=== PATIENT | female | born 1945 | race Caucasian/White ===

== ENCOUNTER → 2021-01-28 | Day surgery (SDC) | payer OTHER ==
--- NOTE | 2021-01-28 13:21 | RAD REPORT ---
EXAM DESCRIPTION: US - Guided FNA Non Breast - 01/28/2021 11:19 am CLINICAL HISTORY: Thyroid nodule ICD R22.1 COMPARISON: January 13, 2021 ultrasound TECHNIQUE: Risks, benefits and alternatives of procedure explained to the patient and informed conse nt obtained. Skin and subcutaneous tissues anesthetized with lidocaine. Under sonographic guidance, Five 25 gauge needle passes were obtained into the 11 millimeter nodule within the right lobe contain ing punctate calcification. Five 25 gauge needle passes were obtained into the 16 millimeter partially calcified nodule left lobe of the thyroid. Five 25 gauge needle passes were obtained into the 4.2 centimeter nodule left lobe of the thyroid gla nd. Specimens given to pathology. Patient experienced no immediate complication IMPRESSION: Fine-needle aspiration of 3 nodules within the thyroid gland
--- NOTE | 2021-01-28 15:30 | RAD REPORT ---
EXAM DESCRIPTION: US - FINE NEEDLE ASPIRATION 2ND LES - 01/28/2021 11:25 am CLINICAL HISTORY: Thyroid nodule ICD R22.1 COMPARISON: January 13, 2021 ultrasound TECHNIQUE: Risks, benefits and alternatives of procedure explained to the patient and informed conse nt obtained. Skin and subcutaneous tissues anesthetized with lidocaine. Under sonographic guidance, Five 25 gauge needle passes were obtained into the 11 millimeter nodule within the right lobe contain ing punctate calcification. Five 25 gauge needle passes were obtained into the 16 millimeter partially calcified nodule left lobe of the thyroid. Five 25 gauge needle passes were obtained into the 4.2 centimeter nodule left lobe of the thyroid gla nd. Specimens given to pathology. Patient experienced no immediate complication IMPRESSION: Fine-needle aspiration of 3 nodules within the thyroid gland
== END ==
LOC: FNA 09:38
PROVIDERS: ATTEND Family Medicine
DX: R22.1 Localized swelling, mass and lump, neck (principal)
CPT/HCPCS: 10006; 88162; 88305

== ENCOUNTER 2021-03-08 22:40 | Inpatient (IN) | payer OTHER ==
--- OUTSIDE RECORDS SUMMARY | 2021-03-08 22:44 | XMS REPORT | Continuity of Care Document ---
:1945 Author Organization [facility] t Address [address] [place] [address] Care Team Providers Name Role Phone Chicho Ibarra MD Attending Clinician Danilo Mock MD Attending Clinician CHICHO IBARRA Attending Clinician Unavailable Evelyn ARELLANO Attending Clinician [address] Room Attending Clinician Unavailable EVELYN Attending Clinician Unavailable CHICHO IBARRA Admitting Clinician Unavailable Payers Payer Name Policy Type Policy Effective Date Expiration Date Sour ce Number MEDICAREMEDICARE A [id number] 2008 SHEILA Watkins [id number] 2007- 00:00:00 - [facility] MCR [id number] 2017 SHEILA Mcdonald SUPPLEMENT/INDIVIDUALM 00:00:00 - [facility] [id number] 2016- PresentMedigap Problems Condition Condition Condition Status Onset Resolution Last Treating Co mments Source Name Details Category Date Date Treatment Clinician Date Thyroid Thyroid Disease Active SHEILA Bella cancer cancer 6- [facility] S/P S/P Disease Active SHEILA Bella thyroidect thyroidect 03-05 [facility] - la nena la nena 00:00: Medical 00 Center Papillary Papillary Disease Active SHEILA Bella thyroid thyroid 02-11 [facility] - carcinoma carcinoma 00:00: Medi shy 00 Center Essential Essential Disease Active 2017-[address] [facility] hypertensi hypertensi 2-17 Mary kes - on on 00:00: Medical 00 Center Atrial Atrial Disease Active 2017-[address] [facility] fibrillati fibrillati 2-17 Mary kes - on with on with 00:00: Medical RVR RVR 00 Center Allergies, Adverse Reactions, Alerts Allergy Allergy Status Severity Reaction(s) Onset Inactive Treating Comm ents Source Name Type Date Date Clinician Sulfa Drug Active Other (See 2017-[address] [facility] (Sulfona Allergy Comments), 2-16 [facility] - mide Rash 00:00: Medical Antibiot 00 Center ics) Social History Social Habit Start Date Stop Date Quantity Comments Source History SDOH [facility] - Alcohol Std Drinks [facility] History SDOH [facility] Binge Medical [facility] Sex Assigned At [facility] Exposure to Not sure SHEILA Sorianokes - SARS-CoV-2 (event) [facility] Tobacco use and 2021-03-05 2021-03-05 Never used [facility] - exposure 00:00:00 00:00:00 [facility] Alcohol intake 2021-03-05 2021-03-05 [facility]00 of alcohol [facility] Center (finding) History SDOH 2021-03-04 2021-03-04 1 [facility] Frequency 00:00:00 00:00:00 [facility] Tobacco Comment 2021-03-04 2021-03-04 quit- [facility] 00:00:00 ago [facility] Smoking Status Start Date Stop Date Source Former smoker 2021-03-05 00:00:00 2021-03-05 00:00:00 [facility] Medications Ordered Filled Start Stop Current Ordering Indication Dosage Frequency Signature Comments Components Source Medication Medication Date Date Medication? Clinician (SIG) Name Name omega-3 Yes 2g Q.5D Take [address] [facility] acid ethyl 6-04 by mouth 2 [place] [facility] - esters 08:42: (two) Medical (LOVAZA) 1 11 times Center gram daily. capsule fenofibrate Yes 145mg QD Take [address] (TRICOR) 6-04 mg by [facility] - 145 MG 08:42: mouth Medical tablet 11 daily. [place] ramipriL Yes 10mg QD Take [address] (ALTACE) 10 04 by mouth Luke s - MG capsule 08:42: daily. Medic al 11 [place] sertraline Yes 50mg QD Take [address] (ZOLOFT) 50 6-04 by mouth Luke [facility] - MG tablet 08:42: daily. Medica l 11 [place] rivaroxaban Yes Take by [facility] (XARELTO) 04 mouth [facility] - 20 mg Tab 08:42: daily with Me dical tablet 11 dinner. [place] furosemide Yes 80mg Q.5D Take [address] (LASIX) 80 6-04 by mouth 2 [facility] - MG tablet 08:42: (two) Medical 11 times Center daily. omeprazole Yes 40mg QD Take [address] (PriLOSEC) 6-04 by mouth [facility] - 40 MG 08:42: daily. Medical capsule 11 [place] metoprolol Yes 25mg Q.5D Take [address] tartrate -04 by mouth 2 [facility] - (LOPRESSOR) 08:42: (two) Medic al 25 MG 11 times Center tablet daily. calcitrioL 2021- Yes .25ug QD Take [address] (ROCALTROL) 03-06 capsule Luke s - 0.25 MCG 00:00: 23:59 (0.25 mcg Med ical capsule 00 :00 total) by Center mouth daily. levothyroxi 2021- Yes 150ug Take [address] ne 03-06 tablet [facility] - (SYNTHROID, 00:00: 23:59 (150 mcg M edical LEVOTHROID) 00 :00 total) by [address] [facility] 150 MCG mouth tablet Every morning on an empty stomach. calcium 2020- No 1500mg Take 3 [facility] carbonate 03-06 tablets [facility] - (TUMS) 500 00:00: 00:00 (1,500 mg M edical mg chewable 00 :00 total) by [address] [facility] tablet mouth every 4 (four) hours Take every 4 hours while awake. Vital Signs Vital Name Observation Time Observation Value Comments Source Oxygen saturation in 2021-03-06 07:47:00 96 /min [facility] - Arterial blood by Medical Ce nter Pulse oximetry Systolic blood 2021-03-06 07:47:00 135 mm[Hg] [facility] Diastolic blood 2021-03-06 07:47:00 75 mm[Hg] [facility] Heart rate 2021-03-06 07:47:00 64 /min [facility] Body temperature 2021-03-06 07:47:00 36.39 Melia [facility] Respiratory rate 2021-03-06 07:47:00 18 /min [facility] Body height 2021-03-05 07:00:00 170.2 cm [facility] Body weight 2021-03-05 07:00:00 86.2 kg [facility] BMI 2021-03-05 07:00:00 29.76 kg/m2 [facility] Procedures Procedure Date / Time Performed Performing Clinician [facility] e POCT-GLUCOSE METER 2021-03-05 21:37:00 Stacey Arnot [facility] ECG 12-LEAD 2021-03-05 17:03:21 Quirino Ennis [facility] PTH, INTACT 2021-03-05 12:21:00 Wyatt Lu [facility] PTH, INTACT 2021-03-05 11:22:[facility] 2021-03-05 11:11:[facility] 2021-03-05 11:04:54 [facility], INTACT 2021-03-05 10:20:44 Stacey [facility] THYROIDECTOMY,TOTAL 2021-03-05 09:30:00 Stacey [facility] DISSECTION,NECK 2021-03-05 09:30:00 Stacey [facility] PROCEDURE W/ NIMS 2021-03-05 09:30:00 Vidal Ibarra [facility] BASIC METABOLIC PANEL 2021-03-05 08:07:00 Loco Bridger [facility] - (7) Medical Center ABORH, MANUAL 2021-03-05 07:45:00 Jennifer oRn [facility] HEMOGLOBIN 2021-03-05 07:34:00 Loco Bridger [facility] TYPE AND SCREEN, 2021-03-05 07:34:00 Wyatt Lu [facility] s - AUTOMATED [facility] Center CT NECK SOFT TISSUE 2021-02-18 13:38:00 Evelyn Caren [facility] - WITH & WITHOUT IV Medical Center CONTRAST POCT-CREATININE 2021-02-18 12:29:00 [facility] Caren [facility] Plan of Care Planned Activity Planned Date Details Comments Source Future Scheduled 2021-06-[address] [facility] - Test 00:00:00 (Season Ended) [code Medical Center = INFLUENZA VACCINE (Season Ended)] Future Scheduled 2020-10-[address] [facility] - Test 00:00:00 (12+) [code = Medical Center DEPRESSION SCREENING (12+)] Future Scheduled 2009-09-[address] [facility] - Test 00:00:00 WELLNESS (YEAR 2 or Medical Center FIRST YEAR if no IPPE) [code = MEDICARE ANNUAL WELLNESS (YEAR 2 or FIRST YEAR if no IPPE)] Future Scheduled 1993 SHINGLES VACCINES ([address] [facility] - Test 00:00:00 of 2) [code = Medical Center SHINGLES VACCINES (1 of 2)] Future Scheduled 1962 DTAP/TDAP/TD VACCINES [facility] - Test 00:00:00 (1 - Tdap) [code = Medical C enter DTAP/TDAP/TD VACCINES (1 - Tdap)] Future Scheduled 1961 HEPATITIS C SCREENING [facility] - Test 00:00:00 [code = HEPATITIS C Medical Center SCREENING] Results Test Description Test Time Test Comments Results Result Sourc e Comments ECG 12 lead Interface, External Ris [facility] 4 In - 03/06/2021 4:59 [facility] - 16:59:20 PM CDTVentricular Rate Me dical 71 BPMAtrial Rate [address] BPMQRS Duration 154 msQ-T Interval 440 msQTC Calculation(Bazett) 478 msR [place] -46 degreesT [place] 135 degreesAtrial fibrillation with premature ventricular or aberrantly conducted complexesLeft axis deviationLeft bundle branch blockAbnormal ECGNo previous ECGs availableConfirmed by MD Mir Roberto ([id number]) on 03/06/2021 4:59:16 PM POC-Glucose meter 2021-03-05 21:48:00 Test Item Value Reference Range Interpretation Comme nts POC-Glucose Meter (test code = 122 mg/dL 70-110 H : TESTED AT [facility] [address] [facility] 1538) [facility], [address] 30: Workforce Development Assistant/Techni maria fernanda ID = [id number] for ELLA JOHNSON Lab Interpretation (test code = Abnormal 50195-1) [facility]SE [id number] 21:48:00 Test Item Value Reference Range Interpretation Comments POC-GLUCOSE METER 122 mg/dL 70-110 H : TESTED A T [facility] [address] (BEAKER) (test code = BERTNE R [facility], 1538) [address]: Workforce Development Assistant/Techni maria fernanda ID = [id number] for ELLA MARQUIS PTH, [id number] 12:53:00 Test Item Value Reference Range Interpretation Comments PTH (test code = 2731-8) 10.4 pg/mL 8.5-72.5 ANIBAL (test code = ANIBAL) Workforce Development Assistant ID - RANI F Lab Interpretation (test Normal code = 75617-2) [facility], [id number] 12:53:00 Test Item Value Reference Range Interpretation Comments PARATHYROID HORMONE INTACT 10.4 pg/mL 8.5-72.5 (BEAKER) (test code = 577) Workforce Development Assistant ID - RANI FPTH, [id number] 12:33:00 Test Item Value Reference Range Interpretation Comments PARATHYROID HORMONE INTACT 60.9 pg/mL 8.5-72.5 (AKER) (test code = 577) Workforce Development Assistant ID Joshua SARAVIA TH, [id number] 11:48:00 Test Item Value Reference Range Interpretation Comments PARATHYROID HORMONE INTACT 18.2 pg/mL 8.5-72.5 (BEAKER) (test code = 577) Workforce Development Assistant CARLOS SARAVIA [facility], [id number] 11:38:00 Test Item Value Reference Range Interpretation Comments PARATHYROID HORMONE INTACT 78.8 pg/mL 8.5-72.5 H (BEAKER) (test code = 577) Workforce Development Assistant CARLOS SARAVIA [facility], [id number] 10:45:00 Test Item Value Reference Range Interpretation Comments PARATHYROID HORMONE INTACT 223.6 pg/mL 8.5-72.5 H (BEAKER) (test code = 577) Workforce Development Assistant CARLOS SARAVIA FBasic Metabolic [id number] 08:46:00 Test Item Value Reference Range Interpretation Comments Sodium (test code = 140 meq/L 263-553 2615-2) Potassium (test code 4.7 meq/L 3.5-5.1 = 2823-3) Chloride (test code = 101 meq/L 98-107 2075-0) CO2 (test code = 28 meq/L 22-29 2028-9) BUN (test code = 35 mg/dL 7-21 H 3094-0) Creatinine (test code 1.25 mg/dL 0.57-1.25 = 2160-0) Glucose (test code = 108 mg/dL 70-105 H 2345-7) Calcium (test code = 10.9 mg/dL 8.4-10.2 H 39689-2) EGFR (test code = 42 mL/min/1.73 [place] [address]-1) NOT ACCURATE CREATININE CLEARANCE IN PREDICTING GLOMERULAR FILTRATION RATE . ESTIMATED GFR I S NOT APPLICABLE FOR DIALYSIS PATIENTS. ANIBAL (test code = ANIBAL) Workforce Development Assistant ID Joshua SARAVIA FOperator CARLOS SARAVIA F Lab Interpretation Abnormal (test code = 21146-0) [facility] METABOLIC [id number] 08:46:00 Test Item Value Reference Range Interpretation Comments SODIUM (BEAKER) 140 meq/L 136-145 (test code = 381) POTASSIUM (BEAKER) 4.7 meq/L 3.5-5.1 (test code = 379) CHLORIDE (BEAKER) 101 meq/L 98-107 (test code = 382) CO2 (BEAKER) (test 28 meq/L 22-29 code = 355) BLOOD UREA NITROGEN 35 mg/dL 7-21 H (BEAKER) (test code = 354) CREATININE (BEAKER) 1.25 mg/dL 0.57-1.25 (test code = 358) GLUCOSE RANDOM 108 mg/dL 70-105 H (BEAKER) (test code = 652) CALCIUM (BEAKER) 10.9 mg/dL 8.4-10.2 H (test code = 697) EGFR (BEAKER) (test 42 mL/min/1.73 ESTIMA CALLUM GFR IS code = 1092) sq m NOT ACCURATE CREATININE CLEARANCE IN PREDICTING GLOMERULAR FILTRATION RATE . ESTIMATED GFR I S NOT APPLICABLE FOR DIALYSIS PATIEN TS. Workforce Development Assistant ID - RANI FOperator ID - RANI FType and screen, automated 2021-03-05 08:35:00 Test Item Value Reference Range Interpretation Comments ABO/RH AUTOMATED (BEAKER) (test O POSITIVE code = 2260) Ab Scrn (test code = 890-4) NEGATIVE [facility], [id number] 07:56:00 Test Item Value Reference Range Interpretation Comments ABO Grouping (test code = 2588) O Rh Factor (test code = 2589) POS [facility] CenterHemoglobin2021-06-03 07:44:00 Test Item Value Reference Range Interpretation Comments Hemoglobin (test code 14.0 See_Comment [Auto mated = 786-4) message] The system which generated this result transmit callum reference range : 11.2 - 15.7 GM/ DL. The reference range was not u sed to interpret th is result as normal/abnormal . ANIBAL (test code = ANIBAL) Workforce Development Assistant ID - [id number] Lab Interpretation Normal (test code = 79099-2) [facility] CenterHEMOGLOBIN2021-06-03 07:44:00 Test Item Value Reference Range Interpretation Comments HEMOGLOBIN (BEAKER) (test code = 14.0 GM/DL 11.2-15.7 410) Workforce Development Assistant ID - [id number], SOFT TISSUE NECK, WITHOUT / WITH IV [id number] 15:40:00Parathyroid glandsUnlisted Reason for Exam - Click Yes and Enter Reason Below->NoKAISER FOUNDATION HOSPITALName: JESSICA ASTUDILLO : 1945 Sex: FFINAL REPORT EXAMINATION: CT of the neck without and with contrast HISTORY: Primary hyperparathyroidism, evaluate for parathyroid adenoma. History of thyroid cancerand biopsy on 01/31/2021OMPARISON: None TECHNIQUE: Multidetector helical axial images were obtained from the denise to the angle of the mandible before and during intravenous infusion of iodinated contrast material. Intravenous contrast: 100 middle [id number]-300.Image quality: Prominent streak artifact from hearing devices and dental amalgams limits evaluation of the upper neck and oral cavity.Dose modulation, iterative reconstruction, and/or weight based adjustment of the mA/kV was utilized to reduce the radiation dose to as low as reasonably achievable. FINDINGS: Mass: Small approximately 6 mm not significantly enhancing nodule behind the superior pole of the left lobe of the thyroid gland, almost retroesophageal may represent a lymph node versus a left superior parathyroid adenoma (please see arrows on saved ndiaye images).A small 5 mm nonsignificant enhancing nodule adjacent to the inferior pole of the left lobe of the thyroid gland may represent a lymph node versus a not significantly enhancing left inferior parathyroid adenoma. (Please see arrows on saved ndiaye images). Lymph nodes: Multiple small central compartment lymph nodes may be related to prior thyroiditis, dizziness evaluation of parathyroid adenomas. Oral cavity: Limited evaluation due to prominent streak artifact from metallic dental fillings. Salivary glands: The right submandibular gland cyst smaller, mildly atrophic, possibly the sequela from prior inflammatory processes/sialoadenitis, no soft tissue defects are seen at this time. Included parotid glands are unremarkable. Pharynx: Incidentally noted1.1 cm nonenhancing mucosal retention cyst in the right vallecula Larynx: Unremarkable. Thyroid gland: Mild diffuse enlargement, with multiple partially calcified nodules in approximately 2.7 cm cystic lesion in the left lobe/isthmus (this cystic lesion appears to be inseparable from the overlying strap muscles, without definite infiltration). No Saul extrathyroidal tumor extension, no infiltration of the trachea, esophagus or carotid space vessels. Upper esophagus: Mild proximal distention, distal stenosis cannot be excluded in the appropriate clinical setting. Blood vessels: Patent carotid arteries. Bones: Multilevel spondylosis, uncovertebral and facet arthroses. Moderately severe degenerative foraminal stenoses at C3-C4 and mild at C4-C5 and C5-C6 and C6-7. Interbody and posterior fusion at C2-C3. Mild degenerative retrolisthesis at C4-C5 and C5-C6. Incidentalfindings: Torus palatini as a normal variation of the anatomy. IMPRESSION: 1.No discrete parathyroidadenoma, suspicious not significantly enhancing small left superior and left inferior retro thyroidal nodules as detailed above. 2.Heterogeneous thyroid gland with multiple partially calcified and cystic nodules as detailed above. 3.No enlarged cervical lymphadenopathy. Signed: Daisy Browning MDReport Verified Date/Time: 02/18/2021 15:40:00 Reading Location: [facility] Room [address] [place] [address] CT neck soft tissue without & with IV [id number] 15:40:00Interface, External Ris In - 02/18/2021 3:42 PM CDTFINAL REPORT EXAMINATION:CT of the neck without and with contrast HISTORY: Primary hyperparathyroidism, evaluate for parathyroid adenoma. History of thyroid cancer and biopsy on 01/31/2021OMPARISON: None TECHNIQUE: Multidetector helical axial images were obtained from the denise to the angle of the mandible before and during intravenous infusion of iodinated contrast material. Intravenous contrast: 100 middle Isovue-300.Image quality: Prominent streak artifact from hearing devices and dental amalgams limits evaluation of the upper neck and oral cavity.Dose modulation, iterative reconstruction, and/or weight based adjustment of the mA/kV was utilized to reduce the radiation dose to as low as reasonably achievable. FINDINGS: Mass: Small approximately 6 mm not significantly enhancing nodule behind the superior pole of the left lobe of the thyroid gland, almost retroesophageal may represent a lymph node versus a left superior parathyroid adenoma (please see arrows on saved ndiaye images).A small 5 mm nonsignificant enhancing nodule adjacent to the inferior pole of the left lobe of the thyroid gland may represent a lymph node versus a not significantly enhancing left inferior parathyroid adenoma. (Please see arrowson saved ndiaye images). Lymph nodes: Multiple small central compartment lymph nodes may be related to prior thyroiditis, dizziness evaluation of parathyroid adenomas. Oral cavity: Limited evaluation due to prominent streak artifact from metallic dental fillings. Salivary glands: The right submandibular gland cyst smaller, mildly atrophic, possibly the sequela from prior inflammatory process es/sialoadenitis, no soft tissue defects are seen at this time. Included parotid glands are unremarkable. Pharynx: Incidentally noted 1.1 cm nonenhancing mucosal retention cyst in the right vallecula Larynx: Unremarkable. Thyroid gland: Mild diffuse enlargement, with multiple partially calcified nodules in approximately 2.7 cm cystic lesion in the left lobe/isthmus (this cystic lesion appears to be inseparable from the overlying strap muscles, without definite infiltration). No Saul extrathyroidal tumor extension, no infiltration of the trachea, esophagus or carotid space vessels. Upper esophagus: Mild proximal distention, distal stenosis cannot be excluded in the appropriate clinical setting. Blood vessels: Patent carotid arteries. Bones: Multilevel spondylosis, uncovertebral and facet arthroses. Moderately severe degenerative foraminal stenoses at C3-C4 and mild at C4-C5 and C5-C6 and C6-7. Interbody and posterior fusion at C2-C3. Mild degenerative retrolisthesis at C4-C5 and C5-C6. Incidental findings: Torus palatini as a normal variation of the anatomy. IMPRESSION: 1.No discrete parathyroid adenoma, suspicious not significantly enhancing small left superior and left inferior retro thyroidal nodules as detailed above. 2.Heterogeneous thyroid glandwith multiple partially calcified and cystic nodules as detailed above. 3.No enlarged cervical lymphadenopathy. Signed: Daisy Browning MDReport Verified Date/Time: 02/18/2021 15:40:00 Reading Location: [facility] Room [address] [place] [address] [facility]-[id number] 12:49:00 Test Item Value Reference Range Interpretation Comments POC-Creatinine (test 1.1 mg/dL 0.6-1.3 : TESTE D AT [facility] 7200 code = 1859) [facility] 7703 0: Workforce Development Assistant/Techni maria fernanda ID = [id number] for CE PACHECO POC-EGFR (test code 48 mL/min/1.73M2 = 1860) [facility] CenterPOCT-[id number] 12:49:00 Test Item Value Reference Range Interpretation Comments POC-CREATININE 1.1 mg/dL 0.6-1.3 : TESTED AT [facility] ([facility]) (test 7[address] [facility] code = 1859) [facility] 7 7030: Workforce Development Assistant/Techni maria fernanda ID = [id number] for CE VALLECILLO POC-EGFR 48 mL/min/1.73M2 ([facility]) (test code = 1860)
[2021-03-09 00:05] LABS: Potassium 4.4 mmol/L (3.5-5.1)
[2021-03-09 00:09] LABS: Absolute Lymphocytes (CBC) 0.6 K/uL (0.7-4.9); Basophils % 0.3 % (0-1.3); Hematocrit 42.3 % (36.0-45.0); Lymphocytes % 9.9 % (15.3-44.8); MPV 9.7 fL (7.6-11.3)
[2021-03-09 00:11] LABS: Protime INR 1.77
--- NOTE | 2021-03-09 02:46 | EDPHYS ---
Physician Documentation [facility] Name: Nia Mandel Age: 75 yrs Sex: Female : 1945 Arrival Date: 03/08/2021 Time: 22:44 Bed 19 Private MD: ED Physician Kilo Mota HPI: 03/09 06:49 This 75 yrs old Female presents to ER via Ambulatory with complaints of tw4 Shoulder and Arm pain and numbness. 06:49 The patient presents to the emergency department with paresthesias of the right upper tw4 extremity. Onset: The symptoms/episode began/occurred today. Context: occurred at home. Associated signs and symptoms: Pertinent positives: weakness. Severity of symptoms: At their worst the symptoms were moderate in the emergency department the symptoms have improved markedly. Patient's baseline: Neuro: alert and fully oriented, Motor: no deficits. Historical: - Allergies: 03/08 23:12 Sulfa (Sulfonamide Antibiotics); bb - Home Meds: 23:12 calcitriol oral oral [Active]; levothyroxine oral [Active]; fenofibrate oral oral bb [Active]; Furosemide Oral [Active]; Metoprolol Tartrate Oral [Active]; omega-3 [Active]; Omeprazole Oral [Active]; Ramipril Oral [Active]; rivaroxaban oral oral [Active]; sertraline oral oral [Active]; - PSHx: 23:12 Thyroidectomy; bb - Immunization history:: Adult Immunizations up to date. - Social history:: Smoking status: unknown. ROS: 03/09 06:49 Constitutional: Negative for fever, chills, and weight loss, Eyes: Negative for injury, tw4 pain, redness, and discharge, Cardiovascular: Negative for chest pain, palpitations, and edema, Respiratory: Negative for shortness of breath, cough, wheezing, and pleuritic chest pain, Abdomen/GI: Negative for abdominal pain, nausea, vomiting, diarrhea, and constipation, Back: Negative for injury and pain, MS/Extremity: Negative for injury and deformity, Skin: Negative for injury, rash, and discoloration. Neuro: Positive for numbness, weakness, Negative for altered mental status, dizziness, gait disturbance, headache. Exam: 06:49 Constitutional: This is a well developed, well nourished patient who is awake, alert, tw4 and in no acute distress. Head/Face: Normocephalic, atraumatic. Chest/axilla: Normal chest wall appearance and motion. Nontender with no deformity. No lesions are appreciated. Cardiovascular: Regular rate and rhythm with a normal S1 and S2. No gallops, murmurs, or rubs. Normal PMI, no JVD. No pulse deficits. Respiratory: Lungs have equal breath sounds bilaterally, clear to auscultation and percussion. No rales, rhonchi or wheezes noted. No increased work of breathing, no retractions or nasal flaring. Abdomen/GI: Soft, non-tender, with normal bowel sounds. No distension or tympany. No guarding or rebound. No evidence of tenderness throughout. Back: No spinal tenderness. No costovertebral tenderness. Full range of motion. Skin: Warm, dry with normal turgor. Normal color with no rashes, no lesions, and no evidence of cellulitis. MS/ Extremity: Pulses equal, no cyanosis. Neurovascular intact. Full, normal range of motion. Neuro: Awake and alert, GCS 15, oriented to person, place, time, and situation. Cranial nerves II-XII grossly intact. Motor strength 5/5 in all extremities. Sensory grossly intact. Cerebellar exam normal. Normal gait. Vital Signs: 03/08 23:05 BP 179 / 124; Pulse 97; Resp 16; Temp 98.4(O); Pulse Ox 95% on R/A; Weight 83.91 kg bb (R); Height 5 ft. 7 in. (170.18 cm) (R); Pain 6/10; 23:42 BP 170 / 88; Pulse 87; Resp 18; Pulse Ox 100% ; ak2 03/09 02:14 BP 162 / 85; Pulse 82; Resp 18; Pulse Ox 97% ; ak2 05:38 BP 159 / 86; Pulse 83; Resp 18; Pulse Ox 98% on R/A; ak2 03/08 23:05 Body Mass Index 28.97 (83.91 kg, 170.18 cm) bb MDM: 03/08 23:05 Patient medically screened. tw4 03/09 06:49 Data reviewed: vital signs, nurses notes. Data interpreted: Pulse oximetry: tw4 Interpretation: normal. Counseling: I had a detailed discussion with the patient and/or guardian regarding: the historical points, exam findings, and any diagnostic results supporting the discharge/admit diagnosis. Physician consultation: Felipe Forde MD regarding admission, to the telemetry unit. and will see patient in inpatient room. Admission orders: after a detailed discussion of the patient's condition and case, the admit orders are written by me. 03/08 23:32 Order name: Basic Metabolic Panel; Complete Time: 00:27 03/09 00:27 Interpretation: Normal except: NA 135; GLUC 151; BUN 35; CRE 1.36; GFR 38. 03/08 23:32 Order name: CBC with Diff; Complete Time: 00:27 03/09 00:27 Interpretation: Normal except: LYM% 9.9; ROBI% 77.7. 03/08 23:32 Order name: Protime (+inr); Complete Time: 00:27 03/09 00:27 Interpretation: Normal except: PT 20.5. 03/08 23:32 Order name: Ptt, Activated; Complete Time: 00:27 03/09 00:28 Interpretation: Abnormal: PTT 40.4. 03/09 04:57 Order name: SARS-COV-2 RT PCR [facility] 03/09 05:20 Order name: CKMB Creatine Kinase MB [facility] 03/09 05:20 Order name: CKMB Creatine Kinase MB [facility] 03/09 05:20 Order name: Creatine Phosphokinase [facility] 03/09 05:20 Order name: Creatine Phosphokinase [facility] 03/09 05:20 Order name: Lipid Profile [facility] 03/09 05:20 Order name: Lipid Profile [facility] 03/09 05:20 Order name: Troponin I [facility] 03/09 05:20 Order name: Troponin I [facility] 03/08 23:19 Order name: Ct Stroke Brain Wo Cont [facility] 03/08 23:32 Order name: Call for Old Records; Complete Time: 23:36 03/08 23:32 Order name: Call for Old EKG; Complete Time: 23:36 03/08 23:32 Order name: Stroke CXR 1 View 03/08 23:32 Order name: EKG; Complete Time: 23:33 03/08 23:32 Order name: Accucheck tw4 06/06 23:32 Order name: Cardiac monitoring tw4 03/08 23:32 Order name: EKG - Nurse/Tech tw4 03/08 23:32 Order name: IV Saline Lock tw4 03/08 23:32 Order name: Labs collected and sent tw4 03/08 23:32 Order name: NPO tw4 03/08 23:32 Order name: O2 Per Protocol tw4 03/09 05:20 Order name: NPO EDMS 03/09 05:20 Order name: NPO EDMS 03/09 05:20 Order name: NPO EDMS 03/09 05:22 Order name: Brain With Cont EDMS 03/08 23:32 Order name: O2 Sat Monitoring tw4 03/08 23:32 Order name: Stroke Swallow Screen 4 Administered Medications: No medications were administered Disposition: 03/09/21 02:46 Hospitalization ordered by Felipe Forde for Observation. Preliminary diagnosis is PARASTHESIA. - Bed requested for Telemetry/MedSurg (observation). - Status is Observation. ak2 - Condition is Stable. - Problem is new. - Symptoms have improved. Signatures: Dispatcher [employer] EDMN Kena Almendarez RN RN Emily Kirby RN RN Kilo Salazar MD MD tw4 Jaison Benoit mw2 Serafin Freeman ak2 Corrections: (The following items were deleted from the chart) 03:22 02:46 Hospitalization Ordered by Kike Slater DO for Observation. Preliminary tw4 diagnosis is PARASTHESIA. Bed requested for Telemetry/MedSurg (observation). Status is Observation. Condition is Stable. Problem is new. Symptoms have improved. tw4 04:01 02:52 CORONAVIRUS+MR.LAB.BRZ ordered. [facility] EDMS 05:24 03:22 03/09/2021 02:46 Hospitalization Ordered by Felipe Forde MD for Observation. Preliminary diagnosis is PARASTHESIA. Bed requested for Telemetry/MedSurg (observation). Status is Observation. Condition is Stable. Problem is new. Symptoms have improved. tw4 06:04 05:24 03/09/2021 02:46 Hospitalization Ordered by Felipe Forde MD for Observation. ak2 Preliminary diagnosis is PARASTHESIA. Bed requested for Telemetry/MedSurg (observation). Status is Observation. Condition is Stable. Problem is new. Symptoms have improved. mw
--- NOTE | 2021-03-09 02:46 | ER ---
Nurse's Notes [facility] Name: Nia Mandel Age: 75 yrs Sex: Female : 1945 Arrival Date: 03/08/2021 Time: 22:44 Bed 19 Private MD: Diagnosis: PARASTHESIA Presentation: 03/08 23:05 Chief complaint: Patient states: [facility] she had a sudden onset of right shoulder pain with numbness of fingers and inability to move them they called her surgeon and was told it was low calcium so she took tums but it is still painful. Coronavirus screen: At this time, the client does not indicate any symptoms associated with coronavirus-19. Ebola Screen: No symptoms or risks identified at this time. Initial Sepsis Screen: Does the patient meet any 2 criteria? No. Patient's initial sepsis screen is negative. Does the patient have a suspected source of infection? No. Patient's initial sepsis screen is negative. Risk Assessment: Do you want to hurt yourself or someone else? Patient reports no desire to harm self or others. Onset of symptoms was March 08, 2021 at 19:30. 23:05 Method Of Arrival: Ambulatory bb 23:05 Acuity: SHYANNE 2 bb Triage Assessment: 23:38 General: Appears in no apparent distress. Behavior is calm, cooperative. Pain: ak2 Complains of pain in right arm. Historical: - Allergies: 23:12 Sulfa (Sulfonamide Antibiotics); bb - Home Meds: 23:12 calcitriol oral oral [Active]; levothyroxine oral [Active]; fenofibrate oral oral bb [Active]; Furosemide Oral [Active]; Metoprolol Tartrate Oral [Active]; omega-3 [Active]; Omeprazole Oral [Active]; Ramipril Oral [Active]; rivaroxaban oral oral [Active]; sertraline oral oral [Active]; - PSHx: 23:12 Thyroidectomy; bb - Immunization history:: Adult Immunizations up to date. - Social history:: Smoking status: unknown. Screenin:37 Abuse screen: Denies threats or abuse. Denies injuries from another. Nutritional ak2 screening: No deficits noted. Tuberculosis screening: No symptoms or risk factors identified. Fall Risk None identified. Assessment: 23:04 Reassessment: pt to CT scan via stretcher accompanied by drivability technician. bb 03/09 05:39 General: report called to rn. ak2 Vital Signs: 03/08 23:05 BP 179 / 124; Pulse 97; Resp 16; Temp 98.4(O); Pulse Ox 95% on R/A; Weight 83.91 kg bb (R); Height 5 ft. 7 in. (170.18 cm) (R); Pain 6/10; 23:42 BP 170 / 88; Pulse 87; Resp 18; Pulse Ox 100% ; ak2 03/09 02:14 BP 162 / 85; Pulse 82; Resp 18; Pulse Ox 97% ; ak2 05:38 BP 159 / 86; Pulse 83; Resp 18; Pulse Ox 98% on R/A; ak2 03/08 23:05 Body Mass Index 28.97 (83.91 kg, 170.18 cm) ashley ED Course: 03/08 22:44 Patient arrived in ED. cf2 23:04 Arm band placed on Patient placed in an exam room, on a stretcher, code stroke called bb pt to CT scan. 23:04 Inserted saline lock: 20 gauge in left antecubital area, using aseptic technique. bb ,using aseptic technique. by Dario CHILDERS Blood collected. 23:05 Kilo Mota MD is Attending Physician. tw4 23:08 Triage completed. bb 23:22 Initial lab(s) drawn, by ED staff, sent to lab. EKG done, by ED staff, reviewed by ashley Mota MD. 23:28 Ct Stroke Brain Wo Cont In Process Unspecified. EDMS 23:34 Serafin Freeman is Primary Nurse. ak2 23:37 Patient has correct armband on for positive identification. Bed in low position. Call ak2 light in reach. 23:37 No provider procedures requiring assistance completed. Inserted. ak2 23:59 Stroke CXR 1 View In Process Unspecified. EDMS 03/09 02:45 Kike Slater DO is Hospitalizing Provider. tw4 03:22 Hospitalizing Provider role handed off by Kike Slater DO tw4 03:22 Felipe Forde MD is Hospitalizing Provider. tw4 Administered Medications: No medications were administered Outcome: 02:46 Decision to Hospitalize by Provider. tw4 06:04 Admitted to Tele ak2 06:04 Patient left the ED. ak2 Signatures: Dispatcher [employer] Emily Gutierrez RN RN bb Kilo Mota MD MD tw4 Raz Schuster 2 Serafin Freeman ak2 Corrections: (The following items were deleted from the chart) 03/08 23:20 23:05 BP 179 / 124; Resp 16bpm; Temp 98.4F Oral; 83.91 kg Reported; Height 5 ft. 7 in. bb Reported; BMI: 28.9; Pain 6/10; bb
[2021-03-09] MEDS ORDERED: MORPHINE 4 MG/ML SYR ONE (04:17)
[2021-03-09] MEDS ORDERED: ONDANSETRON 4 MG/2 ML VIAL ONE (04:17)
[2021-03-09 06:14] VITALS: BMI 29.3
[2021-03-09] MEDS: NA CHLORIDE 0.9% 1,000 ML IV SCH (06:31)
--- NOTE | 2021-03-09 07:34 | RAD REPORT ---
EXAM DESCRIPTION: Kulwant Single View03/09/2021 12:00 am CLINICAL HISTORY: Chest pain COMPARISON: 2019 FINDINGS: The lungs appear clear of acute infiltrate. The heart is moderately enlarged IMPRESSION: No acute abnormalities displayed
[2021-03-09] MEDS ORDERED: PNEUMOCOCCAL VACCINE 0.5 ML IMVAC ONE ×2 (08:00→15:00)
[2021-03-09] MEDS ORDERED: ACETAMINOPHEN 500 MG TAB PO PRN (08:21)
[2021-03-09] MEDS ORDERED: ONDANSETRON 4 MG/2 ML VIAL IV PRN (08:23)
[2021-03-09] MEDS ORDERED: LORazepam 2 MG/ML VIAL IV ONE (08:25)
--- NOTE | 2021-03-09 11:32 | RAD REPORT ---
EXAM DESCRIPTION: CT - Ct Stroke Brain Wo Cont - 03/09/2021 9:18 am CLINICAL HISTORY: Right arm pain/numbness COMPARISON: None. TECHNIQUE: Head/brain axial images acquired without contrast. Coronal and sagittal reformats created . Exam performed according to departmental dose-optimization program which includes automated exposur e control, adjustment of mA and/or kV according to patient size, and/or use of iterative reconstructi on technique. FINDINGS: No midline shift, mass effect, intracranial hemorrhage, or hydrocephalus. CSF spaces appear overall mildly enlarged likely representing age-appropriate cerebral volume loss. Paranasal sinuses clear. Partial mastoid air cell opacification. No skull fracture or significant skull lesion. Calcified atherosclerotic intracranial internal carotid and vertebral arteries. Bilateral cochlear implants cause metallic artifact that obscure surrounding structures. IMPRESSION: Bilateral cochlear implants cause metallic artifact that obscure surrounding structures. 1. No CT evidence of acute intracranial abnormality. 2. Right mastoid air cells show partial opacification that may represent fluid/effusion or mastoiditi s. DR. TONE LAMB is notified of findings on 03/09/2021 at 12:40 AM ET. Electronically signed by: Isauro Robertson MD 03/08/2021 11:41 PM CDT Due to temporary technical issues with the PACS/Fluency reporting system, reports are being signed by the in house radiologist without review as a courtesy to ensure prompt reporting. The interpreting r adiologist is fully responsible for the content of the report.
[2021-03-09] MEDS: CODEINE 30MG/APAP 300MG TAB PO PRN (13:42)
--- NOTE | 2021-03-09 16:17 | RAD REPORT ---
EXAM DESCRIPTION: US - Upper Ext Artery Uni Conner - 03/09/2021 3:33 pm CLINICAL HISTORY: suspect clot Arm pain and swelling COMPARISON: Thyroid Para Parotid Gland dated 01/13/2021; FINE NEEDLE ASPIRATION 2ND LES dated 01/29/20 21; FINE NEEDLE ASPIRATION 2ND LES dated 01/28/2021; Guided FNA Non Breast dated 01/28/2021; Ct Stroke Brain Wo Cont dated 03/08/2021 FINDINGS: Sonographic Doppler interrogation of the right upper extremity arterial system was perform ed. There is evidence of occlusion of the right common carotid artery and proximal internal carotid arter y. Right axillary and proximal to mid brachial artery appears occluded with echogenic material. IMPRESSION: There is evidence of arterial occlusion following the right common carotid artery to pro ximal internal carotid artery as well as the right axillary and proximal to mid brachial artery.
--- NOTE | 2021-03-09 16:20 | RAD REPORT ---
EXAM DESCRIPTION: US - UPPER EXTREMITY VENOUS UNILATE - 03/09/2021 3:53 pm CLINICAL HISTORY: suspect clot Arm pain and swelling COMPARISON: Upper Ext Artery Uni Conner dated 03/09/2021 FINDINGS: Right upper extremity venous system was interrogated with Doppler technique. Normal flow, compressibility and augmentation was noted. There is no DVT present. IMPRESSION: No evidence of right upper extremity deep venous thrombosis.
[2021-03-09] MEDS: FUROSEMIDE 40 MG TABLET PO SCH (18:23)
[2021-03-09] MEDS: HEPARIN/D5W 25,000 UNIT/500 ML BAG IV PRN (20:00)
[2021-03-09] MEDS: DOCOSAHEXANOIC AC/EPA 1000 MG PO SCH (20:12)
--- NOTE | 2021-03-09 20:42 | CON ---
Reason For Consultation: Consultation called by Dr. Forde because of possible stroke. History Of Present Illness: Ms. Mandel is a 75-year-old right-handed patient with atrial f ibrillation on Xarelto, who had Xarelto held prior to thyroidectomy done , last week. After surgery, she did not immediately restart the Xarelto, but about 2-3 days later, restarted Xarelto. H owever, last night around 7 p.m., she developed sudden onset right arm severe pain with numbness, tin gling, and weakness of the hand more than the forearm and arm. The symptoms did not improve. The pa leslie and her family in the room denied involvement of the face or involvement of the leg or trunk. Symptoms were significant, perhaps only about 20% function remaining and she came to [facility]. Symptom onset was timed at 7:30 p.m. on March 08. A head CT scan at [facility] was do ne on the because the patient did not come in immediately, around 9:18 a.m., well out of the wind ow for any intravenous tPA. At that time, she was evaluated in the emergency room with some persiste nt right hand weakness and numbness. No involvement of face and legs. CT scan was unremarkable for any acute ischemic or hemorrhagic change. Bilateral cochlear implants were identified, which caused metallic artifact. There was no bleeding in the head. She said the symptoms actually improved and a t the time of my evaluation, she felt back to about 60% of normal in terms of the right arm strength and sensation. However, she had a CT angiogram and only a verbal report is available actually second hand from the hospitalist, but the hospitalist spoke to the radiologist, who mentioned extensive clot s in multiple arteries within the brain. However, clinically the patient only has right arm numbness and weakness. No involvement of the face, trunk, legs. No coordination or balance issues. No spee ch or cognitive issues identified. This was communicated with Dr. Forde. This was discussed with Dr. Forde and since the patient is still within the 24 hour window for intra-arterial thrombolysis and there is a possibility that she may even go beyond that and as she also has significant residual functioning right now, it was determined that she would be best served by potential 4-vessel angiogra m with thrombectomy as appropriate in [place]. There is initiation of transfer to get the [place]. The patient's surgeon who did the thyroid procedure will be contacted by Dr. Forde. She did have Xarelto resumed and that was continued while in hospital. She is also on her comorbid c ondition medications. Past Medical History: As noted. Medications: At home, calcitriol, levothyroxine, fenofibrate, Xarelto 10 mg daily on medications, se rtraline, MegaRed, and metoprolol along with furosemide. Past Surgical History: Thyroidectomy. Family History: Noncontributory. Social History: No alcohol, tobacco, or IV drug use. Review of Systems: Aside from mentioned above, no other positives on the 10-point systems review. Physical Examination: Vital Signs: Blood pressure 138/70, pulse 83, respiratory rate 16, temperature 97.7, oxygen saturati on 95% on room air. Weight 187 pounds, height 5 feet 7 inches, BMI 29.3. General: Ms. Mandel is sitting at the side of bed with family in the room. HEENT: She is normocephalic, atraumatic. Sclerae anicteric. She does have a healing 2 inch scar in the anterior lower neck, otherwise atraumatic and in terms of the arms, no bruising or injury to the upper and lower extremities. Abdomen: Soft. Chest: Clear. Heart: Irregular. Neurological: She is alert and oriented to person, place, time, and situation. Cranial nerves show no deficits on 2 through 12. Full visual kauffman. Pupils are round, reactive to light and accommodat ion. Extraocular movements are intact. Facial sensation intact to light touch and temperature bilat erally, and the patient is symmetric with equal excursions and smiling. Hearing intact to finger rub . In general on the motor examination, on the left upper and lower extremity 5/5 and at the right up per extremity distally with hand lute packer or applier strength, she is around 4/5 and wrist extension and flexion are 4/5 proximally, at the biceps 5-/5 and at the deltoid 5-/5, otherwise in the right lower extremity 5 /5. Sensation intact in the upper and lower extremities bilaterally. Coordination intact in the upp er and lower extremities. Gait with good stance, right arm swing. Laboratory Studies: Complete blood count with differential essentially normal. Coagulation panel sh ows INR 1.77. Sodium 135, potassium 4.4, chloride 100, carbon dioxide 27, BUN 35, creatinine 1.36, g lucose 151, calcium 10. COVID-19 is negative. Doppler study of the right upper extremity showed no evidence of right upper extremity deep vein thrombus. Assessment: Ms. Mandel is a 75-year-old patient with extensive intra-arterial thrombi, possibly afte r she stopped Xarelto to have a thyroid procedure and was restarted a few days after. She has minima l clinical deficits of right hand weakness and numbness, but there was extensive intra-arterial clott ing and onset of symptoms is still within the 24 hour window for intra-arterial interventions, but ou t of the intravenous interventions for thrombolysis. Plan: 1.The patient should be transferred to [place] for 4-vessel angiogram and intervention as appropriat e. 2.We will keep blood pressure perhaps in the 130s to 150s if possible and reduce blood pressure if g reater than 180. She should be on Lovenox or heparin treatment dosage at this point for stroke and c lots until she is seen in [place] and also she may benefit from hydration with IV fluids given the el evated creatinine. Resume other medications as appropriate and she again should be transferred to [facility]. JOSE RAMON/SOURAV Voice ID: [id number] Report ID: [id number]
[2021-03-09] MEDS: METOPROLOL TAR 25 MG TAB PO SCH (21:00)
[2021-03-09] MEDS: ALPRAZOLAM 1 MG TABLET PO PRN (21:17)
[2021-03-10] MEDS: CODEINE 30MG/APAP 300MG TAB PO PRN ×5 (00:11→16:46)
[2021-03-10] MEDS: NA CHLORIDE 0.9% 1,000 ML IV SCH ×3 (00:12→12:58)
--- NOTE | 2021-03-10 00:16 | HP ---
Date of Admission: 03/09/2021 Entrance Complaint: Painful right arm. History Of Present Illness: The patient presented to the emergency room at 24 hours after she notice d some significant pain from the right shoulder down into her arm and then into her hand and fingers. Associated with this, she said there was some inability to make a fist and she noticed it was somew hat blue within the other arm. Significant past history was that the patient had thyroidectomy surge ry 4 days earlier and had been off her Xarelto 2 days before and 2 days after. However, she started taking it again at 48 hours. The patient is on the Xarelto for AFib. When she came to the emergency room, which has been approximately 4 hours after the onset, she states that her fingers not move. T his progressed during the next few hours, knows that she had good movement once again and the discomf ort had improved considerably, so the time she was admitted it was painful as the onset. However, sh alexa still noticed some discoloration in her finger tips. She had good movement at the shoulder and she felt her arm was colder than the left arm. Past History: As mentioned above. The patient has AFib for a number of years. Good control, is on Xarelto. She also has a history of hypertension, also in good control and hyperlipidemia. She has b een followed by Cardiology. ultrasound sent to helper electrical who in turn referred her t o a surgeon. Any other factors apparently in the hospital, she had a low calcium reading and was luis f manuel on Tums and calcium. However, this was repeated in the ER with rest of her blood work and was wi thin normal. Social History: Caffeine intake. Not on alcohol. Nonsmoker. Family History: Noncontributory. Physical Examination: General: The patient is minimally uncomfortable, elderly female with stable vital signs. Head and Neck: Normocephalic. Pupils equal and reactive to light and accommodation. Fundi negative . Trachea midline. Thyroid not palpable. ENT: Negative. Chest: Clear to P and A. Cardiovascular: PMI in midclavicular line. Heart: Sounds normal. Peripheral pulses present and equal bilaterally on the lower extremities. Up per extremities slightly decreased on palpation. The radial artery however is somewhat similar on th e left. Abdomen: No organomegaly. Bowel sounds present. Extremities: Good tone and movement bilaterally. Reflexes physiologic. No discernible deficit to m otion, although she states that her sensation still may be somewhat impaired in the hand area. Rectal and Pelvic: Deferred. Impression: Right arm pain, possibly secondary to neuralgia and/or vascular. Plan: The patient will be admitted. A CT scan was done which was negative for an acute bleed. She will be scheduled for an MRI. Consultation will be obtained with neurologist and will be placed on t he monitor. The patient had an H and P and progress note on 03/09 on Nia Mandel. The patient was seen at noon today. She states her pain was much better. Discoloration is minimal compared to what it had been and her motion is good. As mentioned, the CT scan was negative, awaiting the MRI. We al so add an arterial venous Doppler of the arm and continue to monitor her for over a week. Continue h er home medications including the Xarelto. Awaiting Neurology consultation. HR/MODL Voice ID: [id number]
[2021-03-10] MEDS: ALPRAZOLAM 1 MG TABLET PO PRN ×2 (03:48→21:43)
[2021-03-10] MEDS: METOPROLOL TAR 25 MG TAB PO SCH ×2 (05:53→21:40)
[2021-03-10] MEDS: LEVOTHYROXINE SOD 0.075 MG TAB PO SCH (05:54)
[2021-03-10 06:14] LABS: Absolute Lymphocytes (CBC) 0.7 K/uL (0.7-4.9); Basophils % 0.7 % (0-1.3); Hematocrit 38.4 % (36.0-45.0); Lymphocytes % 17.4 % (15.3-44.8); MPV 10.2 fL (7.6-11.3); RBC Red Blood Cell Count 4.22 M/uL (3.86-4.86)
[2021-03-10 06:32] LABS: Potassium 3.7 mmol/L (3.5-5.1)
[2021-03-10 06:33] LABS: Troponin I 0.07 ng/mL (0.0-0.045)
[2021-03-10 07:32] LABS: Blood Morphology Comment NOT SEEN (NOT SEEN); Platelet Estimate ADEQ; Platelets, Giant NOTED
[2021-03-10] MEDS ORDERED: HOME MED 1 EA UNK (Omeprazole [Prilosec] 40 MG Capsule.Dr) PO SCH (09:00)
[2021-03-10] MEDS: ramipriL 5 MG CAP PO SCH (09:12)
[2021-03-10] MEDS: DOCOSAHEXANOIC AC/EPA 1000 MG PO SCH ×2 (09:13→21:39)
[2021-03-10] MEDS: FENOFIBRATE 160 MG TAB PO SCH (09:13)
[2021-03-10] MEDS: FUROSEMIDE 40 MG TABLET PO SCH ×2 (09:14→16:47)
[2021-03-10] MEDS: CALCITROL 0.25 MCG CAP PO SCH (09:15)
[2021-03-10] MEDS: SERTRALINE HCL 50 MG TAB PO SCH (09:15)
[2021-03-10] MEDS: PANTOPRAZOLE 40MG TABLET PO SCH (09:16)
[2021-03-10 13:04] LABS: CKMB Creatine Kinase MB 4.5 ng/mL (1.0-3.6); Troponin I 0.13 ng/mL (0.0-0.045)
--- NOTE | 2021-03-10 15:20 | PN ---
Date of Progress Note: 03/10/2021 The patient states overall she feels fine. She does state when the analgesic, Tylenol 3 wears off, s he does have pain in the arm and then has some difficulty making a fist and the temperature gets ben le colder. Objective: At the time I saw, her hand is warm. She can make almost a complete fist. The brachial pulse is still not palpable. Her blood pressure for the most part is stable. She also had intermitt ent episodes with elevated. We will continue on the IV heparin drip and awaiting bed availability in [facility]. We will continue t o monitor. The patient does state that last night her temporarily had did get colder with some decre ased ability to make a fist. Situation therefore is still flexible as whether to continue with the pr esent treatment, which we will do until transferred and/or add a vascular procedure to the regimen. HR/MODL Voice ID: [id number] Report ID: [id number]
[2021-03-10] MEDS: MORPHINE 2 MG/ML SYR IV PRN (21:42)
[2021-03-10] MEDS: HEPARIN/D5W 25,000 UNIT/500 ML BAG IV PRN (21:54)
[2021-03-10 23:53] VITALS: O2SAT 93
[2021-03-11] MEDS: CODEINE 30MG/APAP 300MG TAB PO PRN (00:03)
[2021-03-11] MEDS: NA CHLORIDE 0.9% 1,000 ML IV SCH (02:44)
[2021-03-11] MEDS: LEVOTHYROXINE SOD 0.075 MG TAB PO SCH (06:36)
[2021-03-11] MEDS: MORPHINE 2 MG/ML SYR IV PRN (06:41)
[2021-03-11] MEDS: ALPRAZOLAM 1 MG TABLET PO PRN (06:46)
--- NOTE | 2021-03-11 07:27 | EKG ---
Test Date: 2021-03-10 Test Time: 14:16:07 Baker Operator Automatic: AGUILA MEASUREMENT RESULTS: Intervals: Rate: 73 WA: QRSD: 150 QT: 452 QTc: 497 [place]: P: WA: QRS: -35 T: 123 INTERPRETIVE STATEMENTS: Atrial fibrillation with premature ventricular or aberrantly conducted complexes Left axis deviation Left bundle branch block Abnormal ECG Compared to ECG 03/08/2021 23:25:26 No significant changes Electronically Signed On 03-11-21 07:26:26 CDT by Herbie Yang
[2021-03-11 08:13] VITALS: BP 116/60; TEMP 97.8
[2021-03-11] MEDS: FENOFIBRATE 160 MG TAB PO SCH (08:23)
[2021-03-11] MEDS: ramipriL 5 MG CAP PO SCH (08:23)
[2021-03-11] MEDS: PANTOPRAZOLE 40MG TABLET PO SCH (08:24)
[2021-03-11] MEDS: SERTRALINE HCL 50 MG TAB PO SCH (08:24)
[2021-03-11] MEDS: CALCITROL 0.25 MCG CAP PO SCH (08:24)
[2021-03-11] MEDS: FUROSEMIDE 40 MG TABLET PO SCH (08:24)
[2021-03-11] MEDS: METOPROLOL TAR 25 MG TAB PO SCH (08:25)
[2021-03-11] MEDS: DOCOSAHEXANOIC AC/EPA 1000 MG PO SCH (08:25)
== END 2021-03-11 10:44 | disposition short-term general hospital (02) | DRG 301 ==
LOC: ER 22:40 → ERHOLD 03-09 05:16 → 2ND 03-09 05:43 → OBSVTOIN 03-10 07:39
PROVIDERS: ADMIT Family Medicine; ATTEND Family Medicine
DX: I74.8 Embolism and thrombosis of other arteries (principal); I48.91 Unspecified atrial fibrillation; M79.601 Pain in right arm; I10 Essential (primary) hypertension; E89.0 Postprocedural hypothyroidism; E78.5 Hyperlipidemia, unspecified; Z96.21 Cochlear implant status; Z79.01 Long term (current) use of anticoagulants; Z20.822 Contact with and (suspected) exposure to COVID-19
CPT/HCPCS: 36415; 70450; 71045; 80048; 80061; 82550; 82553; 84484; 85025; 85610; 85730; 93005; 93931; 93971; 99285; G0378; J1644; J2270; J2405; J7030; U0003

== ENCOUNTER 2021-07-22 16:36 | Inpatient (IN) | payer OTHER ==
--- NOTE | 2021-07-22 17:28 | RAD REPORT ---
EXAM DESCRIPTION: RAD - Chest Single View - 07/22/2021 5:15 pm CLINICAL HISTORY: DYSPNEA COMPARISON: Chest Single View dated 03/08/2021; Chest Pa And Lat (2 Views) dated 07/03/2020; Chest Pa A nd Lat (2 Views) dated 11/27/2019; Chest Pa And Lat (2 Views) dated 10/06/2018 FINDINGS: Lines: None. Lungs: Diffuse prominence of the pulmonary interstitium. Pleural: No significant pleural effusions or pneumothorax. Cardiac: Cardiomegaly. Bones: No acute fractures. Other: IMPRESSION: Mild interstitial edema suspected.
[2021-07-22 17:37] LABS: Protime INR 1.52
[2021-07-22 17:38] LABS: Absolute Lymphocytes (CBC) 0.8 K/uL (0.7-4.9); Lymphocytes % 13.2 % (15.3-44.8); MPV 8.2 fL (7.6-11.3); RBC Red Blood Cell Count 4.29 M/uL (3.86-4.86)
[2021-07-22 17:59] LABS: ALT/SGPT 18 U/L (12-78); AST/SGOT 18 U/L (15-37); Albumin 3.8 g/dL (3.4-5.0); Alkaline Phosphatase 79 U/L (45-117); BUN Blood Urea Nitrogen 19 mg/dL (7-18); Bicarbonate 21 mmol/L (21-32); Bilirubin Direct 0.2 mg/dL (0-0.2); Bilirubin Total 0.4 mg/dL (0.2-1.0); Glucose Level 112 mg/dL (74-106); Magnesium 1.9 mg/dL (1.8-2.4); NT PRO-BNP 5908 pg/mL (<450); Protein, Total 7.7 g/dL (6.4-8.2); Sodium Level 136 mmol/L (136-145); Troponin (Emerg Dept Use Only) < 0.02 ng/mL (0.0-0.045)
--- NOTE | 2021-07-22 19:16 | ER ---
Nurse's Notes [facility] Name: Nia Mandel Age: 75 yrs Sex: Female : 1945 Arrival Date: 07/22/2021 Time: 16:42 Bed 26 Private MD: Felipe Forde Diagnosis: Dyspnea;Acute pulmonary edema Presentation: 07/22 16:48 Chief complaint: Patient states: she feels short of breath. She reports having been in ap3 contact with her Rogerio Dr, who was going to try and contact a local DrRochelle to have her admitted into the hospital due to her feeling short of breath. Patient reports this feeling began 07/08/2021 however the symptoms have gotten worse over the last few days. Coronavirus screen: Client presents with at least one sign or symptom that may indicate coronavirus-19. Standard/surgical mask placed on the client. Provider contacted for isolation considerations. Ebola Screen: No symptoms or risks identified at this time. Initial Sepsis Screen: Does the patient meet any 2 criteria? No. Patient's initial sepsis screen is negative. Does the patient have a suspected source of infection? No. Patient's initial sepsis screen is negative. Risk Assessment: Do you want to hurt yourself or someone else? Patient reports no desire to harm self or others. Onset of symptoms was July 08, 2021. 16:48 Method Of Arrival: Ambulatory ap3 16:48 Acuity: SHYANNE 3 ap3 Triage Assessment: 16:54 General: Appears uncomfortable, Behavior is cooperative, anxious. Pain: Denies pain. ap3 EENT:. Neuro: Level of Consciousness is awake, alert, obeys commands, Oriented to person, place, time, situation, Appropriate for age Moves all extremities. Speech is normal. Cardiovascular: Patient's skin is warm and dry. Respiratory: Reports shortness of breath Onset: The symptoms/episode began/occurred over the last two weeks, the patient has mild shortness of breath. Historical: - Allergies: 16:51 Sulfa (Sulfonamide Antibiotics); ap3 - Home Meds: 16:51 calcitriol Oral [Active]; fenofibrate Oral [Active]; Furosemide Oral [Active]; ap3 levothyroxine oral [Active]; Metoprolol Tartrate Oral [Active]; OMEGA-3 [Active]; Omeprazole Oral [Active]; Ramipril Oral [Active]; rivaroxaban Oral [Active]; sertraline Oral [Active]; - PMHx: 16:51 Atrial fibrillation; thyroid cancer; blood clots in right arm; ap3 16:55 watchman procedure; Hypertensive disorder; ap3 - PSHx: 16:51 Tonsillectomy; ap3 - Immunization history:: Client reports receiving the 2nd dose of the Covid vaccine. - Social history:: Smoking status: Patient denies any tobacco usage or history of. Patient uses alcohol, occasionally. Screenin:55 Abuse screen: Denies threats or abuse. Nutritional screening: No deficits noted. ap3 Tuberculosis screening: No symptoms or risk factors identified. 17:35 Fall Risk No fall in past 12 months (0 pts). No secondary diagnosis (0 pts). IV access vg1 (20 points). Ambulatory Aid- None/Bed Rest/Nurse Assist (0 pts). Gait- Normal/Bed Rest/Wheelchair (0 pts) Mental Status- Oriented to own ability (0 pts). Total Lambert Fall Scale indicates No Risk (0-24 pts). Assessment: 16:55 Respiratory: Airway is patent Respiratory effort is even, labored, Respiratory pattern ap3 is tachypnea. 17:09 General: Appears in no apparent distress. uncomfortable, Behavior is calm, cooperative. vg1 Pain: Denies pain. Neuro: Level of Consciousness is awake, alert, obeys commands, Oriented to person, place, time, situation. Cardiovascular: Patient's skin is warm and dry. Respiratory: Reports shortness of breath at rest on exertion Airway is patent Respiratory effort is even, labored, Respiratory pattern is tachypnea Breath sounds are clear bilaterally. Denies chest pain. GI: Patient currently denies nausea, vomiting. : No signs and/or symptoms were reported regarding the genitourinary system. EENT: No signs and/or symptoms were reported regarding the EENT system. Derm: Skin is intact, Skin is pink, warm \\T\\ dry. Musculoskeletal: Circulation, motion, and sensation intact. 18:15 Reassessment: Patient appears in no apparent distress at this time. No changes from vg1 previously documented assessment. Patient and/or family updated on plan of care and expected duration. Pain level reassessed. Patient is alert, oriented x 3, equal unlabored respirations, skin warm/dry/pink. 19:39 Cardiovascular: Rhythm is sinus arrythmia. kc4 20:06 Respiratory: Reports shortness of breath at rest on exertion Airway is patent kc4 Respiratory effort is even, labored, Respiratory pattern is symmetrical, tachypnea Breath sounds are clear bilaterally. the patient has mild shortness of breath Denies cough, pain with respiration, pain with cough, pain with movement. GI: No deficits noted. No signs and/or symptoms were reported involving the gastrointestinal system. Patient currently denies nausea, vomiting. 20:11 Pain: Denies pain. Neuro: No deficits noted. Level of Consciousness is awake, alert, kc4 obeys commands, Oriented to person, place, time, situation, Appropriate for age. Cardiovascular: Capillary refill < 3 seconds Patient's skin is warm and dry. Pulses are all present. Edema is absent. Rhythm is sinus arrythmia. Respiratory:. Derm: No deficits noted. No signs and/or symptoms reported regarding the dermatologic system. Musculoskeletal: No deficits noted. No signs and/or symptoms reported regarding the musculoskeletal system. Vital Signs: 16:48 BP 180 / 98; Pulse 85; Resp 24; Temp 98.6; Pulse Ox 100% on R/A; Weight 86.64 kg; ap3 Height 5 ft. 7 in. (170.18 cm); 17:11 BP 158 / 106; Pulse 87; Resp 24; Pulse Ox 98% on R/A; vg1 17:29 BP 186 / 96; Pulse 64; Resp 22; Pulse Ox 97% on R/A; vg1 18:17 BP 168 / 79; Pulse 77; Resp 18; Pulse Ox 96% ; vg1 18:30 BP 119 / 74; Pulse 72; Resp 18; Pulse Ox 96% ; vg1 18:55 BP 177 / 92; Pulse 77; Resp 16; Pulse Ox 96% ; vg1 19:33 BP 174 / 102 LA Sitting (man/reg); Pulse 76; Resp 20 S; Temp 98.8(O); Pulse Ox 98% on kc4 R/A; Pain 0/10; 20:35 BP 138 / 86; Pulse 74; Resp 16; Temp 98.0; Pulse Ox 97% on R/A; Pain 0/10; kc4 16:48 Body Mass Index 29.91 (86.64 kg, 170.18 cm) ap3 ED Course: 16:42 Patient arrived in ED. am2 16:42 Felipe Forde MD is Private Physician. am2 16:51 Triage completed. ap3 16:55 Arm band placed on right wrist. ap3 16:57 Marilyn Abrams, TYREE-C is PHCP. kb 16:57 Koko Alvarez MD is Attending Physician. kb 17:00 Monika Figueroa, RN is Primary Nurse. vg1 17:16 XRAY Chest (1 view) In Process Unspecified. EDMS 17:27 Initial lab(s) drawn, by nm, sent to lab. EKG done, by ED staff, reviewed by Marilyn vgMiquel LOZOYA. Inserted saline lock: 22 gauge in right antecubital area, using aseptic technique. Blood collected. 17:35 Patient has correct armband on for positive identification. Bed in low position. Call vg1 light in reach. Side rails up X 1. Adult w/ patient. 17:35 No provider procedures requiring assistance completed. vg1 19:02 Report given to Vicenta CHILDERS. vg1 19:15 Jannie Luciano MD is Hospitalizing Provider. kb 19:21 Primary Nurse role handed off by Monika Figueroa, RN mw2 19:28 Vicenta Lewis is Primary Nurse. kc4 19:30 Basic Metabolic Panel Sent. kc4 19:30 CBC with Diff Sent. kc4 19:30 LFT's Sent. kc4 19:30 COVID-19 (Coronavirus) Document "Date of Onset" if Symptomatic Sent. kc4 19:39 IV is patent. kc4 20:28 Report given to Miri lynn RN. kc4 20:29 Patient admitted, IV remains in place. kc4 Administered Medications: 19:30 Drug: Lasix (furosemide) 20 mg Route: IVP; Site: right antecubital; kc4 19:43 Follow up: Response: No adverse reaction kc4 19:53 Follow up: Response: No adverse reaction kc4 20:15 Follow up: Response: No adverse reaction kc4 19:52 Drug: hydrALAZINE 10 mg Route: IVP; Site: right antecubital; kc4 20:15 Follow up: Response: No adverse reaction kc4 Output: 20:00 Urine: 1000ml (Voided); Total: 1000ml. kc4 Outcome: 19:15 Decision to Hospitalize by Provider. kb 20:28 Admitted to Med/surg accompanied by nurse, via wheelchair, room 425, with chart, Report kc4 called to Keo Lynn RN 20:28 Condition: stable 20:28 Instructed on the need for admit. 20:29 Patient left the ED. kc4 Signatures: Dispatcher [employer] EDMS Marilyn Abrams, TYREE-Emeka GAS PRODUCER-CkAggie Eastman am2 Aggie Enriquez, RN RN ap3 Jaison Benoit 2 Monika Figueroa, RN RN vg1 Vicenta Lewis kc4 Corrections: (The following items were deleted from the chart) 16:54 16:51 PMHx: Tonsillitis; ap3 ap3 17:11 17:09 Respiratory: Airway is patent Respiratory effort is even, labored, Respiratory vg1 pattern is tachypnea Breath sounds are clear bilaterally. vg1 17:35 17:09 GI: No signs and/or symptoms were reported involving the gastrointestinal system. vg1 vg1 17:35 17:09 Respiratory: Reports shortness of breath at rest on exertion Airway is patent vg1 Respiratory effort is even, labored, Respiratory pattern is tachypnea Breath sounds are clear bilaterally. vg1
--- NOTE | 2021-07-22 19:16 | EDPHYS ---
Physician Documentation [facility] Name: Nia Mandel Age: 75 yrs Sex: Female : 1945 Arrival Date: 07/22/2021 Time: 16:42 Bed 26 Private MD: Felipe Forde ED Physician Koko Alvarez HPI: 07/22 17:10 This 75 yrs old Female presents to ER via Ambulatory with complaints of kb Shortness Of Breath. 17:10 The patient has shortness of breath at rest. Onset: The symptoms/episode began/occurred kb 2 week(s) ago. Duration: The symptoms are continuous. The patient's shortness of breath is aggravated by exertion, is alleviated by nothing. Associated signs and symptoms: The patient has no apparent associated signs or symptoms. Severity of symptoms: At their worst the symptoms were moderate in the emergency department the symptoms are unchanged. The patient has not experienced similar symptoms in the past. The patient has not recently seen a physician. Pt reports she has had shortness of breath for 2 weeks that is getting worse. Was seen by [facility] for follow up after Watchman procedure and was told she had fluid in her lungs and needed to be admitted so she came here for admission. Historical: - Allergies: 16:51 Sulfa (Sulfonamide Antibiotics); ap3 - Home Meds: 16:51 calcitriol Oral [Active]; fenofibrate Oral [Active]; Furosemide Oral [Active]; ap3 levothyroxine oral [Active]; Metoprolol Tartrate Oral [Active]; OMEGA-3 [Active]; Omeprazole Oral [Active]; Ramipril Oral [Active]; rivaroxaban Oral [Active]; sertraline Oral [Active]; - PMHx: 16:51 Atrial fibrillation; thyroid cancer; blood clots in right arm; ap3 16:55 watchman procedure; Hypertensive disorder; ap3 - PSHx: 16:51 Tonsillectomy; ap3 - Immunization history:: Client reports receiving the 2nd dose of the Covid vaccine. - Social history:: Smoking status: Patient denies any tobacco usage or history of. Patient uses alcohol, occasionally. ROS: 17:10 Constitutional: Negative for fever, chills, and weight loss. kb 17:10 Respiratory: Positive for dyspnea on exertion, shortness of breath, Negative for cough, hemoptysis, orthopnea, pleurisy, sputum production, wheezing. 17:10 All other systems are negative. Exam: 17:10 Constitutional: This is a well developed, well nourished patient who is awake, alert, kb and in no acute distress. Head/Face: Normocephalic, atraumatic. ENT: Moist Mucous membranes Cardiovascular: Regular rate and rhythm with a normal S1 and S2. No gallops, murmurs, or rubs. No pulse deficits. Abdomen/GI: Soft, non-tender. No distention Skin: Warm, dry with normal turgor. Normal color. MS/ Extremity: Pulses equal, no cyanosis. Neurovascular intact. Full, normal range of motion. Neuro: Awake and alert, GCS 15, oriented to person, place, time, and situation. Moves all extremities. Normal gait. Psych: Awake, alert, with orientation to person, place and time. Behavior, mood, and affect are within normal limits. 17:10 Respiratory: mild respiratory distress is noted, Respirations: tachypnea, Breath sounds: wheezing: expiratory that is mild, is heard in the right lower lobe. Vital Signs: 16:48 BP 180 / 98; Pulse 85; Resp 24; Temp 98.6; Pulse Ox 100% on R/A; Weight 86.64 kg; ap3 Height 5 ft. 7 in. (170.18 cm); 17:11 BP 158 / 106; Pulse 87; Resp 24; Pulse Ox 98% on R/A; vg1 17:29 BP 186 / 96; Pulse 64; Resp 22; Pulse Ox 97% on R/A; vg1 18:17 BP 168 / 79; Pulse 77; Resp 18; Pulse Ox 96% ; vg1 18:30 BP 119 / 74; Pulse 72; Resp 18; Pulse Ox 96% ; vg1 18:55 BP 177 / 92; Pulse 77; Resp 16; Pulse Ox 96% ; vg1 19:33 BP 174 / 102 LA Sitting (man/reg); Pulse 76; Resp 20 S; Temp 98.8(O); Pulse Ox 98% on kc4 R/A; Pain 0/10; 20:35 BP 138 / 86; Pulse 74; Resp 16; Temp 98.0; Pulse Ox 97% on R/A; Pain 0/10; kc4 16:48 Body Mass Index 29.91 (86.64 kg, 170.18 cm) ap3 MDM: 16:58 Patient medically screened. kb 17:07 Data reviewed: vital signs, nurses notes. Data interpreted: Pulse oximetry: on room air kb is 100 %. Interpretation: normal. 19:13 Counseling: I had a detailed discussion with the patient and/or guardian regarding: the historical points, exam findings, and any diagnostic results supporting the discharge/admit diagnosis, lab results, radiology results, the need for further work-up and treatment in the hospital. Physician consultation: Felipe Forde MD was contacted at 19:14, regarding admission, to the telemetry unit. is out of town, patient to be admitted to hospitalist. 19:14 Physician consultation: Francis DOMINGUEZ was contacted at 19:14, regarding admission, to the telemetry unit. patient's condition, and will see patient in ED, shortly. 07/22 16:53 Order name: COVID-19 (Coronavirus) Document "Date of Onset" if Symptomatic 07/22 16:58 Order name: Basic Metabolic Panel 07/22 16:58 Order name: CBC with Diff 07/22 16:58 Order name: LFT's 07/22 16:58 Order name: Magnesium; Complete Time: 18:08 kb 07/22 16:58 Order name: NT PRO-BNP; Complete Time: 18:08 kb 07/22 16:58 Order name: PT-INR; Complete Time: 17:51 kb 07/22 16:58 Order name: Troponin (emerg Dept Use Only); Complete Time: 18:08 kb 07/22 16:58 Order name: XRAY Chest (1 view); Complete Time: 17:32 kb 07/22 16:59 Order name: Basic Metabolic Panel; Complete Time: 18:08 EDMS 07/22 16:59 Order name: CBC with Automated Diff; Complete Time: 17:51 EDMS 07/22 16:59 Order name: Liver (Hepatic) Function; Complete Time: 18:08 EDMS 07/22 17:09 Order name: SARS-COV-2 RT PCR; Complete Time: 18:08 EDMS 07/22 16:58 Order name: EKG; Complete Time: 16:59 kb 07/22 16:58 Order name: Cardiac monitoring; Complete Time: 17:26 kb 07/22 16:58 Order name: EKG - Nurse/Tech; Complete Time: 17:26 kb 07/22 16:58 Order name: IV Saline Lock; Complete Time: 17:26 kb 07/22 16:58 Order name: Labs collected and sent; Complete Time: 17:26 kb 07/22 16:58 Order name: O2 Per Protocol; Complete Time: 17:27 kb 07/22 16:58 Order name: O2 Sat Monitoring; Complete Time: 17:27 kb Administered Medications: 19:30 Drug: Lasix (furosemide) 20 mg Route: IVP; Site: right antecubital; kc4 19:43 Follow up: Response: No adverse reaction kc4 19:53 Follow up: Response: No adverse reaction kc4 20:15 Follow up: Response: No adverse reaction kc4 19:52 Drug: hydrALAZINE 10 mg Route: IVP; Site: right antecubital; kc4 20:15 Follow up: Response: No adverse reaction kc4 Disposition: 07/23 00:48 Co-signature as Attending Physician, Koko Alvarez MD I agree with the assessment and kdr plan of care. Disposition Summary: 07/22/21 19:15 Hospitalization Ordered Hospitalization Status: Observation kb Provider: Jannie Luciano Location: Telemetry/MedSurg (observation) kb Condition: Stable kb Problem: new kb Symptoms: are unchanged kb Bed/Room Type: Standard Room Assignment: 425(07/22/21 19:37) eb1 Diagnosis - Dyspnea kb - Acute pulmonary edema kb Forms: - Medication Reconciliation Form kb - SBAR form kb Signatures: Dispatcher [employer] EDKS Marilyn Abrams FNP-C FNP-Koko Hayes MD MD kdr Aggie Enriquez RN RN ap3 Alysia Escobar RN RN eb1 Vicenta Lewis kc4 Corrections: (The following items were deleted from the chart) 07/22 16:54 16:51 PMHx: Tonsillitis; ap3 ap3 17:09 16:53 CORONAVIRUS ordered. EDKS EDMS 19:37 19:15 kb eb1
[2021-07-22] MEDS ORDERED: FUROSEMIDE 20 MG/ 2ML VIAL ONE (19:47)
--- NOTE | 2021-07-22 19:54 | P.HP ---
Certification for Inpatient Patient admitted to: Inpatient With expected LOS: <2 Midnights Patient will require the following post-hospital care: None Practitioner: I am a practitioner with admitting privileges, knowledge of patient current condition, hospital course, and medical plan of care. Services: Services provided to patient in accordance with Admission requirements found in Title 42 Section 412.3 of the Code of Federal Regulations Patient History Date of Service: 07/22/21 Reason for admission: CHF exacerbation History of Present Illness: Ms. Mandel is a 75 yo F with HTN, HLD, afib s/p watchman procedure, thyroid ca s/p thyroidectomy, CKD who was sent in today by her [facility] during a follow up appointment for recent watchman placement. She has been having progressive SOB for the past few weeks that has worsened over the past 5 days. She says it has been difficult for her to speak in complete sentences and her blood pressure has been very elevated. She also reports PND. Denies orthopnea, wheezing, and coughing. Symptoms are worse with exertion, improved with rest and sitting up. Her [facility] told her to go straight to the hospital for admission. Patient took 80mg of PO Lasix at home around 3:30pm and has received 20mg of IV Lasix in the ED. BNP 5908. CXR IMPRESSION: Mild interstitial edema suspected Allergies Sulfa (Sulfonamide Antibiotics) Allergy (Verified 06/11/16 10:20) Rash Home Medications: [place]-3 Fatty Acids [[place]-3] 2,000 mg PO BID 05/06/16 Omeprazole [Prilosec] 40 mg PO DAILY 05/06/16 Ramipril [Altace] 10 mg PO [id number] 05/06/16 Rivaroxaban [Xarelto*] 20 mg PO DAILY AT SUPPER 05/06/16 Sertraline [Zoloft*] 25 mg PO DAILY 05/06/16 Fenofibrate [Tricor*] 145 mg PO DAILY 03/09/21 Furosemide 80 mg PO BID 03/09/21 Levothyroxine Sodium [Levothyroxine] 1 cap PO DAILY 03/09/21 Metoprolol Tartrate 25 mg PO BID 03/09/21 Ramipril [Altace] 10 mg PO DAILY 03/09/21 calcitrioL [Rocaltrol] 1 cap PO DAILY 03/09/21 - Past Medical/Surgical History Diabetic: No -: HTN -: AFIB -: High cholesterol -: CKD -: thyroid ca -: Cochlear implants -: thyroid removal -: cateracts -: tonsilliectomy -: watchman procedure - Family History Family History: Reviewed- Non-Contributory - Social History Smoking Status: Never smoker Alcohol use: Yes CD- Drugs: No Caffeine use: Yes Place of Residence: Home Review of Systems 10-point ROS is otherwise unremarkable General: Unremarkable Eyes: Unremarkable ENT: Unremarkable Respiratory: Shortness of Breath, SOB with Excertion, As per HPI Cardiovascular: Paroxysmal Noc. Dyspnea, As per HPI Gastrointestinal: Unremarkable Genitourinary: Unremarkable Musculoskeletal: Unremarkable Integumentary: Unremarkable Neurological: Unremarkable Lymphatics: Unremarkable Physical Examination - Physical Exam General: Alert, In no apparent distress HEENT: Atraumatic, PERRLA, Mucous membr. moist/pink, EOMI, Sclerae nonicteric Neck: Supple, 2+ carotid pulse no bruit, No LAD, Without JVD or thyroid abnormality Respiratory: Normal air movement, Crackles/rales Cardiovascular: No edema, Regular rate/rhythm, Normal S1 S2 Gastrointestinal: Normal bowel sounds, No tenderness Musculoskeletal: No tenderness Integumentary: No rashes Neurological: Normal speech, Normal strength at 5/5 x4 extr, Normal tone, Normal affect Lymphatics: No axilla or inguinal lymphadenopathy - Studies Laboratory Data (last 24 hrs) 07/22/21 17:25: PT 17.5 H, INR 1.52 07/22/21 17:25: WBC 5.70, Hgb 12.3, Hct 37.0, Plt Count 340 07/22/21 17:25: Sodium 136, Potassium 4.0, BUN 19 H, Creatinine 1.12, Glucose 112 H, Magnesium 1.9, Total Bilirubin 0.4, AST 18, ALT 18, Alkaline Phosphatase 79 Assessment and Plan - Problems (Diagnosis) (1) CKD (chronic kidney disease) Current Visit: Yes Status: Chronic Qualifiers: Chronic kidney disease stage: stage 3 (moderate) Chronic kidney disease stage 3 subtype: stage 3a (GFR 45-59) Qualified Code(s): N18.31 - Chronic kidney disease, stage 3a (2) HTN (hypertension) Current Visit: Yes Status: Chronic Qualifiers: Hypertension type: primary hypertension Qualified Code(s): I10 - Essential (primary) hypertension (3) HLD (hyperlipidemia) Current Visit: Yes Status: Chronic Qualifiers: Hyperlipidemia type: unspecified Qualified Code(s): E78.5 - Hyperlipidemia, unspecified (4) Chronic a-fib Current Visit: Yes Status: Chronic (5) Presence of Watchman left atrial appendage closure device Current Visit: Yes Status: Chronic (6) Volume overload Current Visit: Yes Status: Acute Qualifiers: Hypervolemia type: unspecified Qualified Code(s): E87.70 - Fluid overload, unspecified - Plan on tele, ECHO pending continue IV lasix, daily weights, fluid restriction, low sodium diet, O2 as needed hydralazine PRN for BP spikes continue xarelto conitnue levothyroxine and ramipril Discharge Plan: Home Plan to discharge in: 48 Hours - Advance Directives Does patient have a Living Will: No Does patient have a Durable POA for Healthcare: No - Code Status/Comfort Care Code Status Assessed: Yes (full code ) Critical Care: No Time Spent Managing Pts Care (In Minutes): 70
[2021-07-22] MEDS ORDERED: HYDRALAZINE HCL 20 MG/ML VIAL ONE (20:10)
[2021-07-22] MEDS ORDERED: ONDANSETRON 4 MG/2 ML VIAL IV PRN (20:49)
[2021-07-22] MEDS ORDERED: HYDRALAZINE HCL 20 MG/ML VIAL IV PRN (20:49)
[2021-07-22] MEDS: FENOFIBRATE 160 MG TAB PO SCH (22:03)
[2021-07-23] MEDS: ACETAMINOPHEN 500 MG TAB PO PRN ×2 (03:30→20:38)
[2021-07-23 03:44] LABS: Absolute Lymphocytes (CBC) 0.7 K/uL (0.7-4.9); Basophils % 0.9 % (0-1.3); Hematocrit 36.4 % (36.0-45.0); Lymphocytes % 12.5 % (15.3-44.8); MPV 8.3 fL (7.6-11.3); RBC Red Blood Cell Count 4.27 M/uL (3.86-4.86)
[2021-07-23 04:08] LABS: Albumin 3.5 g/dL (3.4-5.0); Bilirubin Total 0.4 mg/dL (0.2-1.0); Magnesium 1.8 mg/dL (1.8-2.4); Phosphorus 3.9 mg/dL (2.5-4.9); Potassium 3.7 mmol/L (3.5-5.1); Protein, Total 7.2 g/dL (6.4-8.2); Thyroid Stimulating Hormone 2.3 uIU/mL (0.360-3.740)
[2021-07-23 04:31] LABS: Blood Morphology Comment NOT SEEN (NOT SEEN); Platelet Estimate ADEQ
[2021-07-23] MEDS ORDERED: MAGNESIUM SULFATE 1 gm IVPB 1 GM/100 ML BAG IV ONE (07:00)
[2021-07-23] MEDS ORDERED: POTASSIUM CL SA 10 MEQ TAB PO ONE (07:00)
[2021-07-23] MEDS ORDERED: PNEUMOCOCCAL VACCINE 0.5 ML IMVAC ONE (08:00)
[2021-07-23] MEDS ORDERED: INFLUENZA VACCINE (for 6+ mo) 0.5 ML DOSE IMVAC ONE (08:00)
[2021-07-23] MEDS ORDERED: RIVAROXABAN 10 MG TABLET PO SCH (09:00)
[2021-07-23] MEDS: FUROSEMIDE 40 MG/4 ML VIAL IV SCH ×2 (09:05→17:08)
[2021-07-23] MEDS: SPIRONOLACTONE 25 MG TABLET PO SCH (09:06)
[2021-07-23] MEDS: ramipriL 5 MG CAP PO SCH (09:06)
--- NOTE | 2021-07-23 14:15 | ECHO ---
HEIGHT: 5 ft 7 in WEIGHT: 187 lb 6.4 oz DATE OF STUDY: 07/23/[address]: Francis Londono 2-DIMENSIONAL: YES M.MODE: YES DOPPLER: YES COLOR FLOW: YES TDS: PORTABLE: DEFINITY: BUBBLE STUDY: DIAGNOSIS: PULMONARY EDEMA CARDIAC HISTORY: CATHERIZATION: NO SURGERY: NO PROSTHETIC VALVE: NO PACEMAKER: NO MEASUREMENTS (cm) DIASTOLIC (NORMALS) SYSTOLIC (NORMALS) IVSd 1.1 (0.6-1.2) LA Diam 3.7 (1.9-4.0) LVEF 55-60% LVIDd 4.7 (3.5-5.7) LVIDs 2.7 (2.0-3.5) %FS 43% LVPWd 1.2 (0.6-1.2) Ao Diam (2.0-3.7) 2 DIMENSIONAL ASSESSMENT: RIGHT ATRIUM: NORMAL LEFT ATRIUM: NORMAL RIGHT VENTRICLE: NORMAL LEFT VENTRICLE: NORMAL TRICUSPID VALVE: MILD TRICUSPID REGURGITATION MITRAL VALVE: MILD MITRAL REGURGITATION PULMONIC VALVE: NORMAL AORTIC VALVE: NORMAL PERICARDIAL EFFUSION: NONE AORTIC ROOT: NORMAL LEFT VENTRICULAR WALL MOTION: NORMAL DOPPLER/COLOR FLOW: SEE BELOW COMMENTS: NORMAL LEFT VENTRICULAR EJECTION FRACTION 55-60%. TECHNOLOGIST: TARSHA HYDE
--- NOTE | 2021-07-23 14:23 | P.PN ---
Subjective Date of Service: 07/23/21 Chief Complaint: CHF exacerbation Patient reports significant improvement in the shortness of breath. She stated she is not back to baseline and still has significant dyspnea with exertion. She is tolerating room air. Physical Examination - Vital Signs Temperature: 97.6 F Blood Pressure: 117/82 Pulse: 87 Respirations: 18 Pulse Ox (%): 97 - Physical Exam General: Alert, In no apparent distress, Oriented x3 HEENT: Mucous membr. moist/pink Neck: JVD not distended Respiratory: Clear to auscultation bilaterally, Normal air movement Cardiovascular: No edema, Normal S1 S2, Irregular heart rate/rhythm Gastrointestinal: Normal bowel sounds, Soft and benign, Non-distended, No tenderness Musculoskeletal: No swelling, No tenderness Integumentary: No rashes, No cyanosis Neurological: Normal speech, Normal strength at 5/5 x4 extr - Studies Laboratory Data (last 24 hrs) 07/22/21 17:25: PT 17.5 H, INR 1.52 07/22/21 17:25: WBC 5.70, Hgb 12.3, Hct 37.0, Plt Count 340 07/22/21 17:25: Sodium 136, Potassium 4.0, BUN 19 H, Creatinine 1.12, Glucose 112 H, Magnesium 1.9, Total Bilirubin 0.4, AST 18, ALT 18, Alkaline Phosphatase 79 Assessment And Plan - Current Problems (Diagnosis) (1) Acute on chronic diastolic (congestive) heart failure Current Visit: Yes Status: Acute (2) CKD (chronic kidney disease) Current Visit: Yes Status: Chronic Qualifiers: Chronic kidney disease stage: stage 3 (moderate) Chronic kidney disease stage 3 subtype: stage 3a (GFR 45-59) Qualified Code(s): N18.31 - Chronic kidney disease, stage 3a (3) Chronic a-fib Current Visit: Yes Status: Chronic (4) HTN (hypertension) Current Visit: Yes Status: Chronic Qualifiers: Hypertension type: primary hypertension Qualified Code(s): I10 - Essential (primary) hypertension (5) Presence of Watchman left atrial appendage closure device Current Visit: Yes Status: Chronic - Plan Continue IV Lasix. Optimize blood pressure. Continue home antihypertensives. Echocardiogram reviewed and reporting EF of 43%. Cardiology Consult. Monitor intake and output. Daily weight. Continue Xarelto for AFib anticoagulation. Patient is not on any rate control medication. Increase activity as tolerated.
[2021-07-23] MEDS: DOCOSAHEXANOIC AC/EPA 1000 MG PO SCH (19:48)
[2021-07-23] MEDS: FENOFIBRATE 160 MG TAB PO SCH (19:48)
[2021-07-23] MEDS ORDERED: HOME MED 1 EA UNK (Omega-3 Fatty Acids [Omega-3] 1,000 MG Capsule) PO SCH (21:00)
[2021-07-23 22:00] VITALS: BMI 29.3
[2021-07-24 06:25] LABS: Magnesium 2.1 mg/dL (1.8-2.4); Potassium 3.7 mmol/L (3.5-5.1)
[2021-07-24] MEDS ORDERED: LEVOTHYROXINE SOD 0.075 MG TAB PO SCH (06:30)
[2021-07-24] MEDS: ramipriL 5 MG CAP PO SCH (08:15)
[2021-07-24] MEDS: SPIRONOLACTONE 25 MG TABLET PO SCH (08:16)
[2021-07-24] MEDS: FUROSEMIDE 40 MG/4 ML VIAL IV SCH ×2 (08:16→09:00)
[2021-07-24] MEDS: DOCOSAHEXANOIC AC/EPA 1000 MG PO SCH (08:16)
[2021-07-24] MEDS ORDERED: POTASSIUM CL SA 10 MEQ TAB PO ONE (09:00)
[2021-07-24] MEDS ORDERED: HOME MED 1 EA UNK (Levothyroxine Sodium [Levothyroxine] 175 MCG Capsule) PO SCH (09:00)
[2021-07-24] MEDS ORDERED: RIVAROXABAN 20 MG TABLET PO SCH (09:00)
--- NOTE | 2021-07-24 11:29 | P.DS ---
Admission Date: 07/22/21 Discharge Date: 07/24/21 Disposition: ROUTINE DISCHARGE Discharge Condition: FAIR Reason for Admission: CHF exacerbation - Problems (1) Acute on chronic diastolic (congestive) heart failure Status: Acute (2) CKD (chronic kidney disease) Status: Chronic Qualifiers: Chronic kidney disease stage: stage 3 (moderate) Chronic kidney disease stage 3 subtype: stage 3a (GFR 45-59) Qualified Code(s): N18.31 - Chronic kidney disease, stage 3a (3) Chronic a-fib Status: Chronic (4) HTN (hypertension) Status: Chronic Qualifiers: Hypertension type: primary hypertension Qualified Code(s): I10 - Essential (primary) hypertension (5) Presence of Watchman left atrial appendage closure device Status: Chronic Brief History of Present Illness: Ms. Mandel is a 75 yo F with HTN, HLD, afib s/p watchman procedure, thyroid ca s/p thyroidectomy, CKD who was sent in today by her applications engineer manufacturing during a follow up appointment for recent watchman placement. She has been having progressive SOB for the past few weeks that has worsened over the past 5 days. She says it has been difficult for her to speak in complete sentences and her blood pressure has been very elevated. She also reports PND. Denies orthopnea, wheezing, and coughing. Symptoms are worse with exertion, improved with rest and sitting up. Her applications [facility] [employer] told her to go straight to the hospital for admission. Patient took 80mg of PO Lasix at home around 3:30pm and received 20mg of IV Lasix in the ED. BNP 5908. Hospital Course: Patient admitted to the medical floor and treated with IV Lasix. Echocardiogram was done which showed normal EF. Patient clinically improved with treatment. She did not require oxygen. Heart rate was controlled. Noted patient is not on any rate control fr rhythm control medication. She diuresed well and shortness of breath improved significantly. Patient deemed stable for discharge. No changes made in her home medications. Vital Signs/Physical Exam: Temp Pulse Resp BP Pulse Ox 97.7 F 92 H 17 139/95 H 95 07/24/21 08:00 07/24/21 08:16 07/24/21 08:00 07/24/21 08:16 07/24/21 08:00 General: Alert, In no apparent distress, Oriented x3 HEENT: Mucous membr. moist/pink Neck: JVD not distended, No Thyromegaly Respiratory: Clear to auscultation bilaterally, Normal air movement Cardiovascular: No edema, Regular rate/rhythm, Normal S1 S2 Gastrointestinal: Normal bowel sounds, Soft and benign, Non-distended, No tenderness Musculoskeletal: No swelling Integumentary: No rashes, No erythema Neurological: Normal strength at 5/5 x4 extr Laboratory Data at Discharge: WBC 5.20 K/uL (4.3-10.9) 07/23/21 03:19 Hgb 12.2 g/dL (12.0-15.0) 07/23/21 03:19 Hct 36.4 % (36.0-45.0) 07/23/21 03:19 Plt Count 326 K/uL (152-406) 07/23/21 03:19 PT 17.5 SECONDS (9.5-12.5) H 07/22/21 17:25 INR 1.52 07/22/21 17:25 Sodium 137 mmol/L (136-145) 07/24/21 05:52 Potassium 3.7 mmol/L (3.5-5.1) 07/24/21 05:52 BUN 28 mg/dL (7-18) H 07/24/21 05:52 Creatinine 1.37 mg/dL (0.55-1.3) H 07/24/21 05:52 Glucose 108 mg/dL (74-106) H 07/24/21 05:52 Phosphorus 3.9 mg/dL (2.5-4.9) 07/23/21 03:19 Magnesium 2.1 mg/dL (1.8-2.4) 07/24/21 05:52 Total Bilirubin 0.4 mg/dL (0.2-1.0) 07/23/21 03:19 AST 12 U/L (15-37) L 07/23/21 03:19 ALT 21 U/L (12-78) 07/23/21 03:19 Alkaline Phosphatase 69 U/L (45-117) 07/23/21 03:19 Triglycerides 119 mg/dL (<150) 07/23/21 03:19 Cholesterol 165 mg/dL (<200) 07/23/21 03:19 HDL Cholesterol 84 mg/dL (40-60) H 07/23/21 03:19 Cholesterol/HDL Ratio 1.96 07/23/21 03:19 Home Medications: [place]-3 Fatty Acids [[place]-3] 1,000 mg PO BID 05/06/16 Omeprazole [Prilosec] 40 mg PO DAILY 05/06/16 Rivaroxaban [Xarelto*] 20 mg PO DAILY 05/06/16 Sertraline [Zoloft*] 50 mg PO DAILY 05/06/16 Fenofibrate [Tricor*] 145 mg PO DAILY 03/09/21 Furosemide 80 mg PO BID 03/09/21 Ramipril [Altace] 10 mg PO DAILY 03/09/21 Levothyroxine Sodium [Levothyroxine] 175 mcg PO DAILY 07/22/21 Spironolactone [Aldactone*] 25 mg PO DAILY #30 tab 07/24/21 New Medications: Spironolactone [Aldactone*] 25 mg PO DAILY #30 tab Diet: AHA Activity: Ad fabiola Followup: Felipe Forde MD [Primary Care Provider] - 1 Week (PCP- call to schedule an appointment ) Time spent managing pt's care (in minutes): 34
[2021-07-24 11:46] VITALS: BP 155/72; TEMP 98.2; O2SAT 97
== END 2021-07-24 12:05 | disposition home or self-care (01) | DRG 291 ==
LOC: ER 16:36 → ERHOLD 19:27 → 4TH 20:04
PROVIDERS: ADMIT Internal Medicine; ATTEND Internal Medicine
DX: I13.0 Hypertensive heart and chronic kidney disease with heart failure and stage 1 through stage 4 chronic kidney disease, or unspecified chronic kidney disease (principal); I50.33 Acute on chronic diastolic (congestive) heart failure; I48.20 Chronic atrial fibrillation, unspecified; N18.31 Chronic kidney disease, stage 3a; E78.5 Hyperlipidemia, unspecified; E87.70 Fluid overload, unspecified; Z79.890 Hormone replacement therapy; Z79.01 Long term (current) use of anticoagulants; Z85.850 Personal history of malignant neoplasm of thyroid; Z95.818 Presence of other cardiac implants and grafts; Z79.899 Other long term (current) drug therapy; Z88.1 Allergy status to other antibiotic agents; Z20.822 Contact with and (suspected) exposure to COVID-19; Z23 Encounter for immunization
CPT/HCPCS: 36415; 71045; 80048; 80053; 80061; 80076; 83735; 83880; 84100; 84439; 84443; 84484; 85025; 85610; 90471; 90732; 93005; 93306; 94760; 96374; 96375; 99285; J0360; J1940; J3475; Q2035; U0003

== ENCOUNTER 2023-03-14 11:49 | Inpatient (IN) | payer OTHER ==
--- OUTSIDE RECORDS SUMMARY | 2023-03-14 11:54 | XMS REPORT | Continuity of Care Document ---
:1945 Author Organization [facility] t Address [address] [facility] [address] [place] [address] Care Team Providers Name Role Phone Trey PADILLA, Herbie Jones Primary Care Physician JOMAR MENARD Attending Clinician Unavailable Radha Carmona Attending Clinician Unavailable HEBERT LÓPEZ Attending Clinician Unavailable MD HEBERT LÓPEZ Attending Clinician Unavailable QUYEN RIVAS Attending Clinician Unavailable RAFFY MIJARES Attending Clinician Unavailable JOMAR MENARD Admitting Clinician Unavailable HEBERT LÓPEZ Admitting Clinician Unavailable MD HEBERT LÓPEZ Admitting Clinician Unavailable Payers Payer Name Policy Type Policy Number Effective Date Expiration Date Gonzalo cervantes MEDICARE A B [id number] 2008 00:00:00 ADELFO STEWART FIGUEROA [id number] 2020 00:00:00 MEDICARE PART A [id number] 2008 \\T\\ B 00:00:00 VASHTI [id number] 2017 00:00:00 Problems Condition Condition Condition Status Onset Resolution Last Treating Co mments Source Name Details Category Date Date Treatment Clinician Date Atrial Atrial Disease Active [facility] fibrillati fibrill[facility] -[facility]osp[facility] 00 l Claudicati Claudicati Disease [facility]urre [facility] Thyroid Thyroid Disease Recurre [facility] cancer cancer mae 6-03 [facility] S/P S/P Disease Active [facility] thyroidect thyroidect 6-03 [facility] la nena la nena 00:00: Medical 00 [place] 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-12 [facility] carcinoma carcinoma 00:00: Medi shy 00 Center Atrial Atrial Disease Recurre 2017-[address] fibrillati fibrillati nce 2-17 Mary kes on with on with 00:00: Medical RVR RVR 00 Center Essential Essential Disease Active 2017-[address] [facility] hypertensi hypertensi 2-17 [facility] on on 00:00: Medical 00 Center Allergies, Adverse Reactions, Alerts Allergy Allergy Status Severity Reaction(s) Onset Inactive Treating Comm ents Source Name Type Date Date Clinician Sulfa Propensi Active Itching [facility] (Sulfona ty to 05-11 st [facility] adverse 00:00: Hospita Antibiot reaction 00 l ics) s to drug SULFA Drug Active Rash 2017-10 [facility] (SULFONA Class 2-16 ity of MIDE 00:00: [place] ANTIBIOT 00 Medical ICS) Branch SULFA Allergy Active Low Other 2017-[address] (SULFONA 2-16 [facility] MIDE 00:00: Medical ANTIBIOT 00 Center ICS) Sulfa Drug Active Other (See 2017-[address] (Sulfona Allergy Comments), 2-16 Dane es mide Rash 00:00: Medical Antibiot 00 Center ics) Social History Social Habit Start Date Stop Date Quantity Comments Source History SDOH [facility] Alcohol Binge Medical [facility] History SDOH [facility] Alcohol Std Drinks Medica l [place] [facility] History of tobacco Current smoker [facility] Hospital History of Social 2021-08-10 2021-08-[address] function 00:00:00 00:00:00 Hospital Alcohol intake 2021-08-10 2021-08-10 Current drinker [facility] 00:00:00 00:00:00 of alcohol Hospital (finding) Alcohol Comment 2021-06-12 2021-06-12 DAILY [facility] 00[facility]00 Hospital Tobacco use and 2021-06-12 2021-06-12 Smokeless Church exposure 00:00:00 00:00:00 tobacco non-user Hospital Tobacco Comment 2021-03-04 2021-03-04 quit- 20 years SHEILA ross [place] 00:00:00 00:00:00 ago [facility] History SDOH 2021-03-04 2021-03-04 1 SHEILA [place] Alcohol Frequency 00:00:00 00:00:00 [facility] Sex Assigned At [birth year] [facility] 00:00:00 00:00:00 Hospital Smoking Status Start Date Stop Date Source Ex-smoker 2021-06-12 00:00:00 2021-06-12 00:00:00 [facility] Medications Ordered Filled Start Stop Current Ordering Indication Dosage Frequency Signature Comments Components Source Medication Medication Date Date Medication? Clinician (SIG) Name Name rivaroxaban Yes 20mg QD Take 20 mg [facility] (XARELTO) 9-[address] 20 mg 16:45: daily. Hospita tablet 41 l furosemide Yes 80mg QD Take 80 mg M ethodi (LASIX) 80 9-[address] mg tablet 16:45: daily. Hospit a 41 l levothyroxi Yes 175ug QD Take 175 M ethodi ne 9-[address] (SYNTHROID) 16:45: mouth Hospi ta 175 mcg 41 daily. l tablet sertraline Yes 50mg QD Take 50 mg M ethodi (ZOLOFT) 50 9-[address] MG tablet 16:45: daily. Hospit a 41 l spironolact Yes 25mg QD Take 25 mg Methodi one 9-[address] (ALDACTONE) 16:45: daily. Hosp desmond 25 MG 40 l tablet ramipriL Yes 10mg QD Take 10 mg Met hodi (ALTACE) 10 9-[address] MG capsule 16:45: daily. Hospi ta 40 l fenofibrate Yes 145mg QD Take 145 M ethodi (TRICOR) 9-[address] 145 MG 14:45: mouth Hospita tablet 40 daily. l omeprazole Yes 40mg QD Take 40 mg M ethodi (PriLOSEC) 9-[address] 40 MG 14:45: daily. Hospita capsule 40 l omega-3 2021-0 Yes 1g Q.5D Take 1 g Method i acid ethyl 9-[address] esters 14:45: (two) Hospita (LOVAZA) 1 40 times a l gram day. capsule omega-3 Yes 2g Q.5D Take [address] acid ethyl 6-11 by mouth 2 Dane es esters 13:12: (two) Medical (LOVAZA) 1 10 times Center gram daily. capsule fenofibrate Yes 145mg QD Take [address] (TRICOR) 6-11 mg by [facility] 145 MG 13:12: mouth Medical tablet 10 daily. Center ramipriL Yes 10mg QD Take [address] (ALTACE) 10 6-11 by mouth Luke s MG capsule 13:12: daily. Medic al 10 Center sertraline Yes 50mg QD Take [address] (ZOLOFT) 50 6-11 by mouth Luke s MG tablet 13:12: daily. Medica l 10 Center rivaroxaban Yes Take by [facility] (XARELTO) 6-11 mouth [facility] 20 mg Tab 13:12: daily with Me dical tablet 10 dinner. Center furosemide Yes 80mg Q.5D Take [address] (LASIX) 80 6-11 by mouth 2 Dane es MG tablet 13:12: (two) Medical 10 times Center daily. omeprazole Yes 40mg QD Take [address] (PriLOSEC) 6-11 by mouth [facility] 40 MG 13:12: daily. Medical capsule 10 Center metoprolol Yes 25mg Q.5D Take [address] tartrate 6-11 by mouth 2 [facility] (LOPRESSOR) 13:12: (two) Medic al 25 MG 10 times Center tablet daily. Vital Signs Vital Name Observation Time Observation Value Comments Source HEIGHT 2021-03-05 07:00:00 170.2 cm WEIGHT 2021-03-05 07:00:00 86.2 kg HEIGHT 2021-03-04 10:32:00 170.2 cm WEIGHT 2021-03-04 10:32:00 81.647 kg WEIGHT 2021-03-13 06:28:00 86.2 kg WEIGHT 2021-03-13 06:28:00 86.2 kg HEIGHT 2021-03-05 07:00:00 170.2 cm WEIGHT 2021-03-05 07:00:00 86.2 kg HEIGHT 2021-03-04 10:32:00 170.2 cm WEIGHT 2021-03-04 10:32:00 81.647 kg Procedures This patient has no known procedures. Plan of Care Planned Activity Planned Date Details Comments Source Future Scheduled 2023-06-[address] [facility] Test 00:00:00 (Season Ended) [code = [facility] Center INFLUENZA VACCINE (Season Ended)] Future Scheduled 2023-03-12 Hepatitis C screening [facility] Test 13:28:17 (procedure) [code = 718963252] Future Scheduled 2023-03-12 SHINGLES VACCINES (1 [facility] Test 13:28:17 of 2) [code = SHINGLES VACCINES (1 of 2)] Future Scheduled 2023-03-12 COVID-19 VACCINE (3 - [facility] Test 13:28:17 Moderna series) [code = COVID-19 VACCINE (3 - Moderna series)] Future Scheduled 2023-03-12 65+ PNEUMOCOCCAL Methodi [facility] Test 13:28:17 VACCINE (2 - PCV) [code = 65+ PNEUMOCOCCAL VACCINE (2 - PCV)] Future Scheduled 2023-03-12 INFLUENZA VACCINE Method [facility] Test 13:28:17 [code = INFLUENZA VACCINE] Future Scheduled 2022-10-[address] [facility] Test 00:00:00 (12+) [code = Medical Center DEPRESSION SCREENING (12+)] Future Scheduled 2022-10-03 FALLS RISK SCREENING [facility] Test 00:00:00 [code = FALLS RISK Medical C enter SCREENING] Future Scheduled 2022-07-23 PNEUMOCOCCAL 65+ YRS [facility] Test 00:00:00 (2 - PCV) [code = Medical Ce nter PNEUMOCOCCAL 65+ YRS (2 - PCV)] Future Scheduled 2022-03-[address] [facility] Test 00:00:00 Counseling and Medical Cente r Screening (12+) [code = Tobacco Cessation Counseling and Screening (12+)] Future Scheduled 2021-02-01 COVID-19 VACCINE (3 - [facility] Test 00:00:00 [facility] [place] [facility] series) [code = COVID-19 VACCINE (3 - Booster for Moderna series)] Future Scheduled 2009-09-[address] [facility] Test 00:00:00 WELLNESS (YEAR 2 or Medical Center FIRST YEAR if no IPPE) [code = MEDICARE ANNUAL WELLNESS (YEAR 2 or FIRST YEAR if no IPPE)] Future Scheduled 1993 SHINGLES VACCINES ([address] [facility] Test 00:00:00 of 2) [code = SHINGLES Medic al Center VACCINES (1 of 2)] Future Scheduled 1962 DTAP/TDAP/TD VACCINES [facility] Test 00:00:00 (1 - Tdap) [code = Medical C enter DTAP/TDAP/TD VACCINES (1 - Tdap)] Future Scheduled 1961 HEPATITIS C SCREENING [facility] Test 00:00:00 [code = HEPATITIS C Medical Center SCREENING] Future Scheduled 1945 DXA SCAN [code = DXA [facility] Test 00:00:00 SCAN] Medical Center Encounters Start End Encounter Admission Attending Care Care Encounter Source Date/Time Date/Time Type Type Clinicians Facility Department ID 2021-07-11 Outpatient [facility] Surgery [id number] SLE 19:54:44 JOMAR 2021-03-11 Inpatient UR [facility] Surgery [id number] SLE 12:02:00 JOMAR 2022-07-28 2022-07-28 Telephone Kristine, [id number] Methodi 00:00:00 00:00:[address] Rad[id number] 3.430.2.7 Hospit a .[id number] l .8 2021-08-10 2021-08-10 Outpatient HEBERT LÓPEZ [facility] [id number] [place] 00:00:00 00:00:[address] 2021-08-10 2021-08-10 Outpatient HEBERT LÓPEZ [facility] [id number] [place] 00:00:00 00:00:[address] 2021-06-12 2021-06-12 Inpatient HEBERT LÓPEZ [facility] [id number] [place] 00:00:00 00:00:[address] 2021-06-09 2021-06-09 Outpatient HEBERT LÓPEZ [facility] [id number] [place] 00:00:00 00:00:[address] 2021-05-11 2021-05-11 Outpatient HEBERT LÓPEZ [facility] 2099 [id number] [place] 00:00:00 00:00:[address] 2021-05-11 2021-05-11 Outpatient HEBERT LÓPEZ [facility] 2099 [id number] [place] 00:00:00 00:00:[address] 2021-03-04 2021-03-04 Outpatient JOSE ROBERTO [facility] [id number] [facility] 00:00:00 00:00:00 2021-02-18 2021-02-18 Outpatient QUYEN RIVAS [facility] [id number] [facility] 00:00:00 00:00:00 2020-12-07 2020-12-07 Outpatient [facility] [id number] [facility] 13:15:00 13:15:00 [facility] 2020-11-09 2020-11-09 Outpatient R DYLLAN, [facility] [id number] [facility] 14:50:00 14:50:00 RAFFY [facility] Results Test Description Test Time Test Comments Results Result Comments Source SARS-CoV-2 (COVID-19) RNA [Presence] in Respiratory sp ecimen by 2021-06-09 21:12:24 ROSA with probe detection Test Item Value Reference Range Interpretation Comme nts SARS-CoV-2 (COVID-19) RNA [Presence] in Respiratory Not detected No t-Detected specimen by ROSA with probe detection (test code = 77537-5) Whether patient is employed in a healthcare setting (test code = 78335-7) Whether the patient has symptoms related to condition of interest (test code = 38777-5) Patient was hospitalized because of this condition (test code = 15741-9) Whether the patient was admitted to intensive care unit (ICU) for condition of interest (test code = 12269-7) Whether patient resides in a congregate care setting (test code = 08050-8) CHELSY IGLESIAS [id number] 15:17:00Surgical Pathology Report Case: [id number] Authorizing Provider: Stacey Jomar Mcintosh, Collected: 0 03/05/2021 10:46 AM Ordering Location: [facility] PERIOPERATIVE Received: 03/05/2021 12:54 PM SERVICES Pathologist: Anayeli Fenton MD Specimens: A) - Lymph Node, Delphain Lymph Node B) - Parathyroid, Left Superior Parathyroid C) - Thyroid, Left, Left Lobe Thyroid D) - Parathyroid, Subtotal Resection Left Inferior Parathyroid E) - Lymph Node, Left Level 6 Lymph Nodes F) - Thyroid, Right, Right Lobe Thyroid G) - Parathyroid, Right Inferior Parathyroid Biopsy A. 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 PARATHYROID, LEFT SUPERIOR, PARATHYROIDECTOMY: - WEIGHT: 0.2 GM - ONE HYPERCELLULAR PARATHYROID,MILD - NEGATIVE FOR MALIGNANCYC. THYROID, LEFT LOBE, LOBECTOMY: - WEIGHT: 14 GM - PAPILLARY THYROID CARCINOMA, CLASSIC TYPE, UNIFOCAL - TUMOR MEASURES 4.2 CM IN GREATEST DIMENSION - SURGICAL MARGINS FREE OF TUMOR - LYMPHOVASCULAR INVASION SEEN - PREVIOUS BIOPSY SITE CHANGES WITH CALCIFICATION AND OSSIFICATIONS - NO DEFINITE STRAP MUSCLE INVASION SEEN - BACKGROUNDADENOMATOID NODULES WITH DEGENERATIVE CHANGES D. PARATHYROID, LEFT INFERIOR, SUB TOTAL RESECTION: - ONE HYPERCELLULAR PARATHYROID, MILDE. LYMPH NODE, LEVEL 6", EXCISION: - METASTATIC PAPILLARY THYROID CARCINOMA IN ONE OUT OF ONE LYMPH NODE (1/1) - THE FOCUS MEASURES 2MM IN GREATEST DIMENSION - NO EXTRA THYROIDAL EXTENSION SEEN F. THYROID, RIGHT LOBE, LOBECTOMY: - WEIGHT: 11GM - PAPILLARY THYROID MICRO-CARCINOMA, MULTIFOCAL (5 FOCI) - TUMOR FOCI MEASURE 0.9 (LARGEST), 0.4, 0.3 ,0.2 AND 0.1 CM IN GREATEST DIMENSION - SURGICAL MARGINS FREE OF TUMOR - NO LYMPHOVASCULAR INVASION SEEN - BACKGROUND ADENOMATOUS NODULES WITH DEGENERATIVE CHANGES G. PARATHYROID, RIGHT INFERIOR, BIOPSY: - ONE HYPERCELLULAR PARATHYROID, MILD - NEGATIVE FOR MALIGNANCY - SYNOPTIC REPORT Signing Pathologist Direct Phone Line: [phone] signed by Anayeli Fenton MD on 03/16/2021 at 3:17 PMTHYROID GLAND (THYROID GLAND: RESECTION - A, B, C, D, E, F, G)8th Edition - Protocol posted: 05/30/2019SPECIMEN Procedure: Total thyroidectomy TUMOR Tumor Focality: Multifocal Tumor Characteristics: Tumor Identifier: The largest tumor in the left lobe, 4.2 cm in greatest dimension Tumor Site: Left lobe Histologic Type: Papillary carcinoma, classic (usual, conventional) Tumor Size (Centimeters): Greatest Dimension (Centimeters): 4.2 cm Additional Dimension (Centimeters): 2.4 cm Additional Dimension (Centimeters): 1.8 cm Extrathyroidal Extension: Not identified Angioinvasion (vascular invasion): Not identified Lymphatic Invasion: Present Perineural Invasion: Not identified Margins: Uninvolved by carcinoma Distance of Invasive Carcinoma from Closest Margin (Millimeters): less than a mm mmLYMPH NODES Number of LymphNodes Involved: 3 Avel Levels Involved: Level Size of Largest Metastatic Deposit (Centimeters): 0.2 cm Extranodal Extension (EVANS): Not identified Number of Lymph Nodes Examined: 3 Avel Levels Examined: Level PATHOLOGIC STAGE CLASSIFICATION (pTNM, AJCC 8th Edition) TNM Descriptors: m (multiple primary tumors) Primary Tumor (pT): pT3a Regional Lymph Nodes (pN): pN1a ADDITIONAL FINDINGS Additional Findings: Adenomatoid nodule(s) or nodular follicular disease Additional Findings: Parathyroid gland(s) present 69155 X [id number] X 3PTC and primary hypothyroidism A. Lymph node, delphianB. Parathyroid,left superiorC. Thyroid, leftD. Parathyroid, subtotal left inferiorE. Lymph node, level 6F. Thyroid,rightG. Parathyroid, right inferiorA. Received fresh labeled with the patient's name, medical recordnumber and "lymph node" is a 1.5 x 1 x 0.4 cm adipose tissue fragment which is bisected and entirelysubmitted in A1.B. Received fresh labeled with the patient's name, medical record number and "parathyroid" is a 0.20 g, 0.8 x 0.4 x 0.2 cm pink nodule which is submitted in toto in B1.C. Received freshlabeled with the patient's name, medical record number and "thyroid, left" is a 14 g left hemithyroidectomy. The left lobe is 4.5 x 2.6 x 2.5 cm and the isthmus is 2.1 x 1 x 0.6 cm. The outer surface is maroon-red and smooth to shaggy. The specimen is serially sectioned to reveal a 4.2 x 2.4 x 1.8 cm heterogeneous circumscribed-thorpe, solid to cystic, pink-salinas, partially calcified nodule in the superior to inferior left lobe. The nodule abuts the anterior and posterior margins. The uninvolved parenchyma is maroon and smooth. The specimen is entirely submitted.Ink code:Blue: Anterior Black: PosteriorOrange: Anterior isthmusGreen: Isthmus marginSection Code:C1: Superior and, perpendicular sectionsC2:Nodule, superior lobeC3-C8: Nodule with calcifications submitted sequentially from superior to midC9-C 14: Remainder of nodule submitted sequentially from mid to inferiorC 15-C16 nodule to inferior end, perpendicular sectionsD. Received fresh labeled with the patient's name, medical record number and "parathyroid" is a 0.03 g, 0.5 x 0.3 x 0.1 cm pink nodule submitted in toto in D1.E. Received fresh labeled with the patient's name, medical record number and "lymph node" is a 2 x 1.5 x 0.3 cm portion of adipose tissue containing a 0.2 cm pink lymph node. The specimen is submitted in toto in E1.F. Received fresh labeled with the patient's name, medical record number and "thyroid, right" is a 11 g, 3.7 x 3.5 x 1.3 cm right thyroidectomy. The outer surface is maroon-red and smooth to shaggy. The specimen is serially sectioned to reveal a 0.9 x 0.8 x 0.6 cm ill-defined, thorpe-pink solid nodule in the mid lobe abutting the anterior margin, and is 0.3 cm from the posterior margin. Subjacent to this nodule is a 0.7 cm simple cyst abutting the posterior margin. Located 0.3 cm medial to the nodule is a 1.4x 0.8 x 0.7 cm yellow-white calcified nodule that abuts the posterior margin and is 0.2 cm from the anterior margin. In the superior lobe is a 0.6 cm simple cyst that abuts the posterior margin and is 0.1 cm from the anterior margin. In the inferior lobe is a 0.5 x 0.4 x 0.3 cm pink solid nodule that abuts the anterior margin and is 0.7 cm from the posterior nodule. The uninvolved parenchyma is maroon-thorpe, partially gelatinous. The specimen is entirely submitted.Ink code:Blue: Anterior Black: PosteriorGreen: Isthmus marginSection Code:F1-F2: Superior pole perpendicular sectionsF3-F4: Superior lobe cyst, bisected, entirelyF5-F6: Entire mid lobe noduleF7-F9: Entire calcified noduleF 10: Uninvolved/gelatinous btaqhiqolpG79: Inferior nodule, bisected, entirelyF 12-F 13: Inferior end, perpendicular sectionsG. Received fresh labeled with the patient's name, medical record number and "parathyroid" is a0.09 g, 0.5 x 0.3 x 0.2 cm nodule with a small amount of attached adipose tissue. The specimen is submitted in toto in G1.ROHINI Au PA ([facility])cmPerformed.TISSUE [id number] 12:16:00Surgical Pathology Report Case: [id number] Authorizing Provider: Lj Laird MD Collected: 03/12/2021 05:36 PM Ordering Location: [facility] Received: 03/13/2021 09:05 AM PERIOPERATIVE SERVICESPathologist: Carson Keen MD Specimen: Clot, Blood clot from right arm thrombectomy A. RIGHT ARM CLOT, THROMBECTOMY: - MULTIPLE FRAGMENTS OF ORGANIZING THROMBUS Signing Pathologist Direct Phone Line: [phone] signed by Carson Keen MD on 03/16/2021 at 12:16 [id number] of right upper extremity ClotReceived fresh labeled the patient's name, accession number and "blood clot from right arm" is a 4.0 x 1.5 x 0.5 cm aggregate of red, cylindrical clotted blood. Banquet Attendant sections are submitted in A1.ALBERTO Giraldo, ALECIA (ASCP)Performed.[id number] 04:07:00 Test Item Value Reference Range Interpretation Comments MAGNESIUM (BEAKER) 2.1 mg/dL 1.6-2.6 Specimen slightly (test code = 627) hemolyzed Immunology Specialist ID - [id number] 04:07:00 Test Item Value Reference Range Interpretation Comments PHOSPHORUS (BEAKER) 3.5 mg/dL 2.3-4.7 Specimen slightly (test code = 604) hemolyzed Immunology Specialist ID - EDASIBASIC METABOLIC [id number] 04:07:00 Test Item Value Reference Range Interpretation Comments SODIUM (BEAKER) 137 meq/L 136-145 (test code = 381) POTASSIUM (BEAKER) 4.3 meq/L 3.5-5.1 Specimen slightly (test code = 379) hemolyzed CHLORIDE (BEAKER) 103 meq/L 98-107 (test code = 382) CO2 (BEAKER) (test 24 meq/L 22-29 code = 355) BLOOD UREA NITROGEN 15 mg/dL 7-21 (BEAKER) (test code = 354) CREATININE (BEAKER) 0.94 mg/dL 0.57-1.25 Specimen slightly (test code = 358) hemolyzed GLUCOSE RANDOM 122 mg/dL 70-105 H (BEAKER) (test code = 652) CALCIUM (BEAKER) 8.8 mg/dL 8.4-10.2 (test code = 697) EGFR (BEAKER) (test 58 mL/min/1.73 ESTIMA CALLUM GFR IS code = 1092) sq m NOT ACCURATE CREATININE CLEARANCE IN PREDICTING GLOMERULAR FILTRATION RATE . ESTIMATED GFR I S NOT APPLICABLE FOR DIALYSIS PATIEN TS. Immunology Specialist ID - [id number] 04:05:00 Test Item Value Reference Range Interpretation Comments PARTIAL THROMBOPLASTIN TIME 82.6 seconds 22.5-36.0 H (BEAKER) (test code = 760) CBC W/PLT COUNT & AUTO [id number] 04:01:00 Test Item Value Reference Range Interpretation Comments WHITE BLOOD CELL COUNT 4.6 K/ L 3.5-10.5 (BEAKER) (test code = 775) RED BLOOD CELL COUNT 3.79 M/ L 3.93-5.22 L (BEAKER) (test code = 761) HEMOGLOBIN (BEAKER) 11.5 GM/DL 11.2-15.7 (test code = 410) HEMATOCRIT (BEAKER) 36.1 % 34.1-44.9 (test code = 411) MEAN CORPUSCULAR 95.3 fL 79.4-94.8 H Discordant with VOLUME (BEAKER) (test previo us code = 753) result.clinical correlation req uired MEAN CORPUSCULAR 30.3 pg 25.6-32.2 HEMOGLOBIN (BEAKER) (test code = 751) MEAN CORPUSCULAR 31.9 GM/DL 32.2-35.5 L HEMOGLOBIN CONC (BEAKER) (test code = 752) RED CELL DISTRIBUTION 13.1 % 11.7-14.4 WIDTH (BEAKER) (test code = 412) PLATELET COUNT 241 K/CU MM 150-450 (BEAKER) (test code = 756) MEAN PLATELET VOLUME 10.9 fL 9.4-12.3 (BEAKER) (test code = 754) NUCLEATED RED BLOOD 0 /100 WBC 0-0 CELLS (BEAKER) (test code = 413) NEUTROPHILS RELATIVE 71 % PERCENT (BEAKER) (test code = 429) LYMPHOCYTES RELATIVE 14 % PERCENT (BEAKER) (test code = 430) MONOCYTES RELATIVE 13 % PERCENT (BEAKER) (test code = 431) EOSINOPHILS RELATIVE 1 % PERCENT (BEAKER) (test code = 432) BASOPHILS RELATIVE 0 % PERCENT (BEAKER) (test code = 437) NEUTROPHILS ABSOLUTE 3.25 K/ L 1.56-6.13 COUNT (BEAKER) (test code = 670) LYMPHOCYTES ABSOLUTE 0.63 K/ L 1.18-3.74 L COUNT (BEAKER) (test code = 414) MONOCYTES ABSOLUTE 0.59 K/ L 0.24-0.36 H COUNT (BEAKER) (test code = 415) EOSINOPHILS ABSOLUTE 0.06 K/ L 0.04-0.36 COUNT (BEAKER) (test code = 416) BASOPHILS ABSOLUTE 0.02 K/ L 0.01-0.08 COUNT (BEAKER) (test code = 417) IMMATURE 0 % 0-1 GRANULOCYTES-RELATIVE PERCENT (BEAKER) (test code = 2801) CT, CTANGIO EXTREMITY, UPPER, [id number] 19:07:00Unlisted Reason for Exam - Click Yes and Enter Reason Below->YesUnlisted Reason for Exam->melissa icationCENTRAL VALLEY [facility]ITALName: JESSICA MANDEL : 1945 Sex: FAddendum BeginsREPORT STATUS:A I have reviewed the study for nonvascular components.I agree with the nonvascular findings as described. Following additional findings were noted: There is soft tissue fullness in the thyroid bed. This could be a result of postoperative changes. Clinicaland historical correlation is requested. The imaging of the right lung is degraded by motion artifact. Signed: Prashant Peng MDReport Verified Date/Time: 03/12/2021 19:07:14 Reading Location: [place] [address] Angio Body Reading RoomAddendum EndsFINAL REPORT CT angiography of the right upper extremity, 11-Mar-21 INDICATION: This is a 75 year old female with diagnosis of arterial occlusion presents for assessment. According to [facility], patient has recent thyroidectomy and central neck dissection, and parathyroidectomy and reimplantation of the right inferior parathyroid lobe, and admitted with right brachial artery occlusion. TECHNIQUE: Spiral acquisition before anterior intravenous contrast administration using a Siemens CT scanner. Images were obtained before and during the dynamic passage of intravenous contrast material. Multi-planar 3-D volume-rendering reconstruction was perform ed using an independent workstation interactively by the interpreting physician as well as the 3-D specialist for optimal visualisation of the right upper extremity arteries. Please refer to the contrast sheet scanned in the RIS system for the amount and route of contrast given. This exam was performed according to our departmental dose-optimisation programme, which includes automated exposure control, adjustment of the mA and/or kV according to patient size and/or use of iterative reconstruction technique. Dose modulation, iterative reconstruction, and/or weight based adjustment of the mA/kV was utilized to reduce the radiation dose to as low as reasonably achievable. FINDINGS: VASCULAR: The pericardium has normal appearance, where visualised. The central pulmonary artery is normal in calibre, where visualised, with no evidence of central pulmonary artery embolism. The cardiac chambers demonstrate normal atrioventricular and ventriculoarterial concordance, and systemic and pulmonary venous return. Left atrial enlargement is identified. Right atrial enlargement is seen. The visualised thoracicaorta is unremarkable. The innominate artery is unremarkable. Majority of the right subclavian artery is unremarkable. At the juncture of the right subclavian artery/right axillary artery, reduction in enhancement is identified for length of at least 5 cm, thereafter, with minimal enhancement in the right axillary artery, for example image 36, and thereafter, much of the right brachial artery has either no enhancement or very limited enhancement noted. Distal to the right elbow, for example at image 127 onwards, enhancement of the right radial artery is identified down to the right wrist. The interosseous vessel, and the right ulnar artery are not seen to enhance by contrast and may suggest occlusion. Unfortunately, there is no second dynamic data set were obtained, from the wrist up to the shoulder. NON-VASCULAR: According to EPIC, patient has total thyroidectomy. The visualised chest wall andmediastinum appears unremarkable. The right lung appears unremarkable with dependent changes seen. No pleural effusions identified. No nodule is seen. The visualised liver is unremarkable. The liver edge is smooth. No abnormal enhancing structures identified. The gallbladder measure 4 cm in diameter with no gallstones identified. No wall thickening is seen. The pancreas is incompletely assessed. There could be a small hypodensity identified at image 110, measure 5 to 6 mm, too small to characterise.The right kidney is normal in size and shape. No hydronephrosis or perirenal fluid collection is identified. A small renal cyst is identified in the medial aspect of the right kidney, image 125, measure 1 cm in diameter. A right adrenal adenoma is identified, at image 98 of the precontrast series, measure 1.5 x 0.9 cm in diameter. Bowel is incompletely assessed as enteric contrast is not given. The right-sided bowel structures appears to be grossly unremarkable. Scattered colonic diverticulum is seen. No free air or free fluid is identified. The bladder appears unremarkable. The uterus is not seen.No abnormal adnexal mass is identified, where visualised. In the bony windows, no acute bony pathology is seen. Some degenerative changes is noted. CONCLUSIONS: 1. The visualised thoracic aorta is unremarkable. The visualised innominate artery is unremarkable. 2. Much of the right subclavian artery isunremarkable. At the juncture of the right subclavian artery/right axillary artery, reduction in enhancement is identified for length of at least 5 cm, thereafter, with minimal enhancement in the rightaxillary artery, for example image 36, and thereafter, much of the right brachial artery has either no enhancement or very limited enhancement noted. Distal to the elbow, only enhancement is noted is the right radial artery. If the clinical presentation is acute, most likely there is thrombotic occlusion. Please correlate clinically. 3. Other findings as described above. 4. An addendum will be dictated by the Agricultural Plow Operator Radiologist regarding the nonvascular findings. THE REPORT WILL ONLY BE CONSIDERED COMPLETE AFTER THE ADDENDUM HAS BEEN DICTATED. Signed: Adonay Clement MDReport Verified Date/Time: 03/12/2021 08:28:[address] [id number] 14:34:00Unlisted Reason for Exam - Click Yes and Enter Reason Below->YesUnlisted Reason for Exam->RUE weakness [facility] 1945 Sex: FFINAL REPORT CLINICAL HISTORY: Unlisted Reason for ExamKnown thrombus of R brachial and axillary artery with RUE weakness, need to access carotids TECHNIQUE: Initially, noncontrast headCT images were performed. Contiguous contrast-enhanced axial images through the neck followed by axial images through the head with coronal and sagittal reformations to assess the arterial circulation.3-D reconstructions were performed using a volume rendered technique separately on a workstation. This exam was performed according to the departmental dose optimization program which includes automated exposure control, adjustment of the mA and/or kV according to the patient size, and/or use of an iterative reconstruction technique. COMPARISON: None FINDINGS: Allowing for metallic streak effect frombilateral cochlear implants, there is no definitive visualized CT evidence for acute infarct or hemorrhage. There is generalized parenchymal volume loss without hydrocephalus or midline shift. There iscomplete occlusion of the right carotid artery just beyond the common carotid origin through the carotid terminus. There is no evidence for a [place] proximal branch vessel occlusion. There iscollateral filling of the right middle and anterior cerebral arteries via a small anterior communicating artery and presumed retrograde flow along a right posterior communicating artery. The left internal carotid artery is patent without focal or hemodynamically significant stenosis by NASCET criteria. The vertebral arteries in the neck are patent including their origins. There are postsurgical changes of the anterior neck involving the thyroid bed. There are subcentimeter cervical lymph nodes. There are patchy groundglass opacities in the visualized upper lungs. 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 Collateral supply tothe right middle and anterior cerebral arteries via the anterior communicating artery and right posterior communicating artery. No definitive CT evidence of acute infarct or hemorrhage. The findings were discussed with Dr. Kinsey of vascular surgery at the time of dictation. Signed: Julius Rios MDReport Verified Date/Time: 03/12/2021 14:34:42 Reading Location: [address] Neuro Reading Room [facility] signed by: JULIUS RIOS M.D. 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 Contiguous contrast-enhanced axial images through the neck followed by axial images through the head with coronal and sagittal reformations to assess the arterial circulation.3-D reconstructions were performed using a volume rendered technique separately on a workstation. This exam was performed according to the departmental dose optimization program which includes automated exposure control, adjustment of the mA and/or kV according to the patient size, and/or use of an iterative reconstruction technique. COMPARISON: None FINDINGS: Allowing for metallic streak effect frombilateral cochlear implants, there is no definitive visualized CT evidence for acute infarct or hemorrhage. There is generalized parenchymal volume loss without hydrocephalus or midline shift. There iscomplete occlusion of the right carotid artery just beyond the common carotid origin through the carotid terminus. There is no evidence for a [place] proximal branch vessel occlusion. There iscollateral filling of the right middle and anterior cerebral arteries via a small anterior communicating artery and presumed retrograde flow along a right posterior communicating artery. The left internal carotid artery is patent without focal or hemodynamically significant stenosis by NASCET criteria. The vertebral arteries in the neck are patent including their origins. There are postsurgical changes of the anterior neck involving the thyroid bed. There are subcentimeter cervical lymph nodes. There are patchy groundglass opacities in the visualized upper lungs. 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 Collateral supply tothe right middle and anterior cerebral arteries via the anterior communicating artery and right posterior communicating artery. No definitive CT evidence of acute infarct or hemorrhage. The findings were discussed with Dr. Kinsey of vascular surgery at the time of dictation. Signed: Julius Rios MDReport Verified Date/Time: 03/12/2021 14:34:42 Reading Location: [facility] C013V Neuro Reading Room [facility] signed by: JULIUS RIOS M.D. on 03/12/2021 02:34 [id number] 08:27:00 Test Item Value Reference Range Interpretation Comments PARTIAL THROMBOPLASTIN TIME 67.2 seconds 22.5-36.0 H (ASHKAN) (test code = 760) SARS-COV2/RT-PCR ([facility])2021-03-12 06:21:00 Test Item Value Reference Range Interpretation Comments SARS-COV2/RT-PCR (test Negative Not Detected, Negative, code = 5800667) See external report for linked test SARS-COV-2 PERFORMING LAB [facility] MAGED (test code = 0019043) Negative result for this test determines that SARS-CoV-2 RNA was not present in the specimen above the Limit of Detection (LOD). However, Negative results do not preclude SARS-CoV-2 infection and should not be used as the sole basis for treatment or patient management decisions. Negative results must be combined with clinical observations, patient history, and epidemiological information. A false negative result may occur if a specimen is improperly collected, transported or handled. A false negative result should be considered if patient's recent exposures or clinical presentation indicate that COVID-19 (SARS-CoV-2) is likely and diagnostic tests for other causes of illness are negative. Re-testing should be considered in cases of suspected false negatives.The limit of detection for this assay is 100 copies/mL.This SARS CoV-2 test is a real-time RT-PCR test intended for the qualitative detection of nucleic acid from SARS-CoV-2 in a nasopharyngeal swab specimen collected from individuals suspected of COVID-19 by their healthcare provider.This test has not been Food and Drug Administration (FDA) cleared or approved. This is a modified version of an approved Emergency Use Authorization (EUA) and is in the process of review by the FDA. Once authorized by the FDA, the issued EUA will be effective until the declaration that circumstances exist justifying the authorization of the emergency use ofin vitro diagnostic tests for detection and/or diagnosis of COVID-19 is terminated under Section 564(b)(2) of the Act or the EUA is revoked under Section 564(g) of the Act.Testing was performed using the Cedillo SARS-CoV-2 assay.Fact Sheet for Healthcare Providers:https://www.Pepperfry.com.Quisk/yoshi/RT_SAR R-DjS-8_CRZ_Izdm_Hxsii_13-372083.pdfFact Sheet for Healthcare Patients:https://www.molecular.cedillo/s al/QU_YDDI-QsD-3_Jwnnbrx_Figt_Jazpk_FF_19-160473A5.pdfPerforming Laboratory:[facility] [place] [address] BASIC METABOLIC [id number] 05:19:00 Test Item Value Reference Range Interpretation Comments SODIUM (BEAKER) 140 meq/L 136-145 (test code = 381) POTASSIUM (BEAKER) 3.6 meq/L 3.5-5.1 (test code = 379) CHLORIDE (BEAKER) 103 meq/L 98-107 (test code = 382) CO2 (BEAKER) (test 25 meq/L 22-29 code = 355) BLOOD UREA NITROGEN 17 mg/dL 7-21 (BEAKER) (test code = 354) CREATININE (BEAKER) 1.00 mg/dL 0.57-1.25 (test code = 358) GLUCOSE RANDOM 99 mg/dL 70-105 (BEAKER) (test code = 652) CALCIUM (BEAKER) 9.0 mg/dL 8.4-10.2 (test code = 697) EGFR (BEAKER) (test 54 mL/min/1.73 ESTIMA CALLUM GFR IS code = 1092) sq m NOT ACCURATE CREATININE CLEARANCE IN PREDICTING GLOMERULAR FILTRATION RATE . ESTIMATED GFR I S NOT APPLICABLE FOR DIALYSIS PATIEN TS. Immunology Specialist ID - KIARA [id number] 05:19:00 Test Item Value Reference Range Interpretation Comments MAGNESIUM (BEAKER) (test code = 1.8 mg/dL 1.6-2.6 627) Immunology Specialist ID - KIARA [id number] 05:19:00 Test Item Value Reference Range Interpretation Comments PHOSPHORUS (BEAKER) (test code = 3.5 mg/dL 2.3-4.7 604) Immunology Specialist ID - KIARA [id number] 05:07:00 Test Item Value Reference Range Interpretation Comments PARTIAL THROMBOPLASTIN TIME 124.3 seconds 22.5-36.0 H (BEAKER) (test code = 760) CBC W/PLT COUNT & AUTO [id number] 04:55:00 Test Item Value Reference Range Interpretation Comments WHITE BLOOD CELL COUNT (BEAKER) 3.7 K/ L 3.5-10.5 (test code = 775) RED BLOOD CELL COUNT (BEAKER) 3.98 M/ L 3.93-5.22 (test code = 761) HEMOGLOBIN (BEAKER) (test code = 11.8 GM/DL 11.2-15.7 410) HEMATOCRIT (BEAKER) (test code = 35.8 % 34.1-44.9 411) MEAN CORPUSCULAR VOLUME (BEAKER) 89.9 fL 79.4-94.8 (test code = 753) MEAN CORPUSCULAR HEMOGLOBIN 29.6 pg 25.6-32.2 (BEAKER) (test code = 751) MEAN CORPUSCULAR HEMOGLOBIN CONC 33.0 GM/DL 32.2-35.5 (BEAKER) (test code = 752) RED CELL DISTRIBUTION WIDTH 13.0 % 11.7-14.4 (BEAKER) (test code = 412) PLATELET COUNT (BEAKER) (test 240 K/CU MM 150-450 code = 756) MEAN PLATELET VOLUME (BEAKER) 11.2 fL 9.4-12.3 (test code = 754) NUCLEATED RED BLOOD CELLS 0 /100 WBC 0-0 (BEAKER) (test code = 413) NEUTROPHILS RELATIVE PERCENT 57 % (BEAKER) (test code = 429) LYMPHOCYTES RELATIVE PERCENT 20 % (BEAKER) (test code = 430) MONOCYTES RELATIVE PERCENT 18 % (BEAKER) (test code = 431) EOSINOPHILS RELATIVE PERCENT 4 % (BEAKER) (test code = 432) BASOPHILS RELATIVE PERCENT 1 % (BEAKER) (test code = 437) NEUTROPHILS ABSOLUTE COUNT 2.08 K/ L 1.56-6.13 (BEAKER) (test code = 670) LYMPHOCYTES ABSOLUTE COUNT 0.75 K/ L 1.18-3.74 L (BEAKER) (test code = 414) MONOCYTES ABSOLUTE COUNT (BEAKER) 0.65 K/ L 0.24-0.36 H (test code = 415) EOSINOPHILS ABSOLUTE COUNT 0.13 K/ L 0.04-0.36 (BEAKER) (test code = 416) BASOPHILS ABSOLUTE COUNT (BEAKER) 0.04 K/ L 0.01-0.08 (test code = 417) IMMATURE GRANULOCYTES-RELATIVE 1 % 0-1 PERCENT (BEAKER) (test code = 2801) [id number] 23:00:00 Test Item Value Reference Range Interpretation Comments PARTIAL THROMBOPLASTIN TIME 102.4 seconds 22.5-36.0 H (BEAKER) (test code = 760) TSH/FREE T4 IF [id number] 15:05:00 Test Item Value Reference Range Interpretation Comments THYROID STIMULATING HORMONE 1.939 uIU/mL 0.350-4.940 (BEAKER) (test code = 772) Immunology Specialist ID - BSPTH, [id number] 14:52:00 Test Item Value Reference Range Interpretation Comments PARATHYROID HORMONE INTACT 81.5 pg/mL 8.5-72.5 H (BEAKER) (test code = 577) Immunology Specialist ID - BSBASIC METABOLIC [id number] 14:50:00 Test Item Value Reference Range Interpretation Comments SODIUM (BEAKER) 140 meq/L 136-145 (test code = 381) POTASSIUM (BEAKER) 3.6 meq/L 3.5-5.1 (test code = 379) CHLORIDE (BEAKER) 103 meq/L 98-107 (test code = 382) CO2 (BEAKER) (test 25 meq/L 22-29 code = 355) BLOOD UREA NITROGEN 22 mg/dL 7-21 H (BEAKER) (test code = 354) CREATININE (BEAKER) 1.06 mg/dL 0.57-1.25 (test code = 358) GLUCOSE RANDOM 96 mg/dL 70-105 (BEAKER) (test code = 652) CALCIUM (BEAKER) 9.0 mg/dL 8.4-10.2 (test code = 697) EGFR (BEAKER) (test 50 mL/min/1.73 ESTIMA CALLUM GFR IS code = 1092) sq m NOT ACCURATE CREATININE CLEARANCE IN PREDICTING GLOMERULAR FILTRATION RATE . ESTIMATED GFR I S NOT APPLICABLE FOR DIALYSIS PATIEN TS. Immunology Specialist ID - [id number] 14:50:00 Test Item Value Reference Range Interpretation Comments MAGNESIUM (BEAKER) (test code = 1.7 mg/dL 1.6-2.6 627) Immunology Specialist ID - [id number] 14:50:00 Test Item Value Reference Range Interpretation Comments PHOSPHORUS (BEAKER) (test code = 3.3 mg/dL 2.3-4.7 604) Immunology Specialist ID - [id number] 14:33:00 Test Item Value Reference Range Interpretation Comments PARTIAL THROMBOPLASTIN TIME 31.9 seconds 22.5-36.0 (BEAKER) (test code = 760) PROTHROMBIN TIME/[id number] 14:32:00 Test Item Value Reference Range Interpretation Comments PROTIME (BEAKER) 12.8 seconds 11.9-14.2 (test code = 759) INR (BEAKER) (test 0.99 See_Comment [Automat ed message] code = 370) The system OpenLabel generated this result transmitted ref erence range: <=5.90. The reference range was not used to int erpret this result as normal/abnormal . RECOMMENDED COUMADIN/WARFARIN INR THERAPY RANGESSTANDARD DOSE: 2.0 - 3.0 Includes: PROPHYLAXIS for venous thrombosis, systemic embolization; TREATMENT for venous thrombosis and/or pulmonary embolus.HIGH RISK: Target INR is 2.5-3.5 for patients with mechanical heart valves.[id number] 14:32:00 Test Item Value Reference Range Interpretation Comments PARTIAL THROMBOPLASTIN TIME 31.5 seconds 22.5-36.0 (BEAKER) (test code = 760) CBC W/PLT COUNT & AUTO [id number] 14:31:00 Test Item Value Reference Range Interpretation Comments WHITE BLOOD CELL COUNT (BEAKER) 4.4 K/ L 3.5-10.5 (test code = 775) RED BLOOD CELL COUNT (BEAKER) 4.06 M/ L 3.93-5.22 (test code = 761) HEMOGLOBIN (BEAKER) (test code = 12.0 GM/DL 11.2-15.7 410) HEMATOCRIT (BEAKER) (test code = 37.0 % 34.1-44.9 411) MEAN CORPUSCULAR VOLUME (BEAKER) 91.1 fL 79.4-94.8 (test code = 753) MEAN CORPUSCULAR HEMOGLOBIN 29.6 pg 25.6-32.2 (BEAKER) (test code = 751) MEAN CORPUSCULAR HEMOGLOBIN CONC 32.4 GM/DL 32.2-35.5 (BEAKER) (test code = 752) RED CELL DISTRIBUTION WIDTH 13.1 % 11.7-14.4 (BEAKER) (test code = 412) PLATELET COUNT (BEAKER) (test 256 K/CU MM 150-450 code = 756) MEAN PLATELET VOLUME (BEAKER) 10.9 fL 9.4-12.3 (test code = 754) NUCLEATED RED BLOOD CELLS 0 /100 WBC 0-0 (BEAKER) (test code = 413) NEUTROPHILS RELATIVE PERCENT 58 % (BEAKER) (test code = 429) LYMPHOCYTES RELATIVE PERCENT 19 % (BEAKER) (test code = 430) MONOCYTES RELATIVE PERCENT 19 % (BEAKER) (test code = 431) EOSINOPHILS RELATIVE PERCENT 4 % (BEAKER) (test code = 432) BASOPHILS RELATIVE PERCENT 1 % (BEAKER) (test code = 437) NEUTROPHILS ABSOLUTE COUNT 2.53 K/ L 1.56-6.13 (BEAKER) (test code = 670) LYMPHOCYTES ABSOLUTE COUNT 0.84 K/ L 1.18-3.74 L (BEAKER) (test code = 414) MONOCYTES ABSOLUTE COUNT (BEAKER) 0.82 K/ L 0.24-0.36 H (test code = 415) EOSINOPHILS ABSOLUTE COUNT 0.16 K/ L 0.04-0.36 (BEAKER) (test code = 416) BASOPHILS ABSOLUTE COUNT (BEAKER) 0.03 K/ L 0.01-0.08 (test code = 417) IMMATURE GRANULOCYTES-RELATIVE 1 % 0-1 PERCENT (BEAKER) (test code = 2801) [id number] 14:31:00 Test Item Value Reference Range Interpretation Comments PARTIAL THROMBOPLASTIN TIME 32.0 seconds 22.5-36.0 (BEAKER) (test code = 760) POCT-GLUCOSE [id number] 21:48:00 Test Item Value Reference Range Interpretation Comments POC-GLUCOSE METER 122 mg/dL 70-110 H : TESTED A T [facility] 6720 (BEAKER) (test code = [place], 1538) [address]: Immunology Specialist/Techni maria fernanda ID = [id number] for GR AHAM, ELLA PTH, [id number] 12:53:00 Test Item Value Reference Range Interpretation Comments PARATHYROID HORMONE INTACT 10.4 pg/mL 8.5-72.5 (BEAKER) (test code = 577) Immunology Specialist ID - RANI FPTH, [id number] 12:33:00 Test Item Value Reference Range Interpretation Comments PARATHYROID HORMONE INTACT 60.9 pg/mL 8.5-72.5 (BEAKER) (test code = 577) Immunology Specialist ID - RANI [facility], [id number] 11:48:00 Test Item Value Reference Range Interpretation Comments PARATHYROID HORMONE INTACT 18.2 pg/mL 8.5-72.5 (BEAKER) (test code = 577) Immunology Specialist ID - RANI [facility], [id number] 11:38:00 Test Item Value Reference Range Interpretation Comments PARATHYROID HORMONE INTACT 78.8 pg/mL 8.5-72.5 H (BEAKER) (test code = 577) Immunology Specialist ID - RANI [facility], [id number] 10:45:00 Test Item Value Reference Range Interpretation Comments PARATHYROID HORMONE INTACT 223.6 pg/mL 8.5-72.5 H (BEAKER) (test code = 577) Immunology Specialist ID - RANI FBASIC METABOLIC [id number] 08:46:00 Test Item Value Reference Range Interpretation [...] S NOT APPLICABLE FOR DIALYSIS PATIEN TS. Immunology Specialist ID - RANI FOperator ID - RANI [id number] 07:44:00 Test Item Value Reference Range Interpretation Comments HEMOGLOBIN (BEAKER) (test code = 14.0 GM/DL 11.2-15.7 410) Immunology Specialist ID - [facility] SOFT TISSUE NECK, WITHOUT / WITH IV [id number] 15:40:00Parathyroid glandsUnlisted Reason for Exam - Click Yes and Enter Reason Below->NoCHI [facility]IVER[facility]UMName: [facility] : 1945 Sex: FFINAL REPORT EXAMINATION: CT of the neck without and with contrast HISTORY: Primary hyperparathyroidism, evaluate for parathyroid adenoma. History of thyroid cancer and biopsy on 01/31/2021OMPARISON: None TECHNIQUE: Multidetector helical axial images were obtained from the denise to theangle of the mandible before and during intravenous [...] Mass: Small approximately 6 mm not significantly enhancingnodule behind the superior pole of the left lobe of the thyroid gland, almost retroesophageal may represent a lymph node versus a left superior parathyroid adenoma (please see arrows on saved ndiaye images).A small 5 mm nonsignificant enhancing nodule adjacent to the inferior pole of the left lobe of thethyroid gland may represent a lymph node versus a not significantly enhancing left inferior parathyroid adenoma. (Please see arrows on saved ndiaye images). Lymph nodes: Multiple small central compartmentlymph nodes may be related to prior thyroiditis, [...] vessels: Patent carotid arteries. Bones: Multilevel spondylosis, uncovertebraland facet arthroses. Moderately severe degenerative foraminal stenoses at C3-C4 and mild at C4-C5 and C5-C6 and C6-7. Interbody and posterior fusion at C2-C3. Mild degenerative retrolisthesis at C4-C5 and C5-C6. Incidental findings: Torus palatini as a normal variation of the anatomy. IMPRESSION: 1.Nodiscrete parathyroid adenoma, suspicious not significantly enhancing small left superior and left inferior retro thyroidal nodules as detailed above. 2.Heterogeneous thyroid gland with multiple partially calcified and cystic nodules as detailed above. 3.No enlarged cervical lymphadenopathy. Signed: Daisy Browning MDReport Verified Date/Time: 02/18/2021 15:40:00 Reading Location: [facility] Room[address] [place] [address] -[id number] 12:49:00 Test Item Value Reference Range Interpretation Comments POC-CREATININE 1.1 mg/dL 0.6-1.3 : TESTED AT [facility] ([facility]) (test [address] [facility] code = 1859) A, [facility] 7 6114: Immunology Specialist/Techni maria fernanda ID = [id number] for CE VALLECILLO POC-EGFR 48 mL/min/1.73M2 ([facility]) (test code = 1860)
[2023-03-14 13:04] LABS: Absolute Lymphocytes (CBC) 0.4 K/uL (0.7-4.9); Lymphocytes % 7.9 % (15.3-44.8); MCV 85.4 fL (80-100); MPV 8.2 fL (7.6-11.3); RBC Red Blood Cell Count 3.98 M/uL (3.86-4.86)
[2023-03-14 13:22] LABS: Magnesium 1.8 mg/dL (1.6-2.4); Potassium 3.4 mEq/L (3.5-5.1); Troponin High Sensitivity 23.1 pg/mL (<58.9)
--- NOTE | 2023-03-14 14:00 | RAD REPORT ---
EXAM DESCRIPTION: Kulwant Single View03/14/2023 1:28 pm CLINICAL HISTORY: sob COMPARISON: 2020 FINDINGS: Upper lobe vessels are prominent indicative of pulmonary venous hypertension Lungs appear clear of acute infiltrate Heart is moderately enlarged
--- NOTE | 2023-03-14 14:05 | EDPHYS ---
Physician Documentation [facility] Name: Nia Mandel Age: 77 yrs Sex: Female : 1945 Arrival Date: 03/14/2023 Time: 11:49 Bed Treatment Private MD: Felipe Forde ED Physician Sadiq Salgado HPI: 03/14 13:02 This 77 yrs old Female presents to ER via Ambulatory with complaints of Breathing ms3 Difficulty. 13:02 77-year-old female with past medical history of atrial fibrillation, DVT in the right ms3 arm, hypertension, hypothyroidism presents from Dr. Starkey's office for congestive heart failure and atrial fibrillation. Patient is without pain. Patient states she has had shortness of breath for the last 3 weeks that has been intermittent. Patient denies nausea or vomiting or chest pain. Historical: - Allergies: 12:22 Sulfa (Sulfonamide Antibiotics); jl7 - PMHx: 12:22 Atrial fibrillation; blood clots in right arm; Hypertensive disorder; THYROID CANCER; jl7 watchman procedure; - Immunization history:: Adult Immunizations unknown. - Social history:: Smoking status: unknown. ROS: 13:02 Constitutional: Negative for fever, and chills. Neck: Negative for injury, pain, and ms3 swelling, Cardiovascular: Negative for chest pain, and palpitations. 13:02 Abdomen/GI: Negative for abdominal pain, nausea, vomiting, diarrhea, and constipation, MS/Extremity: Negative for injury and deformity, Skin: Negative for injury, rash, and discoloration. 13:02 Respiratory: Positive for shortness of breath. 13:02 All other systems are negative. Exam: 13:02 Constitutional: This is a well developed, well nourished patient who is awake, alert, ms3 and in no acute distress. Head/Face: Normocephalic, atraumatic. Neck: Trachea midline, no cervical lymphadenopathy. Supple, full range of motion without nuchal rigidity, or vertebral point tenderness. No Meningismus. Chest/axilla: Normal chest wall appearance and motion. Nontender with no deformity. Respiratory: Lungs have equal breath sounds bilaterally, clear to auscultation and percussion. No rales, rhonchi or wheezes noted. No increased work of breathing, no retractions or nasal flaring. 13:02 Cardiovascular: Rate: normal, Rhythm: irregularly irregular, Pulses: no pulse deficits are appreciated, Heart sounds: normal, normal S1and S2. 14:05 ECG was reviewed by the Attending Physician. ms3 Vital Signs: 12:21 BP 155 / 69; Pulse 76; Resp 28; Temp 97.2; Pulse Ox 97% on R/A; jl7 13:00 BP 142 / 73; Pulse 60; Resp 18; Pulse Ox 97% on R/A; eh3 14:00 BP 135 / 72; Pulse 62; Resp 18; Pulse Ox 98% on R/A; eh3 15:00 BP 159 / 77; Pulse 67; Resp 20; Pulse Ox 99% on R/A; eh3 16:00 BP 160 / 89; Pulse 65; Resp 18; Pulse Ox 98% on R/A; eh3 17:00 BP 159 / 95; Pulse 64; Resp 18; Pulse Ox 99% on R/A; eh3 MDM: 12:24 Patient medically screened. ms3 13:02 Differential diagnosis: CHF exacerbation, pulmonary edema, Arrhythmia. ms3 14:04 Data reviewed: vital signs, nurses notes, lab test result(s), EKG, radiologic studies, ms3 and as a result, I will admit patient. Consideration of Admission/Observation Patient was admitted/placed on observation. Management of patient was discussed with the following: Hospitalist: SUZANNA Daniels with Dr Lozano. He accepts patient. I considered the following discharge prescriptions or medication management in the emergency department Medications were administered in the Emergency Department. See MAR. Independent interpretation of the following test(s) in the Emergency Department EKG: See my EKG interpretation above X-Ray: My interpretation is CXR image reviewed by me reveals RLL infiltrate. Counseling: I had a detailed discussion with the patient and/or guardian regarding: the historical points, exam findings, and any diagnostic results supporting the discharge/admit diagnosis, lab results, radiology results, the need for further work-up and treatment in the hospital. ED course: Discussed plan for admission with patient and her daughter. They understand and agree with plan. All questions were answered.. 03/14 12:24 Order name: Basic Metabolic Panel; Complete Time: 13:22 ms3 03/14 12:24 Order name: CBC with Diff; Complete Time: 13:22 ms3 03/14 12:24 Order name: Magnesium; Complete Time: 13:22 ms3 03/14 12:24 Order name: NT PRO-BNP; Complete Time: 13:22 ms3 03/14 12:24 Order name: Troponin HS; Complete Time: 13:22 ms3 03/14 17:36 Order name: Phosphorus EDMS 03/14 17:36 Order name: T4 Free EDMS 03/14 17:36 Order name: Magnesium EDMS 03/14 17:36 Order name: Thyroid Stimulating Hormone EDMS 03/14 12:24 Order name: XRAY Chest (1 view); Complete Time: 14:04 ms3 03/14 12:24 Order name: EKG; Complete Time: 12:25 ms3 03/14 16:02 Order name: CONS Physician Consult EDMS 03/14 12:24 Order name: Cardiac monitoring; Complete Time: 12:34 ms3 03/14 12:24 Order name: EKG - Nurse/Tech; Complete Time: 12:34 ms3 03/14 12:24 Order name: IV Saline Lock; Complete Time: 12:59 ms3 03/14 12:24 Order name: Labs collected and sent; Complete Time: 12:59 ms3 03/14 12:24 Order name: O2 Per Protocol; Complete Time: 12:34 ms3 03/14 12:24 Order name: O2 Sat Monitoring; Complete Time: 12:34 ms3 EC:05 Rate is 72 beats/min. Rhythm is irregularly irregular. Left axis deviation noted. QRS ms3 interval is prolonged. Clinical impression: Atrial Fibrillation. Interpreted by me. Reviewed by me. Administered Medications: 14:45 Drug: Furosemide IVP 60 mg Route: IVP; Site: left antecubital; 3 16:00 Follow up: Response: No adverse reaction eh3 14:45 Drug: amiodarone PO 200 mg Route: PO; 3 16:00 Follow up: Response: No adverse reaction 3 Disposition Summary: 03/14/23 14:04 Hospitalization Ordered Hospitalization Status: Inpatient Admission ms3 Provider: Jeffrey Lozano ms3 Location: Telemetry/MedSurg (Inpatient) ms3 Condition: Stable ms3 Problem: new ms3 Symptoms: are unchanged ms3 Bed/Room Type: Standard ms3 Room Assignment: 220(03/14/23 16:05) bd Diagnosis - Heart failure, unspecified ms3 - Shortness of breath ms3 - Unspecified atrial fibrillation ms3 Forms: - Medication Reconciliation Form ms3 - SBAR form ms3 Signatures: Dispatcher [employer] Afshan Sams Jahala RN RN jl7 Sadiq Salgado DO DO ms3 Brandi Mcneil RN RN eh3 Corrections: (The following items were deleted from the chart) 16:05 14:04 ms3 bd
--- NOTE | 2023-03-14 14:05 | ER ---
Nurse's Notes [facility] Name: Nia Mandel Age: 77 yrs Sex: Female : 1945 Arrival Date: 03/14/2023 Time: 11:49 Bed Treatment Private MD: Felipe Forde Diagnosis: Heart failure, unspecified;Shortness of breath;Unspecified atrial fibrillation Presentation: 03/14 12:21 Chief complaint: Patient states: Sent from Dr. Caldera for admission for shortness of jl7 breath. Coronavirus screen: At this time, the client does not indicate any symptoms associated with coronavirus-19. Ebola Screen: No symptoms or risks identified at this time. Initial Sepsis Screen: Does the patient meet any 2 criteria? No. Patient's initial sepsis screen is negative. Does the patient have a suspected source of infection? No. Patient's initial sepsis screen is negative. Risk Assessment: Do you want to hurt yourself or someone else? Patient reports no desire to harm self or others. Onset of symptoms is unknown. 12:21 Method Of Arrival: Ambulatory [facility] 12:21 Acuity: SHYANNE 3 jl7 Triage Assessment: 12:25 General: Appears in no apparent distress. uncomfortable. General: Behavior is calm, eh3 cooperative, appropriate for age. Respiratory: Reports shortness of breath Onset: The symptoms/episode began/occurred yesterday. 12:25 Respiratory: the patient has moderate shortness of breath. eh3 Historical: - Allergies: 12:22 Sulfa (Sulfonamide Antibiotics); jl7 - PMHx: 12:22 Atrial fibrillation; blood clots in right arm; Hypertensive disorder; THYROID CANCER; jl7 watchman procedure; - Immunization history:: Adult Immunizations unknown. - Social history:: Smoking status: unknown. Screenin:25 [facility] ED Fall Risk Assessment (Adult) Score/Fall Risk Level 0 - 2 = Low Risk. Abuse eh3 screen: Denies threats or abuse. Denies injuries from another. Nutritional screening: No deficits noted. Tuberculosis screening: No symptoms or risk factors identified. Assessment: 12:25 General: Appears in no apparent distress. uncomfortable, Behavior is calm, cooperative, eh3 appropriate for age. Pain: Denies pain. Neuro: Level of Consciousness is awake, alert, obeys commands, Oriented to person, place, time, situation. Cardiovascular: Capillary refill < 3 seconds Patient's skin is warm and dry. Edema is 3+ to left ankle and right ankle Rhythm is atrial fibrillation. Respiratory: Airway is patent Respiratory effort is even, unlabored, Respiratory pattern is regular, symmetrical, Breath sounds with crackles bilaterally. GI: Abdomen is round non-distended. Derm: Skin is pink, warm \T\ dry. Musculoskeletal: Circulation, motion, and sensation intact. 13:00 Reassessment: Patient appears in no apparent distress at this time. Patient and/or eh3 family updated on plan of care and expected duration. Pain level reassessed. Patient is alert, oriented x 3, equal unlabored respirations, skin warm/dry/pink. 14:00 Reassessment: Patient appears in no apparent distress at this time. Patient and/or eh3 family updated on plan of care and expected duration. Pain level reassessed. Patient is alert, oriented x 3, equal unlabored respirations, skin warm/dry/pink. 15:00 Reassessment: Patient appears in no apparent distress at this time. Patient and/or eh3 family updated on plan of care and expected duration. Pain level reassessed. Patient is alert, oriented x 3, equal unlabored respirations, skin warm/dry/pink. 15:30 Reassessment: Purewick placed, pt tolerated well. eh3 16:00 Reassessment: Patient appears in no apparent distress at this time. Patient and/or eh3 family updated on plan of care and expected duration. Pain level reassessed. Patient is alert, oriented x 3, equal unlabored respirations, skin warm/dry/pink. 16:24 Reassessment: Failed attempt to call report to 2nd floor, charge nurse states this pt eh3 not yet assigned to a nurse. Will call back. 17:00 Reassessment: Patient appears in no apparent distress at this time. Patient and/or eh3 family updated on plan of care and expected duration. Pain level reassessed. Patient is alert, oriented x 3, equal unlabored respirations, skin warm/dry/pink. Vital Signs: 12:21 BP 155 / 69; Pulse 76; Resp 28; Temp 97.2; Pulse Ox 97% on R/A; jl7 13:00 BP 142 / 73; Pulse 60; Resp 18; Pulse Ox 97% on R/A; eh3 14:00 BP 135 / 72; Pulse 62; Resp 18; Pulse Ox 98% on R/A; eh3 15:00 BP 159 / 77; Pulse 67; Resp 20; Pulse Ox 99% on R/A; eh3 16:00 BP 160 / 89; Pulse 65; Resp 18; Pulse Ox 98% on R/A; eh3 17:00 BP 159 / 95; Pulse 64; Resp 18; Pulse Ox 99% on R/A; eh3 ED Course: 11:52 Patient arrived in ED. rg4 11:52 Felipe Forde MD is Private Physician. rg4 11:58 Sadiq Salgado DO is Attending Physician. ms3 12:22 Triage completed. jl7 12:22 Arm band placed on right wrist. jl7 12:25 Patient has correct armband on for positive identification. Placed in gown. Bed in low eh3 position. Call light in reach. Side rails up X2. Adult w/ patient. Client placed on continuous cardiac and pulse oximetry monitoring. NIBP monitoring applied. 12:34 Brandi Mcneil, LISETH is Primary Nurse. eh3 12:45 Inserted saline lock: 20 gauge in left antecubital area, using aseptic technique. Blood eh3 collected. 13:30 XRAY Chest (1 view) In Process Unspecified. EDMS 14:04 Jeffrey Lozano MD is Hospitalizing Provider. ms3 17:06 Assist provider with bone marrow aspiration. Patient admitted, IV remains in place. eh3 Administered Medications: 14:45 Drug: Furosemide IVP 60 mg Route: IVP; Site: left antecubital; eh3 16:00 Follow up: Response: No adverse reaction eh3 14:45 Drug: amiodarone PO 200 mg Route: PO; eh3 16:00 Follow up: Response: No adverse reaction eh3 Medication: 17:06 VIS not applicable for this client. eh3 Outcome: 14:04 Decision to Hospitalize by Provider. ms3 17:07 Admitted to Med/surg accompanied by tech, via wheelchair, room 220, with chart, Report eh3 called to Isa 17:07 Condition: stable 17:07 Instructed on the need for admit. 17:37 Patient left the ED. eh3 Signatures: Dispatcher [employer] Antonella Miranda rg4 Yeimy Shukla RN RN jl7 Sadiq Salgado DO DO ms3 Brandi Mcneil RN RN eh3 Corrections: (The following items were deleted from the chart) 12:23 12:21 Acuity: SHYANNE 4 jl7 jl7
[2023-03-14] MEDS ORDERED: FUROSEMIDE 100 MG/10 ML VIAL IV ONE (14:51)
[2023-03-14] MEDS ORDERED: AMIODARONE HCL 200 MG TAB ONE (14:51)
[2023-03-14] MEDS ORDERED: ACETAMINOPHEN 325 MG TABLET PO PRN (15:59)
[2023-03-14] MEDS ORDERED: TRAMADOL HCL 50 MG TAB PO PRN (15:59)
[2023-03-14] MEDS ORDERED: ALBUTEROL 2.5 MG/3 ML NEB SOL NEB PRN (16:05)
[2023-03-14] MEDS ORDERED: ONDANSETRON 4 MG/2 ML VIAL IV PRN (16:05)
[2023-03-14 17:24] LABS: Phosphorus 3.6 mg/dL (2.5-4.9)
[2023-03-14 17:35] LABS: Thyroid Stimulating Hormone 4.49 uIU/mL (0.358-3.740)
[2023-03-14] MEDS: AMIODARONE HCL 200 MG TAB PO SCH (20:24)
[2023-03-14] MEDS: HYDRALAZINE HCL 20 MG/ML VIAL IV PRN (21:04)
--- NOTE | 2023-03-14 21:04 | P.HP ---
Certification for Inpatient Patient admitted to: Observation With expected LOS: <2 Midnights Patient will require the following post-hospital care: None Practitioner: I am a practitioner with admitting privileges, knowledge of patient current condition, hospital course, and medical plan of care. Services: Services provided to patient in accordance with Admission requirements found in Title 42 Section 412.3 of the Code of Federal Regulations Patient History Date of Service: 03/14/23 Reason for admission: SOB, BLE edema History of Present Illness: Patient is a 77-year-old female with a past medical history significant for A- fib, DVT, hypertension, hypothyroidism, GERD, hyperlipidemia who presents with complaint of shortness of breath and bilateral lower extremity edema. Patient reported that she has been short of breath for quite some time now but shortness of breath became worse in the last 3 weeks. Patient reports compliance with her diuretics. Patient reported that she followed up with her scrap dealer last week and had stress test and echocardiogram in her scrap dealer office. Patient reported that symptoms are aggravated by exertion and relieved by nothing. Patient followed up with her scrap dealer who instructed her to go to the ER for possible cardioversion. Of note, patient has a Watchman procedure placed in 2020. Allergies Sulfa (Sulfonamide Antibiotics) Allergy (Verified 06/11/16 10:20) Rash Home Medications: Grandview-3 Fatty Acids [Grandview-3] 1,000 mg PO BID 05/06/16 Omeprazole [Prilosec] 40 mg PO DAILY 05/06/16 Rivaroxaban [Xarelto*] 20 mg PO DAILY 05/06/16 Sertraline [Zoloft*] 50 mg PO DAILY 05/06/16 Fenofibrate [Tricor*] 145 mg PO DAILY 03/09/21 Furosemide 80 mg PO BID 03/09/21 Ramipril [Altace] 10 mg PO DAILY 03/09/21 Spironolactone [Aldactone*] 25 mg PO DAILY #30 tab 07/24/21 Aspirin 81 mg PO DAILY 03/14/23 Levothyroxine Sodium 150 mcg PO DAILY 03/14/23 - Past Medical/Surgical History Has patient received pneumonia vaccine in the past: Yes Diabetic: No -: HTN -: AFIB -: High Cholesterol -: CKD -: Thyroid CA -: Cochlear Implants -: Thyroidectomy -: Cataracts -: Tonsilliectomy -: Watchman Procedure - Social History Smoking Status: Never smoker Alcohol use: Yes CD- Drugs: No Caffeine use: No Place of Residence: Home Review of Systems General: Unremarkable Eyes: Unremarkable ENT: Unremarkable Respiratory: Shortness of Breath, SOB with Excertion Cardiovascular: Edema Gastrointestinal: Unremarkable Genitourinary: Unremarkable Musculoskeletal: Pedal edema Integumentary: Unremarkable Neurological: Unremarkable Lymphatics: Unremarkable Physical Examination - Vital Signs Temperature: 97.2 F Blood Pressure: 172/88 Pulse: 64 Respirations: 18 - Physical Exam General: Alert, In no apparent distress, Cooperative HEENT: Atraumatic, PERRLA, Mucous membr. moist/pink, EOMI, Sclerae nonicteric Neck: Supple, 2+ carotid pulse no bruit, No LAD, Without JVD or thyroid abnormality Respiratory: Diminished Cardiovascular: Normal S1 S2, Edema, Irregular heart rate/rhythm Capillary refill: <2 Seconds Gastrointestinal: Normal bowel sounds, Soft and benign, No tenderness Musculoskeletal: No clubbing, No swelling, No contractures, No tenderness Integumentary: No rashes, No breakdown, No significant lesion Neurological: Normal speech, Normal strength at 5/5 x4 extr, Normal tone, Normal affect Lymphatics: No axilla or inguinal lymphadenopathy - Studies Laboratory Data (last 24 hrs) 03/14/23 12:57: WBC 4.50, Hgb 11.2 L, Hct 34.0 L, Plt Count 350 03/14/23 12:57: Sodium 132 L, Potassium 3.4 L, BUN 26 H, Creatinine 1.51 H, Glucose 152 H, Magnesium 1.8 Assessment and Plan - Plan --Acute on chronic diastolic CHF exacerbation. Patient placed on Lasix. Daily weight and strict I/O. Cardiology consulted. Continue home medication. We will await further recommendation from scrap dealer. --Atrial fibrillation. Status post Watchman procedure. Continue Xarelto. Construction Lineman plans for possible cardioversion in a.m. We will await further recommendation from scrap dealer. --Hypertension. Poorly controlled. Continue home medications hydralazine as needed. --Hypothyroidism. Continue home medication. --GERD. Continue Protonix. --History of right arm DVT. Continue Xarelto. -- Anemia chronic disease. H&H stable. We will continue to monitor hemoglobin and transfuse if less than 7.0. --Hypokalemia. Replete as needed. --CKD 3B. Stable. We will hold off on ILEANA inhibitor's. Avoid nephrotoxins. We will continue to monitor renal functions. --Hyperlipidemia. Continue home medications. --Hx of thyroid Cancer. Status unknown. Continue supportive care. --DVT prophylaxis with Xarelto. Discharge Plan: Home Plan to discharge in: Greater than 2 days - Advance Directives Does patient have a Living Will: No Does patient have a Durable POA for Healthcare: No - Code Status/Comfort Care Code Status Assessed: Yes Physician Review: Patient Assessed, Agree with Above Assessment and Plan Critical Care: No
[2023-03-15 03:40] LABS: Absolute Lymphocytes (CBC) 0.5 K/uL (0.7-4.9); Hematocrit 33.7 % (36.0-45.0); Lymphocytes % 10.7 % (15.3-44.8); MCV 85.2 fL (80-100); MPV 8.3 fL (7.6-11.3); RBC Red Blood Cell Count 3.96 M/uL (3.86-4.86)
[2023-03-15 04:22] LABS: Potassium 3.4 mEq/L (3.5-5.1)
[2023-03-15] MEDS: HYDRALAZINE HCL 20 MG/ML VIAL IV PRN ×3 (04:40→21:12)
[2023-03-15] MEDS: PANTOPRAZOLE 40MG TABLET PO SCH (07:04)
[2023-03-15] MEDS ORDERED: ENOXAPARIN 30 MG/0.3 ML SQ SCH (09:00)
[2023-03-15] MEDS: ramipriL 5 MG CAP PO SCH (09:00)
[2023-03-15] MEDS ORDERED: POTASSIUM CL SA 10 MEQ TAB PO ONE (09:00)
[2023-03-15] MEDS ORDERED: RIVAROXABAN 10 MG TABLET PO SCH (09:00)
[2023-03-15] MEDS: LEVOTHYROXINE SOD 0.075 MG TAB PO SCH (11:31)
[2023-03-15] MEDS: ASPIRIN 81 MG CHEWABLE TABLET PO SCH (11:32)
[2023-03-15] MEDS: AMIODARONE HCL 200 MG TAB PO SCH ×2 (11:32→21:12)
[2023-03-15] MEDS: SPIRONOLACTONE 25 MG TABLET PO SCH (11:32)
[2023-03-15] MEDS: SERTRALINE HCL 50 MG TAB PO SCH (11:32)
[2023-03-15] MEDS: FENOFIBRATE 160 MG TAB PO SCH (11:32)
[2023-03-15] MEDS: FUROSEMIDE 40 MG/4 ML VIAL IV SCH ×2 (11:32→17:54)
--- NOTE | 2023-03-15 17:44 | P.PN ---
Subjective Date of Service: 03/15/23 Chief Complaint: SOB, BLE edema Patient states she feels much better today but not at baseline yet. She reports shortness of breath with exertion. Physical Examination - Vital Signs Temperature: 97.7 F Blood Pressure: 199/91 Pulse: 63 Respirations: 20 Pulse Ox (%): 96 Assessment And Plan - Plan Physical Exam General: Alert, In no apparent distress. Neck: Supple, no elevated JVD. Respiratory: Clear to auscultation bilaterally. Cardiovascular: Normal S1 S2, Edema, Irregular heart rate/rhythm Gastrointestinal: Normal bowel sounds, Soft and benign, No tenderness Musculoskeletal: No clubbing, No swelling, No tenderness Integumentary: No rashes, No breakdown. Neurological: Normal speech, no focal motor deficits Plan Acute on chronic diastolic CHF exacerbation. Patient is clinically improving. Continue IV Lasix. Cardiology input appreciated. A-fib rate control. daily weight and strict I/O. Continue Aldactone Atrial fibrillation. Status post Watchman procedure. Continue Xarelto. Rate control per cardiology Hypertension. Poorly controlled Continue home medications hydralazine as needed. Added low-dose amlodipine. Titrate antihypertensives. Hypothyroidism. Continue home medication. GERD. Continue Protonix. History of right arm DVT. Continue Xarelto. CKD 3B. Stable. Avoid ILEANA inhibitor's. Avoid nephrotoxins. Monitor renal function on IV Lasix. Hx of thyroid Cancer. Outpatient follow-up DVT prophylaxis with Xarelto. Discharge Plan: Home. Anticipating discharge by tomorrow
[2023-03-15] MEDS: AMLODIPINE 5 MG TAB PO SCH (17:53)
[2023-03-15] MEDS: ALPRAZOLAM 1 MG TABLET PO SCH (21:12)
[2023-03-16 04:22] LABS: Potassium 3.7 mEq/L (3.5-5.1)
[2023-03-16] MEDS: PANTOPRAZOLE 40MG TABLET PO SCH (06:25)
[2023-03-16] MEDS: SERTRALINE HCL 50 MG TAB PO SCH (08:14)
[2023-03-16] MEDS: ramipriL 5 MG CAP PO SCH (08:14)
[2023-03-16] MEDS: LEVOTHYROXINE SOD 0.075 MG TAB PO SCH (08:14)
[2023-03-16] MEDS: RIVAROXABAN 20 MG TABLET PO SCH (08:15)
[2023-03-16] MEDS: SPIRONOLACTONE 25 MG TABLET PO SCH (08:15)
[2023-03-16] MEDS: FUROSEMIDE 40 MG/4 ML VIAL IV SCH ×2 (08:15→16:21)
[2023-03-16] MEDS: AMIODARONE HCL 200 MG TAB PO SCH ×2 (08:15→21:41)
[2023-03-16] MEDS: ASPIRIN 81 MG CHEWABLE TABLET PO SCH (08:15)
[2023-03-16] MEDS: FENOFIBRATE 160 MG TAB PO SCH (08:15)
[2023-03-16] MEDS: AMLODIPINE 5 MG TAB PO SCH (08:15)
--- NOTE | 2023-03-16 08:23 | EKG ---
Test Date: 2023-03-14 Test Time: 12:40:07 Bean Snipper: SHILPA MEASUREMENT RESULTS: Intervals: Rate: 72 OR: QRSD: 158 QT: 500 QTc: 547 [place]: P: OR: QRS: -8 T: 111 INTERPRETIVE STATEMENTS: Atrial fibrillation Left bundle branch block Abnormal ECG Compared to ECG 07/22/2021 17:14:52 Sinus tachycardia no longer present Uncertain supraventricular rhythm no longer present AV dissociation no longer present Right superior axis no longer present Electronically Signed On 03-16-23 08:18:27 CDT by Herbie Yang
--- NOTE | 2023-03-16 08:23 | EKG ---
Test Date: 2023-03-14 Test Time: 12:41:[address] Justice: SIHLPA MEASUREMENT RESULTS: Intervals: Rate: 72 [place]: QRSD: 156 QT: 502 QTc: 549 [place]: P: [place]: QRS: -22 T: 119 INTERPRETIVE STATEMENTS: Atrial fibrillation Left bundle branch block Abnormal ECG Compared to ECG 03/14/2023 12:40:07 No significant changes Electronically Signed On 03-16-23 08:18:26 CDT by Herbie Yang
[2023-03-16] MEDS ORDERED: POTASSIUM CL SA 10 MEQ TAB PO ONE (09:00)
--- NOTE | 2023-03-16 12:47 | PN ---
Date of Progress Note: 03/14/[address] Lozano because of new onset congestive heart failure and atrial fibrillation that is c hronic. Mrs. Mandel today on 03/16/2023 remained in AFib with heart rate 80, definitely no need to d o any cardioversion. She is hypertensive, but much improved than yesterday. She has had a Watchman for her atrial fibrillation. She is on Xarelto for DVT in right upper on. She continued to be on am iodarone, Aldactone, Lasix, Synthroid, hydralazine, Tricor, and aspirin. Her echocardiogram that was ordered on 03/14/2023 is still pending. Again, I will continue her present regimen, continue rate c ontrol with amiodarone, use low-dose digoxin or low-dose beta-eligio if her heart rate goes up. Def initely, no need for cardioversion at this point. This is now what is causing congestive heart failu re. We will see what the echo shows. We will continue to follow as needed. DADA/SOURAV Voice ID: [id number] Report ID: [id number]
--- NOTE | 2023-03-16 14:49 | CON ---
Date of Consultation: 03/15/2023 Reason For Consultation: Possible new congestive heart failure. History Of Present Illness: Ms. Mandel is 77, has had a Watchman procedure, has had chronic paroxysm al atrial fibrillation for which she takes amiodarone. She also has a history of hypertension. Rece ntly developed DVT in the right arm for which she is taking Xarelto. Came in very hypertensive at 18 0/100. Atrial fibrillation rate was very low at 60, occasionally in the 50s. Today, her main compla int was shortness of breath. No palpitation. No chest pain. Denied any nausea, vomiting, diaphores is, PND, orthopnea, pedal edema, palpitations, or syncope. Allergies: INCLUDE SULFA. Present Medications: Include amiodarone, inhalers, hydralazine Lasix, Xarelto, aspirin, Aldactone, r amipril. Her last echo in the hospital was in 2020 and that was normal. She should have more in the office. I will double check on that. Past Medical History: As stated above. Review of Systems: Negative. Social History: Negative. Family History: Negative. Physical Examination: Vital Signs: Stable. Atrial fibrillation, rate is 60. HEENT: Negative. Neck: Supple with no bruit. Chest: Reveals some rales at the bases. Cardiac: Revealed atrial fibrillation. Abdomen: Obese, but benign. Extremities: Revealed trace edema. Diagnostic Data: Her BNP was 5000. Creatinine is 1.3. Another echocardiogram is pending. Impression And Plan: Chronic atrial fibrillation, heart rate is in the 50s or 60, on amiodarone. I think she would be very bradycardic if we do any cardioversion. I do not think her symptoms and shor tness of breath are secondary to her atrial fibrillation. I would rather treat her right now aggress ively with diuresis with Lasix, inhalers, control of her blood pressure with hydralazine. Continue t he aspirin and Xarelto. See what her echo shows. Continue Aldactone and ramipril. Show that she lima s a Watchman. There is no fear of clot from the atrial fibrillation because of the Watchman. If her heart rate spikes up over 100, then we will consider cardioversion. Meanwhile, send her home and I will see her in the office soon. DADA/SOURAV Voice ID: [id number] Report ID: [id number]
--- NOTE | 2023-03-16 15:14 | P.PN ---
Subjective Date of Service: 03/16/23 Chief Complaint: SOB, BLE edema Patient states she continues to feel improvement in her shortness of breath. Her heart rate has improved but she remain in atrial fibrillation. No issues overnight. Physical Examination - Vital Signs Temperature: 98 F Blood Pressure: 151/79 Pulse: 68 Respirations: 20 Pulse Ox (%): 95 Assessment And Plan - Plan Physical Exam General: Alert, In no apparent distress. Neck: Supple, no elevated JVD. Respiratory: Clear to auscultation bilaterally. Cardiovascular: Normal S1 S2, Edema, Irregular heart rate/rhythm Gastrointestinal: Normal bowel sounds, Soft and benign, No tenderness Musculoskeletal: No clubbing, No swelling, No tenderness Integumentary: No rashes, No breakdown. Neurological: Normal speech, no focal motor deficits Plan Acute on chronic diastolic CHF exacerbation. Clinically improved. Continue IV Lasix. Cardiology input appreciated. A-fib rate controlled. Dr. Starkey is planning cardioversion tomorrow morning daily weight and strict I/O. Continue Aldactone Atrial fibrillation. Status post Watchman procedure. Continue Xarelto. Dr. Starkey is planning cardioversion tomorrow. Hypertension. Poorly controlled Continue home medications hydralazine as needed. Continue amlodipine. Titrate antihypertensives. Hypothyroidism. Continue home medication. GERD. Continue Protonix. History of right arm DVT. Continue Xarelto. CKD 3B. Stable. Serum creatinine is trending down. Avoid ILEANA inhibitor's. Avoid nephrotoxins. Monitor renal function on IV Lasix. Hx of thyroid Cancer. Outpatient follow-up DVT prophylaxis with Xarelto. Discharge Plan: Home.
[2023-03-16 17:31] VITALS: BMI 27.3
[2023-03-16 21:32] VITALS: O2SAT 97
[2023-03-16] MEDS: ALPRAZOLAM 1 MG TABLET PO SCH (21:41)
[2023-03-16] MEDS: HYDRALAZINE HCL 20 MG/ML VIAL IV PRN (21:45)
[2023-03-17] MEDS: PANTOPRAZOLE 40MG TABLET PO SCH (06:30)
[2023-03-17] MEDS: ASPIRIN 81 MG CHEWABLE TABLET PO SCH (08:07)
[2023-03-17] MEDS: FENOFIBRATE 160 MG TAB PO SCH (08:07)
[2023-03-17] MEDS: RIVAROXABAN 20 MG TABLET PO SCH (08:07)
[2023-03-17] MEDS: AMIODARONE HCL 200 MG TAB PO SCH (08:07)
[2023-03-17] MEDS: LEVOTHYROXINE SOD 0.075 MG TAB PO SCH (08:07)
[2023-03-17] MEDS: AMLODIPINE 5 MG TAB PO SCH (08:07)
[2023-03-17] MEDS: FUROSEMIDE 40 MG/4 ML VIAL IV SCH (08:07)
[2023-03-17] MEDS: SERTRALINE HCL 50 MG TAB PO SCH (08:07)
[2023-03-17] MEDS: ramipriL 5 MG CAP PO SCH (08:07)
[2023-03-17] MEDS: SPIRONOLACTONE 25 MG TABLET PO SCH (08:07)
[2023-03-17] MEDS ORDERED: FLUMAZENIL 0.1 MG/ML (5 mL VIAL) IV ONE (08:38)
[2023-03-17] MEDS ORDERED: METOPROLOL TARTRATE 5 MG/5 ML INJ IV ONE (08:38)
[2023-03-17] MEDS ORDERED: NA CHLORIDE 0.9% 500 ML ONE (08:38)
[2023-03-17] MEDS ORDERED: LIDOCAINE VISCOUS 2% SOLN 15 ML UDC ONE (08:38)
[2023-03-17] MEDS ORDERED: HYDRALAZINE HCL 20 MG/ML VIAL ONE (08:38)
[2023-03-17] MEDS ORDERED: MIDAZOLAM HCL 10 ML ONE (08:38)
[2023-03-17] MEDS ORDERED: ATROPINE SULF 1 MG/10 ML SYR IV ONE (08:38)
[2023-03-17 12:32] VITALS: BP 165/75; TEMP 98
--- NOTE | 2023-03-17 15:20 | P.DS ---
Admission Date: 03/14/23 Discharge Date: 03/17/23 Reason for Admission: SOB, BLE edema Brief History of Present Illness: Patient is a 77-year-old female with a past medical history significant for A- fib, DVT, hypertension, hypothyroidism, GERD, hyperlipidemia who presented with complaint of shortness of breath and bilateral lower extremity edema. Patient reported that she has been short of breath for quite some time now but shortness of breath became worse in the last 3 weeks. Patient reported compliance with her diuretics. Patient reported that she followed up with her dock loader last week and had stress test and echocardiogram done. Patient reported that symptoms are aggravated by exertion and relieved by nothing. Patient followed up with her dock loader who instructed her to go to the ER for possible cardioversion. Of note, patient has a Watchman procedure placed in 2020. Hospital Course: Acute on chronic diastolic CHF exacerbation. Patient treated with IV Lasix She became compensated for CHF Cardiology saw patient in consultation. Patient placed on amiodarone for A-fib. A-fib rate controlled. Continued Aldactone Home dose Lasix resumed on discharge. Atrial fibrillation. Status post Watchman procedure. Patient managed with amiodarone 200 mg twice daily. Status post RAY and cardioversion. Patient did not convert to sinus rhythm with cardioversion Continued Xarelto. She will follow with Dr. Starkey as outpatient for further management. Hypertension. Poorly controlled Continued home medications hydralazine as needed. Amlodipine added and titrated to 10 mg daily Hypothyroidism. Continued home medication. GERD. Continued Protonix. History of right arm DVT. Continued Xarelto. CKD 3B. Stable. Serum creatinine was stable. Hx of thyroid Cancer. Outpatient follow-up Vital Signs/Physical Exam: Temp Pulse Resp BP Pulse Ox 98.0 F 58 18 165/75 H 97 03/17/23 12:00 03/17/23 12:00 03/17/23 12:00 03/17/23 12:00 03/17/23 12:00 General: Alert, In no apparent distress, Oriented x3 HEENT: Mucous membr. moist/pink Neck: Supple, JVD not distended Respiratory: Clear to auscultation bilaterally, Normal air movement Cardiovascular: Normal S1 S2, Irregular heart rate/rhythm Gastrointestinal: Normal bowel sounds, Soft and benign, Non-distended, No tenderness Musculoskeletal: No swelling Integumentary: No rashes, No cyanosis Neurological: Normal strength at 5/5 x4 extr Laboratory Data at Discharge: WBC 4.40 thou/uL (4.3-10.9) 03/15/23 02:47 Hgb 11.3 g/dL (12.0-15.0) L 03/15/23 02:47 Hct 33.7 % (36.0-45.0) L 03/15/23 02:47 Plt Count 349 thou/uL (152-406) 03/15/23 02:47 Sodium 130 mEq/L (136-145) L 03/17/23 02:47 Potassium 4.0 mEq/L (3.5-5.1) 03/17/23 02:47 BUN 24 mg/dL (7-18) H 03/17/23 02:47 Creatinine 1.48 mg/dL (0.55-1.02) H 03/17/23 02:47 Glucose 100 mg/dL (74-106) 03/17/23 02:47 Phosphorus 3.6 mg/dL (2.5-4.9) 03/14/23 16:50 Magnesium 2.0 mg/dL (1.6-2.4) 03/14/23 16:50 Triglycerides 60 mg/dL (<150) 03/15/23 02:47 Cholesterol 167 mg/dL (<200) 03/15/23 02:47 HDL Cholesterol 113 mg/dL (40-60) H 03/15/23 02:47 Cholesterol/HDL Ratio 1.48 03/15/23 02:47 Home Medications: [place]-3 Fatty Acids [[place]-3] 1,000 mg PO BID 05/06/16 Omeprazole [Prilosec] 40 mg PO DAILY 05/06/16 Rivaroxaban [Xarelto*] 20 mg PO DAILY 05/06/16 Sertraline [Zoloft*] 50 mg PO DAILY 05/06/16 Fenofibrate [Tricor*] 145 mg PO DAILY 03/09/21 Furosemide 80 mg PO BID 03/09/21 Ramipril [Altace] 10 mg PO DAILY 03/09/21 Spironolactone [Aldactone*] 25 mg PO DAILY #30 tab 07/24/21 Aspirin 81 mg PO DAILY 03/14/23 Levothyroxine Sodium 150 mcg PO DAILY 03/14/23 Alprazolam [Xanax] 1 mg PO BEDTIME 03/15/23 Amiodarone HCl [Cordarone*] 200 mg PO BID #60 tab 03/17/23 Amlodipine [Norvasc*] 10 mg PO DAILY #30 tab 03/17/23 New Medications: Amiodarone HCl [Cordarone*] 200 mg PO BID #60 tab Amlodipine [Norvasc*] 10 mg PO DAILY #30 tab Diet: AHA Activity: Ad fabiola Followup: Felipe Forde MD [Primary Care Provider] - Dick Starkey MD [ACTIVE - CAN ADMIT] - 1 Week Time spent managing pt's care (in minutes): 38
--- NOTE | 2023-03-17 15:23 | PN ---
Date of Progress Note: 03/17/2023 Subjective: Seen by bedside. She is doing clinically very well. No palpitations or chest pain, stephen rtness of breath. I attempted cardioversion twice a day, 200 joules and 300 joules and failed to con vert the atrial fibrillation to sinus rhythm. Review of Systems: There is no chest pain, shortness of breath, orthopnea, or cough. No nausea, vomiting, or diarrhea. All other systems reviewed and they were negative. Physical Examination: Vital signs: Reviewed. Heart rate is 58, blood pressure 165/75, temperature is 98.0, and breathing at 18. General: Pleasant elderly female, in no apparent distress. Head and Neck: Pupils are equal, reactive to light. Intact eye movements. No JVD. No cervical lym phadenopathy. Neck is supple. Thyroid is not enlarged. Lungs: Clear to auscultation bilaterally. No rhonchi, rales, or crackles. No accessory muscle use. Heart: Irregularly irregular. No extra sounds. Abdomen: Soft, nontender. Bowel sounds positive. No organomegaly. No masses or hernia. No rigidi ty or rebound. Extremities: No clubbing or cyanosis. Intact pulses. Skin: No rash. Neurologic: Alert, awake, oriented x3. No acute focal deficits appreciated. Investigations: BUN 24, creatinine 1.48, and hemoglobin 11.3. Assessment And Recommendation: 1.Atrial fibrillation with rapid ventricular response, now it is controlled. Continue amiodarone an d Xarelto. She failed the cardioversion. If she continued to be asymptomatic with rate control and on anticoagulation, I will treat her as such. Patient from my perspective can be discharged home and follow up with me as an outpatient and if she continues to be symptomatic from the atrial fibrillati on or we have difficulty controlling her heart rate, then I will consider atrial fibrillation ablatio n. 2.Diastolic heart failure exacerbation. She appears to be euvolemic. From my perspective, she can be released to follow up with me in the office in 1 week. SR/MODL Voice ID: [id number] Report ID: [id number]
--- NOTE | 2023-03-17 15:53 | OP ---
Date of Procedure: 03/17/2023 Surgeon: FRANCINE HUERTA Procedures Performed: 1.Transesophageal echocardiogram. 2.Electrical cardioversion using 200 joules and 300 joules, failed to convert to sinus rhythm. Indication: Atrial fibrillation. Description Of Procedure: After risks, benefits, alternatives were explained, the patient agreed to procedure and signed informed consent. The patient was brought into the OR room 5 and after proper t andria-out, we used viscous and lidocaine to numb the back of the throat and I gave 6 mg of Versed and t hen RAY probe was inserted. She has a Watchman that was done recently by me and it seems to be in a very good position. There is no thrombus or leak and there was no thrombus in the left atrium or any thrombus connected to the device. As such, RAY probe was removed and then a synchronized 200 joule electrical cardioversion was performed. The patient did not convert to sinus rhythm. Then, I increa sed the electricity energy to 300 joules in synchronized fashion, attempted the cardioversion again. She went briefly to sinus rhythm for about 10 seconds and then went back to AFib. The patient was s ent to recovery in stable condition. Conclusion: 1.Successful RAY. 2.Electrical cardioversion, however, the patient converted to sinus rhythm for and back i nto AFib. Recommendation: Continue medical management with amiodarone and she needs to take Xarelto for 4 more weeks due to the cardioversion that was performed today. The patient can be released from my standpoint and follow up as an outpatient. /SOURAV Voice ID: [id number] Report ID: [id number]
--- NOTE | 2023-03-18 06:57 | TEE ---
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 TRANSESOPHAGEAL ECHOCARDIOGRAM PROBE WAS INSERTED, NO DIFFICULTY 2. NORMAL LEFT VENTRICULAR EJECTION FRACTION 55-60% 3. MILD MITRAL REGURGITATION 4. WATCHMAN IS SEATED WELL, NO THROMBUS, NO LEAK TECHNOLOGIST: GUILHERME ISSA
--- NOTE | 2023-03-21 17:59 | EKG ---
Test Date: 2023-03-17 Test Time: 10:48:00 Gem Cutter: AGUILA MEASUREMENT RESULTS: Intervals: Rate: 62 NE: QRSD: 164 QT: 522 QTc: 529 [place]: P: NE: QRS: -62 T: 112 INTERPRETIVE STATEMENTS: Atrial fibrillation with a competing junctional pacemaker Left axis deviation Left bundle branch block Abnormal ECG Compared to ECG 03/14/2023 12:41:35 Left-axis deviation now present Electronically Signed On 03-21-23 17:53:41 CDT by Dick Starkey
== END 2023-03-17 15:58 | disposition home or self-care (01) | DRG 291 ==
LOC: ER 11:49 → ERHOLD 15:58 → 2ND 16:25
PROVIDERS: ADMIT Hospitalist; ATTEND Internal Medicine
PROC: 5A2204Z Restoration of Cardiac Rhythm, Single (ICD-10-PCS; principal; 2023-03-17)
PROC: B245ZZ4 Ultrasonography of Left Heart, Transesophageal (ICD-10-PCS; 2023-03-17)
DX: I13.0 Hypertensive heart and chronic kidney disease with heart failure and stage 1 through stage 4 chronic kidney disease, or unspecified chronic kidney disease (principal); I50.33 Acute on chronic diastolic (congestive) heart failure; I48.0 Paroxysmal atrial fibrillation; N18.32 Chronic kidney disease, stage 3b; Z79.01 Long term (current) use of anticoagulants; Z88.1 Allergy status to other antibiotic agents; Z85.850 Personal history of malignant neoplasm of thyroid; K21.9 Gastro-esophageal reflux disease without esophagitis; Z86.718 Personal history of other venous thrombosis and embolism; E03.9 Hypothyroidism, unspecified; D63.8 Anemia in other chronic diseases classified elsewhere; E87.6 Hypokalemia; Z95.818 Presence of other cardiac implants and grafts
CPT/HCPCS: 36415; 71045; 80048; 80061; 83036; 83735; 83880; 84100; 84439; 84443; 84484; 85025; 93005; 93312; 96374; 99285; J0360; J0461; J1940; J2250; J7040

== ENCOUNTER 2023-05-17 14:10 | Emergency (ER) | payer OTHER ==
--- OUTSIDE RECORDS SUMMARY | 2023-05-17 14:15 | XMS REPORT | Continuity of Care Document ---
:1945 Author Organization [facility] t Address [address] [facility] [address] [place] [address] Care Team Providers Name Role Phone Trey PADILLA, Herbie Jones Primary Care Physician JOMAR IBARRA Attending Clinician Unavailable Bryce Bender Attending Clinician Unavailable Radha Carmona Attending Clinician Unavailable HEBERT LÓPEZ Attending Clinician Unavailable MD HEBERT LÓPEZ Attending Clinician Unavailable QUYEN RIVAS Attending Clinician Unavailable RAFFY MIJARES Attending Clinician Unavailable JOMAR IBARRA Admitting Clinician Unavailable Felipe Forde Admitting Clinician Unavailable HEBERT LÓPEZ Admitting Clinician Unavailable MD HEBERT LÓPEZ Admitting Clinician Unavailable Payers Payer Name Policy Type Policy Number Effective Date Expiration Date S billy MEDICARE A B [id number] 2008 00:00:00 [employer] [id number] 2020 00:00:00 MEDICARE PART A [id number] 2008 \\T\\ B 00:00:00 [employer] [id number] 2017 00:00:00 Problems Condition Condition Condition Status Onset Resolution Last Treating Co mments Source Name Details Category Date Date Treatment Clinician Date Atrial Atrial Disease Active [facility] fibrillati fibrillati 9-10 [facility] Hospita 00 l Claudicati Claudicati Disease [facility]urre [facility] Thyroid Thyroid Disease Recurre [facility] cancer cancer [facility] S/P S/P Disease Active [facility] thyroidect thyroidect 6-03 Mary kes la nena la nena 00:00: Medical 00 Center Papillary Papillary Disease Active [facility] thyroid [...] Source Name Type Date Date Clinician Sulfa DA Active MO ITCH [facility] (Sulfona 8- Clear mide 00:00: [place] Antibiot 00 Region[facility] ics[facility] l [facility] Sulfa Propensi Active Itching [facility] (Sulfona ty to 8-09 st mide adverse 00:00: Hospita Antibiot reaction 00 l ics) s to drug SULFA Allergy Active Low Other 2017-[address] [facility] (SULFONA 2-16 [facility] MIDE 00:00: Medical ANTIBIOT 00 Center ICS) SULFA Drug Active Rash 2017-10 [facility] (SULFONA Class 2-16 ity of MIDE 00:00: [place] ANTIBIOT 00 Medical ICS) Branch Sulfa Drug Active Other (See 2017-[address] (Sulfona Allergy Comments), 2-16 Dane es mide Rash 00:00: Medical Antibiot 00 Center ics) Social History Social Habit Start Date Stop Date Quantity Comments Source History of tobacco Cigarette Smoker [facility] SDOH [facility] Alcohol Binge Medical [facility] History SDOH [facility] Alcohol Std Drinks [facility]ica [facility] Center History of Social 2021-08-10 2021-08-[address] function 00:00:00 00:00:00 Hospital Tobacco use and 2021-06-12 2021-06-12 Smokeless [facility]ondenominational exposure 00:00:00 00:00:00 tobacco non-user Hospital Alcohol Comment 2021-06-12 2021-06-12 DAILY [facility] 00:00:00 00:00:00 Hospital Alcohol intake 2021-03-13 2021-03-13 [facility] (finding) Tobacco Comment 2021-03-04 2021-03-04 [facility]- [facility] History SDOH 2021-03-04 2021-03-[address] [facility] Alcohol Frequency 00:00:00 00:00:00 Medical Center Sex Assigned At [birth year] [facility] 00:00:00 00:00:00 Hospital Smoking Status Start Date Stop Date Source Ex-smoker 2021-06-12 00:00:00 2021-06-12 [facility] F[facility] Start Stop Current Ordering [...] tablet 16:45: daily. Hospit a 41 l rivaroxaban Yes 20mg QD Take 20 mg Methodi (XARELTO) 9-[address] 20 mg 16:45: daily. Hospita tablet 41 l furosemide 0 Yes 80mg QD Take 80 mg M ethodi (LASIX) 80 9-[address] mg tablet 16:45: daily. Hospit a 41 l levothyroxi 2020-0 Yes 175ug QD Take 175 M ethodi ne 9-[address] (SYNTHROID) 16:45: mouth Hospi ta 175 mcg 41 daily. l tablet sertraline 1-0 Yes 50mg QD Take 50 mg M ethodi (ZOLOFT) 50 9-[address] MG tablet 16:45: daily. Hospit a 41 l rivaroxaban 1-0 Yes 20mg QD Take 20 mg [facility] (XARELTO) 9-[address] 20 mg 16:45: daily. Hospita tablet 41 l furosemide 1-0 Yes 80mg QD Take 80 mg M ethodi (LASIX) 80 9-[address] mg tablet 16:45: daily. Hospit a 41 l levothyroxi 2020-0 Yes 175ug QD Take 175 M ethodi ne 9-[address] (SYNTHROID) 16:45: mouth Hospi ta 175 mcg 41 daily. l tablet sertraline 2020-0 Yes 50mg QD Take 50 mg M ethodi (ZOLOFT) 50 9-[address] MG tablet 16:45: daily. Hospit a 41 l spironolact 1-0 Yes 25mg QD Take 25 mg Methodi one 9-[address] (ALDACTONE) 16:45: daily. [facility] 25 MG 40 l tablet ramipriL 2021-0 Yes 10mg QD Take 10 mg Met hodi (ALTACE) 10 9-[address] MG capsule 16:45: daily. Hospi ta 40 l spironolact 2021-0 Yes 25mg QD Take 25 mg Method[facility] one 9-[address] (ALDACTONE) 16:45: daily. [facility] 25 MG 40 l tablet ramipriL 2021-0 Yes 10mg QD Take 10 mg Met hodi (ALTACE) 10 9-[address] MG capsule 16:45: daily. Hospi ta 40 l spironolact 2021-0 Yes 25mg QD Take 25 mg Methodi one 9-[address] (ALDACTONE) 16:45: daily. [facility] 25 MG 40 l tablet ramipriL 2021-0 Yes 10mg QD Take 10 mg Met hodi (ALTACE) 10 9-[address] MG capsule 16:45: daily. Hospi ta 40 l omeprazole 2021-0 Yes 40mg QD Take 40 mg M ethodi (PriLOSEC) 9-[address] 40 MG 14:45: daily. Hospita capsule 40 l omega-3 2021-0 Yes 1g Q.5D Take 1 g Method i acid ethyl 9-[address] esters 14:45: (two) Hospita (LOVAZA) 1 40 times a l gram day. capsule fenofibrate 2021-0 Yes 145mg QD Take 145 M ethodi (TRICOR) 9-[address] 145 MG 14:45: mouth Hospita tablet 40 daily. l omeprazole 2021-0 Yes 40mg QD Take 40 mg M ethodi (PriLOSEC) 9-[address] 40 MG 14:45: daily. Hospita capsule 40 l omega-3 2021-0 Yes 1g Q.5D Take 1 g Method i acid ethyl 9-[address] esters 14:45: (two) Hospita (LOVAZA) 1 40 times a l gram day. capsule fenofibrate 2021-0 Yes 145mg QD Take 145 M ethodi (TRICOR) 9-[address] 145 MG 14:45: mouth Hospita tablet 40 daily. l omeprazole 2021-0 Yes 40mg QD Take 40 mg M ethodi (PriLOSEC) 9-[address] 40 MG 14:45: daily. Hospita capsule 40 l omega-3 1-0 Yes 1g Q.5D Take 1 g Method i acid ethyl 9-[address] esters 14:45: (two) Hospita (LOVAZA) 1 40 times a l gram day. capsule fenofibrate 2021-0 Yes 145mg QD Take 145 M ethodi (TRICOR) 9-[address] 145 MG 14:45: mouth Hospita tablet 40 daily. l omega-3 2021-0 Yes 2g Q.5D Take [address] acid ethyl 6-11 by mouth 2 Dane es esters 13:12: (two) Medical (LOVAZA) 1 10 times Center gram daily. capsule fenofibrate 2021-0 Yes 145mg QD Take [address] (TRICOR) 6-11 mg by [facility] 145 MG 13:12: mouth Medical tablet 10 daily. Center ramipriL 2021-0 Yes 10mg QD Take 10 mg [facility]I [...] Me dical tablet 10 dinner. Center furosemide 0 Yes 80mg Q.5D Take 80 mg C [...] 25 MG 10 times Center tablet daily. omega-3 Yes 2g Q.5D Take 2 g [...] 13:12: daily. Medical capsule 10 Center metoprolol 0 Yes 25mg Q.5D Take [address] tartrate 6-11 by mouth 2 [facility] (LOPRESSOR) 13:12: (two) Medic al 25 MG 10 times Center tablet daily. omega-3 Yes 2g Q.5D Take 2 g [...] 13:12: daily. Medical capsule 10 Center metoprolol 0 Yes 25mg Q.5D Take 25 mg C [...] [facility] Test 00:00:00 (Season Ended) [code = [facility] INFLUENZA VACCINE (Season Ended)] Future Scheduled 2023-06-03 Influenza Vaccine (#1) [facility] 00:[facility]00 [code = Influenza Medical Ce nter Vaccine (#1)] Future Scheduled 2023-06-03 Influenza Vaccine (#1[facility] 00:00:00 [code = Influenza Medical Ce nter Vaccine (#1)] Future Scheduled 2023-05-05 Hepatitis C screening Me [facility] Hospital Test 01:44:45 (procedure) [code = 255594693] Future Scheduled 2023-05-05 SHINGLES VACCINES (1 Met [facility] Test 01:44:45 of 2) [code = SHINGLES VACCINES (1 of 2)] Future Scheduled 2023-05-05 COVID-19 VACCINE (3 - [facility] Hospital Test 01:44:45 Moderna series) [code = COVID-19 VACCINE (3 - Moderna series)] Future Scheduled 2023-05-05 65+ PNEUMOCOCCAL [facility] Hospital Test 01:44:45 VACCINE (2 - PCV) [code = 65+ PNEUMOCOCCAL VACCINE (2 - PCV)] Future Scheduled 2023-05-05 INFLUENZA VACCINE [facility] Hospital Test 01:44:45 [code = INFLUENZA VACCINE] Future Scheduled 2023-05-05 Hepatitis C screening Me [facility] Hospital Test 01:44:45 (procedure) [code = 039313705] Future Scheduled 2023-05-05 SHINGLES VACCINES (1 Met [facility] Test 01:44:45 of 2) [code = SHINGLES VACCINES (1 of 2)] Future Scheduled 2023-05-05 [facility] 01:44:45 Moderna series) [code = COVID-19 VACCINE (3 - Moderna series)] Future Scheduled 2023-05-05 65+ PNEUMOCOCCAL Methodi Hospital Test 01:44:45 VACCINE (2 - PCV) [code = 65+ PNEUMOCOCCAL VACCINE (2 - PCV)] Future Scheduled 2023-05-05 INFLUENZA VACCINE Method ist Hospital Test 01:44:45 [code = INFLUENZA VACCINE] Future Scheduled 2023-03-12 [facility] Test 13:28:17 (procedure) [code = [id number]] Future Scheduled 2023-03-12 SHINGLES VACCINES (1 [facility] Hospital Test 13:28:17 of 2) [code = SHINGLES VACCINES (1 of 2)] Future Scheduled 2023-03-12 COVID-19 VACCINE (3 - [facility] Hospital Test 13:28:17 Moderna series) [code = COVID-19 VACCINE (3 - Moderna series)] Future Scheduled 2023-03-12 65+ PNEUMOCOCCAL Methodi Hospital Test 13:28:17 VACCINE (2 - PCV) [code = 65+ PNEUMOCOCCAL VACCINE (2 - PCV)] Future Scheduled 2023-03-12 INFLUENZA VACCINE Method [facility] Hospital Test 13:28:17 [code = INFLUENZA VACCINE] Future Scheduled 2022-10-[address] [facility] Test 00:00:00 (12+) [code = Medical Center DEPRESSION SCREENING (12+)] Future Scheduled 2022-10-03 FALLS RISK SCREENING [facility] Test 00:00:00 [code = FALLS RISK Medical C enter SCREENING] Future Scheduled 2022-10-[address] [facility] Test 00:00:00 (12+) [code = Medical Center DEPRESSION SCREENING (12+)] Future Scheduled 2022-10-03 FALLS RISK SCREENING [facility] Test 00:00:00 [code = FALLS RISK Medical C enter SCREENING] Future Scheduled 2022-10-[address] [...] 65+ YRS (2 - PCV)] Future Scheduled 2022-07-23 PNEUMOCOCCAL 65+ Y[facility] Test 00:00:00 (2 - PCV) [code = Medical Ce nter PNEUMOCOCCAL 65+ YRS (2 - PCV)] Future Scheduled 2022-07-23 PNEUMOCOCCAL 65+ YRS [facility] Test 00:00:00 (2 - PCV) [code = Medical Ce nter PNEUMOCOCCAL 65+ YRS (2 - PCV)] Future Scheduled 2022-03-[address] [facility] Test 00:00:00 Counseling and Medical Cente r Screening (12+) [code = Tobacco Cessation Counseling and Screening (12+)] Future Scheduled 2022-03-[address] [facility] Test 00:00:00 Counseling and Medical Cente r Screening (12+) [code = Tobacco Cessation Counseling and Screening (12+)] Future Scheduled 2022-03-[address] [facility] Test 00:00:00 Counseling and Medical Cente r Screening (12+) [code = Tobacco Cessation Counseling and Screening (12+)] Future Scheduled 2021-02-01 COVID-19 VACCINE (3 [facility] 00[facility]00:00 Booster for Moderna Medical Center series) [code = COVID-19 VACCINE (3 - Booster for Moderna series)] Future Scheduled 2021-02-01 COVID-19 VACCINE (3 - [facility] Test 00:00:00 Booster for Moderna Medical Center series) [code = COVID-19 VACCINE (3 - Booster for Moderna series)] Future Scheduled 2021-02-01 COVID-19 VACCINE (3 - [facility] Test 00:00:00 Booster for Moderna Medical Center series) [code = COVID-19 VACCINE (3 - Booster for Moderna series)] Future Scheduled 2009-09-[address] [facility] Test 00:00:00 WELLNESS (YEAR 2 or Medical Center FIRST YEAR if no IPPE) [code = MEDICARE ANNUAL WELLNESS (YEAR 2 or FIRST YEAR if no IPPE)] Future Scheduled 2009-09-[address] [facility] Test 00:00:00 WELLNESS (YEAR 2 or Medical Center FIRST YEAR if no IPPE) [code = MEDICARE ANNUAL WELLNESS (YEAR 2 or FIRST YEAR if no IPPE)] Future Scheduled 2009-09-[address] [facility] Test 00:00:00 WELLNESS (YEAR 2 or Medical Center FIRST YEAR if no IPPE) [code = MEDICARE ANNUAL WELLNESS (YEAR 2 or FIRST YEAR if no IPPE)] Future Scheduled 1993 SHINGLES VACCINES ([address] [facility] Test 00:00:00 of 2) [code = SHINGLES Medic al Center VACCINES (1 of 2)] Future Scheduled 1993 SHINGLES VACCINES ([address] [facility] Test 00:00:00 of 2) [code = SHINGLES Medic al Center VACCINES (1 of 2)] Future Scheduled 1993 SHINGLES VACCINES ([address] [facility] Test 00:00:00 of 2) [code = SHINGLES Medic al Center VACCINES (1 of 2)] Future Scheduled 1962 DTAP/TDAP/TD VACCINES [facility] Test 00:00:00 (1 - Tdap) [code = Medical C enter DTAP/TDAP/TD VACCINES (1 - Tdap)] Future Scheduled 1962 DTAP/TDAP/TD VACCINES [facility] Test 00:00:00 (1 - Tdap) [code = Medical C enter DTAP/TDAP/TD VACCINES (1 - Tdap)] Future Scheduled 1962 DTAP/TDAP/TD VACCINES [facility] Test 00:00:00 (1 - Tdap) [code = Medical C enter DTAP/TDAP/TD VACCINES (1 - Tdap)] Future Scheduled 1961 HEPATITIS C SCREENING [facility] Test 00:00:00 [code = HEPATITIS C Medical Center SCREENING] Future Scheduled 1961 HEPATITIS C [facility]CRE[facility]ING [facility] 00:00:00 [code = HEPATITIS C Medical Center SCREENING] Future Scheduled 1961 HEPATITIS C [facility] 00:00:00 [code = HEPATITIS C Medical Center SCREENING] Future Scheduled 1945 DXA SCAN [code = DXA [facility] Test 00:00:00 SCAN] [facility] Future Scheduled 1945 DXA SCAN [code = DXA [facility] Test 00:00:00 SCAN] Medical Center Future Scheduled 1945 DXA SCAN [code = DXA [facility] Test 00:00:00 SCAN] Medical Center Encounters Start End Encounter Admission Attending Care Care Encounter Source Date/Time Date/Time Type Type Clinicians Facility Department ID 2021-07-11 Outpatient SHARONA, [facility] Surgery [id number] SLE 19:54:44 [facility] 2021-03-11 Inpatient UR SAILAJA [facility] Surgery [id number] SLE 12:02:00 [facility] 2023-05-10 2023-05-10 Outpatient JOSE ROBERTO Mckay [facility] [id number] [facility] 08:00:00 17:30:00 Bryce Capps 36 [facility] 2022-07-28 2022-07-28 Telephone Kristine, 1.2.840.1 [id number] Methodi 00:00:00 00:00:00 Radha Mary Kate [id number] 3.430.2.7 Hospit a .3.465278 l .8 2022-07-28 2022-07-28 Telephone Kristine, 1.2.840.1 [id number] Methodi 00:00:00 00:00:00 Radha Mary Kate [id number] 3.430.2.7 Hospit a .3.582819 l .8 2021-08-10 2021-08-10 Outpatient HEBERT LÓPEZ [facility] [id number] [facility] 00:00:00 00:00:00 964 Method i 2021-08-10 2021-08-10 Outpatient HEBERT LÓPEZ [facility] [id number] [facility] 00:00:00 00:00:00 961 Method i 2021-06-12 2021-06-12 Inpatient HEBERT LÓPEZ [facility] [id number] [facility] 00:00:00 00:00:00 186 Method i 2021-06-09 2021-06-09 Outpatient HEBERT LÓPEZ [facility] [id number] [facility] 00:00:00 00:00:00 007 Method i 2021-05-11 2021-05-11 Outpatient HEBERT LÓPEZ [facility] [id number] [facility] 00:00:00 00:00:[address] 2021-05-11 2021-05-11 Outpatient HEBERT LÓPEZ [facility] [id number] [facility] 00:00:00 00:00:[address] 2021-03-04 2021-03-[address] [facility] [id number] SLE 00:00:00 00:00:00 2021-02-18 2021-02-18 Outpatient QUYEN RIVAS [facility] SLE [id number] SLE 00:00:00 00:00:00 2020-12-07 2020-12-07 Outpatient [facility] [id number] [facility] 13:15:00 13:15:00 [facility] 2020-11-09 2020-11-09 Outpatient R DYLLAN, [facility] [id number] [facility] 14:50:00 14:50:00 RAFFY [facility] Results Test Description Test Time Test Comments Results Result Comments Source ACT-ISTAT 2023-05-10 13:49:00 Test Item Value Reference Range Interpretation Comme nts ACT-ISTAT (test code = ACTI) 468 SEC 74-137 H Performed by certified tool grinding machine operator at [facility] BASIC METABOLIC [id number] 12:26:00 Test Item Value Reference Range Interpretation Comments SODIUM (test code = 130 mEq/L 134-147 L NA) POTASSIUM (test code 4.7 mEq/L 3.4-5.0 N = K) CHLORIDE (test code 96 mEq/L 100-108 L = CL) CARBON DIOXIDE (test 26 mEq/l 21-33 N code = CO2) ANION GAP (test code 13 0-20 N = GAP) GLUCOSE (test code = 93 mg/dL 70-110 N GLU) BLOOD UREA NITROGEN 15 mg/dL 7-18 N (test code = BUN) GLOMERULAR 41.8 70-80 L The Glomerular FILTRATION RATE Filtration R ate is a (test code = GFR) calculated parameterbased on serum Creatinine, pat ient age and sex. GFR va luesless than 60 mL/min/ 1.73 square meters a re indicative ofCh ronic Kidney Disease. Values less than 15 mL/min/1.73squa re meters indicate Kidney failure. The calculation forGFR is based on the CKD-EPI (2020) calculat ion. This formulais race indifferent and is the recommended for celena for GFRby the [facility] Kidney Foundati on for Adults.The GFR will not calculate if th e sex is unknown or if thepatient's ag e is <18 years. CREATININE (test 1.3 mg/dL 0.6-1.3 N code = CREAT) CALCIUM (test code = 9.8 mg/dL 8.0-10.5 N CA) PROTHROMBIN [id number] 12:22:00 Test Item Value Reference Range Interpretation Comments PROTHROMBIN TIME 15.3 SECONDS 9.3-12.9 H PATIENT (test code = PTP) INTERNATIONAL NORMAL 1.4 0.8-1.2 H TARGET INR BY RATIO (test code = INDICATIO N Indication INR) INR1. Prophylax is of venous thrombos is 2.0 - 3.0 (orthoped ic surgery), Proph ylaxis of venous throm bosis (other than hig h-risk surgery), Treat ment of Deep Vein Thrombosis/Pulm onary Embolism, Preve ntion of systemic emb olism - Tissue heart va lves, Acute Myocardia l Infarction (to prevent systemic emboli sm), Valvular heart disease, Atrial Fibrillation, Bileaflet mecha nical valve in aortic position.2. Mec hanical prosthetic valv es (high risk), 2. 5 - 3.5 Presence of Lup us Anticoagulant o r Antiphospholipi d Antibodies, Pre vention of systemic em bolism - Acute Myocard ial Infarction (to prevent recurrent infar ct). CBC W/AUTO [id number] 12:19:00 Test Item Value Reference Range Interpretation Comments WHITE BLOOD CELL (test code = 3.4 x10 3/uL 4.5-11.0 L WBC) RED BLOOD CELL (test code = 4.97 x10 6/uL 3.54-5.02 N RBC) HEMOGLOBIN (test code = HGB) 13.6 g/dL 11.0-15.0 N HEMATOCRIT (test code = HCT) 42.1 % 33.0-45.0 N MEAN CELL VOLUME (test code = 84.7 fL 81.0-99.0 N MCV) MEAN CELL HGB (test code = MCH) 27.4 pg 27.0-33.0 N MEAN CELL HGB CONCETRATION 32.3 g/dL 33.0-37.0 L (test code = MCHC) RED CELL DISTRIBUTION WIDTH CV 15.0 % 11.5-14.5 H (test code = RDW) PLATELET COUNT (test code = 475 x10 3/uL 150-400 H PLT) NEUTROPHIL % (test code = NT%) 65.4 % 56.0-77.0 N LYMPHOCYTE % (test code = LY%) 11.6 % 14.0-32.0 L NEUTROPHIL # (test code = NT#) 2.25 x10 3/uL 2.0-7.6 N LYMPHOCYTE # (test code = LY#) 0.40 x10 3/uL 1.0-3.8 L MANUAL DIFF REQUIRED (test code NO = MDIFF) RED CELL DISTRIBUTION WIDTH SD 46.3 fL 37.0-54.0 N (test code = RDW-SD) MEAN PLATELET VOLUME (test code 9.9 fL 7.0-9.0 H = MPV) IMMATURE GRANULOCYTE % (test 0.6 % 0.0-2.0 N code = IG%) MONOCYTE % (test code = MO%) 18.6 % 4.8-9.0 H EOSINOPHIL % (test code = EO%) 2.6 % 0.3-3.7 N BASOPHIL % (test code = BA%) 1.2 % 0.0-2.0 N NUCLEATED RBC % (test code = 0.0 % 0-0 N NRBC%) IMMATURE GRANULOCYTE # (test 0.02 x10 3/uL 0.00-0.03 N code = IG#) MONOCYTE # (test code = MO#) 0.64 x10 3/uL 0.1-0.8 N EOSINOPHIL # (test code = EO#) 0.09 x10 3/uL 0.0-0.2 N BASOPHIL # (test code = BA#) 0.04 x10 3/uL 0.0-0.2 N NUCLEATED RBC # (test code = 0.00 x10 3/uL 0.0-0.1 N NRBC#) - CHEST 2 [id number] 00:00:[facility] : 1945 Sex: F FAX: Bryce Keller [phone] [place]: St: PRE FAX: Felipe Lucero MD [phone] --------- Name: JESSICA ASTUDILLO [facility] : 1945 Age/S: 77/F [address] [place] [address] Unit #: [id number] Loc: [place] [address] Phys: Bryce Bender MD Acct: [id number] Dis Date: Status: PRE [facility] PHONE #: [phone] Exam Date: 05/03/2023 1320 FAX #: [phone] Reason: PREOP EXAMS: CPT CODE: [id number] XR CHEST 2V [id number] PROCEDURE INFORMATION: Exam: XR Chest Exam date and time: 05/03/2023 11:53 AM Age: 77 years old Clinical indication: Pre-operative exam; Cardiovascular screening and respiratory screening exam; Additional info: Preop TECHNIQUE: Imaging protocol: Radiologic exam of the chest. Views: 2 views. PA an d Lateral COMPARISON: No relevant prior studies available. FINDINGS: Lungs: There are normal lung volumes without consolidation or interstitial opacities. Pleural spaces: Unremarkable. No pleural effusion. No pneumothorax. Heart/Mediastinum: The cardiac silhouette is enlarged Bones/joints: No acute abn ormality seen. IMPRESSION: No acute cardiopulmonary findings. at 1341 Reported and signed by: Luisito Justice M.D. CC: Bryce Capps MD; Felipe Forde MD Technologist: RT Orion(James) Trnscrd Date/Time/By: 05/03/2023 (1341) : By: LeydiTDO Orig Print D/T: S: 05/03/2023 (1341) PAGE 1 Signed MyxvonOMQQ-QeL-3 (COVID-19) RNA [Presence] in Respiratory specimen by ROSA with probe detection 2021-06-09 21:12:24 Test Item Value Reference Range Interpretation Comments SARS-CoV-2 (COVID-19) RNA Not detected Not-Detected [Presence] in Respiratory specimen by ROSA with probe detection (test code = 21222-3) Whether patient is employed in a healthcare setting (test code = 70484-9) Whether the patient has symptoms related to condition of interest (test code = 86307-7) Patient was hospitalized because of this condition (test code = 00923-1) Whether the patient was admitted to intensive care unit (ICU) for condition of interest (test code = 44817-0) Whether patient resides in a congregate care setting (test code = 05170-3) [facility] [id number] 15:17:00Surgical Pathology Report Case: [id number] Authorizing Provider: Jomar Ibarra, Collected: 03/05/2021 10:46 AM Ordering Location: [facility] PERIOPERATIVE Received: 03/05/2021 12:54 PM SERVICES Pathologist: [...] Parathyroid Biopsy A. LYMPH NODE, DELPHIAN, EXCISION: - METASTATIC PAPILLARY THYROID CARCINOMA IN TWO OUT OF [...] NO DEFINITE STRAP MUSCLE INVASION SEEN - BACKGROUND ADENOMATOID NODULES WITH DEGENERATIVE CHANGES D. PARATHYROID, LEFT INFERIOR, SUB TOTAL RESECTION: - ONE HYPERCELLULAR PARATHYROID, MILDE. LYMPH NODE, LEVEL 6", EXCISION: - METASTATIC PAPILLARY THYROID CARCINOMA IN ONE OUT OF ONE LYMPH NODE (10/03) - THE FOCUS MEASURES 2MM IN GREATEST DIMENSION - NO EXTRATHYROIDAL EXTENSION SEEN F. THYROID, RIGHT LOBE, LOBECTOMY: - WEIGHT: 11GM - PAPILLARY THYROID MICRO- CARCINOMA, MULTIFOCAL (5 FOCI) - TUMOR FOCI MEASURE 0.9 (LARGEST), 0.4, 0.3 ,0.2 AND 0.1 CM IN GREATEST DIMENSION - SURGICAL MARGINS FREE OF TUMOR - NO LYMPHOVASCULAR INVASION SEEN - BACKGROUND ADENOMATOUS NODULES WITH DEGENERATIVE CHANGES G. PARATHYROID, RIGHT INFERIOR, BIOPSY: - ONE HYPERCELLULAR PARATHYROID, MILD - NEGATIVE FOR MALIGNANCY - SYNOPTIC REPORT Signing Pathologist Direct Phone Line: [phone] signed by Anayeli Fenton MD on 03/16/2021 at 3:17 [facility] (THYROID GLAND: RESECTION - A, B, C, [...] than a mm mmLYMPH NODES Number of Lymph Nodes Involved: 3 Avel Levels Involved: Level Size [...] follicular disease Additional Findings: Parathyroid gland(s) present [id number] X [id number] X 3PTC and primary hypothyroidism A. Lymph node, delphianB. Parathyroid, left superiorC. Thyroid, leftD. Parathyroid, subtotal left inferiorE. Lymph node, level 6F. Thyroid, rightG. Parathyroid, right inferiorA. Received fresh labeled with the patient's name, medicalrecord number and "lymph node" is a 1.5 x 1 x 0.4 cm adipose tissue fragment which is bisected and entirely submitted in A1.B. Received fresh labeled with the patient's name, medical record number and " parathyroid" is a 0.20 g, 0.8 x 0.4 x 0.2 cm pink nodule which is submitted in toto in B1.C. Received fresh labeled with the patient's name, [...] to cystic, pink-salinas, partially calcified nodule in thesuperior to inferior left lobe. The nodule abuts the anterior and posterior margins. The uninvolved parenchyma is maroon and smooth. The specimen is entirely submitted.Ink code:Blue: Anterior Black: PosteriorOrange: Anterior isthmusGreen: Isthmus marginSection Code:C1: Superior and, perpendicular sectionsC2: Nodule, superior lobeC3-C8: Nodule with calcifications submitted sequentially [...] cm medial to the nodule is a 1.4 x 0.8 x 0.7 cm yellow-white calcified nodule [...] The specimen is entirely submitted.Ink code:Blue: Anterior Black:PosteriorGreen: Isthmus marginSection Code:F1-F2: Superior pole perpendicular sectionsF3-F4: Superior lobe cyst, bisected, entirelyF5-F6: Entire mid lobe noduleF7-F9: Entire calcified noduleF 10: Uninvolved/gelatinous niguhhjvmiA78: Inferior nodule, bisected, entirelyF 12-F 13: Inferior end, perpendicular sectionsG. Received fresh labeled with the patient's name, medical record number and "parathyroid" is a 0.09 g, 0.5 x 0.3 x 0.2 cm nodule with a small amount of attached adipose tissue. The specimen is submitted in toto in G1.ROHINI Au PA (ASCP)cmPerformed.TISSUE [id number] 12:16:00 Surgical Pathology Report Case: [id number] Authorizing Provider: Lj Laird MD Collected: 03/12/2021 05:36 PM Ordering Location: [facility] Received: 03/13/2021 09:05 AM PERIOPERATIVE SERVICES Pathologist: Carson Keen MD Specimen: Clot, Blood clot from right arm thrombectomy A. RIGHTARM CLOT, THROMBECTOMY: - MULTIPLE FRAGMENTS OF ORGANIZING THROMBUS Signing Pathologist Direct PhoneLine: [phone] signed by Carson Keen MD on 03/16/2021 at 12:16 [id number] of right upper extremity ClotReceived fresh labeled the patient's name, accession number and "blood clot from right arm" is a 4.0 x 1.5 x 0.5 cm aggregate of red, cylindrical clotted blood. Journeyman Apprentice Electricians sections are submitted in A1.ALBERTO Giraldo, HT (ASCP)Performed.[id number] 04:07:00 Test Item Value Reference Range Interpretation Comments MAGNESIUM (BEAKER) 2.1 mg/dL 1.6-2.6 Specimen slightly (test code = 627) hemolyzed Investment Banker ID - [id number] 04:07:00 Test Item Value Reference Range Interpretation Comments PHOSPHORUS (BEAKER) 3.5 mg/dL 2.3-4.7 Specimen slightly (test code = 604) hemolyzed Investment Banker ID - EDASIBASIC METABOLIC [id number] 04:07:00 Test Item Value Reference Range Interpretation [...] S NOT APPLICABLE FOR DIALYSIS PATIEN TS. Investment Banker ID - [id number] 04:05:00 Test Item Value Reference Range Interpretation Comments PARTIAL THROMBOPLASTIN TIME 82.6 seconds 22.5-36.0 H (BEAKER) (test code = 760) CBC W/PLT COUNT & AUTO [id number] 04:01:00 Test Item Value Reference Range Interpretation [...] code = 2801) CT, CTANGIO EXTREMITY, UPPER, [id number] 19:07:00Unlisted Reason for Exam - Click Yes and Enter Reason Below->YesUnlisted Reason for Exam->melissa icationSAINT ELIZAB[facility]: [facility] : 1945 Sex: FAddendum BeginsREPORT STATUS:A I have reviewed the study for nonvascular components.I agree with the nonvascular findings as described. Following additional findings were noted: There is soft tissue fullness in the thyroid bed. This could be a result of postoperative changes. Clinicaland historical correlation is requested. The imaging of the right lung is degraded by motion artifact. Signed: Jonathan, Prashant MDReport Verified Date/Time: 03/12/2021 19:07:14 Reading Location: [place] [address] Angio Body Reading RoomAddendum EndsFINAL REPORT CT angiography of the right upper extremity, 11-Mar-21 INDICATION: This is a 75 year old female with diagnosis of arterial occlusion presents for assessment. According to EPIC, patient has recent thyroidectomy and central neck [...] to the right elbow, for example at onwards, enhancement of the right radial artery is identified down to the right wrist. The interosseous vessel, and the right ulnar artery are not seen to enhance by contrast and may suggest occlusion. Unfortunately, there is no second dynamic data set were obtained, from the wrist up to the shoulder. NON-VASCULAR: According to EPIC, patient has total thyroidectomy. The visualised chest wall and mediastinum appears unremarkable. The right lung appears unremarkable with dependent changes seen. Nopleural effusions identified. No nodule is seen. The visualised liver is unremarkable. The liver edge is smooth. No abnormal enhancing structures identified. The gallbladder measure 4 cm in diameter with no gallstones identified. No wall thickening is seen. The pancreas is incompletely assessed. Therecould be a small hypodensity identified at image 110, measure 5 to 6 mm, too small to characterise. The right kidney is normal in size and shape. No hydronephrosis or perirenal fluid collection is identified. A small renal cyst is identified in the medial aspect of the right kidney, image 125, measure1 cm in diameter. A right adrenal adenoma is identified, at image 98 of the precontrast series, measure 1.5 x 0.9 cm in diameter. Bowel is incompletely assessed as enteric contrast is not given. The right-sided bowel structures appears to be grossly unremarkable. Scattered colonic diverticulum is seen. No free air or free fluid is identified. The bladder appears unremarkable. The uterus is not seen. No abnormal adnexal mass is identified, where visualised. In the bony windows, no acute bony pathology is seen. Some degenerative changes is noted. CONCLUSIONS: 1. The visualised thoracic aorta is unremarkable. The visualised innominate artery is unremarkable. 2. Much of the right subclavian artery is unremarkable. [...] An addendum will be dictated by the Torch Heater Radiologist regarding the nonvascular findings. THE REPORT WILL ONLY BE CONSIDERED COMPLETE AFTER THE ADDENDUM HAS BEEN DICTATED. Signed: Adonay Clement MDReport Verified Date/Time: 03/12/2021 08:28:41 [facility] [id number] 14:34:00Unlisted Reason for Exam - Click Yes and Enter Reason Below->YesUnlisted Reason for Exam->RUE weakness [facility] : 1945 Sex: FFINAL REPORT CLINICAL HISTORY: [...] terminus. There is no evidence for a saxman of Brown proximal branch vessel occlusion. There [...] MDReport Verified Date/Time: 03/12/2021 14:34:42 Reading Location: [facility] C013V Neuro Reading Room [facility] signed by: JULIUS RIOS M.D. 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 There is no evidence for a saxman of Brown proximal branch vessel occlusion. There [...] MDReport Verified Date/Time: 03/12/2021 14:34:42 Reading Location: [address] Neuro Reading Room [facility] signed by: JULIUS RIOS M.D. on 03/12/2021 02:34 [id number] 08:27:00 Test Item Value Reference Range Interpretation Comments PARTIAL THROMBOPLASTIN TIME 67.2 seconds 22.5-36.0 H (BEAKER) (test code = 760) SARS-COV2/RT-PCR ([facility])2021-03-12 06:21:00 Test Item Value Reference Range Interpretation Comments SARS-COV2/RT-PCR (test Negative Not Detected, Negative, code = 9100700) See external report for linked test SARS-COV-[address] [facility] (test code = 3193336) Negative result for this test determines that [...] justifying the authorization of the emergency use of in vitro diagnostic tests for detection and/or diagnosis of COVID-19 is terminated under Section 564(b)(2) of the Act or the EUA is revoked under Section 564(g) of the Act.Testing was performed using the Cedillo SARS-CoV-2 assay.Fact Sheet for Healthcare Providers:https://www.molecular.cedillo/yoshi/RT_SA AQ-CcT-2_LZL_Ayuy_Ukghc_01-052241.pdfFact Sheet for Healthcare Patients:https://www.molecular.cedillo/ yoshi/CV_JTCQ-OiL-0_Nxntaim_Ceyc_Obzzw_UA_48-426366P2.pdfPerforming Laboratory:[facility] [place] [address] BASIC METABOLIC [id number] 05:19:00 Test Item Value Reference Range Interpretation [...] S NOT APPLICABLE FOR DIALYSIS PATIEN TS. Investment Banker ID - KIARA [id number] 05:19:00 Test Item Value Reference Range Interpretation Comments MAGNESIUM (BEAKER) (test code = 1.8 mg/dL 1.6-2.6 627) Investment Banker ID - KIARA [id number] 05:19:00 Test Item Value Reference Range Interpretation Comments PHOSPHORUS (BEAKER) (test code = 3.5 mg/dL 2.3-4.7 604) Investment Banker ID - KIARA [id number] 05:07:00 Test Item Value Reference Range Interpretation Comments PARTIAL THROMBOPLASTIN TIME 124.3 seconds 22.5-36.0 H (BEAKER) (test code = 760) CBC W/PLT COUNT & AUTO [id number] 04:55:00 Test Item Value Reference Range Interpretation [...] 0-1 PERCENT (BEAKER) (test code = 2801) [id number] 23:00:00 Test Item Value Reference Range Interpretation Comments PARTIAL THROMBOPLASTIN TIME 102.4 seconds 22.5-36.0 H (BEAKER) (test code = 760) TSH/FREE T4 IF [id number] 15:05:00 Test Item Value Reference Range Interpretation Comments THYROID STIMULATING HORMONE 1.939 uIU/mL 0.350-4.940 (BEAKER) (test code = 772) Investment Banker ID - BSPTH, [id number] 14:52:00 Test Item Value Reference Range Interpretation Comments PARATHYROID HORMONE INTACT 81.5 pg/mL 8.5-72.5 H (BEAKER) (test code = 577) Investment Banker ID - BSBASIC METABOLIC [id number] 14:50:00 Test Item Value Reference Range Interpretation [...] S NOT APPLICABLE FOR DIALYSIS PATIEN TS. Investment Banker ID - [id number] 14:50:00 Test Item Value Reference Range Interpretation Comments MAGNESIUM (BEAKER) (test code = 1.7 mg/dL 1.6-2.6 627) Investment Banker ID - [id number] 14:50:00 Test Item Value Reference Range Interpretation Comments PHOSPHORUS (BEAKER) (test code = 3.3 mg/dL 2.3-4.7 604) Investment Banker ID - [id number] 14:33:00 Test Item Value Reference Range Interpretation Comments PARTIAL THROMBOPLASTIN TIME 31.9 seconds 22.5-36.0 (BEAKER) (test code = 760) PROTHROMBIN TIME/[id number] 14:32:00 Test Item Value Reference Range Interpretation Comments PROTIME (BEAKER) 12.8 seconds 11.9-14.2 (test code = 759) INR (BEAKER) (test 0.99 See_Comment [Automat ed message] code = 370) The system [employer] generated this result transmitted ref erence range: <=5.90. The reference range was not used to int erpret this result as normal/abnormal . RECOMMENDED COUMADIN/WARFARIN INR THERAPY RANGESSTANDARD DOSE: 2.0 - 3.0 Includes: PROPHYLAXIS for venous thrombosis, systemic embolization; TREATMENT for venous thrombosis and/or pulmonary embolus.HIGH RISK: Target INR is 2.5-3.5 for patients with mechanical heart valves.[id number] 14:32:00 Test Item Value Reference Range Interpretation Comments PARTIAL THROMBOPLASTIN TIME 31.5 seconds 22.5-36.0 (BEAKER) (test code = 760) CBC W/PLT COUNT & AUTO [id number] 14:31:00 Test Item Value Reference Range Interpretation [...] 0-1 PERCENT (BEAKER) (test code = 2801) [id number] 14:31:00 Test Item Value Reference Range Interpretation Comments PARTIAL THROMBOPLASTIN TIME 32.0 seconds 22.5-36.0 (BEAKER) (test code = 760) POCT-GLUCOSE [id number] 21:48:00 Test Item Value Reference Range Interpretation Comments POC-GLUCOSE METER 122 mg/dL 70-110 H : TESTED A T [facility] [address] ([facility]) (test code = WAYLON Ramirez [facility], 1538) [address]: Investment Banker/Techni maria fernanda ID = [id number] for GR AHAM, ELLA PTH, [id number] 12:53:00 Test Item Value Reference Range Interpretation Comments PARATHYROID HORMONE INTACT 10.4 pg/mL 8.5-72.5 (BEAKER) (test code = 577) Investment Banker ID - RANI FPTH, [id number] 12:33:00 Test Item Value Reference Range Interpretation Comments PARATHYROID HORMONE INTACT 60.9 pg/mL 8.5-72.5 (BEAKER) (test code = 577) Investment Banker ID - RANI FPTH, [id number] 11:48:00 Test Item Value Reference Range Interpretation Comments PARATHYROID HORMONE INTACT 18.2 pg/mL 8.5-72.5 (BEAKER) (test code = 577) Investment Banker ID - RANI FPTH, [id number] 11:38:00 Test Item Value Reference Range Interpretation Comments PARATHYROID HORMONE INTACT 78.8 pg/mL 8.5-72.5 H (BEAKER) (test code = 577) Investment Banker ID - RANI FPTH, [id number] 10:45:00 Test Item Value Reference Range Interpretation Comments PARATHYROID HORMONE INTACT 223.6 pg/mL 8.5-72.5 H (BEAKER) (test code = 577) Investment Banker ID - RANI FBASIC METABOLIC [id number] 08:46:00 Test Item Value Reference Range Interpretation [...] S NOT APPLICABLE FOR DIALYSIS PATIEN TS. Investment Banker ID - RANI FOperator ID - RANI [id number] 07:44:00 Test Item Value Reference Range Interpretation Comments HEMOGLOBIN (BEAKER) (test code = 14.0 GM/DL 11.2-15.7 410) Investment Banker ID - [id number], SOFT TISSUE NECK, WITHOUT / WITH IV [id number] 15:40:00Parathyroid glandsUnlisted Reason for Exam - Click Yes and Enter Reason Below->NoSHEILA [facility] : 1945 Sex: FFINAL REPORT EXAMINATION: CT of the neck without and with contrast HISTORY: Primary hyperparathyroidism, evaluate for parathyroid adenoma. History of thyroid cancer and biopsy on 1COMPARISON: None TECHNIQUE: Multidetector helical axial images were [...] 1.1 cm nonenhancing mucosal retention cyst in theright vallecula Larynx: Unremarkable. Thyroid gland: Mild diffuse [...] stenoses at C3-C4 and mild at C4-C5 andC5-C6 and C6-7. Interbody and posterior fusion at [...] MDReport Verified Date/Time: 02/18/2021 15:40:00 Reading Location: [facility] Reading Room [address] [place] [address] -[id number] 12:49:00 Test Item Value Reference Range Interpretation Comments POC-CREATININE 1.1 mg/dL 0.6-1.3 : TESTED AT [facility] ([facility]) (test [address] [facility] code = 1859) [facility] 7 5030: Investment Banker/Techni maria fernanda ID = [id number] for CE VALLECILLO POC-EGFR 48 mL/min/1.73M2 ([facility]) (test code = 1860) Notes Date/Time Note Provider Source 2023-05-10 20:29:00-00:00 [id number] [address] PATIENT NAME: JESSICA ASTUDILLO ADMIT DATE: ACCOUNT NO: [id number] ROOM NO: AGE: 77 REPORT TYPE: OPERATIVE REPORT SEX: F ADMITTING PHYSICIAN: ATTENDING PHYSICIAN:Bryce Bender MD OPERATION DATE: 05/10/2023 PREOPERATIVE DIAGNOSES: 1. Persistent atrial fibrillation. 2. Palpitations. 3. Tiredness. POSTOPERATIVE DIAGNOSES: 1. Persistent atrial fibrillation. 2. Palpitations. 3. Tiredness. PROCEDURE PERFORMED: 1. Comprehensive electrophysiology study with in duction. 2. Coronary sinus pacing recording of the left a trium. 3. 3D mapping. 4. Ablation of atrial fibrillation. 5. Additional linear ablation in the left atrium for atrial fibrillation. 6. Intracardiac echocardiogram. ATTENDING PHYSICIAN: Bryce Capps MD INSTRUCTIONAL TECHNOLOGY TEACHER: ANESTHESIA: General. ESTIMATED BLOOD LOSS: 10 mL. DESCRIPTION OF PROCEDURE: After informed consent was obtained, the patient was brought to the electrophysiology laboratory in a fasting semi-sedated state. Area over her groin was prepped and draped in th e usual sterile fashion. General anesthesia was started. Vascular access was obtained x3 in the right common femoral vein under ultrasound. We then ad vanced the intracardiac echo demonstrating no pericardial effusion at baseline. Also no thrombus in the left atrial appendage. We performed transseptal acces s x1 and created a 3D map of the left atrium. The patient was in atrial fibri llation. We performed cardioversion, but it was un successful, so we performed radiofrequency ablation proximal to the ostium of the pulmonary veins. This way, the 4 pulmonary veins were isolated using 50 whitney during 7 to 10 seco nds zxhzf-bi-pqtuk technique. The patient remained in atrial fibrillation. We performed additional linear ablation roof line and inferior line until succe ssful isolation of the left atrial posterior wall. We did use the es ophageal cooling system throughout the procedure. Also, identified the phrenic and we a voided this area during PATIENT NAME: JESSICA ASTUDILLO 34 ablation. At the end, we performed cardi oversion. We demonstrated entrance and exit block across the pulmonary veins in the posterior wall. No effusion noted during the study. The patient tolerated the proc edure well. Procedure was complete. We used Vascade. IMPRESSION: 1. Atrial fibrillation on presentation. 2. Successful pulmonary vein isolation. 3. Successful isolation of the left atrial poste rior wall. 4. Cardioversion at the end of the study. 5. No complications. PLAN: 1. Routine postop monitoring on telemetry. 2. Continue same medicines. 3. Follow up in 1-2 weeks. Dictated By: Bryce Capps MD Date Dictated: 05/10/2023 20:29:15 Date Transcribed: 05/10/2023 21:25:08 AGATHA/ROYCE Receipt ID: [id number] Authenticated and Edited by Bryce Capps MD On 05/11/23 9:25:16 AM at 0927 PATIENT NAME: JESSICA ASTUDILLO 34 2023-05-10 14:25:00-00:00 [id number] [place] [id number] PATIENT NAME: JESSICA ASTUDILLO ADMIT DATE: ACCOUNT NO: [id number] ROOM NO: AGE: 77 REPORT TYPE: eELECTROCARDIOGRAM REPORT SEX: F ADMITTING PHYSICIAN: ATTENDING PHYSICIAN:Bryce Bender MD Order: [id number] Test Reason : S/P ABLATION Test Date/Time Stamp: TueMay 10 2023 14:25:52 Blood Pressure : / mmHG Vent. Rate : 047 BPM Atrial Rate : 047 BPM P-R Int : 250 ms QRS Dur : 172 ms QT Int : 604 ms P-R-T Axes : 052 259 094 degree s QTc Int : 534 ms Sinus bradycardia with 1st degree AV block Nonspecific intraventricular block Lateral infarct , age undetermined Abnormal ECG When compared with ECG of 03-MAY-2023 11:46, Significant changes have occurred Confirmed by MARITZA RENNER MD ([id number]) on 3 7:20:43 PM Referred By: Bryce Capps Confirmed by:RAFY RENNER MD Electronically Signed by Maritza Renner MD on at 1920 PATIENT NAME: JESSICA ASTUDILLO 34 2023-05-03 11:46:00-00:00 [id number] [place] [id number] PATIENT NAME: JESSICA ASTUDILLO ADMIT DATE: ACCOUNT NO: [id number] ROOM NO: AGE: 77 REPORT TYPE: eELECTROCARDIOGRAM REPORT SEX: F ADMITTING PHYSICIAN: ATTENDING PHYSICIAN:Bryce Bender MD Order: [id number] Test Reason : PREOP Test Date/Time Stamp: TueMay 03 2023 11:46:48 Blood Pressure : / mmHG Vent. Rate : 051 BPM Atrial Rate : 062 BPM P-R Int : 000 ms QRS Dur : 168 ms QT Int : 522 ms P-R-T Axes : 000 248 100 degree s QTc Int : 481 ms Atrial fibrillation with slow ventricular respon se Right superior axis deviation Left bundle branch block Abnormal ECG No previous ECGs available Confirmed by MARITZA RENNER MD ([id number]) on 3 1:28:10 PM Referred By: Bryce Capps Confirmed by:RAFY RENNER MD Electronically Signed by Maritza Renner MD on at 1328 PATIENT NAME: JESSICA ASTUDILLO 34
[2023-05-17] MEDS ORDERED: ASPIRIN 81 MG CHEWABLE TABLET ONE (15:14)
[2023-05-17 15:49] LABS: Absolute Lymphocytes (CBC) 0.5 K/uL (0.7-4.9); Hematocrit 38.5 % (36.0-45.0); Lymphocytes % 11.8 % (15.3-44.8); MCV 82.5 fL (80-100); MPV 8.2 fL (7.6-11.3); Platelets 402 thou/uL (152-406); RBC Red Blood Cell Count 4.66 M/uL (3.86-4.86)
--- NOTE | 2023-05-17 16:15 | RAD REPORT ---
EXAM DESCRIPTION: RADChest Single View05/17/2023 3:19 pm CLINICAL HISTORY: CHEST PAIN COMPARISON: Chest Single View dated 03/14/2023; Chest Single View dated 07/22/2021; Chest Single View dated 03/08/2021; Chest Pa And Lat (2 Views) dated 07/03/2020 TECHNIQUE: Portable AP view of the chest. FINDINGS: Stable central interstitial prominence and hazy right basilar opacities. Mild cardiomegaly. No sizabl e pleural effusion and no pneumothorax. No gross bony abnormality seen. IMPRESSION: Stable findings as above which suggest mild central congestion or pulmonary edema.
[2023-05-17 16:23] LABS: Magnesium 1.8 mg/dL (1.6-2.4); Potassium 4.1 mEq/L (3.5-5.1); Troponin High Sensitivity 32.1 pg/mL (<58.9)
--- NOTE | 2023-05-17 16:45 | EDPHYS ---
Physician Documentation [facility] Name: Nia Mandel Age: 77 yrs Sex: Female : 1945 Arrival Date: 05/17/2023 Time: 14:10 Bed 13 Private MD: ED Physician Sadiq Salgado HPI: 05/17 14:28 This 77 yrs old Female presents to ER via Other with complaints of NOT FEELING WELL ms3 SINCE PROCEDURE 04/28/23 FOR AFIB. 14:28 77-year-old female with past medical history of atrial fibrillation, right arm blood ms3 clots, hypertension, thyroid cancer presents for chest pain that began after cardiac ablation on April 28. Patient states the discomfort is a soreness and rated a 5/10. Patient notes her blood pressure to also be labile and her heart rate to be low in the 60s. Patient denies alleviating or inciting factors.. Historical: - Allergies: 14:22 Sulfa (Sulfonamide Antibiotics); ap3 - Home Meds: 17:11 alprazolam 1 mg Oral Tablet,disintegrating 1 tab every day at bedtime for anxiety db [Active]; amiodarone 200 mg Oral tablet 1 tab 2 times per day for Heart Problem [Active]; apixaban 2.5 mg oral tablet 1 tab 2 times per day for heart [Active]; aspirin 81 mg Oral capsule 1 cap daily [Active]; duloxetine 20 mg oral Capsule, Delayed Release Sprinkle 1 cap daily [Active]; fenofibrate 145 mg Oral daily [Active]; furosemide 80 mg oral tablet 2 times per day [Active]; levothyroxine 150 mcg oral tablet daily [Active]; 17:20 OMEGA-3 1000 mmg twice a day [Active]; omeprazole 40 mg oral capsule,delayed release db (e.c.) once [Active]; ramipril 10 mg oral capsule daily [Active]; sertraline 50 mg oral tablet daily [Active]; spironolactone 50 mg Oral tablet 1 tab daily [Active]; - PMHx: 14:22 Atrial fibrillation; blood clots in right arm; Hypertensive disorder; THYROID CANCER; ap3 watchman procedure; - PSHx: 14:22 Tonsillectomy; ablation 04/24/23; ap3 - Immunization history:: Client reports receiving the 2nd dose of the Covid vaccine. - Social history:: Smoking status: Patient denies any tobacco usage or history of. ROS: 14:28 Constitutional: Negative for fever, and chills. Neck: Negative for injury, pain, and ms3 swelling. 14:28 Respiratory: Negative for shortness of breath, cough, wheezing, and pleuritic chest pain, Abdomen/GI: Negative for abdominal pain, nausea, vomiting, diarrhea, and constipation, Back: Negative for injury and pain, MS/Extremity: Negative for injury and deformity, Skin: Negative for injury, rash, and discoloration, Neuro: Negative for headache, weakness, numbness, tingling. 14:28 Cardiovascular: Positive for chest pain. 14:28 All other systems are negative. Exam: 14:28 Constitutional: This is a well developed, well nourished patient who is awake, alert, ms3 and in no acute distress. Head/Face: Normocephalic, atraumatic. Neck: Trachea midline, no cervical lymphadenopathy. Supple, full range of motion without nuchal rigidity, or vertebral point tenderness. No Meningismus. Chest/axilla: Normal chest wall appearance and motion. Nontender with no deformity. Cardiovascular: Regular rate and rhythm with a normal S1 and S2. No gallops, murmurs, or rubs. Normal PMI, no JVD. No pulse deficits. Respiratory: Lungs have equal breath sounds bilaterally, clear to auscultation and percussion. No rales, rhonchi or wheezes noted. No increased work of breathing, no retractions or nasal flaring. Abdomen/GI: Soft, non-tender, with normal bowel sounds. No distension or tympany. No guarding or rebound. No evidence of tenderness throughout. Skin: Warm, dry with normal turgor. Normal color with no rashes, no lesions, and no evidence of cellulitis. MS/ Extremity: Pulses equal, no cyanosis. Neurovascular intact. Full, normal range of motion. 15:04 ECG was reviewed by the Attending Physician. ms3 Vital Signs: 14:20 BP 189 / 105; Pulse 60; Resp 18; Temp 98.7; Pulse Ox 99% ; Weight 77.11 kg; ap3 15:00 BP 197 / 85; Pulse 60; Resp 14; Pulse Ox 96% on R/A; db 16:00 BP 192 / 89; Pulse 56; Resp 16; Pulse Ox 97% on R/A; db 17:00 BP 178 / 107; Pulse 53; Resp 16; Pulse Ox 97% on R/A; db 17:30 BP 184 / 81; Pulse 59; Resp 16; Pulse Ox 97% on R/A; db 17:50 BP 188 / 95; Pulse 43; Resp 14; Pulse Ox 96% ; db 18:00 BP 181 / 77; Pulse 61; Resp 16; Pulse Ox 98% on R/A; db 18:15 BP 196 / 97; Pulse 64; Resp 20; Pulse Ox 96% on R/A; db 18:30 BP 192 / 78; Pulse 57; Resp 16; Pulse Ox 97% on R/A; db MDM: 14:28 Differential diagnosis: abnormal EKG, acute myocardial infarction, coronary artery ms3 disease post op pain. 14:33 Patient medically screened. ms3 16:45 ED course: Discussed case with Dr Starkey and he recommends transfer to patient's EP, Dr agus Mckay.. 17:11 HEART Score: History: Slightly Suspicious (0), ECG: Significant ST-deviation (2), Age: ms3 > or = 65 years (2), Risk Factors: 1 or 2 risk factors (1), Troponin: < or = 1 x Normal Limit (0), Total Score = 5. The patient was given aspirin in the Emergency Department. Data reviewed: vital signs, nurses notes, lab test result(s), EKG, radiologic studies, and as a result, I will transfer patient. Consideration of Admission/Observation Will transfer patient. Management of patient was discussed with the following: Disassembler: Dr Starkey. I considered the following discharge prescriptions or medication management in the emergency department Medications were administered in the Emergency Department. See MAR. Independent interpretation of the following test(s) in the Emergency Department EKG: See my EKG interpretation above X-Ray: My interpretation is CXR image reviewed by me: Cardiomegaly . security monitor: rate is 62 beats/min, Rhythm is atrial fibrillation, with no ectopy, Interpretation: normal rate, atrial fibrillation. Care significantly affected by the following chronic conditions: Hypertension. Counseling: I had a detailed discussion with the patient and/or guardian regarding: the historical points, exam findings, and any diagnostic results supporting the discharge/admit diagnosis, lab results, radiology results, the need to transfer to another facility, for higher level of care. Response to treatment: the patient's symptoms have mildly improved after treatment, and as a result, I will transfer patient. ED course: Discussed case with [facility] ED physician, Dr Jade, and he accepts patient. 05/17 14:27 Order name: Basic Metabolic Panel; Complete Time: 16:25 ms3 05/17 14:27 Order name: CBC with Diff; Complete Time: 16:19 ms3 05/17 14:27 Order name: Magnesium; Complete Time: 16:25 ms3 05/17 14:27 Order name: Troponin HS; Complete Time: 16:25 ms3 05/17 14:27 Order name: XRAY Chest (1 view); Complete Time: 16:19 ms3 05/17 14:27 Order name: EKG; Complete Time: 14:27 ms3 05/17 14:27 Order name: Cardiac monitoring; Complete Time: 14:50 ms3 05/17 14:27 Order name: EKG - Nurse/Tech; Complete Time: 14:50 ms3 05/17 14:27 Order name: IV Saline Lock; Complete Time: 15:26 ms3 05/17 14:27 Order name: Labs collected and sent; Complete Time: 15:26 ms3 05/17 14:27 Order name: O2 Per Protocol; Complete Time: 14:50 ms3 05/17 14:27 Order name: O2 Sat Monitoring; Complete Time: 14:50 ms3 EC:04 Rate is 64 beats/min. Rhythm is irregular. Left axis deviation noted. QRS interval is ms3 prolonged. Clinical impression: Atrial Fibrillation and LBBB. Interpreted by me. Reviewed by me. Administered Medications: 15:00 Drug: Aspirin PO Chewable Tablet 324 mg Route: PO; db 18:52 Follow up: Response: No adverse reaction db 17:40 Drug: Nitroglycerin Sublingual 0.4 mg Route: Sublingual; db 18:52 Follow up: Response: No adverse reaction db 18:15 Drug: hydrALAZINE IVP 10 mg Route: IVP; Site: right antecubital; db 18:52 Follow up: Response: No adverse reaction db Disposition Summary: 05/17/23 16:45 Transfer Ordered Transfer Location: Other Acute Care Facility ms3 Reason: Higher level of care ms3 Condition: Stable ms3 Problem: new ms3 Symptoms: are unchanged ms3 Accepting Physician: Dr Jade(05/17/23 18:52) db Diagnosis - Chest pain, unspecified ms3 - Essential (primary) hypertension ms3 Forms: - Medication Reconciliation Form ms3 - SBAR form ms3 Signatures: Dispatcher [employer] EDMS Aggie Enriquez, RN RN ap3 Sadiq Salgado, DO ms3 Jade Phillips RN RN db Corrections: (The following items were deleted from the chart) 17:21 17:11 ED course: Discussed case with [facility] [place] ED physician and he accepts ms3 patient. ms3 17:21 16:45 Dr goldsmith ms3 18:52 17:21 Dr Jade ms3 db
--- NOTE | 2023-05-17 16:45 | ER ---
Nurse's Notes [facility] Name: Nia Mandel Age: 77 yrs Sex: Female : 1945 Arrival Date: 05/17/2023 Time: 14:10 Bed 13 Private MD: Diagnosis: Chest pain, unspecified;Essential (primary) hypertension Presentation: 05/17 14:20 Chief complaint: Patient states: she had an ablation on 04/28/23, and reports "feeling ap3 awful" since. Patient states her blood pressure has been up and down, her pulse has been low and she just doesn't "feel right". Coronavirus screen: At this time, the client does not indicate any symptoms associated with coronavirus-19. Ebola Screen: No symptoms or risks identified at this time. Initial Sepsis Screen: Does the patient meet any 2 criteria? No. Patient's initial sepsis screen is negative. Does the patient have a suspected source of infection? No. Patient's initial sepsis screen is negative. Risk Assessment: Do you want to hurt yourself or someone else? Patient reports no desire to harm self or others. Onset of symptoms was April 24, 2023. 14:20 Method Of Arrival: Other ap3 14:20 Acuity: SHYANNE 2 ap3 Triage Assessment: 14:22 General: Appears uncomfortable, Behavior is calm, cooperative, appropriate for age. ap3 General: Reports fatigue for. General: Reports feeling "awful". Pain: Complains of pain in chest Quality of pain is described as soreness. Pain: Pain currently is 5 out of 10 on a pain scale. Quality of pain is described as. Neuro: Level of Consciousness is awake, alert, obeys commands, Oriented to person, place, time, situation. Neuro: Reports. Cardiovascular: Patient's skin is warm and dry. Cardiovascular: Reports chest pain, since 04/24/23. Respiratory: Airway is patent Respiratory effort is even, unlabored, Respiratory pattern is regular, symmetrical. Historical: - Allergies: 14:22 Sulfa (Sulfonamide Antibiotics); ap3 - Home Meds: 17:11 alprazolam 1 mg Oral Tablet,disintegrating 1 tab every day at bedtime for anxiety db [Active]; amiodarone 200 mg Oral tablet 1 tab 2 times per day for Heart Problem [Active]; apixaban 2.5 mg oral tablet 1 tab 2 times per day for heart [Active]; aspirin 81 mg Oral capsule 1 cap daily [Active]; duloxetine 20 mg oral Capsule, Delayed Release Sprinkle 1 cap daily [Active]; fenofibrate 145 mg Oral daily [Active]; furosemide 80 mg oral tablet 2 times per day [Active]; levothyroxine 150 mcg oral tablet daily [Active]; 17:20 OMEGA-3 1000 mmg twice a day [Active]; omeprazole 40 mg oral capsule,delayed release db (e.c.) once [Active]; ramipril 10 mg oral capsule daily [Active]; sertraline 50 mg oral tablet daily [Active]; spironolactone 50 mg Oral tablet 1 tab daily [Active]; - PMHx: 14:22 Atrial fibrillation; blood clots in right arm; Hypertensive disorder; THYROID CANCER; ap3 watchman procedure; - PSHx: 14:22 Tonsillectomy; ablation 04/24/23; ap3 - Immunization history:: Client reports receiving the 2nd dose of the Covid vaccine. - Social history:: Smoking status: Patient denies any tobacco usage or history of. Screenin:25 Abuse screen: Denies threats or abuse. Nutritional screening: No deficits noted. ap3 Tuberculosis screening: No symptoms or risk factors identified. 15:35 [facility] ED Fall Risk Assessment (Adult) History of falling in the last 3 months, db including since admission No falls in past 3 months (0 pts) Confusion or Disorientation No (0 pts) Intoxicated or Sedated No (0 pts) Impaired Gait No (0 pts) Mobility Assist Device Used No (0 pt) Altered Elimination No (0 pt) Score/Fall Risk Level 0 - 2 = Low Risk Oriented to surroundings, Maintained a safe environment. Assessment: 15:27 Reassessment: Patient appears in no apparent distress at this time. Patient and/or db family updated on plan of care and expected duration. Pain level reassessed. Patient is alert, oriented x 3, equal unlabored respirations, skin warm/dry/pink. General: Appears in no apparent distress. comfortable, Behavior is calm, cooperative. Pain: Complains of pain in chest. Neuro: Level of Consciousness is awake, alert, obeys commands, Oriented to person, place, time, situation. 16:00 Reassessment: Patient appears in no apparent distress at this time. Patient and/or db family updated on plan of care and expected duration. Pain level reassessed. Patient is alert, oriented x 3, equal unlabored respirations, skin warm/dry/pink. 17:00 Reassessment: Patient appears in no apparent distress at this time. Patient and/or db family updated on plan of care and expected duration. Pain level reassessed. Patient is alert, oriented x 3, equal unlabored respirations, skin warm/dry/pink. Patient states feeling better. 17:32 Reassessment: Called to give [facility] ER report. Report given to LISETH Hodges. db 17:48 Reassessment: PATIENT INITIALLY REFUSED TO SIGN TRANSPORT FORM. PT SPOKE TO DR. DONAVAN mcdonald AND AFTER SPEAKING WITH DR. GO AGREED TO TRANSFER TO [facility]. PATIENT VERBALIZED UNDERSTANDING NEED TO TRANSFER. 18:28 Reassessment: BP 184/81 HYDRALAZINE INITIALLY HELD AND NITRO SUB LINGUAL GIVEN. BP NOW db 196/[address] GO NOTIFIED. 18:51 Reassessment: Patient appears in no apparent distress at this time. Patient and/or db family updated on plan of care and expected duration. Pain level reassessed. Patient is alert, oriented x 3, equal unlabored respirations, skin warm/dry/pink. Vital Signs: 14:20 BP 189 / 105; Pulse 60; Resp 18; Temp 98.7; Pulse Ox 99% ; Weight 77.11 kg; ap3 15:00 BP 197 / 85; Pulse 60; Resp 14; Pulse Ox 96% on R/A; db 16:00 BP 192 / 89; Pulse 56; Resp 16; Pulse Ox 97% on R/A; db 17:00 BP 178 / 107; Pulse 53; Resp 16; Pulse Ox 97% on R/A; db 17:30 BP 184 / 81; Pulse 59; Resp 16; Pulse Ox 97% on R/A; db 17:50 BP 188 / 95; Pulse 43; Resp 14; Pulse Ox 96% ; db 18:00 BP 181 / 77; Pulse 61; Resp 16; Pulse Ox 98% on R/A; db 18:15 BP 196 / 97; Pulse 64; Resp 20; Pulse Ox 96% on R/A; db 18:30 BP 192 / 78; Pulse 57; Resp 16; Pulse Ox 97% on R/A; db Vitals: 15:00 Cardiac Rhythm Assessment Irregular. db ED Course: 14:15 Patient arrived in ED. kj1 14:22 Triage completed. ap3 14:23 Sadiq Go DO is Attending Physician. ms3 14:25 Arm band placed on left wrist. ap3 14:50 Jade Phillips, RN is Primary Nurse. db 15:20 Inserted saline lock: 20 gauge in right antecubital area, using aseptic technique. db Blood collected. 15:21 XRAY Chest (1 view) In Process Unspecified. EDMS 15:26 Patient has correct armband on for positive identification. Bed in low position. Call db light in reach. Side rails up X 1. Client placed on continuous cardiac and pulse oximetry monitoring. NIBP monitoring applied. 16:45 initiated transfer to [facility]. bd 18:51 Provided Education on: TRANSFER AND CARDIAC CARE. db 18:51 No provider procedures requiring assistance completed. Patient transferred, IV remains db in place. Administered Medications: 15:00 Drug: Aspirin PO Chewable Tablet 324 mg Route: PO; db 18:52 Follow up: Response: No adverse reaction db 17:40 Drug: Nitroglycerin Sublingual 0.4 mg Route: Sublingual; db 18:52 Follow up: Response: No adverse reaction db 18:15 Drug: hydrALAZINE IVP 10 mg Route: IVP; Site: right antecubital; db 18:52 Follow up: Response: No adverse reaction db Medication: 18:51 VIS not applicable for this client. db Outcome: 16:45 ER care complete, transfer ordered by MD. ms3 18:51 Transferred by ground EMS Transfer form completed. Note: [facility] db 18:51 Condition: stable 18:51 Instructed on the need for transfer. 18:52 Patient left the ED. db Signatures: Dispatcher [employer] EDMS Afshan Lama bd Aggie Enriquez RN RN ap3 Stephanie Abrams kj1 Sadiq Go DO DO ms3 Jade Phillips, RN RN db Corrections: (The following items were deleted from the chart) 18:02 15:00 Cardiac Rhythm Assessment Sinus rhythm db db
[2023-05-17] MEDS ORDERED: NITROGLYCERIN 0.4 MG/TAB SL ONE (17:52)
[2023-05-17] MEDS ORDERED: HYDRALAZINE HCL 10 MG TABLET ONE (18:32)
[2023-05-17] MEDS ORDERED: HYDRALAZINE HCL 20 MG/ML VIAL ONE (18:33)
[2023-05-17 19:55] VITALS: TEMP 98.7
[2023-05-17 20:04] VITALS: BP 192/78; O2SAT 97
--- NOTE | 2023-05-18 18:28 | EKG ---
Test Date: 2023-05-17 Test Time: 14:45:30 Contract Processor: DOTTIE MEASUREMENT RESULTS: Intervals: Rate: 64 DC: QRSD: 178 QT: 530 QTc: 546 [place]cl[place]: P: DC: QRS: -86 T: 62 INTERPRETIVE STATEMENTS: Atrial fibrillation Left axis deviation Left bundle branch block Abnormal ECG Compared to ECG 03/17/2023 10:48:00 No significant changes Electronically Signed On 05-18-23 18:26:03 CDT by Dick Starkey
== END 2023-05-17 18:52 ==
LOC: ER 14:10
DX: R07.89 Other chest pain (principal); I10 Essential (primary) hypertension; I48.91 Unspecified atrial fibrillation; Z79.01 Long term (current) use of anticoagulants; Z79.82 Long term (current) use of aspirin; Z98.890 Other specified postprocedural states; Z88.2 Allergy status to sulfonamides
CPT/HCPCS: 85025; 80048; 36415; 83735; 84484; 71045; J0360; 93005; 96374; 99285

== ENCOUNTER 2023-06-08 08:05 | Inpatient (IN) | payer OTHER ==
--- OUTSIDE RECORDS SUMMARY | 2023-06-08 08:10 | XMS REPORT | Continuity of Care Document ---
:1945 Author Organization [facility] t Address [address] [facility] [address] [place] [address] Care Team Providers Name Role Phone Trey PADILLA, Herbie Jones Primary Care Physician JOMAR IBARRA Attending Clinician Unavailable Peter Leal Attending Clinician Unavailable Bryce Bender Attending Clinician Unavailable Radha Carmona Attending Clinician Unavailable HEBERT LÓPEZ Attending Clinician Unavailable MD HEBERT LÓPEZ Attending Clinician Unavailable QUYEN RIVAS Attending Clinician Unavailable RAFFY MIJARES Attending Clinician Unavailable JOMAR IBARRA Admitting Clinician Unavailable Britt Self Admitting Clinician Unavailable Felipe Forde Admitting Clinician Unavailable HEBERT LÓPEZ Admitting Clinician Unavailable MD HEBERT LÓPEZ Admitting Clinician Unavailable Payers Payer Name Policy Type Policy Number Effective Date Expiration Date S billy MEDICARE A B [id number] 2008 00:00:00 [employer] [id number] 2020 00:00:00 MEDICARE PART A [id number] 2008 \\T\\ B 00:00:00 [employer] [id number] 2017 00:00:00 Problems Condition Condition Condition Status Onset Resolution Last Treating Co mments Source Name Details Category Date Date Treatment Clinician Date Atrial Atrial Disease Active 2021-0 [facility] fibrillati fibrillati 9-10 st on on [...] Sulfa DA Active MO ITCH [facility] (Sulfona 05-03 Clear mide 00:00: [place] [facility] 00 [facility] Sulfa Propensi Active Itching [facility] (Sulfona ty to 8 st mide adverse 00:00: Hospita Antibiot reaction 00 l ics) s to drug SULFA Drug Active Rash 2017-10 [facility] (SULFONA Class 2-16 ity of MIDE 00:00: [place] ANTIBIOT 00 Medical ICS) Branch Sulfa Drug Active Other (See 2017-[address] [facility] [address] (Sulfona Allergy Comments), 2-16 [facility] mide Rash 00:00: Medical Antibiot 00 Center ics) SULFA Allergy Active Low Other 2017-[address] [facility] [address] (SULFONA 2-16 [facility] MIDE 00:[facility] ANTIBIOT 00 Center ICS) Social History Social Habit Start Date Stop Date Quantity Comments Source History of tobacco Cigarette Smoker [facility] History SDOH [facility] Alcohol Binge Medical [facility] History SDOH [facility] Alcohol Std Drinks [facility]ica [facility] Center History of Social 2021-08-10 2021-08-[address] function 00:00:00 00:00:00 Hospital Tobacco use and 2021-06-12 2021-06-12 Smokeless [facility] exposure 00:00:00 00:00:00 tobacco non-user Hospital Alcohol Comment 2021-06-12 2021-06-12 DAILY [facility] 00:00:00 00:00:00 Hospital Alcohol intake 2021-03-13 2021-03-13 [facility] (finding) Tobacco Comment 2021-03-04 2021-03-04 quit- [facility] years [facility] Medical Center History SDOH 2021-03-04 2021-03-[address] [facility] Alcohol Frequency 00:00:00 00:00:00 Medical Center Sex Ass[birth year] At [birth year] [facility] 00:00:00 00:00:00 Hospital Smoking Status Start Date Stop Date Source Ex-smoker 2021-06-12 00:00:00 2021-06-12 00:00:00 [facility] Medications Ordered Filled Start Stop Current [...] 16:45: daily. Hospit a 41 l levothyroxi 0 Yes 175ug QD Take 175 M ethodi [...] 16:45: daily. Hospita tablet 41 l furosemide 2021-0 Yes 80mg QD Take 80 mg M ethodi (LASIX) 80 9-[address] mg tablet 16:45: daily. Hospit a 41 l levothyroxi 2021-0 Yes 175ug QD Take 175 M ethodi ne 9-[address] (SYNTHROID) 16:45: mouth Hospi ta 175 mcg 41 daily. l tablet sertraline 2021-0 Yes 50mg QD Take 50 mg M [...] 16:45: daily. Hospit a 41 l levothyroxi 2021-0 Yes 175ug QD Take 175 M ethodi [...] 16:45: daily. Hospita tablet 41 l furosemide 2021-0 Yes 80mg QD Take 80 mg M ethodi (LASIX) 80 9-[address] mg tablet 16:45: daily. Hospit a 41 l levothyroxi 2021-0 Yes 175ug QD Take 175 M ethodi ne 9-[address] (SYNTHROID) 16:45: mouth Hospi ta 175 mcg 41 daily. l tablet sertraline 2021-0 Yes 50mg QD Take 50 mg M [...] 16:45: daily. Hospit a 41 l spironolact 2021-0 Yes 25mg QD Take [...] desmond 25 MG 40 l tablet ramipriL 1-0 Yes 10mg QD Take 10 mg Met hodi (ALTACE) 10 9-[address] MG capsule 16:45: daily. Hospi ta 40 l spironolact 2021-0 Yes 25mg QD Take 25 mg Methodi one 9-[address] (ALDACTONE) 16:45: daily. Hosp desmond 25 MG 40 l tablet ramipriL 1-0 Yes 10mg QD Take 10 mg Met [...] 14:45: mouth Hospita tablet 40 daily. l fenofibrate 0 Yes 145mg QD Take 145 M ethodi (TRICOR) 9-[address] 145 MG 14:45: mouth Hospita tablet 40 daily. l omeprazole 0 Yes 40mg QD Take 40 mg M ethodi (PriLOSEC) 9-[address] 40 MG 14:45: daily. Hospita capsule 40 l omega-3 2020-0 Yes 1g Q.5D Take 1 g Method i acid ethyl 9-[address] esters 14:45: (two) Hospita (LOVAZA) 1 40 times a l gram day. capsule omega-3 2020-0 Yes 2g Q.5D Take 2 g [facility] [...] (two) Medical 10 times Center daily. omeprazole 0 Yes 40mg QD Take [address] (PriLOSEC) 6-11 by [facility] 40 MG 13:12: daily. Medical capsule 10 Center metoprolol 0 Yes 25mg Q.5D Take [address] tartrate 6-11 by mouth 2 [facility] (LOPRESSOR) 13:12: (two) Medic al 25 MG 10 times Center tablet daily. omega-3 2020-0 Yes 2g Q.5D Take [address] acid ethyl 6-11 by mouth 2 Dane es esters 13:12: (two) Medical (LOVAZA) 1 10 times Center gram daily. capsule fenofibrate 2020-0 Yes 145mg QD Take [address] (TRICOR) 6-11 mg by [facility]ukes 145 MG 13:12: mouth Medical tablet 10 daily. Center ramipriL 2020-0 Yes 10mg QD Take [address] (ALTACE) 10 6-11 by mouth Luke s MG capsule 13:12: daily. Medic al 10 Center sertraline 2020-0 Yes 50mg QD Take [address] (ZOLOFT) 50 6-11 by mouth Luke s MG tablet 13:12: daily. Medica l 10 Center rivaroxaban 0 Yes Take by [facility] (XARELTO) 6-11 [facility] 20 mg Tab 13:12: daily with Me dical tablet 10 dinner. Center furosemide 2020-0 Yes 80mg Q.5D Take [address] (LASIX) 80 6-11 by mouth 2 Dane es MG tablet 13:12: (two) Medical 10 times Center daily. omeprazole 2020-0 Yes 40mg QD Take [address] (PriLOSEC) 6-11 by mouth [facility] 40 MG 13:12: daily. Medical capsule 10 Center metoprolol 0 Yes 25mg Q.5D Take [address] tartrate 6-11 by mouth 2 [facility] (LOPRESSOR) 13:12: (two) Medic al 25 MG 10 times Center tablet daily. omega-3 2020-0 Yes 2g Q.5D Take [address] acid ethyl 6-11 by mouth 2 Dane es esters 13:12: (two) Medical (LOVAZA) 1 10 times Center gram daily. capsule fenofibrate 2020-0 Yes 145mg QD Take [address] (TRICOR) 6-11 mg by [facility] 145 MG 13:12: mouth Medical tablet 10 daily. Center ramipriL 2020-0 Yes 10mg QD Take [address] (ALTACE) 10 6-11 by mouth Luke s MG capsule 13:12: daily. Medic al 10 Center sertraline 2021-0 Yes 50mg QD Take [address] (ZOLOFT) 50 6-11 by mouth Luke s MG tablet 13:12: daily. Medica l 10 Center rivaroxaban 0 Yes Take by [facility] (XARELTO) 6-11 mouth [facility] 20 mg Tab 13:12: daily with Me dical tablet 10 dinner. Center furosemide 2020-0 Yes 80mg Q.5D Take [address] (LASIX) 80 6-11 by mouth 2 Dane es MG tablet 13:12: (two) Medical 10 times Center daily. omeprazole 2020-0 Yes 40mg QD Take 40 mg C [...] Me dical tablet 10 dinner. Center furosemide 2020-0 Yes 80mg Q.5D Take [address] (LASIX) 80 6-11 by mouth 2 Dane es MG tablet 13:12: (two) Medical 10 times Center daily. omeprazole 2020-0 Yes 40mg QD Take 40 mg C [...] cm WEIGHT 2021-03-04 10:32:00 81.647 kg Procedures Procedure Date / Time Performed Performing Clinician [facility] alexa [id number] 2023-05-19 00:00:00 CUEJO.01 [facility] [id number] 2023-05-19 00:00:00 CUEJO.01 [facility] [id number] 2023-05-19 00:00:00 CUEJO.01 [facility] Plan of Care Planned Activity Planned Date Details Comments Source Future Scheduled 2023-06-03 Influenza Vaccine (#1) [facility] 00:00:00 [code = Influenza Medical Ce nter Vaccine (#1)] Future Scheduled 2023-06-03 Influenza Vaccine (#1) [facility] 00:00:00 [code = Influenza Medical Ce nter Vaccine (#1)] Future Scheduled 2023-06-[address] [facility] Test 00:00:00 (Season Ended) [code = [facility] Center INFLUENZA VACCINE (Season Ended)] Future Scheduled 2023-06-03 Influenza Vaccine (#1) [facility] Test 00:00:00 [code = Influenza Medical Ce nter Vaccine (#1)] Future Scheduled 2023-06-03 Influenza Vaccine (#1) [facility] Test 00:00:00 [code = Influenza Medical Ce nter Vaccine (#1)] Future Scheduled 2023-05-30 Hepatitis C screening [facility] Test 23:55:37 (procedure) [code = 286694098] Future Scheduled 2023-05-30 SHINGLES VACCINES (1 Met [facility] Test 23:55:37 of 2) [code = SHINGLES VACCINES (1 of 2)] Future Scheduled 2023-05-30 COVID-19 VACCINE (3 - [facility] Test 23:55:37 Moderna series) [code = COVID-19 VACCINE (3 - Moderna series)] Future Scheduled 2023-05-30 65+ PNEUMOCOCCAL [facility] Test 23:55:37 VACCINE (2 - PCV) [code = 65+ PNEUMOCOCCAL VACCINE (2 - PCV)] Future Scheduled 2023-05-30 INFLUENZA VACCINE (#1) M [facility] Hospital Test 23:55:37 [code = INFLUENZA VACCINE (#1)] Future Scheduled 2023-05-05 [facility] 01:44:45 (procedure) [code = [id number]] Future Scheduled 2023-05-05 SHINGLES VACCINES (1 Met [facility] Test 01:44:45 of 2) [code = SHINGLES VACCINES (1 of 2)] Future Scheduled 2023-05-05 COVID-19 VACCINE (3 - [facility] Test 01:44:45 Moderna series) [code = COVID-19 VACCINE (3 - Moderna series)] Future Scheduled 2023-05-05 65+ PNEUMOCOCCAL [facility] Test 01:44:45 VACCINE (2 - PCV) [code = 65+ PNEUMOCOCCAL VACCINE (2 - PCV)] Future Scheduled 2023-05-05 INFLUENZA VACCINE [facility] Test 01:44:45 [code = INFLUENZA VACCINE] Future Scheduled 2023-05-05 [facility] Test 01:44:45 (procedure) [code = [id number]] Future Scheduled 2023-05-05 SHINGLES VACCINES (1 Met [facility] Test 01:44:45 of 2) [code = SHINGLES VACCINES (1 of 2)] Future Scheduled 2023-05-05 COVID-19 VACCINE (3 - [facility] Test 01:44:45 Moderna series) [code = COVID-19 VACCINE (3 - Moderna series)] Future Scheduled 2023-05-05 65+ PNEUMOCOCCAL [facility] Test 01:44:45 VACCINE (2 - PCV) [code = 65+ PNEUMOCOCCAL VACCINE (2 - PCV)] Future Scheduled 2023-05-05 INFLUENZA VACCINE [facility] Test 01:44:45 [code = INFLUENZA VACCINE] Future Scheduled 2023-05-05 [facility] Test 01:44:45 (procedure) [code = [id number]] Future Scheduled 2023-05-05 SHINGLES VACCINES (1 Met [facility] Test 01:44:45 of 2) [code = SHINGLES VACCINES (1 of 2)] Future Scheduled 2023-05-05 COVID-19 VACCINE (3 - [facility] Test 01:44:45 Moderna series) [code = COVID-19 VACCINE (3 - Moderna series)] Future Scheduled 2023-05-05 65+ PNEUMOCOCCAL [facility] Hospital Test 01:44:45 VACCINE (2 - PCV) [code = 65+ PNEUMOCOCCAL VACCINE (2 - PCV)] Future Scheduled 2023-05-05 INFLUENZA VACCINE Method [facility] Hospital Test 01:44:45 [code = INFLUENZA VACCINE] Future Scheduled 2023-03-12 Hepatitis C screening [facility] Test 13:28:17 (procedure) [code = [id number]] Future Scheduled 2023-03-12 SHINGLES VACCINES (1 Met [facility] Hospital Test 13:28:17 of 2) [code = SHINGLES VACCINES (1 of 2)] Future Scheduled 2023-03-12 COVID-19 VACCINE (3 - [facility] Test 13:28:17 Moderna series) [code = COVID-19 VACCINE (3 - Moderna series)] Future Scheduled 2023-03-12 65+ PNEUMOCOCCAL [facility] Hospital Test 13:28:17 VACCINE (2 - PCV) [code = 65+ PNEUMOCOCCAL VACCINE (2 - PCV)] Future Scheduled 2023-03-12 INFLUENZA VACCINE Method [facility] Test 13:28:17 [code = INFLUENZA VACCINE] [...] DXA [facility] Test 00:00:00 SCAN] [facility] Future Scheduled 1945 DXA SCAN [code = DXA [facility] Test 00:00:00 SCAN] [facility] Future Scheduled 1945 DXA SCAN [code = DXA [facility] Test 00:00:00 SCAN] [facility] Future Scheduled 1945 DXA SCAN [code = DXA [facility] Test 00:00:00 SCAN] [facility] Future Scheduled 1945 DXA SCAN [code = DXA [facility] Test 00:00:00 SCAN] Medical Center Encounters Start End Encounter Admission Attending Care Care Encounter Source Date/Time Date/Time Type Type Clinicians Facility Department ID 2021-07-11 Outpatient [facility] Surgery [id number] SLE 19:54:44 JOMAR 2021-03-11 Inpatient UR [facility] Surgery [id number] SLE 12:02:00 JOMAR 2023-05-17 2023-05-20 [facility] [id number] 22:30:00 13:35:00 Peter 29 [facility] 2023-05-10 2023-05-10 Outpatient JOSE ROBERTO Mckay [facility] OUTD [id number] [facility] 08:00:00 17:30:00 Bryce Capps 36 [facility] 2022-07-28 2022-07-28 Telephone Kristine, 1.2.840.1 [id number] Methodi 00:00:00 00:00:00 Radha Mary Kate [id number] 3.430.2.7 Hospit a .3.625159 l .8 2022-07-28 2022-07-28 Telephone Kristine, 1.2.840.1 [id number] Methodi 00:00:00 00:00:00 Radha Mary Kate [address].1.[address] 3.430.2.7 Hospit a .3.830992 l .8 2021-08-10 2021-08-10 Outpatient RENERACHELE [facility] [id number] [place] 00:00:00 00:00:00 964 Method i 2021-08-10 2021-08-10 Outpatient RENEHEBERT [facility] [id number] [place] 00:00:00 00:00:00 961 Method i 2021-06-12 2021-06-12 Inpatient RENEHEBERT [facility] [id number] [place] 00:00:00 00:00:00 186 Method i 2021-06-09 2021-06-09 Outpatient RENEHEBERT [facility] [id number] [place] 00:00:00 00:00:00 007 Method i 2021-05-11 2021-05-11 Outpatient RENERACHELE [facility] [id number] [place] 00:00:00 00:00:00 358 Method i 2021-05-11 2021-05-11 Outpatient TOMASZHEBERT SCHWARTZ [facility] [id number] [place] 00:00:00 00:00:00 329 Method i 2021-03-04 2021-03-04 Outpatient [facility] [id number] [facility] 00:00:00 00:00:00 2021-02-18 2021-02-18 Outpatient QUYEN RIVAS [facility] [id number] SLE 00:00:00 00:00:00 2020-12-07 2020-12-07 Outpatient [facility] [id number] [facility] 13:15:00 13:15:00 [facility] 2020-11-09 2020-11-09 Outpatient R DYLLAN, [facility] [id number] [facility] 14:50:00 14:50:00 RAFFY [facility] Results Test Description Test Time Test Comments Results Result Comments Source PROTHROMBIN TIME 2023-05-19 14:18:00 Test Item Value Reference Range Interpretation Comme nts PROTHROMBIN TIME PATIENT 19.4 SECONDS 9.3-12.9 H (test code = PTP) INTERNATIONAL NORMAL RATIO 1.7 0.8-1.2 H TARGET INR BY INDICATION (test code = INR) Indication INR1. Prophylaxis of venous thrombos is 2.0 - 3.0 (orthopedic jeana rafiq), Prophylaxis of venous thrombosis (other than hig h-risk surgery), Treatment of De ep Vein Thrombosis/Pulm onary Embolism, Prevention of s ystemic embolism - Tissue heart valves, Acute Myocardial Infa rction (to prevent systemi c embolism), Valvular heart disease, Atrial Fibrillation, B ileaflet mechanical valv e in aortic position.2. Mec hanical prosthetic valv es (high risk), 2.5 - 3.5 Prese nce of Lupus Anticoagulant o r Antiphospholipi d Antibodies, Prevention of s ystemic embolism - Acute Myocard ial Infarction (to prevent rec urrent infarct). CBC W/AUTO [id number] 10:11:00 Test Item Value Reference Range Interpretation Comments WHITE BLOOD CELL (test code = 4.4 x10 3/uL 4.5-11.0 L WBC) RED BLOOD CELL (test code = 4.50 x10 6/uL 3.54-5.02 N RBC) HEMOGLOBIN (test code = HGB) 12.2 g/dL 11.0-15.0 N HEMATOCRIT (test code = HCT) 37.1 % 33.0-45.0 N MEAN CELL VOLUME (test code = 82.4 fL 81.0-99.0 N MCV) MEAN CELL HGB (test code = MCH) 27.1 pg 27.0-33.0 N MEAN CELL HGB CONCETRATION 32.9 g/dL 33.0-37.0 L (test code = MCHC) RED CELL DISTRIBUTION WIDTH CV 15.5 % 11.5-14.5 H (test code = RDW) RED CELL DISTRIBUTION WIDTH SD 46.5 fL 37.0-54.0 N (test code = RDW-SD) PLATELET COUNT (test code = 382 x10 3/uL 150-400 N PLT) MEAN PLATELET VOLUME (test code 10.0 fL 7.0-9.0 H = MPV) NEUTROPHIL % (test code = NT%) % 56.0-77.0 LYMPHOCYTE % (test code = LY%) % 14.0-32.0 NEUTROPHIL # (test code = NT#) x10 3/uL 2.0-7.6 LYMPHOCYTE # (test code = LY#) x10 3/uL 1.0-3.8 MANUAL DIFF REQUIRED (test code YES = MDIFF) WBC [id number] 10:11:00 Test Item Value Reference Range Interpretation Comments BAND NEUTROPHIL (test code 0.0 % 0.0-10.0 N = BAND) ANISOCYTOSIS (test code = 1+ ANISO) PLATELET ESTIMATE (test Adequate THOUSAND ADEQUATE code = PLTEST) SEGMENTED NEUTROPHILS (test 76 % 37-69 H code = SEG) LYMPHOCYTE (test code = 10 % 23-55 L LYMPH) MONOCYTE (test code = MON) 10 % 0-10 N EOSINOPHIL (test code = 3 % 0.0-4.0 N EOS) BASOPHIL (test code = BASO) 1 % 0.0-2.0 N NUCLEATED RED BLOOD CELL 1 % (test code = NRBC) POLYCHROMASIA (test code = SLIGHT POLC) POIKILOCYTOSIS (test code = SLIGHT POIK) MACROCYTOSIS (test code = 1+ MACR) ELLIPTOCYTES (test code = FEW ELL) PLATELET MORPHOLOGY (test LARGE PLATELETS code = PLTMORPH) BASIC METABOLIC [id number] 07:41:00 Test Item Value Reference Range Interpretation Comments SODIUM (test code = 126 mEq/L 134-147 L NA) POTASSIUM (test code 3.7 mEq/L 3.4-5.0 N = K) CHLORIDE (test code 94 mEq/L 100-108 L = CL) CARBON DIOXIDE (test 23 mEq/l 21-33 N code = CO2) ANION GAP (test code 13 0-20 N = GAP) GLUCOSE (test code = 76 mg/dL 70-110 N GLU) BLOOD UREA NITROGEN 10 mg/dL 7-18 N (test code = BUN) [...] the recommended for celena for GFRby the [facility] Found[facility] on for Adults.The GFR will not calculate if th e sex is unknown or if thepatient's ag e is <18 years. CREATININE (test 1.3 mg/dL 0.6-1.3 N code = CREAT) CALCIUM (test code = 9.2 mg/dL 8.0-10.5 N CA) - XR CHEST 1 [id number] 00:00:00 [facility] : 1945 Sex: F FAX: Bryce Keller [phone] [place]: St: ADM FAX: Britt Self DO [phone] FAX: Peter Pillai [phone] FAX: Felipe Lucero MD [phone] Name: NIA MANDEL [facility] : 1945 Age/S: 77/F [address] [place] [address] Unit #: [id number] Loc: G.3341 [place] [address] Phys: Bryce Bender MD Acct: [id number] Dis Date: Status: ADM IN PHONE #: [phone] Exam Date: 05/19/20231733 FAX #: [phone] Reason: S/P PPM EXAMS: CPT CODE: [id number] XR CHEST 1 V [id number] PROCEDURE INFORMATION: Exam: XR Chest Exam date and time: 05/19/2023 5:31 PM Age: 77 years old Clinical indication: Device placement; Cardiac pacemaker placement or adjustment; Additional info: S/P ppm TECHNIQUE: Imaging protocol: Radiologic exam of the chest. Views: 1 view. COMPARISON: CT CHEST W/CONTRAST 05/18/2023 7:25 AM FINDINGS: Tubes, catheters and devices: Left atrial appendage occluding device is seen. Left-sided dual-chamber pacemaker is seen with tips in the regions of the right atrium and right ventricle. Lungs: Mild decreased lung volumes. No consolidation. Pleural spaces: Unremarkable. No pleural effusion. No pneumothorax. Heart/Mediastinum: Cardiac silhouette is mildly enlarged. Vasculature: Aorticarch calcification is seen. Bones/joints: Unremarkable. IMPRESSION: Interval placement of [id number] pacemaker. No pneumothorax is seen. at 1835 Reported and signed by: Tj Del Real M.D. CC: Bryce Capps MD; Britt Self DO; Peter Leal MD; Felipe Forde MD Technologist: Brittany Gao, RT(R); RT Torres(R)Trnmerd Date/Time/By: 05/19/2023 (1835) : By: John.SBL Orig Print D/T: S: 05/19/2023 (9014) PAGE 1 Signed ReportBASIC METABOLIC [id number] 09:00:00 Test Item Value Reference Range Interpretation Comments SODIUM (test code = 125 mEq/L 134-147 L NA) POTASSIUM (test code 4.6 mEq/L 3.4-5.0 = K) CHLORIDE (test code 92 mEq/L 100-108 L = CL) CARBON DIOXIDE (test 21 mEq/l 21-33 N code = CO2) ANION GAP (test code 17 0-20 N = GAP) GLUCOSE (test code = 90 mg/dL 70-110 N GLU) BLOOD UREA NITROGEN 9 mg/dL 7-18 N (test code = BUN) GLOMERULAR 65.0 70-80 L The Glomerular FILTRATION RATE Filtration [...] the recommended for celena for GFRby the [facility] Kidney Foundati on for Adults.The GFR will not calculate if th e sex is unknown or if thepatient's ag e is <18 years. CREATININE (test 0.9 mg/dL 0.6-1.3 N code = CREAT) CALCIUM (test code = 8.3 mg/dL 8.0-10.5 N CA) CBC W/AUTO [id number] 08:23:00 Test Item Value Reference Range Interpretation Comments WHITE BLOOD CELL (test code = 6.2 x10 3/uL 4.5-11.0 N WBC) RED BLOOD CELL (test code = 4.59 x10 6/uL 3.54-5.02 N RBC) HEMOGLOBIN (test code = HGB) 12.5 g/dL 11.0-15.0 N HEMATOCRIT (test code = HCT) 37.4 % 33.0-45.0 N MEAN CELL VOLUME (test code = 81.5 fL 81.0-99.0 N MCV) MEAN CELL HGB (test code = MCH) 27.2 pg 27.0-33.0 N MEAN CELL HGB CONCETRATION 33.4 g/dL 33.0-37.0 N (test code = MCHC) RED CELL DISTRIBUTION WIDTH CV 15.7 % 11.5-14.5 H (test code = RDW) RED CELL DISTRIBUTION WIDTH SD 45.8 fL 37.0-54.0 N (test code = RDW-SD) PLATELET COUNT (test code = 449 x10 3/uL 150-400 H PLT) MEAN PLATELET VOLUME (test code 10.7 fL 7.0-9.0 H = MPV) NEUTROPHIL % (test code = NT%) 74.1 % 56.0-77.0 N IMMATURE GRANULOCYTE % (test 0.5 % 0.0-2.0 N code = IG%) LYMPHOCYTE % (test code = LY%) 8.2 % 14.0-32.0 L MONOCYTE % (test code = MO%) 14.8 % 4.8-9.0 H EOSINOPHIL % (test code = EO%) 1.9 % 0.3-3.7 N BASOPHIL % (test code = BA%) 0.5 % 0.0-2.0 N NUCLEATED RBC % (test code = 0.0 % 0-0 N NRBC%) NEUTROPHIL # (test code = NT#) 4.61 x10 3/uL 2.0-7.6 N IMMATURE GRANULOCYTE # (test 0.03 x10 3/uL 0.00-0.03 N code = IG#) LYMPHOCYTE # (test code = LY#) 0.51 x10 3/uL 1.0-3.8 L MONOCYTE # (test code = MO#) 0.92 x10 3/uL 0.1-0.8 H EOSINOPHIL # (test code = EO#) 0.12 x10 3/uL 0.0-0.2 N BASOPHIL # (test code = BA#) 0.03 x10 3/uL 0.0-0.2 N NUCLEATED RBC # (test code = 0.00 x10 3/uL 0.0-0.1 N NRBC#) MANUAL DIFF REQUIRED (test code NO = MDIFF) T4 [id number] 07:59:00 Test Item Value Reference Range Interpretation Comments T4 FREE (test code = T4F) 1.9 ng/dL 0.77-1.61 H TSH REFLEX TO [id number] 07:59:00 Test Item Value Reference Range Interpretation Comments TSH REFLEX TO FT4 (test code = 10.64 IU/mL 0.42-5.47 H TSHREFLEX) SED RATE [id number] 06:25:00 Test Item Value Reference Range Interpretation Comments SED RATE WESTERGREN (test code = 2 mm/hr 0-20 N SEDW) C REACTIVE [id number] 05:38:00 Test Item Value Reference Range Interpretation Comments C REACTIVE PROTEIN (test code = CRP) 4.0 mg/L <10.0 N LIPID PROFILE (CORONARY RISK)2023-05-18 05:38:00 Test Item Value Reference Range Interpretation Comments TRIGLYCERIDES (test 105 mg/dL 40-150 N code = TRIG) CHOLESTEROL (test 164 mg/dL <200 code = CHOL) CHOLESTEROL/HDL 2.25 RATIO 3.27-4.44 L RISK ASSOCIA CALLUM WITH RATIO (test code = CHOL/HDL RATIOS: RISK CHOLHDL) MALE FEMALE1/2 AVERAGE 3.43 3.27AVERAG E 4.97 4.442X AVERAGE 9.55 7.053X AVERAGE 23.39 11.04 NOTE THAT THE REFERENCE VALUE IS RELATEDTO RISK LEVELS RECOMMENDED BY THE NATL.HEART, JAYJAY G, AND BLOOD INST. HDL CHOLESTEROL 72.9 MG/DL 40-60 H Note candelario e in (test code = HDL) REFERENCE RANGE due to change in REAGE NT.HDL Interpretation < 40.0 mg/dL Low (unde sirable, high risk)> 60. 0 mg/dL High (desirable , low risk) Reference interval for he althy adults was esta blished by theNational Cholesterol Edu cation Program (NCEP). LIPOPROTEIN LDL 52.0 mg/dL 0-100 N <100 OPTIMAL 100-129 (test code = LDL) NEAR OPTIM AL/ABOVE [id number] HIGH>VR=960 BAKARI Y HIGH*Guidelines provided by the National Choles terol EducationProgra m Adult Treatment Panel III TROP-I HIGH [id number] 05:38:00 Test Item Value Reference Range Interpretation Comments TROP-I HIGH 30 ng/L 0-34 N CAUTION: Units of the SENSITIVITY (test current te st methodology code = TROPIHS) (ng/L) diffe rfrom the prior test methodolog y (ng/mL) by a factor of 1000. 99th Percentile Upper Reference Limit (URL): Females: 34 ng/LMales: 54 n g/L In order to distinguish acute elevations of h igh sensitivitytrop onin from other clinical conditions, the FourthUnive rsal Definition of M yocardial Infarction stre ssesclinical assessment and the demonstration o f a rise and/orfall in s erial troponin result s above the URL. These resu lts were obtained using Siemens [employer] IM TnI Hreagent. Results from [employer] s hould not becompared to o ne another as quantitative results and URLs mayvary by method. TROP-I HIGH [id number] 03:51:00 Test Item Value Reference Range Interpretation Comments TROP-I HIGH 29 ng/L 0-34 N CAUTION: Units of the SENSITIVITY (test current te st methodology code = TROPIHS) (ng/L) diffe rfrom the prior test methodolog y (ng/mL) by a factor of 1000. 99th Percentile Upper Reference Limit (URL): Females: 34 ng/LMales: 54 n g/L In order to distinguish acute elevations of h igh sensitivitytrop onin from other clinical conditions, the FourthUnive rsal Definition of M yocardial Infarction stre ssesclinical assessment and the demonstration o f a rise and/orfall in s erial troponin result s above the URL. These resu lts were obtained using [employer]ens [employer] IM TnI Hreagent. Results from [employer] s hould not becompared to o ne another as quantitative results and URLs mayvary by method. TROP-I HIGH [id number] 01:21:00 Test Item Value Reference Range Interpretation Comments TROP-I HIGH 32 ng/L 0-34 N CAUTION: Units of the SENSITIVITY (test current te st methodology code = TROPIHS) (ng/L) diffe rfrom the prior test methodolog y (ng/mL) by a factor of 1000. 99th Percentile Upper Reference Limit (URL): Females: 34 ng/LMales: 54 n g/L In order to distinguish acute elevations of h igh sensitivitytrop onin from other clinical conditions, the FourthUnive rsal Definition of M yocardial Infarction stre ssesclinical assessment and the demonstration o f a rise and/orfall in s erial troponin result s above the URL. These resu lts were obtained using [employer]ens [employer] IM TnI Hreagent. Results from di fferent methodologies s hould not becompared to o ne another as quantitative results and URLs mayvary by method. - CT CHEST W/[id number] 00:00:00 [facility] 1945 Sex: F Name:NIA MANDEL [facility] : 1945 Age/S: 77 / F [address] [place] [address] Unit #: [id number] Loc: [place]ICA [place] [address] Phys: Bryce Bender MD Acct: [id number] Dis Date: Status: ADM INPHONE #: [phone] Exam Date: 05/18/2023827 FAX #: [phone] Reason: RULE OUT CARDIAC FISTULA EXAMS: CPT CODE: [id number] CT CHEST W/CONTRAST 44990 PROCEDURE INFORMATION: Exam: CT Chest With Contrast; Diagnostic Exam date and time: 05/18/2023 7:25 AM Age: 77 years old Clinical indication: Other: Rule out cardiac fistula TECHNIQUE: Imaging protocol: Diagnostic computed tomography of the chest with contrast. Radiation optimization: All CT scans at this facility use at least one of these dose opt imization techniques: automated exposure control; mA and/or kV adjustment per patient size (includestargeted exams where dose is matched to clinical indication); or iterative reconstruction. Contrast material: ISO 300; Contrast volume: 100 ml; Contrast route: INTRAVENOUS (IV); REPORTING DATA: Count of CT and Cardiac NM exams in prior 12 months: This patient has received 0 known CTs and 0 known cardiac nuclear medicine studies in the 12 months prior to the current study. COMPARISON: DX CHEST 1 VIEW 05/17/2023 3:08 PM FINDINGS: Thyroid: No focal lesions or enlargement to the extent visualized. Trachea: No tracheomalacia, stenosis, stricture, or filling defects. Lungs: Patchy linear shadowing is seenin the inferior lingula as well as the periphery of the right middle lobe and anterior recess of theright middle lobe consistent with subsegmental atelectasis. Pleural spaces: A small to moderate sizeright pleural effusion is present. Heart: Moderate left ventricular hypertrophy is present. Biatrialchamber enlargement is seen relative to the ventricles. 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 Coronary arteries: No calcification of coronary arteries. Esophagus: No dilatation. No air fluid levels. No thickening. Mediastinal space: Dilatation of theesophagus is seen with air-fluid level with dilatation down to the mid to distal esophagus. Lymph nodes: Unremarkable. No enlarged lymph nodes. Vasculature: Unremarkable. No aortic aneurysm. Liver: No abnormality of visualized liver. Stomach and bowel: Prominent thickening is demonstrated of the PAGE1 Signed Report (CONTINUED) Name: NIA MANDEL [facility] : 1945 Age/S: 77 / F [address] [place], [place] [address] Unit #: [id number] Loc: [place] [address] Phys: Bryce Bender MD Acct: [id number] Dis Date: Status: ADM IN PHONE #: [phone] Exam Date: 05/18/2023827 FAX #: [phone] Reason: RULE OUT CARDIAC FISTULA EXAMS: CPT CODE: [id number] CT CHEST W/CONTRAST 68388 (Continued) stomach with presence of air within the anterior gastric wall. The possibility of an ulcer crater in the gastric fundus is not excluded. Bones/joints: Unremarkable. No acute fracture. Soft tissues: Unremarkable. Other findings: No abnormality of visualized upper abdomen. IMPRESSION: 1. Moderate left ventricular hypertrophy is present. Biatrial chamber enlargement is seen relative to the ventricles. 2.Bhkwg-bs-rgldlfdu size right pleural effusion. 3. Abnormal appearance of the cardiac fundus with susp icion of ulceration. Suspected partial obstruction of the esophagus. Further assessment with endoscopy may be useful. 4. Biatrial enlargement is seen. at 0843 Reported and signed by: April Parikh M.D. CC: Bryce Capps MD; Britt Self DO; Felipe Forde MD Technologist:RT Christiano(R)(CT) CTDI: DLP: Trnscb Date/Time: 05/18/2023 (0843) t.SDR.AB67 Orig Print D/T: S: 05/18/2023 (0843) PAGE 2 Signed ReportBASIC METABOLIC [id number] 21:54:00 Test Item Value Reference Range Interpretation Comments SODIUM (test code = 125 mEq/L 134-147 L NA) POTASSIUM (test code 3.7 mEq/L 3.4-5.0 N = K) CHLORIDE (test code 94 mEq/L 100-108 L = CL) CARBON DIOXIDE (test 23 mEq/l 21-33 N code = CO2) ANION GAP (test code 12 0-20 N = GAP) GLUCOSE (test code = 88 mg/dL 70-110 N GLU) BLOOD UREA NITROGEN 8 mg/dL 7-18 N (test code = BUN) GLOMERULAR 57.3 70-80 L The Glomerular FILTRATION RATE Filtration [...] the recommended for celena for GFRby the Natio nal Kidney Foundati on for Adults.The GFR will not calculate if th e sex is unknown or if thepatient's ag e is <18 years. CREATININE (test 1.0 mg/dL 0.6-1.3 N code = CREAT) CALCIUM (test code = 8.8 mg/dL 8.0-10.5 N CA) TROP-I HIGH [id number] 21:54:00 Test Item Value Reference Range Interpretation Comments TROP-I HIGH 31 ng/L 0-34 N CAUTION: Units of the SENSITIVITY (test current te st methodology code = TROPIHS) (ng/L) diffe rfrom the prior test methodolog y (ng/mL) by a factor of 1000. 99th Percentile Upper Reference Limit (URL): Females: 34 ng/LMales: 54 n g/L In order to distinguish acute elevations of h igh sensitivitytrop onin from other clinical conditions, the FourthUnive rsal Definition of M yocardial Infarction stre ssesclinical assessment and the demonstration o f a rise and/orfall in s erial troponin result s above the URL. These resu lts were obtained using Siemens [employer] IM TnI Hreagent. Results from di fferent methodologies s hould not becompared to o ne another as quantitative results and URLs mayvary by method. PROTHROMBIN [id number] 21:54:00 Test Item Value Reference Range Interpretation Comments PROTHROMBIN TIME 13.9 SECONDS 9.3-12.9 H PATIENT (test code = PTP) INTERNATIONAL NORMAL 1.2 0.8-1.2 N TARGET INR BY RATIO (test code = [...] Antiphospholipi d Antibodies, Pre vention of systemic emb olism - Acute Myocardia l Infarction (to prevent recurrent infar ct). CBC W/AUTO [id number] 21:37:00 Test Item Value Reference Range Interpretation Comments WHITE BLOOD CELL (test code = 6.0 x10 3/uL 4.5-11.0 WBC) RED BLOOD CELL (test code = 4.81 x10 6/uL 3.54-5.02 N RBC) HEMOGLOBIN (test code = HGB) 13.3 g/dL 11.0-15.0 N HEMATOCRIT (test code = HCT) 39.8 % 33.0-45.0 N MEAN CELL VOLUME (test code = 82.7 fL 81.0-99.0 N MCV) MEAN CELL HGB (test code = MCH) 27.7 pg 27.0-33.0 N MEAN CELL HGB CONCETRATION 33.4 g/dL 33.0-37.0 N (test code = MCHC) RED CELL DISTRIBUTION WIDTH CV 15.4 % 11.5-14.5 H (test code = RDW) RED CELL DISTRIBUTION WIDTH SD 46.2 fL 37.0-54.0 N (test code = RDW-SD) PLATELET COUNT (test code = 458 x10 3/uL 150-400 H PLT) MEAN PLATELET VOLUME (test code 10.2 fL 7.0-9.0 H = MPV) NEUTROPHIL % (test code = NT%) 72.1 % 56.0-77.0 N IMMATURE GRANULOCYTE % (test 0.7 % 0.0-2.0 N code = IG%) LYMPHOCYTE % (test code = LY%) 9.3 % 14.0-32.0 L MONOCYTE % (test code = MO%) 14.8 % 4.8-9.0 H EOSINOPHIL % (test code = EO%) 2.3 % 0.3-3.7 N BASOPHIL % (test code = BA%) 0.8 % 0.0-2.0 N NUCLEATED RBC % (test code = 0.0 % 0-0 N NRBC%) NEUTROPHIL # (test code = NT#) 4.35 x10 3/uL 2.0-7.6 N IMMATURE GRANULOCYTE # (test 0.04 x10 3/uL 0.00-0.03 H code = IG#) LYMPHOCYTE # (test code = LY#) 0.56 x10 3/uL 1.0-3.8 L MONOCYTE # (test code = MO#) 0.89 x10 3/uL 0.1-0.8 H EOSINOPHIL # (test code = EO#) 0.14 x10 3/uL 0.0-0.2 N BASOPHIL # (test code = BA#) 0.05 x10 3/uL 0.0-0.2 N NUCLEATED RBC # (test code = 0.00 x10 3/uL 0.0-0.1 N NRBC#) MANUAL DIFF REQUIRED (test code NO = MDIFF) [id number] 13:49:00 Test Item Value Reference Range Interpretation Comments ACT-ISTAT (test code 468 SEC 74-137 H Perform ed by certified = ACTI) 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 CREATININE (test 1.3 mg/dL 0.6-1.3 N code = CREAT) CALCIUM (test code = 9.8 mg/dL 8.0-10.5 N CA) PROTHROMBIN [id number] 12:22:00 Test Item Value Reference Range Interpretation [...] Antiphospholipi d Antibodies, Pre vention of systemic emb olism - Acute Myocardia l Infarction (to prevent recurrent infar ct). CBC W/AUTO [id number] 12:19:00 Test Item Value Reference Range Interpretation [...] 0.00 x10 3/uL 0.0-0.1 N NRBC#) - XR CHEST 2 [id number] 00:00:00 [facility] : 1945 Sex: F FAX: Bryce Keller [phone] [place]: St: PRE FAX: Felipe Lucero MD [phone] --------- Name: NIA MANDEL [facility] : 1945 Age/S: 77/F [address] [place] [address] Unit #: [id number] Loc: [place] [address] Phys: Bryce Bender MD Acct: [id number] Dis Date: Status: PRE [facility] PHONE #: [phone] Date: 05/03/2023 1320 FAX #: [phone] Reason: PREOP EXAMS: CPT CODE: [id number] XR CHEST 2 V 60574 PROCEDURE INFORMATION: Exam: XR Chest Exam date and time: 05/03/2023 11:53 AM Age: 77 years oldClinical indication: Pre-operative exam; Cardiovascular screening and respiratory screening exam; Additional info: Preop TECHNIQUE: Imaging protocol: Radiologic exam of the chest. Views: 2 views. PA and Lateral COMPARISON: No relevant prior studies available. [...] MD Technologist: RT Orion(James) Trnscrd Date/Time/By: 05/03/2023 (1340) : By: LeydiTDGeoffrey Orig Print D/T: S: 05/03/2023 (1341) PAGE 1 Signed UnvrofEAUS-GeU-4 (COVID-19) RNA [Presence] in Respiratory specimen by ROSA with probe detection 2021-06-09 21:12:24 Test Item Value Reference Range Interpretation Comments SARS-CoV-2 (COVID-19) RNA Not detected Not-Detected [Presence] in Respiratory specimen by ROSA with probe detection (test code = 36602-9) Whether patient is employed in a healthcare setting (test code = 14744-7) Whether the patient has symptoms related to condition of interest (test code = 62648-8) Patient was hospitalized because of this condition (test code = 49785-2) Whether the patient was admitted to intensive care unit (ICU) for condition of interest (test code = 68335-2) Whether patient resides in a congregate care setting (test code = 14654-5) [facility] [id number] 15:17:00Surgical Pathology Report Case: [id number] Authorizing Provider: Jomar Ibarra, Collected: 03/05/2021 10:46 AM Ordering Location: [facility] PERIOPERATIVE Received: 03/05/2021 12:54 PM SERVICES Pathologist: [...] TUMOR - NO LYMPHOVASCULAR INVASION SEEN - BACKGROUNDADENOMATOUS NODULES WITH DEGENERATIVE CHANGES G. PARATHYROID, RIGHT INFERIOR, BIOPSY: - ONE HYPERCELLULAR PARATHYROID, MILD - NEGATIVE FOR MALIGNANCY - SYNOPTIC REPORT Signing Pathologist Direct Phone Line: [phone] signed by Anayeli Fenton MD on 03/16/2021 [...] (Millimeters): less than a mm mmLYMPH NODES Numberof Lymph Nodes Involved: 3 Michael Levels Involved: Level Size of Largest Metastatic Deposit (Centimeters): 0.2 cm Extranodal Extension (EVANS): Not identified Number of Lymph Nodes Examined: 3 Michael Levels Examined: Level PATHOLOGIC STAGE CLASSIFICATION (pTNM, AJCC 8th Edition) TNM Descriptors: m (multiple primary tumors) Primary Tumor (pT): pT3a Regional Lymph Nodes (pN): pN1a ADDITIONAL FINDINGSAdditional Findings: Adenomatoid nodule(s) or nodular follicular disease Additional Findings: Parathyroid gland(s) present 51245 X 233574 X 3PTC and primary hypothyroidism A. Lymph node, delphianB. Parathyroid, left superiorC. Thyroid, leftD. Parathyroid, subtotal left inferiorE. Lymph node, level 6F. Thyroid, rightG. Parathyroid, right inferiorA. Received fresh labeled with the patient's name, medical record number and "lymph node" is a 1.5 x 1 x 0.4 cm adipose tissue fragment which is bisected andentirely submitted in A1.B. Received fresh labeled with [...] specimen is entirely submitted.Ink code:Blue: Anterior Black: P osteriorOrange: Anterior isthmusGreen: Isthmus marginSection Code:C1: Superior and, perpendicular sectionsC2: Nodule, superior lobeC3-C8: Nodule with calcifications submitted sequentially from superiorto midC9-C 14: Remainder of nodule submitted sequentially [...] is a 2 x 1.5 x 0.3 cmportion of adipose tissue containing a 0.2 cm pink lymph node. The specimen is submitted in toto in E1.F. Received fresh labeled with the patient's name, medical record number and "thyroid, right" is a11 g, 3.7 x 3.5 x 1.3 cm [...] margin. Located 0.3 cm medial to the noduleis a 1.4 x 0.8 x 0.7 cm [...] cm from the posterior nodule. The uninvolved parenchymais maroon-thorpe, partially gelatinous. The specimen is entirely submitted.Ink code:Blue: Anterior Black: PosteriorGreen: Isthmus marginSection Code:F1-F2: Superior pole perpendicular sectionsF3-F4: Superior lobe cyst, bisected, entirelyF5-F6: Entire mid lobe noduleF7-F9: Entire calcified noduleF 10: Uninvolved/gelatinous mwncjjxvqyI53: Inferior nodule, bisected, entirelyF 12-F 13: Inferior end, perpendicular sectionsG. Received fresh labeled with the patient's name, medical record number and "parathyroid" is a 0.09 g, 0.5 x 0.3 x 0.2 cm nodule with a small amount of attached adipose tissue. The specimen is submitted in toto in G1.ROHINI Au, PA (ASCP)cmPerformed.TISSUE [id number] 12:16:00Surgical Pathology Report Case: [id number] Authorizing Provider: Lj Laird MD Collected: 03/12/2021 05:36 PM Ordering Location: [facility] Received: 03/13/2021 09:05 AM PERIOPERATIVE SERVICES Pathologist: Carson Keen MD Specimen: Clot, Blood clot from right arm thrombectomy A. RIGHTARM CLOT, THROMBECTOMY: - MULTIPLE FRAGMENTS OF ORGANIZING THROMBUS Signing Pathologist Direct PhoneLine: [phone] signed by Carson Keen MD on 03/16/2021 at 12:16 [id number] of right upper extremity ClotReceived fresh labeled the patient's name, accession number and "blood clot from right arm" is a 4.0 x 1.5 x 0.5 cm aggregate of red, cylindrical clotted blood. Job Analysis Manager sections are submitted in A1.ALBERTO Giraldo, HT (ASCP)Performed.[id number] 04:07:00 Test Item Value Reference Range Interpretation Comments MAGNESIUM (BEAKER) 2.1 mg/dL 1.6-2.6 Specimen slightly (test code = 627) hemolyzed Military Pilot ID - [id number] 04:07:00 Test Item Value Reference Range Interpretation Comments PHOSPHORUS (BEAKER) 3.5 mg/dL 2.3-4.7 Specimen slightly (test code = 604) hemolyzed Military Pilot ID - EDASIBASIC METABOLIC [id number] 04:07:00 Test Item Value Reference Range Interpretation [...] S NOT APPLICABLE FOR DIALYSIS PATIEN TS. Military Pilot ID - [id number] 04:05:00 Test Item Value Reference Range Interpretation Comments PARTIAL THROMBOPLASTIN TIME 82.6 seconds 22.5-36.0 H (BEAKER) (test code = 760) CBC W/PLT COUNT & AUTO [id number] 04:01:00 Test Item Value Reference Range Interpretation [...] code = 2801) CT, CTANGIO EXTREMITY, UPPER, [id number] 19:07:00Unlisted Reason for Exam - Click Yes and Enter Reason Below->YesUnlisted Reason for Exam->melissa icationKA[facility]UDILIO NIAARINA BUSH : 1945 Sex: FAddendum BeginsREPORT STATUS:A I [...] MDReport Verified Date/Time: 03/12/2021 19:07:14 Reading Location: [place] [address] Angio Body Reading RoomAddendum EndsFINAL REPORT CT [...] to the right elbow, for example at hbukz913 onwards, enhancement of the right radial artery [...] An addendum will be dictated by the Produce Laborer Radiologist regarding the nonvascular findings. THE REPORT WILL ONLY BE CONSIDERED COMPLETE AFTER THE ADDENDUM HAS BEEN DICTATED. Signed: Racquel Adonay MDReport Verified Date/Time: 03/12/2021 08:28:41 [facility]AM[facility] [id number] 14:34:00Unlisted Reason for Exam - Click Yes and Enter Reason Below->YesUnlisted Reason for Exam->RUE weakness [facility] : 1945 Sex: FFINAL REPORT CLINICAL [...] terminus. There is no evidence for a [place] of [place] proximal branch vessel occlusion. There [...] at the time of dictation. Signed: Julius Candelario MDReport Verified Date/Time: 03/12/2021 14:34:42 Reading Location: [address] Neuro Reading Room [facility] signed by: JULIUS CANDELARIO M.D. 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 There is no evidence for a [place] of [place] proximal branch vessel occlusion. There [...] at the time of dictation. Signed: Julius Candelario MDReport Verified Date/Time: 03/12/2021 14:34:42 Reading Location: [facility] C0V Neuro Reading Room [facility] signed by: JULIUS CANDELARIO M.D. on 03/12/2021 02:34 [id number] 08:27:00 Test Item Value Reference Range Interpretation Comments PARTIAL THROMBOPLASTIN TIME 67.2 seconds 22.5-36.0 H (BEAKER) (test code = 760) SARS-COV2/RT-PCR ([facility])2021-03-12 06:21:00 Test Item Value Reference Range Interpretation Comments SARS-COV2/RT-PCR (test Negative Not Detected, Negative, code = 4196978) See external report for linked test SARS-COV-[address] [facility] MAGED (test code = 6182005) Negative result for this test determines that [...] the C[place]illo SARS-CoV-2 assay.Fact Sheet for Healthcare Providers:https://www.C2cube.cedillo/yoshi/RT_SAR R-BqO-1_APA_Cyty_Cnksl_59-562637.pdfFact Sheet for Healthcare Patients:https://www.molecular.cedillo/s al/GM_QBJB-BdI-4_Rzflzog_Hcpw_Gidcr_DN_72-831223X8.pdfPerforming Laboratory:[facility] [place], [place] [address]alexaSan [facility] [place] [address] BASIC METABOLIC [id number] 05:19:00 Test Item Value Reference Range Interpretation [...] S NOT APPLICABLE FOR DIALYSIS PATIEN TS. Military Pilot ID - KIARA [id number] 05:19:00 Test Item Value Reference Range Interpretation Comments MAGNESIUM (BEAKER) (test code = 1.8 mg/dL 1.6-2.6 627) Military Pilot ID - KIARA [id number] 05:19:00 Test Item Value Reference Range Interpretation Comments PHOSPHORUS (BEAKER) (test code = 3.5 mg/dL 2.3-4.7 604) Military Pilot ID - KIARA [id number] 05:07:00 Test Item Value Reference Range Interpretation Comments PARTIAL THROMBOPLASTIN TIME 124.3 seconds 22.5-36.0 H (BEAKER) (test code = 760) CBC W/PLT COUNT & AUTO [id number] 04:55:00 Test Item Value Reference Range Interpretation [...] 0-1 PERCENT (BEAKER) (test code = 2801) [id number] 23:00:00 Test Item Value Reference Range Interpretation Comments PARTIAL THROMBOPLASTIN TIME 102.4 seconds 22.5-36.0 H (BEAKER) (test code = 760) TSH/FREE T4 IF [id number] 15:05:00 Test Item Value Reference Range Interpretation Comments THYROID STIMULATING HORMONE 1.939 uIU/mL 0.350-4.940 (BEAKER) (test code = 772) Military Pilot ID - BSPTH, [id number] 14:52:00 Test Item Value Reference Range Interpretation Comments PARATHYROID HORMONE INTACT 81.5 pg/mL 8.5-72.5 H (BEAKER) (test code = 577) Military Pilot ID - BSBASIC METABOLIC [id number] 14:50:00 Test Item Value Reference Range Interpretation [...] S NOT APPLICABLE FOR DIALYSIS PATIEN TS. Military Pilot ID - [id number] 14:50:00 Test Item Value Reference Range Interpretation Comments MAGNESIUM (BEAKER) (test code = 1.7 mg/dL 1.6-2.6 627) Military Pilot ID - [id number] 14:50:00 Test Item Value Reference Range Interpretation Comments PHOSPHORUS (BEAKER) (test code = 3.3 mg/dL 2.3-4.7 604) Military Pilot ID - [id number] 14:33:00 Test Item Value Reference Range Interpretation Comments PARTIAL THROMBOPLASTIN TIME 31.9 seconds 22.5-36.0 (BEAKER) (test code = 760) [id number] 14:32:00 Test Item Value Reference Range Interpretation Comments PARTIAL THROMBOPLASTIN TIME 31.5 seconds 22.5-36.0 (BEAKER) (test code = 760) PROTHROMBIN TIME/[id number] 14:32:00 Test Item Value Reference Range Interpretation Comments PROTIME (BEAKER) 12.8 seconds 11.9-14.2 (test code = 759) INR (BEAKER) (test 0.99 See_Comment [Automat ed message] code = 370) The system 1CloudStar generated this result transmitted ref erence range: <=5.90. The reference range was not used to int erpret this result as normal/abnormal . RECOMMENDED COUMADIN/WARFARIN INR THERAPY RANGESSTANDARD DOSE: 2.0 - 3.0 Includes: PROPHYLAXIS for venous thrombosis, systemic embolization; TREATMENT for venous thrombosis and/or pulmonary embolus.HIGH RISK: Target INR is 2.5-3.5 for patients with mechanical heart valves.CBC W/PLT COUNT & AUTO [id number] 14:31:00 Test Item Value Reference Range Interpretation [...] 0-1 PERCENT (BEAKER) (test code = 2801) [id number] 14:31:00 Test Item Value Reference Range Interpretation Comments PARTIAL THROMBOPLASTIN TIME 32.0 seconds 22.5-36.0 (BEAKER) (test code = 760) POCT-GLUCOSE [id number] 21:48:00 Test Item Value Reference Range Interpretation Comments POC-GLUCOSE METER 122 mg/dL 70-110 H : TESTED A T [facility] 6720 (BEAKER) (test code = [facility], 1538) [address]: Military Pilot/Techni maria fernanda ID = [id number] for GR AHAM, ELLA PTH, [id number] 12:53:00 Test Item Value Reference Range Interpretation Comments PARATHYROID HORMONE INTACT 10.4 pg/mL 8.5-72.5 (BEAKER) (test code = 577) Military Pilot ID - RANI FPTH, [id number] 12:33:00 Test Item Value Reference Range Interpretation Comments PARATHYROID HORMONE INTACT 60.9 pg/mL 8.5-72.5 (BEAKER) (test code = 577) Military Pilot ID - RANI FPTH, [id number] 11:48:00 Test Item Value Reference Range Interpretation Comments PARATHYROID HORMONE INTACT 18.2 pg/mL 8.5-72.5 (BEAKER) (test code = 577) Military Pilot ID - RANI TH, [id number] 11:38:00 Test Item Value Reference Range Interpretation Comments PARATHYROID HORMONE INTACT 78.8 pg/mL 8.5-72.5 H (BEAKER) (test code = 577) Military Pilot ID - RANI FPTH, [id number] 10:45:00 Test Item Value Reference Range Interpretation Comments PARATHYROID HORMONE INTACT 223.6 pg/mL 8.5-72.5 H (BEAKER) (test code = 577) Military Pilot ID - RANI FBASIC METABOLIC [id number] 08:46:00 Test Item Value Reference Range Interpretation [...] S NOT APPLICABLE FOR DIALYSIS PATIEN TS. Military Pilot ID - RANI FOperator ID - RANI [id number] 07:44:00 Test Item Value Reference Range Interpretation Comments HEMOGLOBIN (BEAKER) (test code = 14.0 GM/DL 11.2-15.7 410) Military Pilot ID - FloraCT, SOFT TISSUE NECK, WITHOUT / WITH IV [id number] 15:40:00Parathyroid glandsUnlisted Reason for Exam - Click Yes and Enter Reason Below->NoCHI LOS AL[facility]: [facility] : 1945 Sex: FFINAL REPORT EXAMINATION: [...] detailed above. 3.No enlarged cervical lymphadenopathy. Signed: Carrie Browning MDReport Verified Date/Time: 02/18/2021 15:40:00 Reading Location: [facility] Reading Room [address] [place] [address] -[id number] 12:49:00 Test Item Value Reference Range Interpretation Comments POC-CREATININE 1.1 mg/dL 0.6-1.3 : TESTED AT [facility] ([facility]) (test [address] [facility] code = 1859) A, [facility] 7 7030: Military Pilot/Techni maria fernanda ID = [id number] for CE VALLECILLO POC-EGFR 48 mL/min/1.73M2 ([facility]) (test code = 1860) Notes Date/Time Note Provider Source 2023-05-20 21:58:00-00:00 [facility] ([facility]) Hospitalist Discharge Summary REPORT#:[id number] REPORT STATUS: Signed DATE:05/20/23 TIME: 2157 PATIENT: NIA MANDEL UNIT #: [id number] ROOM/BED: 3341-1 : 43 AGE: 77 SEX: F ATTEND: Paulie Leal MD ADM AUTHOR: Peter Leal MD * ALL edits or amendments must be made on the el ectronic/computer document * General Information Date of admission: Observation Start Date: Date of admission: 05/17/23 Discharge date: 05/20/23 Admission diagnosis: 1. Bradycardia 2. Atrial fibrillation 3. Hypertensive emergency 4. Pericarditis Discharge diagnosis: 1. Bradycardia 2. Atrial fibrillation 3. Hypertensive emergency 4. Pericarditis Hospital course: Assessment and plan Chest pain possibly secondary to pericarditis v HTN emergency Coronary artery disease Recent cardiac ablation due to uncontrolled atr ial fibrillation Dr. Mckay, EP consulted Monitor on telemetry Echocardiogram ordered ESR, CRP ordered Continue aspirin Toradol x1 given; morphine with Zofran PRN pain Hypertensive emergency Continue home ramipril Hydralazine PRN SBP> 160 Paroxysmal atrial fibrillation Continue amiodarone, Eliquis Asymptomatic bradycardia While sleeping patient experienced bradycardia HR 27 , x2 episodes EKG w junctional rhythm w sinus pause Atropine 0.5 placed at the bedside Pacemaker pads placed Avoid BB Congestive heart failure, unknown EF Continue home Lasix, spironolactone Hyperlipidemia Continue fenofibrate Hypothyroidism Continue levothyroxine TSH is low. Will adjust medication. Anxiety/depression Resume Xanax, Cymbalta, sertraline GERD Continue Protonix Full code Eliquis cardiac diet Patient had pacemaker placed yesterday. Doing well today. Okay to discharge home. Pacemaker care instructions given to the patient . Consultants: cardiology Pt. condition on discharge: improved, stable Allergies: Allergies: Sulfa (Sulfonamide Antibiotics) (Coded, Intermed iate, ITCH, 05/03/23) Med Rec Med Rec Discharge meds: Continue taking these medications: AMIODARONE (PACERONE) 200 MG TAB 200 MILLIGRAM ORAL TWICE DAILY. ALPRAZolam (XANAX) 1 MG TAB 1 MILLIGRAM ORAL BEDTIME. ASPIRIN (ASPIRIN) 81 MG TAB.CHEW 81 MILLIGRAM ORAL DAILY. FENOFIBRATE (FENOFIBRATE) 145 MG TAB 145 MILLIGRAM ORAL DAILY. FUROSEMIDE (LASIX) 80 MG TAB 80 MILLIGRAM ORAL TWICE DAILY. LEVOTHYROXINE (SYNTHROID) 150 MCG TAB 150 MICROGRAM ORAL DAILY. OMEGA-3 FATTY ACIDS (FISH OIL) 1,000 MG CAP 1,000 MILLIGRAM ORAL TWICE DAILY. DULoxetine DR (CYMBALTA) 20 MG CAP.DR 20 MILLIGRAM ORAL DAILY. SPIRONOLACTONE (ALDACTONE) 25 MG TAB 50 MILLIGRAM ORAL DAILY. SERTRALINE (ZOLOFT) 50 MG TAB 50 MILLIGRAM ORAL DAILY. RAMIPRIL (ALTACE) 10 MG CAP 10 MILLIGRAM ORAL DAILY. OMEPRAZOLE ER (PriLOSEC) 40 MG CAP.DR 40 MILLIGRAM ORAL DAILY. APIXABAN (ELIQUIS) 2.5 MG TAB 2.5 MILLIGRAM ORAL TWICE DAILY. Start taking the following new medications: DOXYCYCLINE MONOHYDRATE (MONODOX) 100 MG CAP 100 MILLIGRAM ORAL EVERY 12 HOURS. Days = 7 Qty = 14 No Refills Objective VS/I O Last Documented: Result Date Time Pulse Ox 92 05/20 1201 B/P 119/78 05/20 1201 B/P Mean 91 05/20 1201 Pulse 77 05/20 1201 Resp 36 05/20 1201 Temp 97.5 05/20 1125 O2 Delivery Room air 05/20 0320 FiO2 21 05/18 2257 24 hour I O ending at 0700: 05/20 0700 05/19 1900 Intake Total 490 500 Output Total 1300 600 Balance -810 -100 Intake, Oral 490 500 Output, Urine 1300 600 Patient 76.2 kg Weight Weight Stated/Reported Measurement Method General appearance: alert, awake, oriented Head/Eyes: atraumatic, normocephalic ENT: moist mucosal membranes, normal dentition Neck: full range of motion, supple/no meningismu s Cardiovascular: normal heart sounds, regular rat e rhythm Respiratory: aerating well, clear to auscultatio n, symmetric expansion, no distress Abdomen: non-tender, soft, no distention, no gua rding, no rebound Neuro/SSIS ARCHITECT: alert, oriented X 3, reflexes equal b ilat, no motor deficits, no sensory deficits Skin: dry, intact, no rash Psychiatry: normal affect, normal mood Discharge Instructions PCP PCP follow-up: PCP: Felipe Forde MD Discharge to: Home/Self Care 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 Follow -Up Diet: Cardiac Activity: As Tolerated Wound/dressing care: Do not submerge incision, L eave dressing in place Prescriptions: e-prescribe Discharge management: less than 30 mins Time spent: Time spent on patient care (minutes): 27 Follow-up Appointments PCP follow-up: PCP (free text): PRIMARY CARE PHYSICIAN PCP follow up timeframe: In 2-3 weeks Special instructions: CALL TO SCHEDULE APPOINTMENT Attending Physician: Attending Physician: Peter Leal MD Consulting provider 1: Provider 1: Bryce Bender MD Specialty: Cardiology-Electrophysio Consult follow up timeframe: In 1-2 weeks Special instructions: f/u for pacemaker CALL TO SCHEDULE APPOINTMEN Quality: Discharge Advanced Care Plan 65 or Older Discussed with: patient Discussion included: living will (yes), power of divorce attorney (yes), code status ( full code) Current Medications Current medication review: I attest that the foregoing medication list in t medical record is true, accurate, and complete to the best of my knowled ge. at 2203 RPT #:[id number] END OF REPORT 2023-05-20 09:46:00-00:00 [facility] REPORT#:[id number] REPORT STATUS: Signed DATE:05/20/23 TIME: 945 PATIENT: NIA MANDEL UNIT #: [id number] ROOM/BED: [place] [id number] : 43 AGE: 77 SEX: F ATTEND: Paulie Leal MD ADM AUTHOR: Monique Siegel FORM WORKER * ALL edits or amendments must be made on the [employer]/computer document * Nayla Siegel 05/20/23 0946: Subjective Chief complaint: patient feeling better today Denies CP, palpitations Patient reports: No: complaints. Nursing reports: No: complaints. Objective General VS/I O Current Medications Sig/Nica Start time Last Medication Dose Route Stop Time Status Admin Doxycycline 100 MG Q12HR 05/20 2100 UNV Monohydrate PO 05/27 2059 Levothyroxine Sodium 175 MCG DAILY 05/20 0 600 DC PO 06/19 0559 Levothyroxine Sodium 50 MCG DAILY 05/20 06 00 AC 05/20 PO 06/19 0559 0658 Levothyroxine Sodium 125 MCG DAILY 0600 08/18 0 600 AC 05/20 PO 06/19 0559 0659 Midazolam HCl 0 .STK-MED ONE 05/19 1545 DC 05/03 7 .ROUTE 1647 Fentanyl Citrate 0 .STK-MED ONE 05/19 1518 DC 0 05/19 .ROUTE 1625 Midazolam HCl 0 .STK-MED ONE 05/19 1518 DC 05/03 7 .ROUTE 1625 Gentamicin Sulfate 0 .STK-MED ONE 05/19 1437 DC 05/19 .ROUTE 1625 Lidocaine HCl 0 .STK-MED ONE 05/19 1437 DC 05/03 7 .ROUTE 1625 Sodium Bicarbonate 0 .STK-MED ONE 05/19 1437 DC 05/19 IV 1625 Vancomycin HCl 0 .STK-MED ONE 05/19 1437 DC .ROUTE 1625 Vancomycin HCl 0 .STK-MED ONE 05/19 1437 DC .ROUTE 1625 Iopamidol 0 .STK-MED ONE 05/19 1436 DC 05/19 IV 1625 Alprazolam 1 MG BEDTIME 05/18 2100 AC 05/19 PO 06/17 2059 2333 Apixaban 5 MG BID 05/18 2100 DA 05/19 PO 06/17 2059 0810 Sertraline HCl 50 MG BEDTIME 05/18 2100 AC 05/03 7 PO 06/17 205 2333 Amiodarone HCl 200 MG BID 05/18 900 AC 05/20 PO 06/17 0859 0742 Aspirin 81 MG DAILY 05/18 900 AC 05/20 PO 06/17 0859 0743 Duloxetine HCl 20 MG DAILY 05/18 900 AC 05/20 PO 06/17 0859 0747 Fenofibrate 145 MG DAILY 05/18 900 AC 05/20 PO 06/17 0859 0742 Furosemide 80 MG BID 05/18 900 AC 05/20 PO 06/17 0859 0742 Pantoprazole 40 MG DAILY 05/18 900 AC 05/20 PO 06/17 0859 0742 Ramipril 10 MG DAILY 05/18 900 AC 05/20 PO 06/17 0859 0743 Spironolactone 50 MG DAILY 05/18 0900 AC 05/20 PO 06/17 0859 0743 Levothyroxine Sodium 150 MCG DAILY 0600 05/18 0 600 DC 05/19 PO 06/17 0559 0630 Atropine Sulfate 0.5 MG ONCE PRN 05/18 044 AC 05/18 IV 06/17 044 0501 Acetaminophen 650 MG Q4H PRN PRN 05/17 2330 AC PO 06/16 2329 Hydralazine HCl 10 MG Q6H PRN PRN 05/17 2330 AC 05/18 IV 06/16 2329 1208 Morphine Sulfate 4 MG Q4H PRN PRN 05/17 233 AC 05/20 IV 05/22 2329 0659 Ondansetron HCl 4 MG Q4H PRN PRN 05/17 2330 AC 05/18 IV 06/16 2329 0100 Last Documented: Result Date Time Pulse Ox 96 05/20 06 B/P 156/80 05/20 0652 B/P Mean 0.0 05/20 652 Temp 36.6 05/20 0652 Pulse 71 05/20 0652 Resp 18 05/20 0652 O2 Delivery Room air 05/20 0320 FiO2 21 05/187 24 hour I O ending at 0700: 05/20 0700 05/19 1900 Intake Total 490 500 Output Total 1300 600 Balance -810 -100 Intake, Oral 490 500 Output, Urine 1300 600 Patient 76.2 kg Weight Weight Stated/Reported Measurement Method PATIENT WEIGHT: Weight (lb): 167 Weight (oz): 15.88 Weight (kg): 76.200 Physical Exam General appearance: alert, awake, oriented, no a cute distress, no respiratory distress HEENT: mucosal membranes moist Neck: full range of motion Cardiovascular: CV assessment: irregular rhythm, irregularly ir regular, pedal pulses present Respiratory: decreased breath sounds, no distres s Abdomen: soft, non-tender Genitourinary: no flank pain Extremities: dry, moves all, no edema Musculoskeletal: normal inspection Neuro/SSIS ARCHITECT: alert, oriented X 3, normal speech Skin: dry, intact Psychiatry: normal affect EKG Interpretation: atrial fibrillation Treatment Prophylaxis Treatment Prophylaxis Oxygen: room air Diagnosis, Assessment Plan Free Text A P: Assessment: 1. Bradycardia/Sick sinus syndrome s/p dual kendall wilber PPM ([place]) 05/19/23 - Initial EKG showed SB with sinus arrhythmia, L BBB, rate 55 - On tele afib, rate controlled - Continue amiodarone, add BB for rate control, eliquis for AC 2. Chest pain/Pericarditis post Ablation 3. Persistent atrial fibrillation s/p PVI ablati on 05/10/2023 - Continue amiodarone, Eliquis AC, add BB 4. HTN urgency 5. Congestive HF 6. CAD 7. HLD 8. Hypothyroidism 9. Anxiety/depression CT chest - moderate LV hypertrophy, Bilateral ch blake enlargement, small to moderate right pleural effusion, suspected parti al obstruction of esophagus suspected Plan/recommendations: - s/p Dual chamber PPM ([place]) 05/19/23 - Device interrogation this AM Afib, Apaced 0%. Vpaced 63%, RA 2.1/779/AF, RV 22.0/762/0.6@0.4 - PPM site clean and dry, no signs of bleeding or infection, sling and pressure dressing in place - Continue doxycycline 100mg PO BID x 7 days - Resume eliquis tomorrow - Continuous tele monitoring - ECHO LVEF 50-54% - Continue eliquis, amiodarone, add BB - Ok for discharge from EP standpoint, Follow up with Dr. Mckay in 1 week - Remove pressure dressing t omorrow, keep post op dressing dry and intact until follow up, monitor for signs of infection/bleeding, no driving x 2 weeks, no arm above head or elbow above shoulder x 2 weeks, no lifting/pulling/pushing with left arm x 6 weeks, ok to shower keep PP M site clean and dry, sling for 3 days and 2 weeks at night. - Will follow and adjust therapies as clinical c oursalexa dictates Discussed post op care and follow up care with jaxon seo, and provided her with post op care instruction sheet. She verbalized u nderstanding. Consultants: cardiology Code status: full code Plan discussed with: patient Bryce Bender 05/20/23 1411: Attestations Attestation needed: supervising physician Physician Attestation Agree w/findings plan: The patient seen and examined on 05/20/20. I agree with the findings and plan as documented by Monique Siegel NP. at 1142 at 1412 RPT #:[id number] END OF REPORT 2023-05-19 18:46:00-00:00 [id number] [address] PATIENT NAME: NIA MANDEL ADMIT DATE: 05/17/23 ACCOUNT NO: [id number] ROOM NO: [id number] AGE: 77 REPORT TYPE: OPERATIVE REPORT SEX: F ADMITTING PHYSICIAN:Britt Self DO ATTENDING PHYSICIAN:Peter Leal MD OPERATION DATE: 05/19/2023 PREPROCEDURE DIAGNOSES: 1. Sick sinus syndrome. 2. Dizziness. 3. Left bundle branch block. POSTPROCEDURE DIAGNOSES: 1. Sick sinus syndrome. 2. Dizziness. 3. Left bundle branch block. ATTENDING PHYSICIAN: Bryce Capps M.D. FRIT MIXER AND BURNER: ESTIMATED BLOOD LOSS: 10 mL PROCEDURE PERFORMED: 1. Dual chamber pacemaker placement. 2. Moderate sedation. ANESTHESIA: Moderate conscious sedation was prov ided under my direct supervision by sedation trained nurse. Sedation time 30 minutes. Versed and fentanyl. See report for details. DESCRIPTION OF PROCEDURE: After informed consent was obtained, the patient was brought to the electrophysio logy laboratory in a fasting nonsedated state. Area over her chest was prepped and draped in the usu al sterile fashion. Moderate sedation and prophylactic antibiotics we re given. Lidocaine was used for local anesthetic and a 3 cm skin incision was made in the left subclavicular area. Electrocautery sharp and blunt dissection were u sed to breach the muscular fascia and a pocket was created for the eventual implantation of the device. Vascular access was obtained x2 in the left axil ayleen vein using modified Seldinger technique under fluoroscopy. Two sheat hs were placed, ventricular lead to the RV apex, r-wave 10, pacing t hreshold 0.7. Then, the atrial lead to the right atrial appendage, atrial flutter waves at 2.5. Then, the sheath was removed from the body. Leads secured to fascia u sing Ethibond. Pocket was irrigated with antibiotic solution using the pul se office professionals. Hemostasis was meticulous. Leads connected to the device and entire pacemaker system placed in the pocket. Incision was closed using absorbable sutures and Dermabond. The patient tolerated the procedure well. Procedure was complete. PATIENT NAME: NIA MANDEL 27 SUMMARY OF HARDWARE IMPLANTED: 1. The new pacemaker is [employer], [id number] 4. 2. Ventricular lead was [id number]. 3. Atrial lead was [id number]. IMPRESSION: Successful dual chamber pacemaker placement via left axillary vein. PLAN: 1. Routine postop monitoring on telemetry bed. 2. Chest x-ray. 3. Follow up in 1-2 weeks. Dictated By: Bryce Capps MD Date Dictated: 05/19/2023 18:46:21 Date Transcribed: 05/19/2023 20:12:29 C/ARIN Receipt ID: [id number] Authenticated by Bryce Capps MD O n 05/20/2023 02:31:19 PM at 0231 PATIENT NAME: NIA MANDEL 27 2023-05-19 15:53:00-00:00 [facility] REPORT#:[id number] REPORT STATUS: Signed DATE:05/19/23 TIME: 1553 PATIENT: NIA MANDEL UNIT #: [id number] ROOM/BED: [place] [address] : 43 AGE: 77 SEX: F ATTEND: Paulie Leal MD ADM AUTHOR: Peter Leal MD * ALL edits or amendments must be made on the [employer] document * Subjective Chief complaint: Chest pain,bradycardia/tachycardia HPI: 77-year-old female with past medical history of CAD, A-fib, CHF, HTN, HLD, GERD, hypothyroidism, depression and anxiety presents for evaluation of chest pain that began a week ago. Patient states pa in began after a cardiac ablation with Dr. Mckay was attempted to control her atrial fibrillation. She states she was informed that some pain would occur after th e procedure however patient became worried that pain was worsening. Currentl y pain is described as intermittent, uncomfortable, and 9 out o f 10 in severity. Patient took Tylenol at home for the pain but it did not relieve her symptoms. In addition she reports shortness of breath with exertion, heada sona, nausea, cough with posttussive emesis. Currently she denies diaphoresis, numbness, blurry vision, focal weakness, dizziness and fever. Objective General VS/I O: Vital Signs: Date Time Temp Pulse Resp B/P B/P Pulse O2 O2 F low FiO2 Mean Ox Delivery Rate 05/19 1524 96.5 72 143/61 95 05/19 1300 85 17 147/69 99 95 05/19 1216 89 31 137/61 88 96 05/19 1100 91 36 156/70 100 97 05/19 1055 91 29 153/70 100 97 05/19 1052 97.5 103 19 117/66 0.0 92 Room air 05/19 1051 93 26 117/66 86 92 05/19 0716 98.1 67 18 133/102 0.0 94 Room air 05/19 0713 59 24 147/115 127 91 05/19 0711 67 16 134/102 115 93 05/19 0627 62 16 143/73 103 98 05/19 0320 97.9 64 14 181/76 0.0 93 Room air 05/19 0316 64 169/75 108 93 05/19 0315 22 05/18 2350 98.4 51 14 144/70 0.0 92 Room air 05/18 2347 51 12 144/70 99 92 05/18 2257 96 Room air 21 05/18 2225 59 148/68 98 92 05/18 2215 19 05/18 1841 98.1 67 14 141/72 0.0 96 Room air 05/18 1607 98.4 75 20 132/70 90.8 96 24 hour I O ending at 0700: 05/19 0700 05/18 1900 Intake Total 250 Output Total 200 Balance 50 Intake, Oral 250 Number Voids 3 Output, Urine 200 Patient 76.2 kg Weight Weight Standing scale Measurement Method PATIENT WEIGHT: Weight (lb): 167 Weight (oz): 15.88 Weight (kg): 76.200 Physical Exam General appearance: alert, awake, oriented Head/Eyes: atraumatic, normocephalic ENT: moist mucosal membranes, normal dentition Neck: full range of motion, supple/no meningismu s Cardiovascular: normal heart sounds, regular rat e rhythm Respiratory: aerating well, clear to auscultatio n, symmetric expansion, no distress Abdomen: non-tender, soft, no distention, no gua rding, no rebound Neuro/SSIS ARCHITECT: alert, oriented X 3, reflexes equal b ilat, no motor deficits, no sensory deficits Skin: dry, intact, no rash Psychiatry: normal affect, normal mood Results Findings/Data: Laboratory Tests 05/19 0306 Chemistry Sodium (134 - 147 mEq/L) 126 L Potassium (3.4 - 5.0 mEq/L) 3.7 Chloride (100 - 108 mEq/L) 94 L Carbon Dioxide (21 - 33 mEq/l) 23 Anion Gap (0 - 20) 13 BUN (7 - 18 mg/dL) 10 Creatinine (0.6 - 1.3 mg/dL) 1.3 Glomerular Filtr Rate (70 - 80) 41.8 L Glucose (70 - 110 mg/dL) 76 Calcium (8.0 - 10.5 mg/dL) 9.2 Laboratory Tests 05/19 1304 Coagulation INR (0.8 - 1.2) 1.7 H PT Patient/Control Mix (9.3 - 12.9 SECONDS) 19. 4 H Laboratory Tests 05/19 0307 Hematology WBC (4.5 - 11.0 x10 3/uL) 4.4 L RBC (3.54 - 5.02 x10 6/uL) 4.50 Hgb (11.0 - 15.0 g/dL) 12.2 Hct (33.0 - 45.0 %) 37.1 MCV (81.0 - 99.0 fL) 82.4 MCH (27.0 - 33.0 pg) 27.1 MCHC (33.0 - 37.0 g/dL) 32.9 L RDW (11.5 - 14.5 %) 15.5 H Plt Count (150 - 400 x10 3/uL) 382 MPV (7.0 - 9.0 fL) 10.0 H Add Manual Diff YES Seg Neutrophils % (37 - 69 %) 76 H Band Neutrophils % (0.0 - 10.0 %) 0.0 Lymphocytes % (Manual) (23 - 55 %) 10 L Monocytes % (Manual) (0 - 10 %) 10 Eosinophils % (Manual) (0.0 - 4.0 %) 3 Basophils % (Manual) (0.0 - 2.0 %) 1 Nucleated RBC % (%) 1 Platelet Estimate (ADEQUATE THOUSAND) Adequate Plt Morphology Comment LARGE PLATELETS Polychromasia SLIGHT Poikilocytosis SLIGHT Anisocytosis 1+ Macrocytosis 1+ Elliptocytes FEW Diagnosis, Assessment Plan Consultants: cardiology Free Text DxA P Notes Free text DxA P notes: Assessment and plan Chest pain possibly secondary to pericarditis v HTN emergency Coronary artery disease Recent cardiac ablation due to uncontrolled atr ial fibrillation Dr. Mckay, EP consulted Monitor on telemetry Echocardiogram ordered ESR, CRP ordered Continue aspirin Toradol x1 given; morphine with Zofran PRN pain Hypertensive emergency Continue home ramipril Hydralazine PRN SBP> 160 Paroxysmal atrial fibrillation Continue amiodarone, Eliquis Asymptomatic bradycardia While sleeping patient experienced bradycardia HR 27 , x2 episodes EKG w junctional rhythm w sinus pause Atropine 0.5 placed at the bedside Pacemaker pads placed Avoid BB Will notify cardiology Congestive heart failure, unknown EF Continue home Lasix, spironolactone Hyperlipidemia Continue fenofibrate Hypothyroidism Continue levothyroxine TSH is low. Will adjust medication. Anxiety/depression Resume Xanax, Cymbalta, sertraline GERD Continue Protonix Full code Eliquis cardiac diet Waiting for EP to make decision regarding placem ent of pacemaker at 1553 RPT #:[id number] END OF REPORT 2023-05-19 12:28:00-00:00 [id number] [place] [address] PATIENT NAME: NIA MANDEL ADMIT DATE: 05/17/23 ACCOUNT NO: [id number] [place] [facility] AGE: 77 REPORT TYPE: eELECTROCARDIOGRAM REPORT SEX: F ADMITTING PHYSICIAN:Britt Self DO ATTENDING PHYSICIAN:Peter Leal MD Order: [id number] Test Reason : AFIB Test Date/Time Stamp: TueMay 19 2023 12:28:51 Blood Pressure : / mmHG Vent. Rate : 084 BPM Atrial Rate : 070 BPM P-R Int : 000 ms QRS Dur : 158 ms QT Int : 502 ms P-R-T Axes : 000 249 083 degre es QTc Int : 593 ms Suspect arm lead reversal, interpretation as sumes no reversal Atrial fibrillation with pre mature ventricular or aberrantly conducted complexes Nonspecific intraventricular block Lateral infarct , age undetermined Abnormal ECG When compared with ECG of 18-MAY-2023 16:17, Significant changes have occurred Confirmed by MARITZA RENNER MD ([id number]) on 05/20/20 8:40:04 AM Referred By: Self Referred Confirmed by:MARITZA DREW MD Electronically Signed by Maritza Renner MD on at 0840 PATIENT NAME: NIA MANDLE 129 2023-05-19 10:26:00-00:00 [facility] ([facility]) EP Progress Note REPORT#:[id number] REPORT STATUS: Signed DATE:05/19/23 TIME: 1026 PATIENT: NIA MANDEL UNIT #: [id number] ROOM/BED: [place] [address] : 43 AGE: 77 SEX: F ATTEND: Paulie Leal MD ADM AUTHOR: Monique Siegel FORM WORKER * ALL edits or amendments must be made on the [employer]/computer document * Nayla Siegel 05/19/23 1026: Subjective Chief complaint: patient feeling better today Denies CP, palpitations Patient reports: No: complaints. Nursing reports: No: complaints. Objective General VS/I O Laboratory Tests 05/19/23 0307: [Embedded Image Not Available] 05/19/23 0306: [Embedded Image Not Available] Current Medications Sig/Nica Start time Last Medication Dose Route Stop Time Status Admin Alprazolam 1 MG BEDTIME 05/18 2100 AC 05/18 PO 06/17 Apixaban 5 MG BID 05/18 2100 AC 05/19 PO 06/17 Sertraline HCl 50 MG BEDTIME 05/18 2100 AC 05/03 6 PO 06/17 Amiodarone HCl 200 MG BID 05/18 900 r PO 06/17 859 Apixaban 2.5 MG BID 05/18 900 DC 05/18 PO 06/17 859 09 Aspirin 81 MG DAILY 05/18 900 AC 05/19 PO 06/17 0859 08 Duloxetine HCl 20 MG DAILY 05/18 900 AC 05/19 PO 06/17 08 08 Fenofibrate 145 MG DAILY 05/18 900 AC 05/19 PO 06/17 859 08 Furosemide 80 MG BID 05/18 900 AC 05/19 PO 06/17 859 08 Pantoprazole 40 MG DAILY 05/18 900 AC 05/19 PO 06/17 859 08 Ramipril 10 MG DAILY 05/18 900 AC 05/19 PO 06/17 859 08 Spironolactone 50 MG DAILY 05/18 900 AC 05/19 PO 06/17 859 08 Levothyroxine Sodium 150 MCG DAILY 05/18 0 600 AC 05/19 PO 06/17 0559 06 Atropine Sulfate 0.5 MG ONCE PRN 05/18 0445 AC 05/18 IV 06/17 0444 0501 Acetaminophen 650 MG Q4H PRN PRN 05/17 2330 AC PO 06/16 2329 Hydralazine HCl 10 MG Q6H PRN PRN 05/17 2330 AC 05/18 IV 06/16 2329 1208 Morphine Sulfate 4 MG Q4H PRN PRN 05/17 2330 AC 05/18 IV 05/22 2329 0100 Ondansetron HCl 4 MG Q4H PRN PRN 05/17 2330 AC 05/18 IV 06/16 2329 0100 Last Documented: Result Date Time Pulse Ox 94 05/19 07 B/P 133/102 05/19 716 B/P Mean 0.0 05/19 716 O2 Delivery Room air 05/19 07 Temp 36.7 05/19 07 Pulse 67 05/19 07 Resp 18 05/19 0716 FiO2 21 05/18 2257 24 hour I O ending at 0700: 05/19 0700 05/18 1900 Intake Total 250 Output Total 200 Balance 50 Intake, Oral 250 Number Voids 3 Output, Urine 200 Patient 76.2 kg Weight Weight Standing scale Measurement Method PATIENT WEIGHT: Weight (lb): 167 Weight (oz): 15.88 Weight (kg): 76.200 Physical Exam General appearance: alert, awake, oriented, no a cute distress, no respiratory distress HEENT: mucosal membranes moist Neck: full range of motion Cardiovascular: CV assessment: irregular rhythm, irregularly ir regular, pedal pulses present Respiratory: decreased breath sounds, no distres s Abdomen: soft, non-tender Genitourinary: no flank pain Extremities: dry, moves all, no edema Musculoskeletal: normal inspection Neuro/SSIS ARCHITECT: alert, oriented X 3, normal speech Skin: dry, intact Psychiatry: normal affect EKG Interpretation: right atrial flutter Treatment Prophylaxis Treatment Prophylaxis Oxygen: room air Diagnosis, Assessment Plan Free Text A P: Assessment: 1. Bradycardia/Sick sinus syndrome - Initial EKG showed SB with sinus arrhythmia, L BBB, rate 55 - On tele afib, rate controlled - On tele review, bradycardia as low as 30s over night, appears to be idioventricular - Patient denies symptoms, no dizziness, lighthe adedness fatigue 2. Chest pain/Pericarditis post Ablation 3. Persistent atrial fibrillation s/p PVI ablati on 05/10/2023 - Continue amiodarone, Eliquis AC 4. HTN urgency 5. Congestive HF 6. CAD 7. HLD 8. Hypothyroidism 9. Anxiety/depression CT chest - moderate LV hypertrophy, Bilateral ch blake enlargement, small to moderate right pleural effusion, suspected parti al obstruction of esophagus suspected Plan/recommendations: - Plan for Dual chamber PPM today - NPO - Hold eliquis today - Continuous tele monitoring - ECHO LVEF 50-54% - AVOID AV michael blocking agents - Continue eliquis, amiodarone - TSH elevated - May need to adjust medications prior to discha rge to for rate control - Will follow and adjust therapies as clinical c ourse dictates Discussed plan of care and PPM as well as risks/ benefits with patient. She verbalized understanding and is in agreement wit h plan. Consultants: cardiology Code status: full code Plan discussed with: patient Bryce Bender 05/20/23 1423: Attestations Attestation needed: supervising physician Physician Attestation Agree w/findings plan: The patient seen and examined on 05/19/20. I agree with the findings and plan as documented by Monique Siegel NP. at 1715 at 1423 RPT #:[id number] END OF REPORT 2023-05-18 17:33:00-00:00 [id number] [place] [id number] PATIENT NAME: NIA MANDEL ADMIT DATE: 05/17/23 ACCOUNT NO: [id number] ROOM NO: G.3341 AGE: 77 REPORT TYPE: eECHOCARDIOGRAM REPORT SEX: F ADMITTING PHYSICIAN:Britt Self DO ATTENDING PHYSICIAN:Peter Leal MD *[place] [id number] Transthoracic Echocardiogram Patient: Nia Mandel Study Date: 05/18/2023 BP: 168 / 82 Location: [facility] URN: [id number] 2129 : 1945 Age: 77 Height: 66 in / 167.6 cm Gender: F Weight: 169 .6 lb / 77.1 kg BMI/BSA: 27.4 kg/m 2 / 1.87 m 2 *Ordering Physician: * Britt Self R3 *Interpreting Physician: * Maritza Renner MD *Photo Tech: * Dilia Sousa Indications: Chest Pain. Study data: Transthoracic echocardiogram. Proced ure: Transthoracic echocardiography was performed. Image quality wa s adequate. Complete 2D, complete spectral Doppler, and color Doppler . Location: Bedside. Patient status: Inpatient. Patient room number: 3341. Study status: Routine. Rhythm: Bradycardia. Findings Left ventricle: The cavity size is normal. Wall thickness is mildly increased. Systolic function is normal. The abdi mated ejection fraction is 50-54%. Wall motion is normal; there are no r egional wall motion abnormalities. Left ventricular diastolic functi on parameters are indeterminate. Right ventricle: Estimated TAPSE is 1.6 cm. The cavity size is normal. PATIENT NAME: NIA MANDEL 27 Systolic function is normal. Systolic pressure i s severely increased. Left atrium: The atrium is severely dilated. Right atrium: The atrium is severely dilated. Atrial septum: There is an atrial level shunt du e to trans-septal puncture for PVI procedure. Aorta: Aortic root: The aortic root is normal in size. Aortic valve: The valve is structurally normal. The valve is trileaflet. There is no evidence of stenosis. T here is no regurgitation. Mitral valve: The valve is structurally normal. There is no evidence of stenosis. There is mild regurgitatio n. Tricuspid valve: Estimated right ventricular sys tolic pressure is 59 mmHg. The valve is structurally normal. There is severe regurgitation. Pulmonic valve: The valve is structurally normal . There is mild regurgitation. Pericardium: A trivial pericardial effusion is i dentified anterior to the heart. Pulmonary arteries: The main pulmonary artery is normal-sized. Systemic veins: Inferior vena cava: The vessel is dilated. Infer ior vena cava diameter measures 21 cm. Measurements Left ventricle Value Ref PIOTR, LAX 4.3 cm 3.8 - 5.2 ESD, LAX 3.2 cm 2.2 - 3.5 ESD/bsa, LAX 1.7 cm/m 2 1.3 - 2.1 FS, LAX 26 % 27 - 45 ESD/bsa major ax, 2.9 cm/m 2 --------- A4C PIOTR/bsa minor ax, 2.9 cm/m 2 --------- A4C PIOTR major ax, A2C 6.8 cm --------- PIOTR/bsa major ax, 3.7 cm/m 2 --------- A2C PW, ED 1.4 cm 0.6 - 0.9 IVS/PW, ED 0.87 --------- EF 51 % 54 - 74 E', lat ela, TDI 7.2 cm/sec >=10.0 E', med ela, TDI 4.7 cm/sec >=7.0 E', avg, TDI 5.9 cm/sec --------- LVOT Value Ref Diam, S 1.94 cm --------- Area 2.9 cm 2 --------- Ventricular septum Value Ref IVS, ED 1.2 cm 0.6 - 0.9 Right ventricle Value Ref PATIENT NAME: NIA MANDEL 27 PIOTR, LAX 3.2 cm --------- TAPSE, MM 1.6 cm 1.7 - 3.1 S' lateral 9.7 cm/sec 6.0 - 13.4 RVOT Value Ref Peak v, S 0.97 m/sec --------- Peak grad, S 4 mm Hg --------- Left atrium Value Ref AP dim, ES 5.21 cm 2.70 - 3.80 Vol/bsa, ES, 1-p A4C 47 ml/m 2 11 - 40 Vol/bsa, ES, A/L 50 ml/m 2 16 - 34 AP dim, ES MM 4.4 cm 2.7 - 3.8 LA/Ao root ratio, MM 2.07 --------- Right atrium Value Ref Area, ES 31 cm 2 10 - 18 SI dim, ES, A4C 8.3 cm 3.4 - 5.3 SI dim/bsa, ES, A4C 4.4 cm/m 2 1.9 - 3.1 Vol, ES, A/L 96 ml --------- Vol, ES, 1-p A4C 92 ml --------- Vol/bsa, ES, 1-p A4C 49 ml/m 2 9 - 33 Aortic valve Value Ref Leaflet sep, MM 1.72 cm --------- Mitral valve Value Ref Mean v, D 0.5 m/sec --------- VTI leaflet coapt 30.6 cm --------- PHT 89 ms --------- Mean grad, D 1.2 mm Hg --------- Peak grad, D 3.6 mm Hg --------- MVA, PHT 2.5 cm 2 --------- MR peak v 3.51 m/sec --------- Pulmonic valve Value Ref VA peak v 1.6 m/sec --------- VA peak grad 10 mm Hg --------- Tricuspid valve Value Ref TR peak v 3.59 m/sec <=2.8 Peak RV-RA grad, S 51 mm Hg --------- Aortic root Value Ref Root diam, ED MM 2.11 cm --------- Conclusions Summary: 1. Left ventricle: The cavity size is normal. Wa ll thickness is mildly PATIENT NAME: NIA MANDEL 27 increased. Systolic function is normal. The est imated ejection fraction is 50-54%. Wall motion is normal; ther e are no regional wall motion abnormalities. Left ventricular leonardo stolic function parameters are indeterminate. 2. Right ventricle: Systolic pressure is severel y increased. 3. Left atrium: The atrium is severely dilated. The end-systolic volume index (A-L) is 50 ml/m 2. 4. Right atrium: The atrium is severely dilated. The end-systolic endocardial area is 31 cm 2. 5. Atrial septum: There is an atrial level shunt due to trans-septal puncture for PVI procedure. 6. Mitral valve: There is mild regurgitation. 7. Tricuspid valve: Estimated right ventricular systolic pressure is 59 mmHg. There is severe regurgitation. 8. Pulmonic valve: There is mild regurgitation. 9. Pericardium, extracardiac: A trivial pericard ial effusion is identified anterior to the heart. 10. Inferior vena cava: The vessel is dilated. I nferior vena cava diameter measures 21 cm. Prepared and electronically signed by Maritza Renner MD 05/18/2023 17:32 Electronically Signed by Maritza Renner MD on at 1733 PATIENT NAME: NIA MANDEL 2023-05-18 16:17:00-00:00 [id number] [place] [address] PATIENT NAME: NIA MANDEL ADMIT DATE: 05/17/23 ACCOUNT NO: [id number] ROOM NO: G.3341 AGE: 77 REPORT TYPE: eELECTROCARDIOGRAM REPORT SEX: F ADMITTING PHYSICIAN:Britt Self DO ATTENDING PHYSICIAN:Peter Leal MD Order: [id number] Test Reason : bradycardia Test Date/Time Stamp: TueMay 18 2023 16:17:25 Blood Pressure : / mmHG Vent. Rate : 064 BPM Atrial Rate : 064 BPM P-R Int : 056 ms QRS Dur : 178 ms QT Int : 574 ms P-R-T Axes : -12 209 076 degree s QTc Int : 592 ms Sinus rhythm with short VA Right superior axis deviation Left bundle branch block Abnormal ECG When compared with ECG of 17-MAY-2023 21:11, Significant changes have occurred Confirmed by MARITZA RENNER MD ([id number]) on 05/19/20 8:46:20 AM Referred By: Self Referred Confirmed by:MAIRTZA DREW MD Electronically Signed by Maritza Renner MD on at 0846 PATIENT NAME: NIA MANDEL 27 2023-05-18 11:47:00-00:00 [facility] Hospitalist Progress Note REPORT#:[id number] REPORT STATUS: Signed DATE:05/18/23 TIME: 1147 PATIENT: NIA MANDEL UNIT #: [id number] ROOM/BED: [place] [id number] : 43 AGE: 77 SEX: F ATTEND: Paulie Leal MD ADM AUTHOR: Peter Leal MD * ALL edits or amendments must be made on the [employer] document * Subjective Chief complaint: Chest pain,bradycardia/tachycardia HPI: 77-year-old female with past medical history of CAD, A-fib, CHF, HTN, HLD, GERD, hypothyroidism, depression and anxiety presents for evaluation of chest pain that began a week ago. Patient states pa in began after a cardiac ablation with Dr. Mckay was attempted to control her atrial fibrillation. She states she was informed that some pain would occur after th e procedure however patient became worried that pain was worsening. Currentl y pain is described as intermittent, uncomfortable, and 9 out o f 10 in severity. Patient took Tylenol at home for the pain but it did not relieve her symptoms. In addition she reports shortness of breath with exertion, heada sona, nausea, cough with posttussive emesis. Currently she denies diaphoresis, numbness, blurry vision, focal weakness, dizziness and fever. Objective General VS/I O: Vital Signs: Date Time Temp Pulse Resp B/P B/P Pulse O2 O2 F low FiO2 Mean Ox Delivery Rate 05/18 1040 41 05/18 1032 64 05/18 1017 89 05/18 1002 41 05/18 1001 50 05/18 0947 42 05/18 0932 41 05/18 0917 40 05/18 0902 40 05/18 0715 58 12 196/90 129 95 05/18 0710 64 13 189/89 128 78 05/18 0706 63 18 144/64 92 100 05/18 0600 51 12 182/85 122 95 05/18 0515 55 13 168/82 118 95 05/18 0500 50 14 170/81 116 96 05/18 0445 51 13 172/86 118 94 05/18 0430 50 17 165/78 112 95 05/18 0400 55 149/69 99 93 05/18 0330 58 176/87 124 92 05/18 0315 61 169/80 115 94 05/18 0300 61 176/90 127 92 05/18 0230 60 171/83 119 92 05/18 0200 63 159/77 110 93 05/18 0130 53 13 145/70 100 94 05/18 0100 58 196/92 132 96 05/18 0030 62 215/105 151 95 05/18 0000 60 189/92 132 96 05/17 2300 60 17 206/96 138 97 05/17 2200 59 199/95 136 95 05/17 2010 98.2 62 18 180/87 118 96 Room air 24 hour I O ending at 0700: 05/18 0700 05/17 1900 Intake Total Output Total Balance Patient 77.273 kg Weight Weight Stated/Reported Measurement Method PATIENT WEIGHT: Weight (lb): Weight (oz): Weight (kg): 77.273 Physical Exam General appearance: alert, awake, oriented Head/Eyes: atraumatic, normocephalic ENT: moist mucosal membranes, normal dentition Neck: full range of motion, supple/no meningismu s Cardiovascular: normal heart sounds, regular rat e rhythm Respiratory: aerating well, clear to auscultatio n, symmetric expansion, no distress Abdomen: non-tender, soft, no distention, no gua rding, no rebound Neuro/SSIS ARCHITECT: alert, oriented X 3, reflexes equal b ilat, no motor deficits, no sensory deficits Skin: dry, intact, no rash Psychiatry: normal affect, normal mood Results Findings/Data: Laboratory Tests 05/18 05/18 05/18 05/18 05/18 0450 0450 0450 0450 0318 Chemistry Sodium (134 - 147 mEq/L) 125 L Potassium (3.4 - 5.0 mEq/L) 4.6 Chloride (100 - 108 mEq/L) 92 L Carbon Dioxide (21 - 33 mEq/l) 21 Anion Gap (0 - 20) 17 BUN (7 - 18 mg/dL) 9 Creatinine (0.6 - 1.3 mg/dL) 0.9 Glomerular Filtr Rate (70 - 80) 65.0 L Glucose (70 - 110 mg/dL) 90 Calcium (8.0 - 10.5 mg/dL) 8.3 Troponin I High Sens (0 - 34 ng/L) 30 29 C-Reactive Protein (<10.0 mg/L) 4.0 Triglycerides (40 - 150 mg/dL) 105 Cholesterol (<200 mg/dL) 164 LDL Cholesterol Measurd (0 - 100 mg/dL) 52.0 HDL Cholesterol (40 - 60 MG/DL) 72.9 H Cholesterol/HDL Ratio (3.27 - 4.44 2.25 L RATIO) TSH (0.42 - 5.47 IU/mL) 10.64 H Free T4 (0.77 - 1.61 ng/dL) 1.9 H 05/18 Chemistry Sodium (134 - 147 mEq/L) 125 L Potassium (3.4 - 5.0 mEq/L) 3.7 Chloride (100 - 108 mEq/L) 94 L Carbon Dioxide (21 - 33 mEq/l) 23 Anion Gap (0 - 20) 12 BUN (7 - 18 mg/dL) 8 Creatinine (0.6 - 1.3 mg/dL) 1.0 Glomerular Filtr Rate (70 - 80) 57.3 L Glucose (70 - 110 mg/dL) 88 Calcium (8.0 - 10.5 mg/dL) 8.8 Troponin I High Sens (0 - 34 ng/L) 32 31 Laboratory Tests 05/17 2104 Coagulation INR (0.8 - 1.2) 1.2 PT Patient/Control Mix (9.3 - 12.9 SECONDS) 13. 9 H Laboratory Tests 05/180 0450 210 Hematology WBC (4.5 - 11.0 x10 3/uL) 6.2 6.0 RBC (3.54 - 5.02 x10 6/uL) 4.59 4.81 Hgb (11.0 - 15.0 g/dL) 12.5 13.3 Hct (33.0 - 45.0 %) 37.4 39.8 MCV (81.0 - 99.0 fL) 81.5 82.7 MCH (27.0 - 33.0 pg) 27.2 27.7 MCHC (33.0 - 37.0 g/dL) 33.4 33.4 RDW (11.5 - 14.5 %) 15.7 H 15.4 H Plt Count (150 - 400 x10 3/uL) 449 H 458 H MPV (7.0 - 9.0 fL) 10.7 H 10.2 H Neut % (Auto) (56.0 - 77.0 %) 74.1 72.1 Lymph % (Auto) (14.0 - 32.0 %) 8.2 L 9.3 L [place] % (Auto) (4.8 - 9.0 %) 14.8 H 14.8 H Eos % (Auto) (0.3 - 3.7 %) 1.9 2.3 Baso % (Auto) (0.0 - 2.0 %) 0.5 0.8 Neut # (Auto) (2.0 - 7.6 x10 3/uL) 4.61 4.35 Lymph # (Auto) (1.0 - 3.8 x10 3/uL) 0.51 L 0.56 L [place] # (Auto) (0.1 - 0.8 x10 3/uL) 0.92 H 0.89 H Eos # (Auto) (0.0 - 0.2 x10 3/uL) 0.12 0.14 Baso # (Auto) (0.0 - 0.2 x10 3/uL) 0.03 0.05 Abs Immat Gran (auto) (0.00 - 0.03 x10 3/uL) 0. 03 0.04 H Add Manual Diff NO NO Immature Gran % (0.0 - 2.0 %) 0.5 0.7 Nucleated RBC % (0 - 0 %) 0.0 0.0 Nucleated RBCs # (Man) (0.0 - 0.1 x10 3/uL) 0.0 0 0.00 ESR Westergren (0 - 20 mm/hr) 2 Radiology data: Recent Impressions: CAT SCAN - CT CHEST W/CONTRAST 05/18 828 Report Impression - Status: SIGNED Entered: 05/18/2023 0843 IMPRESSION: 1. Moderate left ventricular hypertrophy is pres ent. Biatrial chamber enlargement is seen relative to the vent ricles. 2. Xatlz-xq-ssvgcyzs size right pleural effusion . 3. Abnormal appearance of the cardiac fundus wit h suspicion of ulceration. Suspected partial obstruction of the esophagus. Further assessment with endoscopy may be useful. 4. Biatrial enlargement is seen. Impression By: LeydiABLay Thompson Diagnosis, Assessment Plan Consultants: cardiology Free Text DxA P Notes Free text DxA P notes: Assessment and plan Chest pain possibly secondary to pericarditis v HTN emergency Coronary artery disease Recent cardiac ablation due to uncontrolled atr ial fibrillation Dr. Mckay, EP consulted Monitor on telemetry Echocardiogram ordered ESR, CRP ordered Continue aspirin Toradol x1 given; morphine with Zofran PRN pain Hypertensive emergency Continue home ramipril Hydralazine PRN SBP> 160 Paroxysmal atrial fibrillation Continue amiodarone, Eliquis Asymptomatic bradycardia While sleeping patient experienced bradycardia HR 27 , x2 episodes EKG w junctional rhythm w sinus pause Atropine 0.5 placed at the bedside Pacemaker pads placed Avoid BB Will notify cardiology Congestive heart failure, unknown EF Continue home Lasix, spironolactone Hyperlipidemia Continue fenofibrate Hypothyroidism Continue levothyroxine TSH is low. Will adjust medication. Anxiety/depression Resume Xanax, Cymbalta, sertraline GERD Continue Protonix Full code Eliquis cardiac diet at 1150 RPT #:[id number] END OF REPORT 2023-05-18 09:40:00-00:00 [facility]) EP Consultation Note REPORT#:[id number] REPORT STATUS: Signed DATE:05/18/23 TIME: 939 PATIENT: NIA MANDEL UNIT #: [id number] ROOM/BED: 3341-1 : 43 AGE: 77 SEX: F ATTEND: Paulie Leal MD ADM AUTHOR: Monique Siegel FORM WORKER * ALL edits or amendments must be made on the el [employer]/computer document * Nayla Siegel 05/18/23 0940: History of Present Illness Requesting clinician: Dr. Hill Reason for consult: chest pain, bradycardia, post PVI Chief complaint: chest pain PCP: PCP: Felipe Forde MD HPI: The patient is a 77-year-old female with past medical history of CAD, A-fib, CHF , HTN, HLD, GERD, hypothyroidism, depression, an d anxiety who presented to ED with chest pain that began a week ago. Patient s tates pain began after a cardiac ablation. She states she was inf ormed that some pain would occur after the procedure however patient became worried darrion t pain was worsening. Patient took Tylenol at home for the pain but it did not relieve her symptoms. In addition she reports shortne ss of breath with exertion, headache, nausea, cough. EP consulted for chest pain post ablation and bradycardia. Thank you kindly for the consultation and the opportunity to particip ate in the patient's plan of care. History - Adult longitudinal Additional medical history: CAD, A-fib, CHF, HTN, HLD, GERD, hypothyroidism, depression and anxiety Additional surgical history: Cardiac ablation Additional family history: Noncontributory Alcohol use: Denies EtOH use Drug use: Denies recreational drugs Smoking status for patients 13 years old or olde r: Never Smoker Allergies: Coded Allergies: Sulfa (Sulfonamide Antibiotics) (Intermediate, I [facility] 05/03/23) Review of Systems Constitutional: Reports: generalized weakness. Skin: Denies: abrasion, bruising. Allergy/Immun: Denies: allergic reaction. Eyes: Denies: visual loss/blurred. ENT: Denies: nasal congestion, nose bleeding. Respiratory: Denies: EB (dyspnea on exertion), SOB. Cardiovascular: Reports: chest pain. GI: Denies: nausea, vomiting. : Denies: dysuria. Musculoskeletal: Denies: extremity swelling. Heme: Denies: adenopathy, bleeding. Endocrine: Denies: weight gain, weight loss. Neuro: Denies: change in LOC, confusion. Psych: Denies: agitation, anxiety. All systems rev neg: except as marked Objective VS/I O Laboratory Tests 05/18/23 0450: [Embedded Image Not Available] 05/17/232103: [Embedded Image Not Available] Current Medications Sig/Nica Start time Last Medication Dose Route Stop Time Status Admin Alprazolam 1 MG BEDTIME 05/18 2100 AC PO 06/17 2059 Sertraline HCl 50 MG BEDTIME 05/18 2100 AC PO 06/17 2059 Amiodarone HCl 200 MG BID 05/18 0900 DA PO 09/15 0859 Apixaban 2.5 MG BID 05/18 900 AC 05/18 PO 06/17 0859 0936 Aspirin 81 MG DAILY 05/18 900 AC 05/18 PO 06/17 0859 0935 Duloxetine HCl 20 MG DAILY 05/18 09 AC 05/18 PO 06/17 0859 0934 Fenofibrate 145 MG DAILY 05/18 900 AC 05/18 PO 06/17 0859 0935 Furosemide 80 MG BID 05/18 900 AC 05/18 PO 06/17 0859 0935 Pantoprazole 40 MG DAILY 05/18 900 AC 05/18 PO 06/17 0859 0934 Ramipril 10 MG DAILY 05/18 900 AC 05/18 PO 06/17 0859 0934 Spironolactone 50 MG DAILY 05/18 900 AC 05/18 PO 06/17 0859 0935 Iopamidol 100 ML .STK-MED ONE 05/18 0733 DC IV 05/18 0734 0733 Levothyroxine Sodium 150 MCG DAILY 0600 05/18 0 600 AC 05/18 PO 06/17 0559 0620 Atropine Sulfate 0.5 MG ONCE PRN 05/18 0445 AC 05/18 IV 06/17 0444 0501 Ketorolac 15 MG ONCE ONE 05/18 0300 DC 05/18 Tromethamine IV 05/18 0301 0322 Acetaminophen 650 MG Q4H PRN PRN 05/17 2330 AC PO 06/16 2329 Hydralazine HCl 10 MG Q6H PRN PRN 05/17 2330 AC 05/18 IV 06/16 2329 0100 Morphine Sulfate 4 MG Q4H PRN PRN 05/17 2330 AC 05/18 IV 05/22 2329 0100 Ondansetron HCl 4 MG Q4H PRN PRN 05/17 2330 AC 05/18 IV 06/16 2329 0100 Aspirin 324 MG X1ED STA 05/17 2037 DC PO 05/17 2038 Last Documented: Result Date Time Pulse Ox 95 05/18 0715 B/P 196/90 05/18 0715 B/P Mean 129 05/18 0715 Pulse 58 05/18 0715 Resp 12 05/18 0715 O2 Delivery Room air 05/17 2010 Temp 36.8 05/17 2010 24 hour I O ending at 0700: 05/18 0700 05/17 1900 Intake Total Output Total Balance Patient 77.273 kg Weight Weight Stated/Reported Measurement Method PATIENT WEIGHT: Weight (lb): Weight (oz): Weight (kg): 77.273 General appearance: alert, awake, oriented, no a cute distress, no respiratory distress HEENT: mucosal membranes moist Neck: full range of motion Cardiovascular: CV assessment: bradycardia, pedal pulses presen t Respiratory: decreased breath sounds, no distres s Abdomen: soft, non-tender Genitourinary: no flank pain Extremities: dry, moves all, no edema Musculoskeletal: normal inspection Neuro/SSIS ARCHITECT: alert, oriented X 3, normal speech Skin: dry, intact Psychiatry: normal affect EKG Interpretation: sinus bradycardia Diagnosis, Assessment Plan Free Text A P: Assessment: 1. Bradycardia - Initial EKG showed SB with sinus arrhythmia, L BBB, rate 55 - On tele SB 40s - Patient denies symptoms, no dizziness, lighthe adedness fatigue 2. Chest pain/Pericarditis post Ablation 3. Persistent atrial fibrillation s/p PVI ablati on 05/10/2023 - Continue amiodarone, Eliquis AC 4. HTN urgency 5. Congestive HF 6. CAD 7. HLD 8. Hypothyroidism 9. Anxiety/depression CT chest - moderate LV hypertrophy, Bilateral ch blake enlargement, small to moderate right pleural effusion, suspected parti al obstruction of esophagus suspected Plan/recommendations: - Continuous tele monitoring - ECHO pending - AVOID AV michael blocking agents - Continue eliquis, amiodarone - TSH elevated - If no improvement in bradycardia may need PPM, pending ECHO results - Atropine as needed for HR < 40 bpm - Will follow and adjust therapies as clinical c ourse dictates Consultants: cardiology Plan discussed with: patient Code status: full code Bryce Bender 05/20/23 1420: Attestations Attestation needed: supervising physician Physician Attestation Agree w/findings plan: The patient seen and examined on 05/18/20. I agree with the findings and plan as documented by Monique Siegel NP. at 1409 at 1421 RPT #:[id number] END OF REPORT 2023-05-17 22:29:00-00:00 [facility] Hospitalist History Physical REPORT#:[id number] REPORT STATUS: Signed DATE:05/17/23 TIME: 2228 PATIENT: NIA MANDEL UNIT #: [id number] ROOM/BED: [place] [address] : 43 AGE: 77 SEX: F ATTEND: Mendel Self DO ADM AUTHOR: Britt Self DO * ALL edits or amendments must be made on the [employer]/computer document * History of Present Illness HPI Chief complaint: Chest pain PCP: PCP: Felipe Forde MD HPI: 77-year-old female with past medical history of CAD, A-fib, CHF, HTN, HLD, GERD, hypothyroidism, depression and anxiety presents for evaluation of chest pain that began a week ago. Patient states pa in began after a cardiac ablation with Dr. Mckay was attempted to control her atrial fibrillation. She states she was informed that some pain would occur after th e procedure however patient became worried that pain was worsening. Currentl y pain is described as intermittent, uncomfortable, and 9 out o f 10 in severity. Patient took Tylenol at home for the pain but it did not relieve her symptoms. In addition she reports shortness of breath with exertion, heada sona, nausea, cough with posttussive emesis. Currently she denies diaphoresis, numbness, blurry vision, focal weakness, dizziness and fever. Hx Obtained From Patient History Additional medical history: CAD, A-fib, CHF, HTN, HLD, GERD, hypothyroidism, depression and anxiety Additional surgical history: Cardiac ablation Additional family history: Noncontributory Alcohol use: Denies EtOH use Drug use: Denies recreational drugs Smoking status for patients 13 years old or olde r: Never Smoker Medication/Allergy-Vaccine Hx Allergies: Coded Allergies: Sulfa (Sulfonamide Antibiotics) (Intermediate, I [facility] 05/03/23) Review of Systems Constitutional: Denies: chills, fever. Skin: Denies: laceration, swelling. Allergy/Immun: Denies: allergic reaction, anaphylaxis. Eyes: Denies: redness, discharge. ENT: Denies: throat swelling, tongue swelling. Respiratory: Denies: BE (dyspnea on exertion), SOB. Cardiovascular: chest pain, edema. GI: Denies: abdominal pain, nausea, vomiting. : Denies: dysuria, flank pain. Neuro: Denies: confusion, dizziness. Psych: Denies: agitation, anxiety. All systems rev neg: except as marked Objective General VS/I O: Vital Signs: Date Time Temp Pulse Resp B/P B/P Pulse O2 O2 Flow FiO2 Mean Ox Delivery Rate 05/18 0200 63 159/77 110 93 05/18 0130 53 13 145/70 100 94 05/18 0100 58 196/92 132 96 05/18 0030 62 215/105 151 95 05/18 0000 60 189/92 132 96 05/17 2300 60 17 206/96 138 97 05/17 2200 59 199/95 136 95 05/17 2010 98.2 62 18 180/87 118 96 Room air 24 hour I O ending at 0700: 05/18 0700 05/17 1900 Intake Total Output Total Balance Patient 77.273 kg Weight Weight Stated/Reported Measurement Method PATIENT WEIGHT: Weight (lb): Weight (oz): Weight (kg): 77.273 Physical Exam General appearance: alert, awake, oriented, no a cute distress, no respiratory distress Head/Eyes: atraumatic, normocephalic ENT: moist mucosal membranes, normal dentition Neck: full range of motion, supple/no meningismu s Cardiovascular: normal heart sounds, regular rat e rhythm Respiratory: aerating well, clear to auscultatio n, symmetric expansion, no distress Abdomen: non-tender, soft, no distention, no gua rding, no rebound Neuro/SSIS ARCHITECT: alert, oriented X 3, CNII-XII intact, no motor deficits, no sensory deficits Skin: dry, intact, no rash Psychiatry: normal affect, normal mood Results Findings/Data: Laboratory Tests 05/18 05/17 0059 2104 Chemistry Sodium (134 - 147 mEq/L) 125 L Potassium (3.4 - 5.0 mEq/L) 3.7 Chloride (100 - 108 mEq/L) 94 L Carbon Dioxide (21 - 33 mEq/l) 23 Anion Gap (0 - 20) 12 BUN (7 - 18 mg/dL) 8 Creatinine (0.6 - 1.3 mg/dL) 1.0 Glomerular Filtr Rate (70 - 80) 57.3 L Glucose (70 - 110 mg/dL) 88 Calcium (8.0 - 10.5 mg/dL) 8.8 Troponin I High Sens (0 - 34 ng/L) 32 31 Laboratory Tests 05/17 2104 Coagulation INR (0.8 - 1.2) 1.2 PT Patient/Control Mix (9.3 - 12.9 SECONDS) 13. 9 H Laboratory Tests 05/17 2104 Hematology WBC (4.5 - 11.0 x10 3/uL) 6.0 RBC (3.54 - 5.02 x10 6/uL) 4.81 Hgb (11.0 - 15.0 g/dL) 13.3 Hct (33.0 - 45.0 %) 39.8 MCV (81.0 - 99.0 fL) 82.7 MCH (27.0 - 33.0 pg) 27.7 MCHC (33.0 - 37.0 g/dL) 33.4 RDW (11.5 - 14.5 %) 15.4 H Plt Count (150 - 400 x10 3/uL) 458 H MPV (7.0 - 9.0 fL) 10.2 H Neut % (Auto) (56.0 - 77.0 %) 72.1 Lymph % (Auto) (14.0 - 32.0 %) 9.3 L [place] % (Auto) (4.8 - 9.0 %) 14.8 H Eos % (Auto) (0.3 - 3.7 %) 2.3 Baso % (Auto) (0.0 - 2.0 %) 0.8 Neut # (Auto) (2.0 - 7.6 x10 3/uL) 4.35 Lymph # (Auto) (1.0 - 3.8 x10 3/uL) 0.56 L [place] # (Auto) (0.1 - 0.8 x10 3/uL) 0.89 H Eos # (Auto) (0.0 - 0.2 x10 3/uL) 0.14 Baso # (Auto) (0.0 - 0.2 x10 3/uL) 0.05 Abs Immat Gran (auto) (0.00 - 0.03 x10 3/uL) 0. 04 H Add Manual Diff NO Immature Gran % (0.0 - 2.0 %) 0.7 Nucleated RBC % (0 - 0 %) 0.0 Nucleated RBCs # (Man) (0.0 - 0.1 x10 3/uL) 0.0 0 Results: labs reviewed Diagnosis, Assessment Plan Orders: Procedure Date/time Status CARDIAC DIET 05/18 B Active _PACEMAKER EXTERNAL 05/18 0513 Active SED RATE 05/18 0500 Active LIPID PROFILE (CORONARY RISK) 05/18 0500 Active C REACTIVE PROTEIN 05/18 0500 Active TROPONIN-I 05/18 0400 Active ADULT ECHO COMPLETE 05/18 0304 Active TROPONIN-I 05/18 0200 Complete TROPONIN-I 05/18 0000 Complete Resuscitation Status 05/17 2319 Active Telemetry Monitoring 05/17 2319 Active Sequential Compression Device 05/17 2319 Active MRSA Protocol 05/17 2319 Active IV Access 05/17 2319 Active Intake Output 05/17 2319 Active VTE Education 05/17 2319 Active TSH REFLEX TO FT4 05/17 2319 Active PHYSICAL THERAPIST CONSULT 05/17 2319 Active Free Text DxA P Notes Free Text DxA P Notes: Assessment and plan Chest pain possibly secondary to pericarditis v HTN emergency Coronary artery disease Recent cardiac ablation due to uncontrolled atr ial fibrillation Dr. Mckay, EP consulted Monitor on telemetry Echocardiogram ordered ESR, CRP ordered Continue aspirin Toradol x1 given; morphine with Zofran PRN pain Hypertensive emergency Continue home ramipril Hydralazine PRN SBP> 160 Paroxysmal atrial fibrillation Continue amiodarone, Eliquis Asymptomatic bradycardia While sleeping patient experienced bradycardia HR 27 , x2 episodes EKG w junctional rhythm w sinus pause Atropine 0.5 placed at the bedside Pacemaker pads placed Avoid BB Will notify cardiology Congestive heart failure, unknown EF Continue home Lasix, spironolactone Hyperlipidemia Continue fenofibrate Hypothyroidism Continue levothyroxine Anxiety/depression Resume Xanax, Cymbalta, sertraline GERD Continue Protonix Full code Eliquis cardiac diet Electronically Signed by Britt Self DO on at 0715 RPT #:[id number] END OF REPORT 2023-05-10 20:29:00-00:00 [id number] [place] [id number] PATIENT NAME: NIA MANDEL ADMIT DATE: ACCOUNT NO: [id number] ROOM NO: AGE: 77 REPORT TYPE: OPERATIVE [...] Intracardiac echocardiogram. ATTENDING PHYSICIAN: Bryce Capps MD FRIT MIXER AND BURNER: ANESTHESIA: General. ESTIMATED BLOOD LOSS: 10 mL. [...] whitney during 7 to 10 seco nds grhtg-of-srdoj technique. The patient remained in atrial fibrillation. We performed additional linear ablation roof line and inferior line until succe ssful isolation of the left atrial posterior wall. We did use the es ophageal cooling system throughout the procedure. Also, identified the phrenic and we a voided this area during PATIENT NAME: NIA MANDEL 34 ablation. At the end, we performed [...] Dictated: 05/10/2023 20:29:15 Date Transcribed: 05/10/2023 21:25:08 [facility] Receipt ID: [id number] Authenticated and Edited by Bryce Capps MD On 05/11/23 9:25:16 AM at 0927 PATIENT NAME: NIA MANDEL 936 2023-05-10 14:25:00-00:00 [id number] [place] [address] PATIENT NAME: NIA MANDEL ADMIT DATE: ACCOUNT NO: [id number] ROOM NO: AGE: 77 REPORT TYPE: eELECTROCARDIOGRAM REPORT SEX: F ADMITTING PHYSICIAN: ATTENDING PHYSICIAN:Bryce Bender MD Order: [id number] Test Reason : S/P ABLATION Test Date/Time Stamp: TueMay 10 2023 14:25:52 Blood Pressure : / mmHG Vent. Rate : 047 BPM Atrial Rate : 047 BPM P-R Int : 250 ms QRS Dur : 172 ms QT Int : 604 ms P-R-T Axes : 052 259 094 degre es QTc Int : 534 ms Sinus bradycardia with 1st degree AV block Nonspecific intraventricular block Lateral infarct , age undetermined Abnormal ECG When compared with ECG of 03-MAY-2023 11:46, Significant changes have occurred Confirmed by MARITZA RENNER MD ([id number]) on 3 7:20:43 PM Referred By: Bryce Capps Confirmed by:RUSLAN RENNER MD Electronically Signed by Maritza Renner MD on at 1920 PATIENT NAME: NIA MANDLE 34 2023-05-03 11:46:00-00:00 [id number] [address] PATIENT NAME: NIA MANDEL ADMIT DATE: ACCOUNT NO: [id number] ROOM NO: AGE: 77 REPORT TYPE: eELECTROCARDIOGRAM REPORT SEX: F ADMITTING PHYSICIAN: ATTENDING PHYSICIAN:Bryce Bender MD Order: [id number] Test Reason : PREOP Test Date/Time Stamp: [...] Renner MD on at 1328 PATIENT NAME: NIA MANDEL 34
[2023-06-08 08:50] LABS: Absolute Lymphocytes (CBC) 0.3 K/uL (0.7-4.9); Hematocrit 34.5 % (36.0-45.0); Lymphocytes % 9.7 % (15.3-44.8); MCV 82.8 fL (80-100); MPV 7.5 fL (7.6-11.3); Platelets 314 thou/uL (152-406); RBC Red Blood Cell Count 4.16 M/uL (3.86-4.86)
[2023-06-08 08:51] LABS: Protime INR 1.11
[2023-06-08 09:22] LABS: Albumin 3.8 g/dL (3.4-5.0); Bilirubin Direct 0.3 mg/dL (0-0.2); Bilirubin Indirect, Calculated 0.3 mg/dL (0.2-0.8); Bilirubin Total 0.6 mg/dL (0.2-1.0); Magnesium 1.9 mg/dL (1.6-2.4); Potassium 4.3 mEq/L (3.5-5.1); Protein, Total 6.9 g/dL (6.4-8.2); Troponin High Sensitivity 21.5 pg/mL (<58.9)
--- NOTE | 2023-06-08 09:29 | RAD REPORT ---
EXAM DESCRIPTION: CT - Chest For Pe Angio - 06/08/2023 9:13 am CLINICAL HISTORY: Shortness of breath COMPARISON: None. TECHNIQUE: Dynamically enhanced axial 3 mm thick images of the chest were obtained during administra tion of 100 mL Isovue 370 IV contrast. Coronal and oblique reconstruction images were generated and r eviewed. Exam utilizes a protocol for optimal evaluation of pulmonary arterial tree. Maximum intensity projections 3D imaging was utilized All CT scans are performed using dose optimization technique as appropriate and may include automated exposure control or mA/KV adjustment according to patient size. FINDINGS: A pulmonary embolus is not seen. A thoracic aortic aneurysm is not noted. Small bilateral pleural effusions. Cardiomegaly. Mild bilateral pulmonary opacities. Watchman device within the left atrium Distended IVC and hepatic veins IMPRESSION: Negative for a pulmonary embolism. Mild CHF
--- NOTE | 2023-06-08 09:32 | RAD REPORT ---
EXAM DESCRIPTION: USExtrem Venous W Compress Bil06/08/2023 9:07 am CLINICAL HISTORY: Leg swelling COMPARISON: 2020 FINDINGS: The common femoral, superficial femoral, greater saphenous, popliteal and posterior tibial veins bilaterally are compressible and demonstrate augmentation. Doppler demonstrates good flow. Grayscale, color and spectral analysis performed on all vessels IMPRESSION: No evidence of deep venous thrombosis involving either lower extremity.
[2023-06-08] MEDS ORDERED: NA CHLORIDE 0.9% 1,000 ML ONE (09:42)
--- NOTE | 2023-06-08 09:48 | RAD REPORT ---
EXAM DESCRIPTION: Kulwant Single View06/08/2023 9:41 am CLINICAL HISTORY: Shortness breath COMPARISON: May 2023 FINDINGS: Mild bilateral pulmonary opacities Small bilateral pleural effusions Heart is moderately to markedly enlarged Pacemaker leads in place IMPRESSION: Mild CHF
[2023-06-08] MEDS ORDERED: FUROSEMIDE 40 MG/4 ML VIAL ONE (10:30)
[2023-06-08] MEDS ORDERED: AMLODIPINE 10 MG TAB ONE (10:41)
[2023-06-08] MEDS ORDERED: ramipriL 5 MG CAP PO ONE (10:45)
[2023-06-08] MEDS ORDERED: AMIODARONE HCL 200 MG TAB ONE (12:10)
--- NOTE | 2023-06-08 13:15 | EDPHYS ---
Physician Documentation [facility] Name: Nia Mandel Age: 77 yrs Sex: Female : 1945 Arrival Date: 06/08/2023 Time: 08:05 Bed 14 Private MD: ED Physician Christopher Last HPI: 06/08 08:23 This 77 yrs old Female presents to ER via Wheelchair with complaints of Shortness Of snw Breath, High Blood Pressure. 08:23 The patient has shortness of breath at rest, that woke him/her from sleep. Onset: The snw symptoms/episode began/occurred suddenly, this morning. Duration: The symptoms are continuous. The patient's shortness of breath is aggravated by exertion. Severity of symptoms: At their worst the symptoms were moderate in the emergency department the symptoms are unchanged. The patient has not experienced similar symptoms in the past. recent pacemaker placement, hx of DVT, on Eliquis and ASA. Historical: - Allergies: 08:15 Sulfa (Sulfonamide Antibiotics); iw - Home Meds: 08:15 alprazolam 1 mg Oral Tablet,disintegrating 1 tab every day at bedtime for Anxiety iw [Active]; amiodarone 200 mg Oral tablet 1 tab 2 times per day for heart problem [Active]; apixaban 2.5 mg Oral tablet 1 tab 2 times per day for Heart [Active]; aspirin 81 mg Oral capsule 1 cap daily [Active]; duloxetine 20 mg Oral Capsule, Delayed Release Sprinkle 1 cap daily [Active]; fenofibrate 145 MG Oral daily [Active]; levothyroxine 150 mcg tablet daily [Active]; omeprazole 40 mg Oral capsule,delayed release (e.c.) once [Active]; ramipril 10 mg Oral capsule daily [Active]; sertraline 50 mg Oral tablet daily [Active]; spironolactone 50 mg Oral tablet 1 tab daily [Active]; 08:18 furosemide 80 mg Oral tablet 2 times per day [Active]; iw - PMHx: 08:15 Atrial fibrillation; watchman procedure; blood clots in right arm; Hypertensive iw disorder; THYROID CANCER; - PSHx: 08:15 ablation 04/24/23; Tonsillectomy; iw - Immunization history:: Adult Immunizations up to date. - Social history:: Smoking status: Patient denies any tobacco usage or history of. ROS: 08:23 Eyes: Negative for injury, pain, redness, and discharge, ENT: Negative for injury, snw pain, and discharge, Neck: Negative for injury, pain, and swelling, Cardiovascular: Negative for chest pain, palpitations, and edema. 08:23 Abdomen/GI: Negative for abdominal pain, nausea, vomiting, diarrhea, and constipation, Back: Negative for injury and pain, : Negative for injury, bleeding, discharge, and swelling, MS/Extremity: Negative for injury and deformity, Skin: Negative for injury, rash, and discoloration, Neuro: Negative for headache, weakness, numbness, tingling, and seizure, Psych: Negative for depression, anxiety, suicide ideation, homicidal ideation, and hallucinations. 08:23 Constitutional: Positive for malaise. 08:23 Respiratory: Positive for shortness of breath, at rest. Exam: 08:23 Head/Face: Normocephalic, atraumatic. Eyes: Pupils equal round and reactive to light, snw extra-ocular motions intact. Lids and lashes normal. Conjunctiva and sclera are non-icteric and not injected. Cornea within normal limits. Periorbital areas with no swelling, redness, or edema. ENT: Nares patent. No nasal discharge, no septal abnormalities noted. Tympanic membranes are normal and external auditory canals are clear. Oropharynx with no redness, swelling, or masses, exudates, or evidence of obstruction, uvula midline. Mucous membranes moist. Neck: Trachea midline, no thyromegaly or masses palpated, and no cervical lymphadenopathy. Supple, full range of motion without nuchal rigidity, or vertebral point tenderness. No Meningismus. Chest/axilla: Normal chest wall appearance and motion. Nontender with no deformity. No lesions are appreciated. 08:23 Abdomen/GI: Soft, non-tender, with normal bowel sounds. No distension or tympany. No guarding or rebound. No evidence of tenderness throughout. Back: No spinal tenderness. No costovertebral tenderness. Full range of motion. MS/ Extremity: Pulses equal, no cyanosis. Neurovascular intact. Full, normal range of motion. Neuro: Awake and alert, GCS 15, oriented to person, place, time, and situation. Cranial nerves II-XII grossly intact. Motor strength 5/5 in all extremities. Sensory grossly intact. Cerebellar exam normal. Normal gait. 08:23 Constitutional: The patient appears alert, awake, anxious, uncomfortable. 08:23 Cardiovascular: Rate: normal, Rhythm: irregularly irregular, Heart sounds: normal. 08:23 Respiratory: mild respiratory distress is noted, Breath sounds: decreased breath sounds, that are moderate, are heard in the right posterior lower lobe. 08:23 Skin: Appearance: normal except for affected area, scattered ecchymosis. 08:23 Psych: Behavior/mood is pleasant, anxious, Affect is calm, Oriented to person, place, time. Vital Signs: 08:13 BP 180 / 97; Pulse 64; Resp 16; Temp 97.4(TE); Pulse Ox 98% on R/A; iw 09:30 BP 178 / 115; Pulse 61; Resp 18; Pulse Ox 97% ; ko1 10:00 BP 176 / 118; Pulse 66; Resp 18; Pulse Ox 97% ; ko1 11:38 BP 200 / 101; Pulse 62; Resp 20; Pulse Ox 100% on R/A; ko1 12:00 BP 168 / 117; Pulse 62; me1 13:06 BP 204 / 100; Pulse 65; Resp 17; Pulse Ox 98% on R/A; me1 13:27 BP 204 / 100; Pulse 69; Resp 18; Pulse Ox 98% on R/A; me1 13:55 BP 213 / 97; Pulse 66; Resp 17; Pulse Ox 97% on R/A; me1 14:05 BP 199 / 109; Pulse 67; Resp 18; Pulse Ox 97% on R/A; me1 14:15 BP 198 / 90; Pulse 67; Resp 20; Pulse Ox 99% on R/A; me1 14:48 BP 187 / 92; Pulse 60; Resp 13; Pulse Ox 97% on R/A; me1 15:50 BP 196 / 94; Pulse 67; Resp 18; Pulse Ox 96% ; me1 16:00 BP 208 / 96; Pulse 63; Resp 16; Pulse Ox 98% on R/A; me1 MDM: 08:22 Patient medically screened. snw 08:26 Differential diagnosis: Anemia Anxiety Reaction CHF exacerbation, pulmonary edema, snw Pulmonary Embolism Unstable Angina. Data reviewed: vital signs, nurses notes. 13:14 Management of patient was discussed with the following: Hospitalist: Bradley Dennis. snw 13:23 Management of patient was discussed with the following: Primary Care Provider: Dr. lanie Forde, he will be out of town, admit to Hospitalist. 06/08 08:22 Order name: Basic Metabolic Panel; Complete Time: 09:23 snw 06/08 08:22 Order name: CBC with Diff; Complete Time: 09:07 snw 06/08 08:22 Order name: LFT's; Complete Time: 09:23 snw 06/08 08:22 Order name: Magnesium; Complete Time: 09:23 snw 06/08 08:22 Order name: NT PRO-BNP; Complete Time: 09:23 snw 06/08 08:22 Order name: PT-INR; Complete Time: 09:07 snw 06/08 08:22 Order name: Troponin HS; Complete Time: 09:23 snw 06/08 08:22 Order name: COVID-19 SARS RT PCR; Complete Time: 09:24 snw 06/08 15:49 Order name: Magnesium EDMS 06/08 15:49 Order name: Phosphorus EDMS 06/08 15:49 Order name: T4 Free EDMS 06/08 15:49 Order name: Thyroid Stimulating Hormone EDMS 06/08 15:49 Order name: Urinalysis w/ reflexes EDMS 06/08 15:49 Order name: Basic Metabolic Panel EDMS 06/08 15:49 Order name: Basic Metabolic Panel EDMS 06/08 15:49 Order name: CBC with Automated Diff EDMS 06/08 15:49 Order name: CBC with Automated Diff EDMS 06/08 15:49 Order name: Lipid Profile EDMS 06/08 15:49 Order name: Lipid Profile EDMS 06/08 08:22 Order name: XRAY Chest (1 view); Complete Time: 09:53 snw 06/08 08:22 Order name: CT Chest For PE Angio; Complete Time: 09:53 snw 06/08 08:22 Order name: US Extremity Venous W Compression Conner; Complete Time: 09:53 snw 06/08 08:22 Order name: EKG; Complete Time: 08:23 snw 06/08 15:49 Order name: CONS Physician Consult EDMS 06/08 15:49 Order name: Heart Healthy EDMS 06/08 08:22 Order name: Cardiac monitoring; Complete Time: 08:24 snw 06/08 08:22 Order name: EKG - Nurse/Tech; Complete Time: 09:29 snw 06/08 08:22 Order name: IV Saline Lock; Complete Time: 08:43 snw 06/08 08:22 Order name: Labs collected and sent; Complete Time: 08:43 snw 06/08 08:22 Order name: O2 Per Protocol; Complete Time: 08:24 snw 06/08 08:22 Order name: O2 Sat Monitoring; Complete Time: 08:24 snw 06/08 11:27 Order name: Recheck B/P; Complete Time: 13:27 snw 06/08 12:53 Order name: Recheck B/P; Complete Time: 13:08 snw EC:35 Rate is 65 beats/min. Rhythm is irregularly irregular. Left axis deviation noted. QRS snw interval is prolonged. Clinical impression: Atrial Fibrillation and Left BBB (chronic). Administered Medications: 14:50 Discontinued: NS 0.9% IV 1000 ml IV at 75 ml/hr continuous me1 09:39 Drug: NS 0.9% IV 1000 ml Route: IV; Rate: 75 ml/hr; Site: right antecubital; ko1 10:38 Follow up: Response: No adverse reaction me1 10:20 Drug: Furosemide IVP 40 mg Route: IVP; Site: right antecubital; ko1 11:20 Follow up: Response: No adverse reaction me1 10:31 CANCELLED (Other Intervention Used): amLODIPine PO 10 mg PO once snw 10:46 Drug: Ramipril PO 10 mg Route: PO; ko1 11:46 Follow up: Response: No adverse reaction; No change in condition me1 12:00 Drug: amiodarone PO 200 mg Route: PO; me1 13:08 Follow up: Response: No adverse reaction; No change in condition me1 13:54 Drug: amiodarone IVPB 900 mg, D5W IV 500 ml Route: IVPB; Rate: 1 mg/min; Site: right me1 antecubital; 14:49 Follow up: Response: No adverse reaction me1 Disposition: 16:44 Co-signature as Attending Physician, Christopher Last MD I reviewed the patient's care rt provided by the Advanced Practice Provider and agree with the diagnosis and treatment plan. Disposition Summary: 06/08/23 13:14 Hospitalization Ordered Hospitalization Status: Inpatient Admission snw Location: Telemetry/MedSurg (Inpatient) snw Condition: Stable snw Problem: chronic snw Symptoms: have worsened snw Bed/Room Type: Standard snw Provider: Perfecto Ernst(06/08/23 13:14) snw Room Assignment: 208(06/08/23 15:49) bd Diagnosis - Persistent atrial fibrillation snw - Unspecified systolic (congestive) heart failure snw Forms: - Medication Reconciliation Form snw - SBAR form snw - Leadership Thank You Letter snw Signatures: Dispatcher [employer] EDMS Afshan Lama Shelly, LEAD FRONT END DEVELOPER-C LEAD FRONT END DEVELOPER-Csnw Meghna Castillo RN RN iw Corina Baird RN RN ko1 Christopher Last MD MD rt Toña Lindsey RN RN me1 Corrections: (The following items were deleted from the chart) 08:19 08:15 Home Meds: furosemide 80 mg Oral tablet 2 times per day; iw iw 10:31 10:29 amLODIPine PO 10 mg PO once ordered. snw snw 13:14 13:14 Jannie Luciano snw snw 15:49 13:14 snw bd
--- NOTE | 2023-06-08 13:15 | ER ---
Nurse's Notes [facility] – [place], [place] Name: Nia Mandel Age: 77 yrs Sex: Female : 1945 Arrival Date: 06/08/2023 Time: 08:05 Bed 14 Private MD: Diagnosis: Persistent atrial fibrillation;Unspecified systolic (congestive) heart failure Presentation: 06/08 08:13 Chief complaint: Patient states: got up this morning and felt like she could not iw breathe, her BP has been high this morning 172/117 , had recent pacemaker placed 2 weeks ago and has been tired since then. Coronavirus screen: Client presents with at least one sign or symptom that may indicate coronavirus-19. Ebola Screen: Patient negative for fever greater than or equal to 101.5 degrees Fahrenheit, and additional compatible Ebola Virus Disease symptoms Patient denies exposure to infectious person. Patient denies travel to an Ebola-affected area in the 21 days before illness onset. No symptoms or risks identified at this time. Initial Sepsis Screen: Does the patient meet any 2 criteria? No. Patient's initial sepsis screen is negative. Does the patient have a suspected source of infection? No. Patient's initial sepsis screen is negative. Risk Assessment: Do you want to hurt yourself or someone else? Patient reports no desire to harm self or others. Onset of symptoms was June 08, 2023. 08:13 Method Of Arrival: Wheelchair iw 08:13 Acuity: SHYANNE 3 iw Historical: - Allergies: 08:15 Sulfa (Sulfonamide Antibiotics); iw - Home Meds: 08:15 alprazolam 1 mg Oral Tablet,disintegrating 1 tab every day at bedtime for Anxiety iw [Active]; amiodarone 200 mg Oral tablet 1 tab 2 times per day for heart problem [Active]; apixaban 2.5 mg Oral tablet 1 tab 2 times per day for Heart [Active]; aspirin 81 mg Oral capsule 1 cap daily [Active]; duloxetine 20 mg Oral Capsule, Delayed Release Sprinkle 1 cap daily [Active]; fenofibrate 145 MG Oral daily [Active]; levothyroxine 150 mcg tablet daily [Active]; omeprazole 40 mg Oral capsule,delayed release (e.c.) once [Active]; ramipril 10 mg Oral capsule daily [Active]; sertraline 50 mg Oral tablet daily [Active]; spironolactone 50 mg Oral tablet 1 tab daily [Active]; 08:18 furosemide 80 mg Oral tablet 2 times per day [Active]; iw - PMHx: 08:15 Atrial fibrillation; watchman procedure; blood clots in right arm; Hypertensive iw disorder; THYROID CANCER; - PSHx: 08:15 ablation 04/24/23; Tonsillectomy; iw - Immunization history:: Adult Immunizations up to date. - Social history:: Smoking status: Patient denies any tobacco usage or history of. Screenin:[address] [facility] ED Fall Risk Assessment (Adult) History of falling in the last 3 months, ko1 including since admission No falls in past 3 months (0 pts) Confusion or Disorientation No (0 pts) Intoxicated or Sedated No (0 pts) Impaired Gait Yes (1 pt) Mobility Assist Device Used Yes (1 pt) Altered Elimination No (0 pt) Score/Fall Risk Level 0 - 2 = Low Risk Oriented to surroundings, Maintained a safe environment, Educated pt \T\ family on fall prevention, incl call for assistance when getting out of bed, Assessed \T\ reinforced patient's understanding of fall precautions, Provided non-skid footwear, Hourly rounding (assess needs \T\ fall precautionary measures) done, Used ambulatory aids as needed (educated on \T\ assisted with), Used gait belt as appropriate. Abuse screen: Denies threats or abuse. Denies injuries from another. Nutritional screening: No deficits noted. Tuberculosis screening: No symptoms or risk factors identified. Assessment: 08:35 General: Appears in no apparent distress. uncomfortable, Behavior is cooperative, ko1 appropriate for age, anxious. Pain: Denies pain. Neuro: No deficits noted. Cardiovascular: Rhythm is atrial pacer. Respiratory: Airway is patent Respiratory effort is even, unlabored, Breath sounds with crackles bilaterally. GI: No deficits noted. : No deficits noted. EENT: No deficits noted. Derm: No deficits noted. Musculoskeletal: No deficits noted. Vital Signs: 08:13 BP 180 / 97; Pulse 64; Resp 16; Temp 97.4(TE); Pulse Ox 98% on R/A; iw 09:30 BP 178 / 115; Pulse 61; Resp 18; Pulse Ox 97% ; ko1 10:00 BP 176 / 118; Pulse 66; Resp 18; Pulse Ox 97% ; ko1 11:38 BP 200 / 101; Pulse 62; Resp 20; Pulse Ox 100% on R/A; ko1 12:00 BP 168 / 117; Pulse 62; me1 13:06 BP 204 / 100; Pulse 65; Resp 17; Pulse Ox 98% on R/A; me1 13:27 BP 204 / 100; Pulse 69; Resp 18; Pulse Ox 98% on R/A; me1 13:55 BP 213 / 97; Pulse 66; Resp 17; Pulse Ox 97% on R/A; me1 14:05 BP 199 / 109; Pulse 67; Resp 18; Pulse Ox 97% on R/A; me1 14:15 BP 198 / 90; Pulse 67; Resp 20; Pulse Ox 99% on R/A; me1 14:48 BP 187 / 92; Pulse 60; Resp 13; Pulse Ox 97% on R/A; me1 15:50 BP 196 / 94; Pulse 67; Resp 18; Pulse Ox 96% ; me1 16:00 BP 208 / 96; Pulse 63; Resp 16; Pulse Ox 98% on R/A; me1 ED Course: 08:11 Patient arrived in ED. mg5 08:13 Deisi Stanley FNP-C is PHCP. snw 08:13 Christopher Last MD is Attending Physician. snw 08:15 Triage completed. iw 08:17 Arm band placed on. iw 08:22 Corina Baird, RN is Primary Nurse. ko1 08:35 Patient has correct armband on for positive identification. Bed in low position. Call ko1 light in reach. Side rails up X2. Provided Education on: na. Client placed on continuous cardiac and pulse oximetry monitoring. NIBP monitoring applied. pvc monitor on. Door closed. Noise minimized. Lights dimmed. Warm blanket given. 08:35 Inserted saline lock: 22 gauge in right antecubital area, using aseptic technique. ko1 Blood collected. 08:43 COVID-19 SARS RT PCR Sent. ko1 08:43 Basic Metabolic Panel Sent. ko1 08:43 CBC with Diff Sent. ko1 08:43 LFT's Sent. ko1 08:43 Magnesium Sent. ko1 08:44 NT PRO-BNP Sent. ko1 08:44 PT-INR Sent. ko1 08:44 Troponin HS Sent. ko1 09:08 US Extremity Venous W Compression Conner In Process Unspecified. EDMS 09:15 CT Chest For PE Angio In Process Unspecified. EDMS 09:42 XRAY Chest (1 view) In Process Unspecified. EDMS 13:13 Jannie Luciano MD is Hospitalizing Provider. snw 13:14 Hospitalizing Provider role handed off by Jannie Luciano MD snw 13:14 Perfecto Ernst is Hospitalizing Provider. snw 16:17 No provider procedures requiring assistance completed. Flushed right antecubital. me1 16:18 Patient admitted, IV remains in place. me1 Administered Medications: 14:50 Discontinued: NS 0.9% IV 1000 ml IV at 75 ml/hr continuous me1 09:39 Drug: NS 0.9% IV 1000 ml Route: IV; Rate: 75 ml/hr; Site: right antecubital; ko1 10:38 Follow up: Response: No adverse reaction me1 10:20 Drug: Furosemide IVP 40 mg Route: IVP; Site: right antecubital; ko1 11:20 Follow up: Response: No adverse reaction me1 10:31 CANCELLED (Other Intervention Used): amLODIPine PO 10 mg PO once snw 10:46 Drug: Ramipril PO 10 mg Route: PO; ko1 11:46 Follow up: Response: No adverse reaction; No change in condition me1 12:00 Drug: amiodarone PO 200 mg Route: PO; me1 13:08 Follow up: Response: No adverse reaction; No change in condition me1 13:54 Drug: amiodarone IVPB 900 mg, D5W IV 500 ml Route: IVPB; Rate: 1 mg/min; Site: right me1 antecubital; 14:49 Follow up: Response: No adverse reaction me1 Medication: 13:27 VIS not applicable for this client. me1 Outcome: 13:14 Decision to Hospitalize by Provider. snw 16:17 Admitted to Med/surg room 208, Report called to LISETH Martinez me1 16:18 Condition: stable me1 16:18 Instructed on the need for admit. 16:38 Patient left the ED. me1 Signatures: Dispatcher [employer] Deisi Parker, PROMOTION OFFICER-C PROMOTION OFFICER-Csnw Meghna Castillo RN RN iw Oliver, Kathy RN RN ko1 Toña Lindsey RN RN me1 Shalini Vieira mg5 Corrections: (The following items were deleted from the chart) 08:15 08:13 Chief complaint: Patient states: got up this morning and felt like she could not iw breathe, her BP has been high this morning 172/117 iw 08:19 08:15 Home Meds: furosemide 80 mg Oral tablet 2 times per day; iw iw
[2023-06-08] MEDS ORDERED: AMIODARONE HCL 900 MG in Dextrose 5%-Water 482 ML IV SCH ×2 (13:30→18:00)
[2023-06-08] MEDS ORDERED: ACETAMINOPHEN 325 MG TABLET PO PRN (15:43)
[2023-06-08] MEDS ORDERED: ONDANSETRON 4 MG/2 ML VIAL IV PRN (15:46)
[2023-06-08] MEDS ORDERED: HYDRALAZINE HCL 20 MG/ML VIAL IV PRN (15:59)
--- NOTE | 2023-06-08 16:00 | P.HP ---
Certification for Inpatient Patient admitted to: Inpatient With expected LOS: >2 Midnights Patient will require the following post-hospital care: None Practitioner: I am a practitioner with admitting privileges, knowledge of patient current condition, hospital course, and medical plan of care. Services: Services provided to patient in accordance with Admission requirements found in Title 42 Section 412.3 of the Code of Federal Regulations Patient History Date of Service: 06/08/23 Reason for admission: Chest pain, shortness of breath History of Present Illness: Patient is a 77-year-old female with a past medical history significant for A- fib, DVT, hypertension, hypothyroidism, GERD, hyperlipidemia who presents with complaint of shortness of breath, chest pain and elevated blood pressure. Patient reported that chest pain is located on the right chest wall. Patient rated pain as 6/10 in severity and described pain as aching quality. Patient martin lso reports that she has been having bilateral lower extremity swelling for the past 2 days. Patient recently had a pacemaker placement 2 weeks ago. Patient also reported that she had an ablation the day before the pacemaker placement. Patient denies any other signs and symptoms. Symptoms are aggravated by exertion or relieved by nothing. Patient decided to present to the hospital due to worsening symptoms. Allergies Sulfa (Sulfonamide Antibiotics) Allergy (Verified 06/11/16 10:20) Rash Home Medications: [place]-3 Fatty Acids [[place]-3] 1,000 mg PO BID 05/06/16 Omeprazole [Prilosec] 40 mg PO DAILY 05/06/16 Sertraline [Zoloft*] 50 mg PO DAILY 05/06/16 Fenofibrate [Tricor*] 145 mg PO DAILY 03/09/21 Furosemide 80 mg PO BID 03/09/21 Ramipril [Altace] 10 mg PO DAILY 03/09/21 Spironolactone [Aldactone*] 25 mg PO DAILY #30 tab 07/24/21 Aspirin 81 mg PO DAILY 03/14/23 Levothyroxine Sodium 150 mcg PO DAILY 03/14/23 Alprazolam [Xanax] 1 mg PO BEDTIME 03/15/23 Amiodarone HCl [Cordarone*] 200 mg PO BID #60 tab 03/17/23 Apixaban [Eliquis *] 2.5 mg PO BID 06/08/23 Duloxetine [Cymbalta *] 20 mg PO ONCE 06/08/23 - Past Medical/Surgical History Diabetic: No -: HTN -: AFIB -: High Cholesterol -: CKD -: Thyroid CA -: Cochlear Implants -: Thyroidectomy -: Cataracts -: Tonsilliectomy -: Watchman Procedure - Social History Smoking Status: Never smoker Alcohol use: Yes CD- Drugs: No Caffeine use: No Place of Residence: Home Review of Systems General: Unremarkable Eyes: Unremarkable ENT: Unremarkable Respiratory: Shortness of Breath, SOB with Excertion Cardiovascular: Chest Pain Gastrointestinal: Unremarkable Genitourinary: Unremarkable Musculoskeletal: Pedal edema Integumentary: Unremarkable Neurological: Unremarkable Lymphatics: Unremarkable Physical Examination - Physical Exam General: Alert, In no apparent distress, Oriented x3, Cooperative HEENT: Atraumatic, PERRLA, Mucous membr. moist/pink, EOMI, Sclerae nonicteric Neck: Supple, 2+ carotid pulse no bruit, No LAD, Without JVD or thyroid abnormality Respiratory: Clear to auscultation bilaterally, Normal air movement Cardiovascular: Regular rate/rhythm, Normal S1 S2, Edema Capillary refill: <2 Seconds Gastrointestinal: Normal bowel sounds, Soft and benign, No tenderness Musculoskeletal: No clubbing, No tenderness Integumentary: No rashes Neurological: Normal speech, Normal tone, Normal affect Lymphatics: No axilla or inguinal lymphadenopathy - Studies Laboratory Data (last 24 hrs) 06/08/23 06/08/23 06/08/23 08:35 08:35 08:35 WBC 3.20 L Hgb 11.5 L Hct 34.5 L Plt Count 314 PT 12.2 INR 1.11 Sodium 126 L Potassium 4.3 BUN 11 Creatinine 1.04 H Glucose 97 Magnesium 1.9 Total Bilirubin 0.6 AST 38 H ALT 45 Alkaline Phosphatase 63 Assessment and Plan - Plan --Persistent atrial fibrillation. Patient had a Watchman procedure in the past. Status post ablation and pacemaker placement. Continue Eliquis and amiodarone drip. Cardiology consulted. Telemetry to monitor for any malignant arrhythmia. We will further recommendation from cigarette packer. --Acute on chronic diastolic CHF exacerbation. Patient placed on Lasix. Daily weight and strict I/O. Cardiology on board. Continue home medication. We will await further recommendation from cigarette packer. --Hypertension. Poorly controlled. Continue home medications and hydralazine as needed. --Hypothyroidism. Continue home medication. --Chest pain. Likely atypical. Serial troponins negative so far. Telemetry. Continue supportive care. --GERD. Continue Protonix. --History of right arm DVT. Continue Eliquis -- Anemia chronic disease. H&H stable. We will continue to monitor hemoglobin and transfuse if less than 7.0. --Hyponatremia. Likely secondary to volume overload. Continue diuresis with Lasix. We will continue to monitor sodium levels. --Hyperlipidemia. Continue home medications. --Anxiety disorder. Continue Xanax. --Hx of thyroid Cancer. Status unknown. Continue supportive care. --DVT prophylaxis with Eliquis . Discharge Plan: Home Plan to discharge in: Greater than 2 days - Advance Directives Does patient have a Living Will: No Does patient have a Durable POA for Healthcare: No - Code Status/Comfort Care Code Status Assessed: Yes Physician Review: Patient Assessed, Agree with Above Assessment and Plan Critical Care: No
[2023-06-08 18:07] LABS: Magnesium 1.9 mg/dL (1.6-2.4); Phosphorus 3.5 mg/dL (2.5-4.9)
[2023-06-08 18:28] LABS: Thyroid Stimulating Hormone 9.1 uIU/mL (0.358-3.740)
[2023-06-08] MEDS: carvediloL 6.25 MG TAB PO SCH (18:43)
[2023-06-08] MEDS: FUROSEMIDE 40 MG/4 ML VIAL IV SCH (18:44)
[2023-06-08] MEDS: ALPRAZOLAM 1 MG TABLET PO SCH (20:29)
[2023-06-08] MEDS: DOCOSAHEXANOIC AC/EPA 1000 MG PO SCH (20:29)
[2023-06-08] MEDS: APIXABAN 2.5 MG TABLET PO SCH (20:29)
[2023-06-08 20:48] LABS: Potassium 3.1 mEq/L (3.5-5.1)
[2023-06-08] MEDS ORDERED: AMIODARONE HCL 200 MG TAB PO SCH (21:00)
--- NOTE | 2023-06-09 01:01 | CON ---
Date of Consultation: 06/08/2023 Reason For Consultation: Uncontrolled blood pressure and atrial fibrillation. History Of Present Illness: This is a 77-year-old female, history of atrial fibrillation, hypertensi on, chronic kidney disease, status post left atrial appendage closure, presented with blood pressure being very high, close to 100, not getting better. Denies having any chest pain, feeling generally v samy weak. She has recent pacemaker implantation and heart rate has been controlled. Denies having a ny nausea, vomiting, diarrhea. Past Medical History: As outlined above in the HPI. Medication: Refer to reconciliation sheet for detailed list. Allergies: NO KNOWN DRUG ALLERGIES. Family History: No premature coronary artery disease or cancer. Social History: Does not smoke or drink. Does not use any drugs. Review of Systems: All systems reviewed are negative except mentioned in HPI. Physical Examination: Vital Signs: Reviewed. Head and Neck: Pupils are equal, reactive to light. Intact eye movements. No JVD. No cervical lym phadenopathy. Neck: Supple. Thyroid is not enlarged. Lungs: Clear to auscultation bilaterally. No rhonchi, rales, or crackles. No accessory muscle use. Heart: Regular rate and rhythm. No extra sounds. Abdomen: Soft, nontender. Bowel sounds positive. No organomegaly. No masses or hernia. No rigidi ty or rebound. Extremities: Positive edema. No clubbing, cyanosis. Intact pulses. Skin: No rash. Neurologic: Alert, awake, oriented x3. No acute focal deficits appreciated. Lymph Nodes: No cervical or axillary lymphadenopathy. Investigations: CT of the chest, no PE. She has dilated IVC and bilateral pleural effusion and ches t x-ray showed mild CHF. Assessment And Recommendation: 1.Acute on chronic diastolic heart failure exacerbation. Agree with diuresis. Carefully monitor BU N, creatinine, electrolytes. 2.Hyponatremia, probably due to heart failure. She received Lasix already. I am going to check bas ic metabolic panel now. If sodium level is dropping, to hold diuretics and consult Nephrology, but t his low sodium could be due to the heart failure itself. 3.Atrial fibrillation. Rate is controlled. Continue current management. 4.Hypertension. Blood pressure is significantly elevated, uncontrolled, to start on Coreg and amlod ipine 5 mg daily and plus-minus losartan. SR/MODL Voice ID: [id number] Report ID: [id number]
[2023-06-09 04:15] LABS: Absolute Lymphocytes (CBC) 0.4 K/uL (0.7-4.9); Hematocrit 35.8 % (36.0-45.0); MCV 82.8 fL (80-100); MPV 7.9 fL (7.6-11.3); Platelets 324 thou/uL (152-406); RBC Red Blood Cell Count 4.33 M/uL (3.86-4.86)
[2023-06-09 05:01] LABS: Blood Morphology Comment NOT SEEN (NOT SEEN); Platelet Estimate ADEQ
[2023-06-09] MEDS: HYDROCODONE/APAP 5/325 MG TAB PO PRN ×3 (05:45→22:33)
[2023-06-09] MEDS: LEVOTHYROXINE SOD 0.075 MG TAB PO SCH (05:45)
[2023-06-09] MEDS: PANTOPRAZOLE 40MG TABLET PO SCH (08:46)
[2023-06-09] MEDS: DOCOSAHEXANOIC AC/EPA 1000 MG PO SCH ×2 (08:46→21:19)
[2023-06-09] MEDS: FUROSEMIDE 40 MG/4 ML VIAL IV SCH ×2 (08:46→15:59)
[2023-06-09] MEDS: ASPIRIN 81 MG CHEWABLE TABLET PO SCH (08:46)
[2023-06-09] MEDS: APIXABAN 2.5 MG TABLET PO SCH ×2 (08:46→21:20)
[2023-06-09] MEDS: DULOXETINE 20 MG CAP PO SCH (08:46)
[2023-06-09] MEDS: SERTRALINE HCL 50 MG TAB PO SCH (08:46)
[2023-06-09] MEDS: carvediloL 6.25 MG TAB PO SCH ×2 (08:46→21:19)
[2023-06-09] MEDS: FENOFIBRATE 160 MG TAB PO SCH (08:46)
[2023-06-09] MEDS: SPIRONOLACTONE 25 MG TABLET PO SCH (08:46)
[2023-06-09] MEDS ORDERED: POTASSIUM 25 MEQ EFFERV TAB PO ONE (09:00)
[2023-06-09] MEDS ORDERED: AMLODIPINE 5 MG TAB PO ONE (12:13)
--- NOTE | 2023-06-09 12:29 | EKG ---
Test Date: 2023-06-08 Test Time: 09:34:24 Internet Application Developer: TIARA MEASUREMENT RESULTS: Intervals: Rate: 65 CT: QRSD: 168 QT: 512 QTc: 532 Ideal: P: CT: QRS: -74 T: 105 INTERPRETIVE STATEMENTS: Atrial fibrillation with frequent ventricular-paced complexes Left axis deviation Left bundle branch block Abnormal ECG Compared to ECG 05/17/2023 14:45:30 No significant changes Electronically Signed On 06-09-23 12:25:34 CDT by Dick Starkey
--- NOTE | 2023-06-09 14:50 | P.PN ---
Subjective Date of Service: 06/09/23 Chief Complaint: Chest pain, shortness of breath Patient has no new complaint. She remain in atrial fibrillation but rate controlled. Blood pressure readings are elevated. Physical Examination - Vital Signs Temperature: 98.7 F Blood Pressure: 168/74 Pulse: 68 Respirations: 16 Pulse Ox (%): 95 Assessment And Plan - Plan Physical Exam General: Alert, In no apparent distress, Oriented x3, Cooperative Neck: Supple, no elevated JVD. Respiratory: Clear to auscultation bilaterally, Normal air movement Cardiovascular: Regular rate/rhythm, Normal S1 S2, Edema Gastrointestinal: Normal bowel sounds, Soft and benign, No tenderness Musculoskeletal: No tenderness Neurological: Normal speech, Normal tone, Normal affect, no focal motor deficit. - Plan Chronic atrial fibrillation Status post Watchman procedure in the past. Status post ablation and pacemaker placement. Continue Eliquis and amiodarone drip. Currently on amiodarone drip per cardiology Continue Coreg Cardiology is following. Acute on chronic diastolic CHF exacerbation. Continue diuresis with Lasix. Daily weight and strict I/O. Cardiology is following. Hypertension Uncontrolled. Continue home medications and hydralazine as needed. Amlodipine added today for better blood pressure control. Hypothyroidism. Continue home medication. Chest pain: Troponin is negative. ACS ruled out. GERD. Continue Protonix. History of right arm DVT. Continue Eliquis Anemia chronic disease. Monitor CBC Hyponatremia. Hypervolemic hyponatremia related to CHF. Continue diuresis with Lasix. Fluid restriction. Hyperlipidemia. Continue home medications. Anxiety disorder. Continue Xanax. Hx of thyroid Cancer. Outpatient follow-up. DVT prophylaxis: Eliquis . Discharge Plan: Home
[2023-06-09] MEDS ORDERED: POLYETHYL GLY 3350 17 GM/DOSE PO PRN (15:08)
[2023-06-09 20:01] VITALS: BMI 25.8
[2023-06-09] MEDS: DOCUSATE NA 100 MG CAP PO SCH (21:19)
[2023-06-09] MEDS: ALPRAZOLAM 1 MG TABLET PO SCH (21:20)
[2023-06-10 04:06] LABS: Absolute Lymphocytes (CBC) 0.5 K/uL (0.7-4.9); Hematocrit 33.1 % (36.0-45.0); Lymphocytes % 18.9 % (15.3-44.8); MCV 82.6 fL (80-100); MPV 7.8 fL (7.6-11.3); Platelets 333 thou/uL (152-406); RBC Red Blood Cell Count 4.01 M/uL (3.86-4.86)
[2023-06-10 04:15] LABS: Potassium 3.6 mEq/L (3.5-5.1)
[2023-06-10] MEDS: LEVOTHYROXINE SOD 0.075 MG TAB PO SCH (07:14)
[2023-06-10] MEDS ORDERED: POTASSIUM CL SA 10 MEQ TAB PO ONE (09:00)
[2023-06-10] MEDS: SERTRALINE HCL 50 MG TAB PO SCH (11:16)
[2023-06-10] MEDS: PANTOPRAZOLE 40MG TABLET PO SCH (11:16)
[2023-06-10] MEDS: DULOXETINE 20 MG CAP PO SCH (11:17)
[2023-06-10] MEDS: DOCOSAHEXANOIC AC/EPA 1000 MG PO SCH ×2 (11:17→21:44)
[2023-06-10] MEDS: SPIRONOLACTONE 25 MG TABLET PO SCH (11:17)
[2023-06-10] MEDS: FENOFIBRATE 160 MG TAB PO SCH (11:17)
[2023-06-10] MEDS: APIXABAN 2.5 MG TABLET PO SCH ×2 (11:17→21:43)
[2023-06-10] MEDS: DOCUSATE NA 100 MG CAP PO SCH ×2 (11:18→21:44)
[2023-06-10] MEDS: carvediloL 6.25 MG TAB PO SCH ×2 (11:18→21:44)
[2023-06-10] MEDS: AMLODIPINE 5 MG TAB PO SCH (11:18)
[2023-06-10] MEDS: ASPIRIN 81 MG CHEWABLE TABLET PO SCH (11:18)
[2023-06-10] MEDS: FUROSEMIDE 40 MG/4 ML VIAL IV SCH ×2 (11:19→17:12)
--- NOTE | 2023-06-10 13:11 | P.DS ---
Admission Date: 06/08/23 Discharge Date: 06/13/23 Disposition: ROUTINE DISCHARGE Discharge Condition: FAIR Reason for Admission: Chest pain, shortness of breath Brief History of Present Illness: Patient is a 77-year-old female with a past medical history significant for A- fib, DVT, hypertension, hypothyroidism, GERD, hyperlipidemia who presented with complaint of shortness of breath, chest pain and elevated blood pressure. Patient reported that chest pain is located on the right chest wall. Patient rated pain as 6/10 in severity and described pain as aching quality. Patient also reports that she has been having bilateral lower extremity swelling for the past 2 days. Patient recently had a pacemaker placement 2 weeks ago. Patient also reported that she had an ablation the day before the pacemaker placement. Patient noted to be in atrial fibrillation in the ED. she was hospitalized for further management. Hospital Course: Chronic atrial fibrillation Status post Watchman procedure in the past. Status post ablation and pacemaker placement. Patient was placed on amiodarone drip Continued Eliquis. Heart rate improved on amiodarone drip. Was also on Coreg Amiodarone drip transition to oral amiodarone and discharged. Acute on chronic diastolic CHF exacerbation. Patient diuresed with IV Lasix and transitioned to home dose oral Lasix on discharge. Hypertension Controlled with amlodipine and Coreg. Hypothyroidism. Continued home dose Synthroid Chest pain: Troponin trended negative. ACS ruled out. GERD. Protonix. History of right arm DVT. Continued Eliquis Anemia chronic disease. Stable Hyponatremia. Hypervolemic hyponatremia related to CHF. Patient diuresed with Lasix. Hyperlipidemia. Continued home medications. Anxiety disorder. Continued Xanax. Hx of thyroid Cancer. Outpatient follow-up. Vital Signs/Physical Exam: Temp Pulse Resp BP Pulse Ox 97.6 F 62 16 136/67 94 06/10/23 11:48 06/10/23 11:48 06/10/23 11:48 06/10/23 11:48 06/10/23 11:48 General: Alert, In no apparent distress, Oriented x3, Obese HEENT: Mucous membr. moist/pink Neck: Supple, JVD not distended Respiratory: Clear to auscultation bilaterally, Normal air movement Cardiovascular: No edema, Normal S1 S2, Irregular heart rate/rhythm Gastrointestinal: Normal bowel sounds, Soft and benign, Non-distended, No tenderness Musculoskeletal: No swelling Integumentary: No rashes, No cyanosis Neurological: Normal strength at 5/5 x4 extr Laboratory Data at Discharge: WBC 2.70 thou/uL (4.3-10.9) L 06/10/23 03:26 Hgb 11.4 g/dL (12.0-15.0) L 06/10/23 03:26 Hct 33.1 % (36.0-45.0) L 06/10/23 03:26 Plt Count 333 thou/uL (152-406) 06/10/23 03:26 PT 12.2 SECONDS (9.5-12.5) 06/08/23 08:35 INR 1.11 06/08/23 08:35 Sodium 128 mEq/L (136-145) L 06/10/23 03:26 Potassium 3.6 mEq/L (3.5-5.1) D 06/10/23 03:26 BUN 16 mg/dL (7-18) 06/10/23 03:26 Creatinine 1.21 mg/dL (0.55-1.02) H 06/10/23 03:26 Glucose 100 mg/dL (74-106) 06/10/23 03:26 Phosphorus 3.5 mg/dL (2.5-4.9) 06/08/23 17:27 Magnesium 1.9 mg/dL (1.6-2.4) 06/08/23 17:27 Total Bilirubin 0.6 mg/dL (0.2-1.0) 06/08/23 08:35 AST 38 U/L (15-37) H 06/08/23 08:35 ALT 45 U/L (13-56) 06/08/23 08:35 Alkaline Phosphatase 63 U/L (45-117) 06/08/23 08:35 Triglycerides 78 mg/dL (<150) 06/09/23 03:19 Cholesterol 172 mg/dL (<200) 06/09/23 03:19 HDL Cholesterol 112 mg/dL (40-60) H 06/09/23 03:19 Cholesterol/HDL Ratio 1.54 06/09/23 03:19 Home Medications: [place]-3 Fatty Acids [[place]-3] 1,000 mg PO BID 05/06/16 Omeprazole [Prilosec] 40 mg PO DAILY 05/06/16 Sertraline [Zoloft*] 50 mg PO DAILY 05/06/16 Fenofibrate [Tricor*] 145 mg PO DAILY 03/09/21 Furosemide 80 mg PO BID 03/09/21 Spironolactone [Aldactone*] 25 mg PO DAILY #30 tab 07/24/21 Aspirin 81 mg PO DAILY 03/14/23 Levothyroxine Sodium 150 mcg PO DAILY 03/14/23 Alprazolam [Xanax] 1 mg PO BEDTIME 03/15/23 Amiodarone HCl [Cordarone*] 200 mg PO BID #60 tab 03/17/23 Apixaban [Eliquis *] 2.5 mg PO BID 06/08/23 Duloxetine [Cymbalta *] 20 mg PO DAILY 06/08/23 Amlodipine [Norvasc*] 5 mg PO DAILY #30 tab 06/10/23 Docusate [Colace Cap*] 100 mg PO BID #60 cap 06/10/23 carvediloL [Coreg*] 6.25 mg PO BID #60 tab 06/10/23 New Medications: Docusate [Colace Cap*] 100 mg PO BID #60 cap carvediloL [Coreg*] 6.25 mg PO BID #60 tab Amlodipine [Norvasc*] 5 mg PO DAILY #30 tab Followup: Felipe Forde MD [Primary Care Provider] - Dick Starkey MD [ACTIVE - CAN ADMIT] - Time spent managing pt's care (in minutes): 38
[2023-06-10] MEDS: ALPRAZOLAM 1 MG TABLET PO SCH (21:43)
[2023-06-10] MEDS: HYDROCODONE/APAP 5/325 MG TAB PO PRN (21:47)
[2023-06-10] MEDS ORDERED: AMIODARONE IN DEXTROSE,ISO-OSM 360 MG/200 ML BAG IV ONE (23:48)
[2023-06-11 03:51] LABS: Potassium 3.9 mEq/L (3.5-5.1)
[2023-06-11] MEDS: FUROSEMIDE 40 MG/4 ML VIAL IV SCH (09:11)
[2023-06-11] MEDS: AMLODIPINE 5 MG TAB PO SCH (09:14)
[2023-06-11] MEDS: DOCUSATE NA 100 MG CAP PO SCH (09:14)
[2023-06-11] MEDS: PANTOPRAZOLE 40MG TABLET PO SCH (09:14)
[2023-06-11] MEDS: LEVOTHYROXINE SOD 0.075 MG TAB PO SCH (09:14)
[2023-06-11] MEDS: SPIRONOLACTONE 25 MG TABLET PO SCH (09:15)
[2023-06-11] MEDS: carvediloL 6.25 MG TAB PO SCH (09:15)
[2023-06-11] MEDS: APIXABAN 2.5 MG TABLET PO SCH (09:15)
[2023-06-11] MEDS: ASPIRIN 81 MG CHEWABLE TABLET PO SCH (09:15)
[2023-06-11] MEDS: SERTRALINE HCL 50 MG TAB PO SCH (09:15)
[2023-06-11] MEDS: DULOXETINE 20 MG CAP PO SCH (09:15)
[2023-06-11 09:16] VITALS: BP 165/83; TEMP 96.8
--- NOTE | 2023-06-11 12:26 | P.PN ---
Subjective Date of Service: 06/10/23 Chief Complaint: Chest pain, shortness of breath Patient has no new complaint. Heart rate is rate controlled on amiodarone drip No issues overnight. Physical Examination - Vital Signs Temperature: 96.8 F Blood Pressure: 165/83 Pulse: 64 Respirations: 17 Pulse Ox (%): 96 Assessment And Plan - Plan Physical Exam General: Alert, In no apparent distress, Oriented x3, Cooperative Neck: Supple, no elevated JVD. Respiratory: Clear to auscultation bilaterally, Normal air movement Cardiovascular: Regular rate/rhythm, Normal S1 S2, Edema Gastrointestinal: Normal bowel sounds, Soft and benign, No tenderness Musculoskeletal: No tenderness Neurological: Normal speech, Normal tone, Normal affect, no focal motor deficit. - Plan Chronic atrial fibrillation Status post Watchman procedure in the past. Status post ablation and pacemaker placement. Continue Eliquis and amiodarone drip. Currently on amiodarone drip per cardiology Also on Coreg Acute on chronic diastolic CHF exacerbation. Continue diuresis with IV Lasix. Daily weight and strict I/O. Cardiology is following. Hypertension Uncontrolled. Continue home medications and hydralazine as needed. Amlodipine added for better blood pressure control. Titrate amlodipine. Hypothyroidism. Continue home medication. Chest pain: Troponin is negative. ACS ruled out. GERD. Continue Protonix. History of right arm DVT. Continue Eliquis Anemia chronic disease. Monitor CBC Hyponatremia. Hypervolemic hyponatremia related to CHF. Continue diuresis with Lasix. Fluid restriction. Hyperlipidemia. Continue home medications. Anxiety disorder. Continue Xanax. Hx of thyroid Cancer. Outpatient follow-up. DVT prophylaxis: Eliquis . Discharge Plan: Home
[2023-06-11 15:36] VITALS: O2SAT 96
== END 2023-06-11 10:39 | disposition home or self-care (01) | DRG 291 ==
LOC: ER 08:05 → ERHOLD 15:41 → 2ND 16:53
PROVIDERS: ADMIT Internal Medicine; ATTEND Internal Medicine
DX: I13.0 Hypertensive heart and chronic kidney disease with heart failure and stage 1 through stage 4 chronic kidney disease, or unspecified chronic kidney disease (principal); I50.33 Acute on chronic diastolic (congestive) heart failure; I48.19 Other persistent atrial fibrillation; E87.1 Hypo-osmolality and hyponatremia; N18.9 Chronic kidney disease, unspecified; E03.9 Hypothyroidism, unspecified; F41.9 Anxiety disorder, unspecified; D63.8 Anemia in other chronic diseases classified elsewhere; E78.00 Pure hypercholesterolemia, unspecified; K21.9 Gastro-esophageal reflux disease without esophagitis; Z95.0 Presence of cardiac pacemaker; Z88.1 Allergy status to other antibiotic agents; Z79.01 Long term (current) use of anticoagulants; Z79.82 Long term (current) use of aspirin; Z86.718 Personal history of other venous thrombosis and embolism; Z79.890 Hormone replacement therapy; Z79.899 Other long term (current) drug therapy; Z85.850 Personal history of malignant neoplasm of thyroid; Z20.822 Contact with and (suspected) exposure to COVID-19
CPT/HCPCS: 36415; 71045; 71275; 80048; 80061; 80076; 83735; 83880; 84100; 84132; 84439; 84443; 84484; 85025; 85610; 87635; 93005; 93970; 96374; 96375; 99285; J0282; J0360; J1940; J7030; J7060; Q9967

== ENCOUNTER 2023-11-28 11:09 | Inpatient (IN) | payer OTHER ==
[2023-11-28 12:00] LABS: Absolute Lymphocytes (CBC) 0.4 K/uL (0.7-4.9); Hematocrit 38.1 % (36.0-45.0); Lymphocytes % 6.4 % (15.3-44.8); MCV 85.7 fL (80-100); Platelets 498 thou/uL (152-406); RBC Red Blood Cell Count 4.45 M/uL (3.86-4.86)
[2023-11-28] MEDS ORDERED: NA CHLORIDE 0.9% 1,000 ML ONE (12:00)
[2023-11-28 12:25] LABS: Albumin 3.3 g/dL (3.4-5.0); Potassium 2.9 mEq/L (3.5-5.1); Protein, Total 6.3 g/dL (6.4-8.2)
[2023-11-28 12:45] LABS: SARS-COV-2 RT PCR NEGATIVE (NEGATIVE)
--- NOTE | 2023-11-28 12:55 | RAD REPORT ---
EXAM DESCRIPTION: CT - Head Brain Wo Cont - 11/28/2023 12:44 pm CLINICAL HISTORY: Head injury COMPARISON: 2020 TECHNIQUE: Computed axial tomography of the head was obtained. IV contrast was not requested. All CT scans are performed using dose optimization technique as appropriate and may include automated exposure control or mA/KV adjustment according to patient size. FINDINGS: Artifact from by cochlear implants obscures evaluation of the cerebellum and cerebrum bila terally. A 15 millimeter low-density area has developed within the white matter right frontal lobe. The ventricles are normal in caliber No extra-axial fluid collection is noted. Fluid within the sinuses/ mastoids is not seen. IMPRESSION: Development of a 15 millimeter low-density area within the white matter right frontal lo be. This could represent an infarct of indeterminate age. Vasogenic edema surrounding a small lesion is probably less likely Limited examination secondary to artifact from cochlear implants
[2023-11-28] MEDS ORDERED: KCL 20 MEQ/100 mL IVPB 100 ML IV ONE (12:58)
[2023-11-28] MEDS ORDERED: POTASSIUM 25 MEQ EFFERV TAB ONE (12:59)
--- NOTE | 2023-11-28 13:08 | RAD REPORT ---
EXAM DESCRIPTION: CT - Abdomen Pelvis W Contrast - 11/28/2023 12:47 pm CLINICAL HISTORY: Abdominal pain COMPARISON: none. TECHNIQUE: Computed axial tomography of the abdomen pelvis was obtained. 100 cc Isovue-300 was admin istered intravenously. Oral contrast was not requested which limits evaluation of bowel and appendix All CT scans are performed using dose optimization technique as appropriate and may include automated exposure control or mA/KV adjustment according to patient size. FINDINGS: Cardiomegaly. Prominence of the hepatic veins and IVC. Hepatic venous congestion Increased density within the gallbladder. There may be mild gallbladder wall thickening. Gallbladder is distended Spleen, pancreas, right adrenal gland are unremarkable. Small right renal cyst. 6.6 centimeter left renal cyst. The liver, spleen, pancreas, adrenal and kidneys appear unremarkable. There is no evidence of diverticulitis. Hysterectomy. No adnexal mass 35% compression fracture L1 vertebral body. Retropulsion of bone into the spinal canal results in an approximately 30% narrowing of the thecal sac. 2 centimeter lobulated left adrenal lesion. Hounsfield unit 47 Osteoarthritis involves the hips IMPRESSION: 35% compression fracture L1 vertebral body. Retropulsion of bone into the spinal canal r esults in an approximately 30% narrowing of the thecal sac. This appears acute/subacute Gallbladder distention. Increased density within the gallbladder may represent sludge or stones. Ther e may be mild gallbladder wall thickening Hepatic venous congestion 2 centimeter lobulated left adrenal lesion does not have the typical appearance of an adenoma. A none mergent MRI adrenal gland may be helpful for further evaluation
--- NOTE | 2023-11-28 13:20 | EDPHYS ---
Physician Documentation [facility] [place] Name: Nia Mandel Age: 78 yrs Sex: Female : 1945 Arrival Date: 11/28/2023 Time: 11:09 Bed 15 Private MD: ED Physician Christopher Last HPI: 11/28 11:27 This 78 yrs old Female presents to ER via Unassigned with complaints of Diarrhea. sb4 11:27 diarrhea x 2-[address] Forde last week, negative cdiff and blood work, started sb4 on 3 medications but unsure what they are. states that diarrhea has persisted. endorses intermittent mild abdominal cramping and nausea, no known fevers or vomiting. no blood in stool. Historical: - Allergies: 11:21 Sulfa (Sulfonamide Antibiotics); nj1 - PMHx: 11:21 Atrial fibrillation; blood clots in right arm; Hypertensive disorder; THYROID CANCER; nj1 watchman procedure; - PSHx: 11:21 ablation 04/24/23; Tonsillectomy; Hysterectomy (Unknown); nj1 - Immunization history:: Client reports receiving the 2nd dose of the Covid vaccine. - Social history:: Smoking status: Patient denies any tobacco usage or history of. ROS: 11:27 Constitutional: Negative for fever, chills, and weight loss, sb4 11:27 Abdomen/GI: Positive for abdominal pain, nausea, diarrhea, 11:27 All other systems are negative, Exam: 11:27 Constitutional: This is a well developed, well nourished patient who is awake, alert, sb4 and in no acute distress. Head/Face: Normocephalic, atraumatic. Eyes: Extra-ocular motions intact. Periorbital areas with no swelling, redness, or edema. ENT: Mucous membranes moist. Cardiovascular: Regular rate and rhythm with a normal S1 and S2. Respiratory: Lungs have equal breath sounds bilaterally, clear to auscultation and percussion. No rales, rhonchi or wheezes noted. No increased work of breathing, no retractions or nasal flaring. Abdomen/GI: Soft, non-tender, no distension. Skin: Warm, dry with normal turgor. Normal color with no rashes, no lesions, and no evidence of cellulitis. MS/ Extremity: Pulses equal, no cyanosis. Neurovascular intact. Full, normal range of motion. Neuro: Awake and alert, GCS 15, oriented to person, place, time, and situation. Motor strength 5/5 in all extremities. Sensory grossly intact. Vital Signs: 11:15 BP 177 / 84; Pulse 60; Resp 14; Pulse Ox 99% ; ko1 11:21 BP 157 / 87; Pulse 64; Resp 18; Temp 98.4(O); Pulse Ox 100% on R/A; Weight 74.84 kg; nj1 Height 5 ft. 7 in. ; 11:21 Body Mass Index 25.84 (74.84 kg, 170.18 cm) nj1 MDM: 11:17 Patient medically screened. sb4 11:49 ED course: family states Dr. Forde told her she would be admitted. will call him with sb4 results and to clarify. 13:19 Data reviewed: vital signs, nurses notes, lab test result(s), radiologic studies, and sb4 as a result, I will admit patient. Consideration of Admission/Observation Patient was admitted/placed on observation. Management of patient was discussed with the following: Primary Care Provider: Dr. Forde, wishes to admit patient for observation. Historians other than the Patient: Daughter/Son: daughter. Counseling: I had a detailed discussion with the patient and/or guardian regarding the historical points, exam findings, and any diagnostic results supporting the discharge/admit diagnosis, lab results, radiology results, the need for further work-up and treatment in the hospital. 11/28 11:26 Order name: CBC with Diff; Complete Time: 12:01 11/28 11:26 Order name: CMP; Complete Time: 12:27 11/28 11:26 Order name: Lipase; Complete Time: 12:27 11/28 11:26 Order name: Fecal Leukocyte Stain 11/28 11:26 Order name: Ova And Parasites 11/28 11:26 Order name: Rotavirus Antigen 11/28 11:26 Order name: Stool Culture 11/28 11:26 Order name: BNP; Complete Time: 12:27 11/28 11:26 Order name: COVID-19/FLU A+B/RSV; Complete Time: 12:47 sb4 11/28 11:26 Order name: Head Brain Wo Cont CT; Complete Time: 12:56 sb4 11/28 11:26 Order name: CT Abd/Pelvis - IV Contrast Only; Complete Time: 13:10 sb4 11/28 11:26 Order name: IV Saline Lock; Complete Time: 11:51 sb4 11/28 11:26 Order name: Labs collected and sent; Complete Time: 11:51 sb4 11/28 13:37 Order name: EKG - Nurse/Tech; Complete Time: 14:25 sb4 EC:25 Rate is 84 beats/min. Rhythm is irregularly irregular, A fib with Multifocal PVCs, Left sb4 bundle branch block. QRS interval is normal at 160 msec. QT interval is prolonged at 460 msec. Interpreted by me. Reviewed by me. Administered Medications: 12:02 Drug: NS 0.9% IV 1000 ml IV at 75 ml/hr continuous Route: IV; Rate: 75 ml/hr; Site: ko1 right antecubital; 13:01 Drug: Potassium PO Effervescent Tablet 50 mEq PO once; dissolve in 4 ounces of water or ko1 juice Route: PO; 13:01 Drug: Potassium Chloride IV 20 mEq IV at calculated rate once; administer over 1-2 ko1 hours Route: IV; Rate: calculated rate; Site: right antecubital; 13:46 Drug: Ondansetron IVP 4 mg IVP once; over 2 minutes Route: IVP; Site: right antecubital;ph Disposition: 15:36 Co-signature as Attending Physician, Christopher Last MD I reviewed the patient's care rt provided by the Advanced Practice Provider and agree with the diagnosis and treatment plan. Disposition Summary: 11/28/23 13:20 Hospitalization Ordered Notes: Hospitalization Status: Observation sb4 Provider: Felipe Forde sb4 Location: Telemetry/MedSurg (observation) sb4 Condition: Fair sb4 Problem: an ongoing problem sb4 Symptoms: are unchanged sb4 Bed/Room Type: Standard sb4 Room Assignment: 218(11/28/23 14:03) bd Diagnosis - Hypokalemia sb4 - Repeated falls sb4 - Diarrhea, unspecified sb4 Forms: - Medication Reconciliation Form sb4 - SBAR form sb4 - Leadership Thank You Letter sb4 Signatures: Dispatcher [employer] Afshan Sams Patricia RN RN ph Corina Baird RN RN ko1 Rhina Calhoun, PAJoshuaC PA-C sb4 Christopher Last MD MD rt Judie Branham RN RN nj1 Corrections: (The following items were deleted from the chart) 14:03 13:20 sb4 bd
--- NOTE | 2023-11-28 13:20 | ER ---
Nurse's Notes [facility] Name: Nia Mandel Age: 78 yrs Sex: Female : 1945 Arrival Date: 11/28/2023 Time: 11:09 Bed 15 Private MD: Diagnosis: Hypokalemia;Repeated falls;Diarrhea, unspecified Presentation: 11/28 11:21 Chief complaint: Patient states: Diarrhea for 3 weeks, has seen her PCP, told negative [facility] for Cdiff. Congested today, fall 2 days ago. 11:21 Coronavirus screen: Vaccine status: Patient reports receiving the 2nd dose of the covid nj1 vaccine. Ebola Screen: Patient denies travel to an Ebola-affected area in the 21 days before illness onset. Initial Sepsis Screen: Does the patient meet any 2 criteria? No. Patient's initial sepsis screen is negative. Does the patient have a suspected source of infection? No. Patient's initial sepsis screen is negative. Risk Assessment: Do you want to hurt yourself or someone else? Patient reports no desire to harm self or others. Onset of symptoms was November 2023. 11:21 Method Of Arrival: Wheelchair nj1 11:21 Acuity: SHYANNE 3 nj1 Triage Assessment: 15:07 General: Appears in no apparent distress. Behavior is calm, cooperative, appropriate ko1 for age. Historical: - Allergies: 11:21 Sulfa (Sulfonamide Antibiotics); nj1 - PMHx: 11:21 Atrial fibrillation; blood clots in right arm; Hypertensive disorder; THYROID CANCER; nj1 watchman procedure; - PSHx: 11:21 ablation 04/24/23; Tonsillectomy; Hysterectomy (Unknown); nj1 - Immunization history:: Client reports receiving the 2nd dose of the Covid vaccine. - Social history:: Smoking status: Patient denies any tobacco usage or history of. Screenin:15 [facility] ED Fall Risk Assessment (Adult) History of falling in the last 3 months, ko1 including since admission Yes- single mechanical fall (1 pt) Confusion or Disorientation No (0 pts) Intoxicated or Sedated No (0 pts) Impaired Gait Yes (1 pt) Mobility Assist Device Used Yes (1 pt) Altered Elimination No (0 pt) Score/Fall Risk Level 3 or more points = High Risk Oriented to surroundings, Maintained a safe environment, Educated pt \T\ family on fall prevention, incl call for assistance when getting out of bed, Assessed \T\ reinforced patient's understanding of fall precautions, Provided non-skid footwear, Hourly rounding (assess needs \T\ fall precautionary measures) done, Used ambulatory aids as needed (educated on \T\ assisted with), Used gait belt as appropriate Implemented a Fall Risk Plan of Care, Apply high fall risk patient identification: yellow non skid footwear/ fall signage. Abuse screen: Denies threats or abuse. Denies injuries from another. Nutritional screening: No deficits noted. Tuberculosis screening: No symptoms or risk factors identified. Assessment: 11:15 Pain: Complains of pain in abdomen. GI: Reports diarrhea, nausea. ko1 Vital Signs: 11:15 BP 177 / 84; Pulse 60; Resp 14; Pulse Ox 99% ; ko1 11:21 BP 157 / 87; Pulse 64; Resp 18; Temp 98.4(O); Pulse Ox 100% on R/A; Weight 74.84 kg; nj1 Height 5 ft. 7 in. ; 11:21 Body Mass Index 25.84 (74.84 kg, 170.18 cm) nj1 ED Course: 11:11 Patient arrived in ED. im 11:12 Rhina Calhoun PA-C is PHCP. sb4 11:12 Christopher Last MD is Attending Physician. sb4 11:15 No provider procedures requiring assistance completed. ko1 11:15 Patient has correct armband on for positive identification. Allergy band placed. Fall ko1 risk band placed. Placed in gown. Bed in low position. Call light in reach. Side rails up X2. Provided Education on: na. Pulse ox on. NIBP on. Door closed. Noise minimized. Lights dimmed. Warm blanket given. Pillow given. 11:21 Arm band placed on. nj1 11:29 Corina Baird, LISETH is Primary Nurse. ko1 11:45 Inserted saline lock: 22 gauge in right antecubital area, using aseptic technique. ko1 Blood collected. 11:51 COVID-19/FLU A+B/RSV Sent. ko1 11:51 BNP Sent. ko1 11:51 CBC with Diff Sent. ko1 11:51 CMP Sent. ko1 11:51 Lipase Sent. ko1 12:03 Triage completed. nj1 12:45 Head Brain Wo Cont CT In Process Unspecified. EDMS 12:49 CT Abd/Pelvis - IV Contrast Only In Process Unspecified. EDMS 13:19 Felipe Forde MD is Hospitalizing Provider. sb4 15:07 Patient admitted, IV remains in place. ko1 Administered Medications: 12:02 Drug: NS 0.9% IV 1000 ml IV at 75 ml/hr continuous Route: IV; Rate: 75 ml/hr; Site: ko1 right antecubital; 13:01 Drug: Potassium PO Effervescent Tablet 50 mEq PO once; dissolve in 4 ounces of water or ko1 juice Route: PO; 13:01 Drug: Potassium Chloride IV 20 mEq IV at calculated rate once; administer over 1-2 ko1 hours Route: IV; Rate: calculated rate; Site: right antecubital; 13:46 Drug: Ondansetron IVP 4 mg IVP once; over 2 minutes Route: IVP; Site: right antecubital;ph Medication: 11:15 VIS not applicable for this client. ko1 Outcome: 13:20 Decision to Hospitalize by Provider. sb4 14:15 Admitted to ER Hold. Please see [facility] for further documentation. ko1 14:15 Condition: stable 14:15 Instructed on the need for admit, 15:20 Patient left the ED. ko1 Signatures: Dispatcher [employer] EDBina Luna, RN RN Corina Baird RN RN ko1 Rhina Calhoun, PA-C PA-C sb4 Judie Branham RN RN nj1 Leatha Mustafa im
[2023-11-28] MEDS ORDERED: ONDANSETRON 4 MG/2 ML VIAL ONE (13:39)
[2023-11-28 15:33] VITALS: O2SAT 100
[2023-11-28] MEDS ORDERED: ACETAMINOPHEN 325 MG TABLET PO PRN (15:54)
[2023-11-28 16:31] VITALS: BMI 25.8
[2023-11-28] MEDS: NS KCL 20MEQ 20 MEQ/1,000 ML BAG IV SCH (17:22)
--- NOTE | 2023-11-28 18:53 | RAD REPORT ---
EXAM DESCRIPTION: USExtremity Venous Uni Ltd11/28/2023 4:28 pm CLINICAL HISTORY: left leg swelling COMPARISON: 2022 FINDINGS: Left common femoral, superficial femoral, greater saphenous, popliteal and posterior tibi al veins are compressible and demonstrate augmentation. Doppler demonstrates good flow. Grayscale, color and spectral analysis performed on all vessels IMPRESSION: No evidence of deep venous thrombosis involving the left lower extremity.
[2023-11-28] MEDS: AMIODARONE HCL 200 MG TAB PO SCH (20:06)
[2023-11-28] MEDS: APIXABAN 2.5 MG TABLET PO SCH (20:06)
[2023-11-28] MEDS: carvediloL 6.25 MG TAB PO SCH (20:07)
[2023-11-28] MEDS: ALPRAZOLAM 1 MG TABLET PO SCH (20:07)
[2023-11-29 04:32] LABS: Absolute Lymphocytes (CBC) 0.5 K/uL (0.7-4.9); Hematocrit 34.6 % (36.0-45.0); Lymphocytes % 7.8 % (15.3-44.8); MCV 86.5 fL (80-100); MPV 7.9 fL (7.6-11.3); Platelets 422 thou/uL (152-406)
[2023-11-29 04:42] LABS: Phosphorus 2.8 mg/dL (2.5-4.9); Potassium 3.5 mEq/L (3.5-5.1)
[2023-11-29] MEDS: LEVOTHYROXINE SOD 0.075 MG TAB PO SCH (05:53)
[2023-11-29] MEDS ORDERED: HOME MED 1 EA UNK (Levothyroxine Sodium [Levothyroxine Sodium] 150 MCG Tablet) PO SCH (09:00)
[2023-11-29] MEDS: POTASSIUM CL SA 10 MEQ TAB PO ONE (09:23)
[2023-11-29] MEDS: SPIRONOLACTONE 25 MG TABLET PO SCH (09:23)
[2023-11-29] MEDS: ASPIRIN 81 MG CHEWABLE TABLET PO SCH (09:24)
[2023-11-29] MEDS: AMLODIPINE 5 MG TAB PO SCH (09:24)
[2023-11-29] MEDS: DULOXETINE 20 MG CAP PO SCH (09:24)
--- NOTE | 2023-11-29 11:15 | HP ---
Date of Admission: 11/28/2023 Entrance Complaint: Persistent diarrhea, falls. History Of Present Illness: The patient has stated she has had diarrhea up to 5-6 times a day for th e past few weeks. She was seen in the office at which time blood test for electrolytes and creatinin e were essentially normal. She was treated with antispasmodics with no improvement. According to e family and the patient, she has had multiple falls over the past few weeks and especially over the weekend. She therefore presented to the emergency room for further treatment. Past History: The patient has a history of coronary artery disease, had a Watchman procedure, has no significant GI problems. Family History: Noncontributory. Social History: Nonsmoker, nondrinker. Physical Examination: General: The patient is an elderly female with stable vital signs. Head And Neck: Normocephalic. Pupils equal and reactive to light and accommodation. Chest: Clear to P and A. Cardiovascular: PMI midclavicular line. Heart: Sounds normal. Peripheral pulses present and equal bilaterally. Abdomen: No organomegaly. Bowel sounds hyperactive. Extremities: Moderately dehydrated. Neurological: Good tone and movement bilaterally. Reflexes physiologic. Rectal and Pelvic: Deferred. Impression: Acute enteritis, unknown etiology, dehydration, atrial fibrillation with a history of Wa tchman procedure, controlled. Plan: The patient will be placed on IV hydration. Symptomatic treatment will be undertaken after eir workup to include scans and blood work. It should also be noted that she had a stool for C diff last week which was negative. The possibility of rehab placement was also discussed with the patient due to multiple falls and stating that her legs just do not hold her up. She uses a walker for the most part. She is under home PT and has been for months. HR/MODL Voice ID: [id number]
[2023-11-29] MEDS ORDERED: cloNIDine HCL 0.1 MG TAB PO PRN (14:27)
[2023-11-29] MEDS: FUROSEMIDE 40 MG TABLET PO ONE (14:37)
[2023-11-29] MEDS: cloNIDine HCL 0.1 MG TAB PO ONE (14:37)
--- NOTE | 2023-11-29 15:50 | EKG ---
Test Date: 2023-11-28 Test Time: 14:11:10 Director Communications: JESSY MEASUREMENT RESULTS: Intervals: Rate: 84 CO: QRSD: 160 QT: 460 QTc: 543 [place]: P: CO: QRS: -77 T: 117 INTERPRETIVE STATEMENTS: Atrial fibrillation with premature ventricular or aberrantly conducted complexes Left axis deviation Left bundle branch block Abnormal ECG Compared to ECG 06/08/2023 09:34:24 Ventricular premature complex(es) now present Ventricular-paced complex(es) or rhythm no longer present Electronically Signed On 11-29-23 15:46:41 PREPARATION DEPARTMENT SUPERVISOR by Dick Starkey
--- NOTE | 2023-11-29 20:30 | PN ---
Date of Progress Note: 11/29/2023 The patient states she still feels weak. However, potassium is better. Her hydration has improved. Has slight elevation of her LFT. Has some problems with her blood pressure. The addition of clonid ine has helped. I have discussed rehab with her. We will obtain PT eval, social work manager eval in a. m. If possible she could go home in the afternoon. HR/MODL Voice ID: [id number] Report ID: [id number]
[2023-11-30 04:40] LABS: Potassium 3.8 mEq/L (3.5-5.1)
[2023-11-30] MEDS: POTASSIUM CL SA 10 MEQ TAB PO ONE (06:01)
[2023-11-30] MEDS: FUROSEMIDE 40 MG TABLET PO SCH (09:01)
[2023-12-01 11:33] VITALS: BP 140/66; TEMP 97.8
--- NOTE | 2023-12-01 23:59 | PN ---
Date of Progress Note: 12/01/2023 The patient feels considerably better today. The diarrhea has ceased. Had normal bowel movements. PT has been productive. She is doing quite well with her walking now. She feels a lot better. Outp atient physical therapy is being set up and she can be discharged, continued on her usual home medici ne and using the Bentyl 20 mg q.6 p.r.n. for diarrhea. She will be seen in the office in 1 week to c heck her potassium. Final Diagnoses: Generalized weakness, hypokalemia, dehydration, coronary artery disease by history. HR/MODL Voice ID: [id number] Report ID: [id number]
== END 2023-12-01 14:44 | disposition home or self-care (01) | DRG 641 ==
LOC: ER 11:09 → ERHOLD 13:22 → 2ND 14:26 → OBSVTOIN 11-30 20:21
PROVIDERS: ADMIT Family Medicine; ATTEND Family Medicine
DX: E87.6 Hypokalemia (principal); E86.0 Dehydration; I48.91 Unspecified atrial fibrillation; K52.9 Noninfective gastroenteritis and colitis, unspecified; I25.10 Atherosclerotic heart disease of native coronary artery without angina pectoris; R29.6 Repeated falls; R79.89 Other specified abnormal findings of blood chemistry; Z88.2 Allergy status to sulfonamides; Z11.52 Encounter for screening for COVID-19; Z91.81 History of falling; Z90.710 Acquired absence of both cervix and uterus; Z85.850 Personal history of malignant neoplasm of thyroid
CPT/HCPCS: 0241U; 36415; 70450; 74177; 80048; 80053; 83690; 83735; 83880; 84100; 85025; 87045; 87046; 87177; 87209; 87425; 89055; 93005; 93971; 96374; 96375; 97116; 97161; 97530; 99285; G0378; J2405; J3480; J7030; Q9967

== ENCOUNTER 2024-07-18 12:59 | Emergency (ER) | payer OTHER ==
[2024-07-18 13:36] LABS: Absolute Basophils 0.1 K/uL (0-0.5); Absolute Lymphocytes (CBC) 0.5 K/uL (0.7-4.9); Absolute Monocytes 1.5 K/uL (0.1-1.3); Absolute Neutrophil 8.4 K/uL (1.8-8.0); Basophils % 0.6 % (0-1.3); Eosinophils % 0.4 % (0-4.4); Hematocrit 41.1 % (36.0-45.0); Hemoglobin 13.4 g/dL (12.0-15.0); Lymphocytes % 4.6 % (15.3-44.8); MCH 26.7 pg (27.0-35.0); MCHC 32.6 g/dL (32.0-36.0); MCV 81.9 fL (80-100); MPV 8.6 fL (7.6-11.3); Neutrophils % 80.4 % (41.7-73.7); Platelets 509 thou/uL (152-406); RBC Red Blood Cell Count 5.02 M/uL (3.86-4.86); Red Cell Distribution Width 18.4 % (12.1-15.2)
[2024-07-18] MEDS ORDERED: IPRATROPIUM BROM 0.5MG/2.5ML ONE (13:47)
[2024-07-18] MEDS ORDERED: ALBUTEROL 2.5 MG/3 ML NEB SOL ONE (13:47)
[2024-07-18 13:55] LABS: Albumin 3.9 g/dL (3.4-5.0); Anion Gap 10.1 mEq/L (5.0-15.0); Bilirubin Direct 0.6 mg/dL (0-0.2); Bilirubin Indirect, Calculated 0.6 mg/dL (0.2-0.8); Bilirubin Total 1.2 mg/dL (0.2-1.0); Globulin 3.8 g/dL (2.3-3.5); Potassium 3.1 mEq/L (3.5-5.1); Protein, Total 7.7 g/dL (6.4-8.2); Troponin High Sensitivity 35.8 pg/mL (<58.9)
--- NOTE | 2024-07-18 14:26 | RAD REPORT ---
EXAMINATION: ONE VIEW CHEST XR CLINICAL INDICATION: DYSPNEA TECHNIQUE: Frontal chest projection is submitted. Examination is limited by patient positioning and t echnique. COMPARISON: 06/08/2023 FINDINGS: Moderate pulmonary edema. The cardiac silhoutte is severely enlarged in size. Dual lead pacer device. IMPRESSION: Moderate CHF versus volume overload.
--- NOTE | 2024-07-18 15:54 | EDPHYS ---
Physician Documentation [facility] Name: Nia Mandel Age: 78 yrs Sex: Female : 1945 Arrival Date: 07/18/2024 Time: 12:59 Bed IW9 Private MD: ED Physician Christopher Last HPI: 07/18 17:38 This 78 yrs old Female presents to ER via Wheelchair with complaints of Cough. rt 17:38 Patient presents to the ED with cough, shortness of breath. Patient was at Dr. rt Forde's office to get CT results from her , however, Dr. Forde noted that she was short of breath and stated that her oxygen saturations were 77% on room air. Patient was brought to the ED, stating that she was only mildly short of breath and did not wish to be admitted to the hospital. Denies chest pain. Denies other acute complaints, symptoms are moderate in severity, no other aggravating or alleviating factors.. Historical: - Allergies: 13:01 Sulfa (Sulfonamide Antibiotics); ll1 - PMHx: 13:01 Atrial fibrillation; Hypertensive disorder; THYROID CANCER; blood clots in right arm; ll1 watchman procedure; - PSHx: 13:01 ablation 04/24/23; hysterectomy; Tonsillectomy; ll1 - Immunization history:: Adult Immunizations up to date. - Infectious Disease History:: Denies. - Social history:: Smoking status: Patient denies any tobacco usage or history of. - Family history:: pertinent for. ROS: 17:38 Constitutional: Negative for fever, chills, and weight loss, Cardiovascular: Negative rt for chest pain, palpitations, and edema, Abdomen/GI: Negative for abdominal pain, nausea, vomiting, diarrhea, and constipation, MS/Extremity: Negative for injury and deformity, Skin: Negative for injury, rash, and discoloration, Neuro: Negative for headache, weakness, numbness, tingling, and seizure, 17:38 Respiratory: Positive for cough, shortness of breath, Exam: 17:38 Constitutional: This is a well developed, well nourished patient who is awake, alert, rt and in no acute distress. Head/Face: Normocephalic, atraumatic. Chest/axilla: Normal chest wall appearance and motion. Nontender with no deformity. No lesions are appreciated. Cardiovascular: Regular rate and rhythm with a normal S1 and S2. No gallops, murmurs, or rubs. Normal PMI, no JVD. No pulse deficits. Abdomen/GI: Soft, non-tender, with normal bowel sounds. No distension or tympany. No guarding or rebound. No evidence of tenderness throughout. Skin: Warm, dry with normal turgor. Normal color with no rashes, no lesions, and no evidence of cellulitis. MS/ Extremity: Pulses equal, no cyanosis. Neurovascular intact. Full, normal range of motion. 17:38 Respiratory: Faint bibasilar crackles, no respiratory distress, 17:38 ECG was reviewed by the Attending Physician. rt Vital Signs: 13:03 BP 187 / 77; Pulse 94; Resp 20; Temp 97.9; Pulse Ox 98% ; Weight 65.77 kg; Height 5 ft. ll1 7 in. ; Pain 0/10; 14:14 BP 183 / 84; Pulse 77; Resp 18; Pulse Ox 97% on R/A; ph 15:30 BP 180 / 72; Pulse 89; Resp 18; Temp 97.5; Pulse Ox 97% on R/A; ph 16:15 BP 178 / 96; Pulse 87; Resp 20; Temp 97.5; Pulse Ox 95% on R/A; ph 13:03 Body Mass Index 22.71 (65.77 kg, 170.18 cm) ll1 13:03 Pain Scale: Adult ll1 MDM: 13:06 Medical Screening Exam initiated rt 17:38 Differential Diagnosis CHF, bronchospasm, pneumonia. Data reviewed: vital signs, nurses rt notes, lab test result(s), EKG, radiologic studies. Consideration of Admission/Observation Escalation of care including admission/observation considered. Workup back, patient is not hypoxic in the emergency department, states that she is strongly desirous of discharge, states that symptoms have significantly improved with breathing treatment in the ED. I discussed findings of pulmonary edema with the patient. Patient was ambulated, oxygen saturation did not drop below 95%. Patient desires to have a trial of outpatient diuresis, will prescribe this for the patient, strict return precautions were discussed with the patient.. Management of patient was discussed with the following: Primary Care Provider: Discussed with patient's primary care prior to arrival. I considered the following discharge prescriptions or medication management in the emergency department Medications were administered in the Emergency Department. See MAR. Independent interpretation of the following test(s) in the Emergency Department X-Ray: My interpretation is Pulmonary edema seen on interpretation of x-ray images. Test considered but Not performed: CT: Low suspicion for pulmonary embolus, CT angiogram not indicated. Care significantly affected by the following chronic conditions: Hypertension. Counseling: I had a detailed discussion with the patient and/or guardian regarding the historical points, exam findings, and any diagnostic results supporting the discharge/admit diagnosis, lab results, radiology results, the need for outpatient follow up, to return to the emergency department if symptoms worsen or persist or if there are any questions or concerns that arise at home. Response to treatment: the patient's symptoms have markedly improved after treatment. 07/18 13:13 Order name: Basic Metabolic Panel; Complete Time: 13:57 rt 07/18 13:13 Order name: CBC with Diff; Complete Time: 13:57 rt 07/18 13:13 Order name: LFT's; Complete Time: 13:57 rt 07/18 13:13 Order name: NT PRO-BNP; Complete Time: 13:57 rt 07/18 13:13 Order name: Troponin HS; Complete Time: 13:57 rt 07/18 13:13 Order name: XRAY Chest (1 view); Complete Time: 14:35 rt 07/18 13:13 Order name: Cardiac monitoring; Complete Time: 13:50 rt 07/18 13:13 Order name: EKG - Nurse/Tech; Complete Time: 13:40 rt 07/18 13:13 Order name: IV Saline Lock; Complete Time: 13:50 rt 07/18 13:13 Order name: Labs collected and sent; Complete Time: 13:30 rt 07/18 13:13 Order name: O2 Per Protocol; Complete Time: 13:50 rt 07/18 13:13 Order name: O2 Sat Monitoring; Complete Time: 13:50 rt EC:38 Rate is 89 beats/min. Rhythm is regular, A fib with Left bundle branch block. QRS rt interval is normal. QT interval is normal. No Q waves. Administered Medications: 13:50 Drug: DuoNeb Nebulize (3:1) (2.5 mg - 0.5 mg) 3 ml Nebulizer once Route: Nebulizer; iw 16:27 Follow up: Response: No adverse reaction ph 15:53 CANCELLED (Duplicate Order): [id number] mg IVP once; give over 2 minutes rt 16:27 Drug: Furosemide IVP 40 mg IVP once; give over 2 minutes Route: IVP; Site: right ph antecubital; 16:27 Follow up: Response: No adverse reaction; Medication Administered at Departure ph Disposition Summary: 07/18/24 15:54 Discharge Ordered Notes: Location: Home rt Problem: new rt Symptoms: have improved rt Condition: Stable rt Diagnosis - Systolic (congestive) heart failure rt - Acute bronchitis, unspecified rt Followup: rt - With: Private Physician - When: 2 - 3 days - Reason: Discharge Instructions: - Discharge Summary Sheet rt - Acute Bronchitis, Adult rt Forms: - Medication Reconciliation Form rt - Antibiotic Education rt - Prescription Opioid Use rt - Patient Portal Instructions rt - Leadership Thank You Letter rt Prescriptions: - albuterol sulfate 90 mcg/actuation Inhalation HFA Aerosol Inhaler - inhale 3 inhalation INHALATION route every 4 to 6 hours as needed for shortness rt of breath or wheezing; do not exceed 16 puffs per 24 hrs; 2 Each; Refills: 0, Product Selection Permitted - Lasix 40 mg Oral Tablet - take 1 tablet ORAL route once daily for 30 days; 30 tablet; Refills: 0, Product rt Selection Permitted - Prednisone 20 mg Oral Tablet - take 2 tablets ORAL route once daily for 5 days; 10 tablet; Refills: 0, Product rt Selection Permitted Signatures: Dispatcher [employer] Meghna Tesfaye RN RN iw Hall, Patricia, RN RN ph Lewis, Lynsay, RN RN ll Christopher Last MD MD rt Corrections: (The following items were deleted from the chart) 15:53 15:53 Furosemide IVP 40 mg IVP once; give over 2 minutes ordered. rt rt
--- NOTE | 2024-07-18 15:54 | ER ---
Nurse's Notes [facility] Name: Nia Mandel Age: 78 yrs Sex: Female : 1945 Arrival Date: 07/18/2024 Time: 12:59 Bed IW9 Private MD: Diagnosis: Systolic (congestive) heart failure;Acute bronchitis, unspecified Presentation: 07/18 13:01 Coronavirus screen: Client denies travel out of the [place] in the last 14 days. ll1 difficulty breathing, shortness of breath, Client presents with at least one sign or symptom that may indicate coronavirus-19. Standard/surgical mask placed on the client. Ebola Screen: Patient denies travel to an Ebola-affected area in the 21 days before illness onset. Initial Sepsis Screen: Does the patient meet any 2 criteria? No. Patient's initial sepsis screen is negative. Does the patient have a suspected source of infection? No. Patient's initial sepsis screen is negative. Risk Assessment: Do you want to hurt yourself or someone else? Patient reports no desire to harm self or others. 13:01 Method Of Arrival: Wheelchair ll1 13:01 Acuity: SHYANNE 3 ll1 13:03 Chief complaint: Patient states: Sent by Dr. Mcdaniel for SOB and low O2 sat. Onset of ll1 symptoms was July 18, 2024. Triage Assessment: 13:01 General: Appears in no apparent distress. Behavior is cooperative, appropriate for age, ll1 anxious. General: Reports "I just wanted my CT results". Pain: Denies pain. Respiratory: Reports shortness of breath labored breathing. Historical: - Allergies: 13:01 Sulfa (Sulfonamide Antibiotics); ll1 - PMHx: 13:01 Atrial fibrillation; Hypertensive disorder; THYROID CANCER; blood clots in right arm; ll1 watchman procedure; - PSHx: 13:01 ablation 04/24/23; hysterectomy; Tonsillectomy; ll1 - Immunization history:: Adult Immunizations up to date. - Infectious Disease History:: Denies. - Social history:: Smoking status: Patient denies any tobacco usage or history of. - Family history:: pertinent for. Screenin:14 [facility] ED Fall Risk Assessment (Adult) History of falling in the last 3 months, ph including since admission No falls in past 3 months (0 pts) Confusion or Disorientation No (0 pts) Intoxicated or Sedated No (0 pts) Impaired Gait No (0 pts) Mobility Assist Device Used No (0 pt) Altered Elimination No (0 pt) Score/Fall Risk Level 0 - 2 = Low Risk Oriented to surroundings, Maintained a safe environment, Hourly rounding (assess needs \\T\\ fall precautionary measures) done. Abuse screen: Denies threats or abuse. Denies injuries from another. Nutritional screening: No deficits noted. Tuberculosis screening: No symptoms or risk factors identified. Assessment: 14:16 General: Appears in no apparent distress. comfortable, well groomed, Behavior is calm, ph cooperative, appropriate for age, Denies fever. Pain: Denies pain. Neuro: Level of Consciousness is awake, alert, obeys commands, Oriented to person, place, time, situation. Cardiovascular: Capillary refill < 3 seconds in bilateral fingers Patient's skin is warm and dry. Respiratory: Reports shortness of breath cough that is Airway is patent Respiratory effort is even, unlabored, Respiratory pattern is regular, symmetrical. Derm: Skin is pink, warm \\T\\ dry. 15:45 Reassessment: Ambulated pt in hallway per Dr Last, Spo2 95% RA upon returned to ER bed 8. Vital Signs: 13:03 BP 187 / 77; Pulse 94; Resp 20; Temp 97.9; Pulse Ox 98% ; Weight 65.77 kg; Height 5 ft. ll1 7 in. ; Pain 0/10; 14:14 BP 183 / 84; Pulse 77; Resp 18; Pulse Ox 97% on R/A; ph 15:30 BP 180 / 72; Pulse 89; Resp 18; Temp 97.5; Pulse Ox 97% on R/A; ph 16:15 BP 178 / 96; Pulse 87; Resp 20; Temp 97.5; Pulse Ox 95% on R/A; ph 13:03 Body Mass Index 22.71 (65.77 kg, 170.18 cm) ll1 13:03 Pain Scale: Adult ll1 ED Course: 13:00 Patient arrived in ED. rt 13:00 Arm band placed on. ll1 13:01 Christopher Last MD is Attending Physician. rt 13:01 Triage completed. ll1 13:30 Basic Metabolic Panel Sent. bc6 13:30 CBC with Diff Sent. bc6 13:30 LFT's Sent. bc6 13:30 NT PRO-BNP Sent. [facility] 13:30 Troponin HS Sent. 6 13:30 Initial lab(s) drawn, by me, sent to lab. Missed attempt(s): 22 gauge in right bc6 antecubital area. Bleeding controlled, band aid applied, catheter tip intact. 13:47 Bina Mcneil, RN is Primary Nurse. ph 14:15 Patient has correct armband on for positive identification. Bed in low position. Call ph light in reach. Pulse ox on. NIBP on. Door closed. Noise minimized. 14:23 XRAY Chest (1 view) In Process Unspecified. EDMS 16:28 No provider procedures requiring assistance completed. IV discontinued, intact, ph bleeding controlled, No redness/swelling at site. Pressure dressing applied. Administered Medications: 13:50 Drug: DuoNeb Nebulize (3:1) (2.5 mg - 0.5 mg) 3 ml Nebulizer once Route: Nebulizer; iw 16:27 Follow up: Response: No adverse reaction ph 15:53 CANCELLED (Duplicate Order): [id number] mg IVP once; give over 2 minutes rt 16:27 Drug: Furosemide IVP 40 mg IVP once; give over 2 minutes Route: IVP; Site: right ph antecubital; 16:27 Follow up: Response: No adverse reaction; Medication Administered at Departure ph Medication: 14:17 VIS not applicable for this client. ph Outcome: 15:54 Discharge ordered by . rt 16:28 Discharged to home with significant other, ph 16:28 Condition: good 16:28 Discharge instructions given to patient, Instructed on discharge instructions, follow up and referral plans. medication usage, Demonstrated understanding of instructions, follow-up care, medications, Prescriptions given X 3, 16:30 Patient left the ED. ph Signatures: Dispatcher [employer] EDMS Meghna Castillo RN RN iw Bina Mcneil, LISETH CHILDERS ph Erica Dudley RN RN ll1 Christopher Last MD MD rt Tiara Rayo 6
[2024-07-18] MEDS ORDERED: FUROSEMIDE 40 MG/4 ML VIAL ONE (16:05)
[2024-07-18] MEDS ORDERED: FUROSEMIDE 40 MG TABLET ONE (16:10)
[2024-07-18 19:11] VITALS: TEMP 97.5
[2024-07-18 19:12] VITALS: BP 178/96; O2SAT 95
--- NOTE | 2024-07-19 11:52 | EKG ---
Test Date: 2024-07-18 Test Time: 13:36:09 Jewel Bearing Grinder: VINCENT MEASUREMENT RESULTS: Intervals: Rate: 89 NE: QRSD: 164 QT: 460 QTc: 559 Shelly: P: NE: QRS: 253 T: 81 INTERPRETIVE STATEMENTS: Atrial fibrillation Left bundle branch block Abnormal ECG Compared to ECG 11/28/2023 14:11:10 Ventricular premature complex(es) no longer present Left-axis deviation no longer present Electronically Signed On 07-19-24 11:50:46 CDT by Cristian Bang
== END 2024-07-18 16:30 | disposition home or self-care (01) ==
LOC: ER 12:59
DX: I50.20 Unspecified systolic (congestive) heart failure (principal); J20.9 Acute bronchitis, unspecified; I10 Essential (primary) hypertension; I48.91 Unspecified atrial fibrillation
CPT/HCPCS: 85025; 80048; 36415; 80076; 84484; 83880; 71045; J1940; J7613; J7644; 93005; 96374; 99285

== ENCOUNTER 2024-09-02 02:42 | Emergency (ER) | payer OTHER ==
[2024-09-02 03:48] LABS: Absolute Basophils 0.1 K/uL (0-0.5); Absolute Eosinophils 0.1 K/uL (0-0.5); Absolute Lymphocytes (CBC) 0.3 K/uL (0.7-4.9); Absolute Monocytes 0.6 K/uL (0.1-1.3); Absolute Neutrophil 3.7 K/uL (1.8-8.0); Basophils % 1.5 % (0-1.3); Eosinophils % 2.6 % (0-4.4); Hematocrit 39.2 % (36.0-45.0); Hemoglobin 12.7 g/dL (12.0-15.0); MCH 26.6 pg (27.0-35.0); MCHC 32.3 g/dL (32.0-36.0); MCV 82.2 fL (80-100); MPV 8.2 fL (7.6-11.3); Monocytes % 13.1 % (3.3-12.3); Neutrophils % 75.8 % (41.7-73.7); Platelets 471 thou/uL (152-406); RBC Red Blood Cell Count 4.77 M/uL (3.86-4.86); Red Cell Distribution Width 18.3 % (12.1-15.2)
[2024-09-02 04:00] LABS: PT Prothrombin Time 11.7 SECONDS (9.4-12.5); PTT, Activated Partial Thromb 36.5 SECONDS (24.3-36.9); Protime INR 1.05
[2024-09-02 04:06] LABS: Anion Gap 8.3 mEq/L (5.0-15.0); Bilirubin Direct 0.3 mg/dL (0-0.2); Bilirubin Total 0.7 mg/dL (0.2-1.0); Potassium 3.3 mEq/L (3.5-5.1)
[2024-09-02] MEDS ORDERED: PROMETHAZINE 25 MG TABLET ONE (04:06)
[2024-09-02] MEDS ORDERED: ALBUTEROL 2.5 MG/3 ML NEB SOL ONE (04:06)
[2024-09-02 04:07] LABS: Albumin 3.4 g/dL (3.4-5.0); Bilirubin Indirect, Calculated 0.4 mg/dL (0.2-0.8); Globulin 3.4 g/dL (2.3-3.5); Magnesium 1.8 mg/dL (1.6-2.4); Protein, Total 6.8 g/dL (6.4-8.2); Troponin High Sensitivity 42.2 pg/mL (<58.9)
[2024-09-02] MEDS ORDERED: CODEINE 30MG/APAP 300MG TAB ONE (04:07)
[2024-09-02] MEDS ORDERED: GUAIFENESIN/DM 5 ML UCUP ONE (04:07)
[2024-09-02] MEDS ORDERED: NA CHLORIDE 0.9% 500 ML ONE (04:07)
[2024-09-02] MEDS ORDERED: AZITHROMYCIN 250 MG TAB ONE (07:17)
--- NOTE | 2024-09-02 07:19 | EDPHYS ---
Physician Documentation [facility] Name: Nia Mandel Age: 78 yrs Sex: Female : 1945 Arrival Date: 09/02/2024 Time: 02:42 Bed 7 Private MD: ED Physician Mason Almazan HPI: 09/02 02:48 This 78 yrs old Female presents to ER via Unassigned with complaints of sp4 Cough, Shortness Of Breath. 19:15 78-year-old female presents with persistent cough and complaint of shortness of breath. sp4 Historical: - Allergies: 03:00 Sulfa (Sulfonamide Antibiotics); vc1 - PMHx: 03:00 Atrial fibrillation; watchman procedure; THYROID CANCER; Hypertensive disorder; blood vc1 clots in right arm; - PSHx: 03:00 ablation 04/24/23; hysterectomy; Tonsillectomy; vc1 - Immunization history:: Client reports receiving the 2nd dose of the Covid vaccine, Flu vaccine is not up to date. - Infectious Disease History:: Denies. - Social history:: Smoking status: Patient denies any tobacco usage or history of. - Family history:: not pertinent. ROS: 19:15 Constitutional: Negative for fever, chills, and weight loss, positive shortness of sp4 breath and cough 19:15 All other systems are negative, Exam: 03:33 Constitutional: This is a well developed, well nourished patient who is awake, alert, sp4 and in no acute distress. Head/Face: Normocephalic, atraumatic. Eyes: Pupils equal round and reactive to light, extra-ocular motions intact. Lids and lashes normal. Conjunctiva and sclera are not injected. Cornea within normal limits. Periorbital areas with no swelling, redness, or edema. ENT: Nares patent. No nasal discharge, no septal abnormalities noted. Tympanic membranes are normal and external auditory canals are clear. Oropharynx with no redness, swelling, or masses, exudates, or evidence of obstruction, uvula midline. Mucous membranes moist. Neck: Trachea midline, no thyromegaly or masses palpated, and no cervical lymphadenopathy. Supple, full range of motion without nuchal rigidity, or vertebral point tenderness. Chest/axilla: Normal chest wall appearance and motion. Nontender with no deformity. No lesions are appreciated. Cardiovascular: Regular rate and rhythm with a normal S1 and S2. No gallops, murmurs, or rubs. Normal PMI, no JVD. No pulse deficits. Respiratory: Lungs have equal breath sounds bilaterally, clear to auscultation and percussion. No rales, rhonchi or wheezes noted. No increased work of breathing, no retractions or nasal flaring. Abdomen/GI: Soft, with normal bowel sounds. No distension or tympany. No guarding or rebound. No evidence of tenderness throughout. Back: No spinal tenderness. No costovertebral tenderness. Skin: Warm, dry with normal turgor. Normal color with no rashes, no lesions, and no evidence of cellulitis. MS/ Extremity: Pulses equal, no cyanosis. Neurovascular intact. Full, normal range of motion. Neuro: Awake and alert, GCS 15, oriented to person, place, time, and situation. Cranial nerves II-XII grossly intact. Motor strength 5/5 in all extremities. Sensory grossly intact. Psych: Awake, alert, with orientation to person, place and time. Behavior, mood, and affect are within normal limits 19:13 ECG was reviewed by the Attending Physician. EKG at 0 333 atrial fibrillation at sp4 the rate of 89 Vital Signs: 03:00 BP 157 / 102; Pulse 84; Resp 20; Temp 98.7; Pulse Ox 88% on R/A; Weight 65.77 kg; vc1 Height 5 ft. 7 in. ; 03:51 BP 171 / 101; Pulse 83; Resp 18; Pulse Ox 99% on 2 lpm NC; vc1 05:43 BP 173 / 98; Pulse 73; Resp 18; Pulse Ox 98% 2 lpm ; cp4 06:50 BP 160 / 93; Pulse 83; Resp 18; Pulse Ox 99% on 2 lpm NC; cp4 03:00 Body Mass Index 22.71 (65.77 kg, 170.18 cm) vc1 [place] Coma Score: 03:33 Eye Response: spontaneous(4). Motor Response: obeys commands(6). Verbal Response: sp4 oriented(5). Total: 15. MDM: 02:48 Medical Screening Exam initiated sp4 19:17 Differential Diagnosis: Bronchitis Influenza Upper Respiratory Infection Sinusitis sp4 Pharyngitis Otitis Media. Data reviewed: vital signs, nurses notes, lab test result(s), EKG, radiologic studies, plain films. Consideration of Admission/Observation Escalation of care including admission/observation considered. ED course: Patient is feeling improved, stable for discharge home . 09/02 02:47 Order name: BMP; Complete Time: 06:10 sp4 09/02 02:47 Order name: Blood Culture Adult (2) sp4 09/02 02:47 Order name: CBC with Diff; Complete Time: 06:10 sp4 09/02 02:47 Order name: CPK; Complete Time: 06:10 sp4 09/02 02:47 Order name: Hepatic Function; Complete Time: 06:10 sp4 09/02 02:47 Order name: Lipase; Complete Time: 06:10 sp4 09/02 02:47 Order name: Magnesium; Complete Time: 06:10 sp4 09/02 02:47 Order name: NT PRO-BNP; Complete Time: 06:10 sp4 09/02 02:47 Order name: PT-INR; Complete Time: 06:10 sp4 09/02 02:47 Order name: Ptt, Activated; Complete Time: 06:10 sp4 09/02 02:47 Order name: Troponin HS; Complete Time: 06:10 sp4 09/02 02:47 Order name: Influenza Screen (a \T\ B); Complete Time: 06:10 sp4 09/02 06:11 Order name: Chest Single View XRAY; Complete Time: 19:16 sp4 09/02 02:47 Order name: EKG; Complete Time: 02:48 sp4 09/02 02:47 Order name: Cardiac monitoring; Complete Time: 03:25 sp4 09/02 02:47 Order name: EKG - Nurse/Tech; Complete Time: 03:34 sp4 09/02 02:47 Order name: IV Saline Lock; Complete Time: 03:34 sp4 09/02 02:47 Order name: Labs collected and sent; Complete Time: 03:34 sp4 09/02 02:47 Order name: O2 Per Protocol; Complete Time: 03:25 sp4 09/02 02:47 Order name: O2 Sat Monitoring; Complete Time: 03:25 sp4 EC:33 Rate is 89 beats/min. Rhythm is irregularly irregular, A fib. QRS interval is sp4 prolonged. No ST changes noted. Clinical impression: No evidence of ischemia. Interpreted by me. Reviewed by me. Administered Medications: 04:16 Drug: Albuterol Inhalation 2.5 mg Inhalation once Route: Inhalation; cp4 04:16 Drug: Dextromethorphan-Guaifenesin PO Liquid 10 mg-100 mg/5 mL 10 ml PO once Route: PO; cp4 07:24 Follow up: Response: No adverse reaction bp 04:16 Drug: Acetaminophen-Codeine PO (300 mg-30 mg) 2 tabs PO once; RASS on ADMIN: Combtv4, cp4 Very Agttd3, Agttd2, Rstlss1, AlertClm0, Drwsy-1, Lt Sdtn-2, Mod Sdtn-3, Dp Sdtn-4, UnArsble-5 Route: PO; 07:28 Follow up: Response: No adverse reaction bp 04:16 Drug: NS 0.9% IV 500 ml IV at bolus once; to be given as a bolus over 30 minutes Route: cp4 IV; Rate: bolus; Site: right antecubital; 07:43 Follow up: IV Status: Completed infusion bp 04:16 Drug: Promethazine PO 25 mg PO once Route: PO; cp4 07:29 Follow up: Response: No adverse reaction bp 07:20 Drug: AZITHromycin PO 500 mg PO once Route: PO; bp 07:28 Follow up: Response: No adverse reaction bp Disposition Summary: 09/02/24 07:18 Discharge Ordered Notes: Location: Home sp4 Problem: new sp4 Symptoms: have improved sp4 Condition: Stable sp4 Diagnosis - Acute upper respiratory illness, acute cough sp4 Followup: sp4 - With: Felipe Forde MD - When: 7 - 10 days - Reason: Recheck today's complaints Discharge Instructions: - Discharge Summary Sheet sp4 - Upper Respiratory Infection, Adult, [id number] sp4 Forms: - Patient Portal Instructions sp4 Prescriptions: - dextromethorphan-guaifenesin 20-400 mg Oral tablet - take 1 tablet ORAL route every 6 hours PRN cough; 40 tablet; Refills: 0, sp4 Product Selection Permitted - Zithromax Z-Ron 250 mg Oral Tablet - take 1 tablet ORAL route as directed for 5 days Day 1 - take two (2) tablets sp4 one time. Day 2, 3, 4 , 5 take one (1) tablet once daily.; 6 tablet; Refills: 0, Product Selection Permitted Signatures: Dispatcher [employer] EDMyles Dempsey, RN RN bp María Elena Skinner RN RN vc1 Mason Almazan MD MD sp4 Wendy Alan cp4 Corrections: (The following items were deleted from the chart) 02:48 02:48 Influenza Screen (A \T\ B)+BA.LAB.BRZ ordered. EDMS EDMS 06:11 06:11 Chest Single View+RAD.RAD.BRZ ordered. EDMS EDMS
--- NOTE | 2024-09-02 07:19 | ER ---
Nurse's Notes [facility] Name: Nia Mandel Age: 78 yrs Sex: Female : 1945 Arrival Date: 09/02/2024 Time: 02:42 Bed 7 Private MD: Diagnosis: Acute upper respiratory illness, acute cough Presentation: 09/02 03:00 Chief complaint: Patient states: SOB and cough since around 3 om. vc1 03:00 Coronavirus screen: Vaccine status: Patient reports receiving the 2nd dose of the covid vc1 vaccine. Client denies travel out of the [place] in the last 14 days. cough unrelated to allergies, shortness of breath, Client presents with at least one sign or symptom that may indicate coronavirus-19. Ebola Screen: Patient negative for fever greater than or equal to 101.5 degrees Fahrenheit, and additional compatible Ebola Virus Disease symptoms Patient denies exposure to infectious person. Patient denies travel to an Ebola-affected area in the 21 days before illness onset. No symptoms or risks identified at this time. Initial Sepsis Screen: Does the patient meet any 2 criteria? No. Patient's initial sepsis screen is negative. Does the patient have a suspected source of infection? No. Patient's initial sepsis screen is negative. Risk Assessment: Do you want to hurt yourself or someone else? Patient reports no desire to harm self or others. Onset of symptoms was September 01, 2024 at 15:00. Care prior to arrival: None. Activity prior to arrival: None. Mechanism of Injury: No Mechanism of Injury. 03:00 Method Of Arrival: Wheelchair vc1 03:00 Acuity: SHYANNE 3 vc1 Triage Assessment: 07:44 General: Appears in no apparent distress. comfortable, Behavior is calm, cooperative, bp appropriate for age. Respiratory: Reports shortness of breath Onset: The symptoms/episode began/occurred at an unknown time. the patient has mild shortness of breath. Historical: - Allergies: 03:00 Sulfa (Sulfonamide Antibiotics); vc1 - PMHx: 03:00 Atrial fibrillation; watchman procedure; THYROID CANCER; Hypertensive disorder; blood vc1 clots in right arm; - PSHx: 03:00 ablation 04/24/23; hysterectomy; Tonsillectomy; vc1 - Immunization history:: Client reports receiving the 2nd dose of the Covid vaccine, Flu vaccine is not up to date. - Infectious Disease History:: Denies. - Social history:: Smoking status: Patient denies any tobacco usage or history of. - Family history:: not pertinent. Screenin:23 [facility] ED Fall Risk Assessment (Adult) History of falling in the last 3 months, vc1 including since admission No falls in past 3 months (0 pts) Confusion or Disorientation No (0 pts) Intoxicated or Sedated No (0 pts) Impaired Gait No (0 pts) Mobility Assist Device Used No (0 pt) Altered Elimination No (0 pt) Score/Fall Risk Level 0 - 2 = Low Risk Oriented to surroundings, Maintained a safe environment, Educated pt \T\ family on fall prevention, incl call for assistance when getting out of bed. Abuse screen: Denies threats or abuse. Nutritional screening: No deficits noted. Tuberculosis screening: No symptoms or risk factors identified. Assessment: 04:18 General: Appears in no apparent distress. uncomfortable, Behavior is calm, cooperative, cp4 appropriate for age. Pain: Denies pain. Neuro: Level of Consciousness is awake, alert, obeys commands, Oriented to person, place, time, situation. Cardiovascular: Patient's skin is warm and dry. Rhythm is sinus rhythm. Respiratory: Airway is patent Respiratory effort is even, unlabored, Breath sounds are clear bilaterally. GI: No signs and/or symptoms were reported involving the gastrointestinal system. : No signs and/or symptoms were reported regarding the genitourinary system. EENT: No signs and/or symptoms were reported regarding the EENT system. Derm: No signs and/or symptoms reported regarding the dermatologic system. Musculoskeletal: No signs and/or symptoms reported regarding the musculoskeletal system. 05:43 Reassessment: Patient appears in no apparent distress at this time. Patient and/or cp4 family updated on plan of care and expected duration. Pain level reassessed. Patient is alert, oriented x 3, equal unlabored respirations, skin warm/dry/pink. 06:51 Reassessment: Patient appears in no apparent distress at this time. Patient and/or cp4 family updated on plan of care and expected duration. Pain level reassessed. Patient is alert, oriented x 3, equal unlabored respirations, skin warm/dry/pink. 07:42 Reassessment: DC HOME VIA WHEELCHAIR. bp Vital Signs: 03:00 BP 157 / 102; Pulse 84; Resp 20; Temp 98.7; Pulse Ox 88% on R/A; Weight 65.77 kg; vc1 Height 5 ft. 7 in. ; 03:51 BP 171 / 101; Pulse 83; Resp 18; Pulse Ox 99% on 2 lpm NC; vc1 05:43 BP 173 / 98; Pulse 73; Resp 18; Pulse Ox 98% 2 lpm ; cp4 06:50 BP 160 / 93; Pulse 83; Resp 18; Pulse Ox 99% on 2 lpm NC; cp4 03:00 Body Mass Index 22.71 (65.77 kg, 170.18 cm) vc1 Denia Coma Score: 03:33 Eye Response: spontaneous(4). Motor Response: obeys commands(6). Verbal Response: sp4 oriented(5). Total: 15. ED Course: 02:44 Patient arrived in ED. [email or web address] 02:47 Mason Almazan MD is Attending Physician. sp4 03:02 Oxygen administration via nasal cannula \T\ 2L/min. vc1 03:22 Triage completed. vc1 03:51 María Elena Skinner, LISETH is Primary Nurse. vc1 04:18 No provider procedures requiring assistance completed. Initial lab(s) drawn, by ED cp4 staff, sent to lab. Inserted saline lock: 20 gauge in right antecubital area, using aseptic technique. Blood collected. 04:18 Bed in low position. Call light in reach. Side rails up X 1. cp4 06:37 Chest Single View XRAY In Process Unspecified. EDMS 07:16 Felipe Forde MD is Referral Physician. sp4 07:43 IV discontinued, intact, bleeding controlled, No redness/swelling at site. Pressure bp dressing applied. 07:43 Arm band placed on. bp 07:44 Arm band placed on left wrist. bp 07:44 Provided Education on: NA. bp Administered Medications: 04:16 Drug: Albuterol Inhalation 2.5 mg Inhalation once Route: Inhalation; cp4 04:16 Drug: Dextromethorphan-Guaifenesin PO Liquid 10 mg-100 mg/5 mL 10 ml PO once Route: PO; cp4 07:24 Follow up: Response: No adverse reaction bp 04:16 Drug: Acetaminophen-Codeine PO (300 mg-30 mg) 2 tabs PO once; RASS on ADMIN: Combtv4, cp4 Very Agttd3, Agttd2, Rstlss1, AlertClm0, Drwsy-1, Lt Sdtn-2, Mod Sdtn-3, Dp Sdtn-4, UnArsble-5 Route: PO; 07:28 Follow up: Response: No adverse reaction bp 04:16 Drug: NS 0.9% IV 500 ml IV at bolus once; to be given as a bolus over 30 minutes Route: cp4 IV; Rate: bolus; Site: right antecubital; 07:43 Follow up: IV Status: Completed infusion bp 04:16 Drug: Promethazine PO 25 mg PO once Route: PO; cp4 07:29 Follow up: Response: No adverse reaction bp 07:20 Drug: AZITHromycin PO 500 mg PO once Route: PO; bp 07:28 Follow up: Response: No adverse reaction bp Medication: 04:18 VIS not applicable for this client. cp4 Outcome: 07:18 Discharge ordered by MD. antony 07:43 Discharged to home via wheelchair, with family, bp 07:43 Condition: stable 07:43 Discharge instructions given to patient, family, Instructed on discharge instructions, follow up and referral plans. medication usage, Demonstrated understanding of instructions, follow-up care, medications, Prescriptions given X 2, 07:45 Patient left the ED. bp Signatures: Dispatcher [employer] EDMS Myles Aguillon RN RN bp Jesi Vanessa [email or web address] María Elena Skinner RN RN vc1 Mason Almazan MD MD sp4 Wendy Alan cp4 Corrections: (The following items were deleted from the chart) 03:52 03:51 BP 141 / 101; Pulse 83bpm; Resp 18bpm; Pulse Ox 99% 2 lpm Nasal Cannula; vc1 vc1
--- NOTE | 2024-09-02 08:41 | RAD REPORT ---
EXAMINATION: ONE VIEW CHEST XR CLINICAL INDICATION: COUGH TECHNIQUE: Frontal chest projection is submitted. Examination is limited by patient positioning and t echnique. COMPARISON: 07/18/2024 FINDINGS: Mild pulmonary edema suspected. The heart is moderately enlarged in size. No displaced fractures iden tified. Dual lead pacer device. IMPRESSION: Mild CHF likely present.
[2024-09-02 09:45] VITALS: TEMP 98.7
[2024-09-02 10:02] VITALS: BP 160/93; O2SAT 99
--- NOTE | 2024-09-02 14:11 | EKG ---
Test Date: 2024-09-02 Test Time: 03:32:42 Traffic Ii Manager: LAURIE MEASUREMENT RESULTS: Intervals: Rate: 89 [place]: QRSD: 140 QT: 428 QTc: 520 [place]: P: [place]: QRS: 263 T: 97 INTERPRETIVE STATEMENTS: Suspect arm lead reversal, interpretation assumes no reversal Atrial fibrillation Nonspecific intraventricular block Anterolateral infarct, age undetermined Abnormal ECG Compared to ECG 07/18/2024 13:36:09 Myocardial infarct finding now present Left bundle-branch block no longer present Electronically Signed On 09-02-24 14:10:17 PHARMACEUTICAL DEVELOPMENT TECHNICIAN by Dick Starkey
--- NOTE | 2024-09-03 10:19 | EKG ---
Test Date: 2024-09-02 Test Time: 03:33:33 Veterinary Poultry Inspector: LAURIE MEASUREMENT RESULTS: Intervals: Rate: 89 [place]: QRSD: 158 QT: 448 QTc: 545 [place]: P: [place]: QRS: 258 T: 96 INTERPRETIVE STATEMENTS: Suspect arm lead reversal, interpretation assumes no reversal Atrial fibrillation Nonspecific intraventricular block Lateral infarct, age undetermined Abnormal ECG Compared to ECG 09/02/2024 03:32:42 No significant changes Electronically Signed On 09-03-24 10:17:51 CMS EXPERT by Cristian Bang
== END 2024-09-02 07:45 | disposition home or self-care (01) ==
LOC: ER 02:42
DX: J06.9 Acute upper respiratory infection, unspecified (principal); I10 Essential (primary) hypertension; I48.91 Unspecified atrial fibrillation
CPT/HCPCS: 96361; 93005 ×2; 87040 ×2; 85025; 80048; 36415; 83735; 82550; 85610; 80076; 85730; 84484; 83690; 83880; 87804 ×2; 71045; 96360; 99285; Q0169; J7613; J7040